=== PATIENT | female | born 1940 | race Caucasian/White ===

== ENCOUNTER 2024-03-13 22:37 | Inpatient (IN) | payer OTHER, MEDICARE, SELFPAY ==
[2024-03-13 22:47] VITALS: PULSE 92; RESP 20; O2SAT 96; BMI 18.1
[2024-03-13 22:49] VITALS: BP 189/83; PULSE 99; RESP 18; TEMP 36.7; O2SAT 100
[2024-03-13 23:19] VITALS: BP 200/109; PULSE 104; RESP 16; O2SAT 96
[2024-03-13 23:30] VITALS: BP 195/112; PULSE 98; RESP 28; O2SAT 99
--- NOTE | 2024-03-13 23:48 | XR_ITS ---
Examination: AP chest single view Technique: AP portable upright chest single view Exam date and time: March 13, 2024 11:55 PM Indications: Onset shortness of breath today. Findings: Extensive bilateral lung opacity consistent with pneumonia Mild enlargement cardiac contour Prominent vascular congestion Moderate osteopenia Impression: Extensive bilateral pneumonia Suspicious for mild associated heart failure
[2024-03-14] VITALS (34 sets, daily range): BP systolic 159–197; BP diastolic 78–139; PULSE 75–101; RESP 18–38; TEMP 36.4–36.9; O2SAT 92–100; BMI 18.1
[2024-03-14 00:53] LABS: Basophils # (Auto) 0.1 Thou/mm3 (0.0-0.2); Basophils % (Auto) 1 % (0-2.5); Eosinophils # (Auto) 0.2 Thou/mm3 (0.0-0.5); Eosinophils % (Auto) 3 % (0-10); Hematocrit 29.9 % (36.0-46.0); Hemoglobin 9.5 g/dL (12.0-16.0); Immature Granulocytes % (Auto) 1 % (0-0); Immature Granulocytes Auto 0.06 Thou/mm3 (0.00-0.00); Lymphocytes # (Auto) 0.9 Thou/mm3 (1.0-4.8); Lymphocytes % (Auto) 11 % (10-50); Mean Corpuscular HGB Conc 31.8 g/dl (31.0-37.0); Mean Corpuscular Hemoglobin 23.6 pg (25.0-35.0); Mean Corpuscular Volume 74 fL (80-100); Monocytes # (Auto) 0.7 Thou/mm3 (0.0-0.8); Monocytes % (Auto) 8 % (0-12); Neutrophils # (Auto) 6.3 Thou/mm3 (1.8-7.7); Neutrophils % (Auto) 77 % (37-80); Nucleated Red Blood Cell % 0 /100 WBC (0); Platelet Count 422 Thou/mm3 (140-440); RDW Standard Deviation 44.6 fL (36.4-46.3); Red Blood Count 4.02 Miln/mm3 (4.00-5.20); White Blood Count 8.2 Thou/mm3 (3.6-11.0)
[2024-03-14 01:31] LABS: Albumin/Globulin Ratio 1.8 (1.2-2.2); Alkaline Phosphatase 81 U/L (46-116); Anion Gap 9 (7-16); Aspartate Amino Transferase 22 U/L (0-34); BUN/Creatinine Ratio 25 Ratio (12-20); Bilirubin,Total 0.4 mg/dL (0.3-1.2); Blood Urea Nitrogen 27 mg/dL (9-23); Carbon Dioxide 22.5 mMol/L (20.0-31.0); Chloride 106 mMol/L (98-107); Creatinine (Component) 1.1 mg/dL (0.6-1.3); Estimated Creatinine Clearance 26.6 mL/min (>60); Globulin 2.2 gm/dL (2.3-3.5); Glucose 134 mg/dL (74-106); Osmolality,Calculated 280 (275-295); Potassium 3.9 mMol/L (3.4-5.1); Sodium 137 mMol/L (136-145); Total Protein 6.2 gm/dL (5.7-8.2); eGFR 50 See Note
[2024-03-14 01:35] LABS: Alanine Aminotransferase 10 U/L (10-49)
--- NOTE | 2024-03-14 02:08 | EDNOTE_ITS ---
ED SOB =RME/HPI General Chief Complaint: Shortness of Breath/Dyspnea Stated Complaint: SOB Time Seen by Provider: 03/14/24 02:08 Arrival date/time: 03/13/24 22:37 RME / HPI RME / HPI Narrative: Dr. Ray's Main ED Evaluation: 83yo female with pmhx HTN BIBA from home presents to the ED for a chief complaint of shortness of breath x 1 day. Patient states she was trying to go to sleep tonight when she felt her shortness of b reath worsen and was concerned, so she called 911 to come in for evaluation. She reports an associated mild cough. She denies any chest pain, hemoptysis, sweating, fever, chills, abdominal pain, UTI symptoms, headache, dizziness or any other associated symptoms. Denies any tobacco or alcohol use. Patient states she is allergic to her 7 cats. Patient is not normally on oxygen at home. PCP: Dr. Francoise Campos Related Data Home Medications ?Medication ?Instructions ?Recorded ?Confirmed labetalol 200 mg tablet 200 mg PO BID 09/28/22 09/28/22 loratadine 10 mg tablet 10 mg PO DAILY 09/28/22 09/28/22 montelukast 10 mg tablet 10 mg PO DAILY 09/28/22 09/28/22 sertraline 100 mg tablet 100 mg PO DAILY 09/28/22 09/28/22 Allergies Allergy/AdvReac Type Severity Reaction Status Date / Time ciprofloxacin Allergy Severe NAUSEA/VOMI Verified 09/28/22 12:24 TING Sulfa (Sulfonamide Allergy Severe Rash Verified 09/28/22 12:24 Antibiotics) Review of Systems Review of Systems Systems Reviewed: All systems reviewed, normal except as documented Narrative Review of Systems: Gen: No fever, no chills, no weight loss EYES: No discharge, no visual changes, no pain HEENT: No ear pain, no congestion, no sore throat PULM: + shortness of breath, + cough, no congestion CV: No chest pain, no dyspnea on exertion, no palpitations GI: No nausea, no vomiting, no diarrhea, no pain, no constipation : No frequency, no urgency, no dysuria Musc/skel: No joint pain, no back pain Skin: No rash. Warm and dry. Psyc: No hallucinations, no depression Heme/Lymph: No easy bleeding or bruising tendencies Neuro: No weakness, no headache Past Medical History Past Medical History NEUROLOGIC: Positive Neurological Disorders; Negative Seizures CARDIAC: Positive Cardiac Disorders, Hypercholesterolemia and Hypertension; Negative Congestive Heart Failure RESPIRATORY: Negative Chronic Obstructive Pulmonary Disease (COPD) GASTROINTESTINAL: Positive Gastroesophageal Reflux Disease; Negative Gastrointestinal Disorders GENITOURINARY: Positive Genitourinary Disorders; Negative Renal Disease REPRODUCTIVE: Positive Previous Pregnancies MUSCULOSKELETAL: Positive Musculoskeletal Disorders and Rheumatoid Arthritis ENT: Positive Cataracts ENDOCRINE: Positive Endocrine Disorders and Hyperthyroidism; Negative Diabetes Mellitus Type 1 or Diabetes Mellitus Type 2 HEMATOLOGIC: Negative Blood Disorders PSYCHO/SOCIAL: Positive Psychiatric Problems, Depression and Anxiety OTHER HISTORY: Positive Chicken Pox; Negative Blood Transfusions, Anesthesia Reactions, Organ Transplant, MRSA, VRSA, Vancomycin-Resistant Enterococci or Cancer Family History FAMILY HISTORY: Negative Family Cardiac Disorders Surgical History SURGICAL: Positive Ear Surgery, Nose Surgery, Abdominal Surgery, Hysterectomy and Section; Negative Cardiac Surgery, Endocrine Surgery, Nephrectomy, Joint Replacement, Neurologic Surgery or Organ Transplant Social History SMOKING STATUS: Never smoker SECOND HAND EXPOSURE: No SUBSTANCE USE: does not use ED Exam Narrative Physical exam: GEN. APPEARANCE: Patient is alert awake oriented x3 under no distress, laying down comfortably at 30-45?; does not look ill/ toxic. Patient has good eye contact. Patient is cooperative. VITALS: All vitals were reviewed and the pulse ox is 97% on 2L, which is normal according to my interpretation. HEENT: Normocephalic, atraumatic and nontender. Pupils are equal and reactive to light and accommodation. Oral mucosa are moist. NECK: Supple, nontender, no meningismus, no JVD. CHEST: Nontender on palpation, no deformity and no crepitus. CARDIOVASCULAR: Heart regular rhythm no murmur or gallop rub or extra beats; tachycardic. LUNGS: There's significant crackles bilaterally, L>R. There's some laboring, but no tachypnea or wheezing. No intercostal subcostal retraction. ABDOMEN: Soft, flat, nontender at all, no guarding or rebound tenderness. There are no abnormal masses palpated. No pulsatile masses or bruits. Active and normal bowel sounds. GENITALIA: Not examined. RECTAL EXAM: Not done. EXTREMITIES: Nontender. No edema. No cyanosis. Patient has a significant deformity of her left hand due to RA. Patient is able to move all 4 extremities well. SKIN: Warm and dry, no rashes noted. MUSCULOSKELETAL: No lumbar or midline bony tenderness. There is no CVA tenderness. No paraspinal muscle spasm or tenderness. NEURO: Cranial nerves II through XII grossly intact. There is no focalization. GCS is 15. PSYCHIATRIC: Patient is in normal mood and affect, cooperative. LYMPHATICS: No major lymphadenopathy noted. Course Course Course Narrative: CXR is ordered for determining the etiology of shortness of breath. 0210: Sepsis alert initiated. Orders made at this time are congruent with ED Adult Sepsis Order List. Re-evaluation is to be completed. NS IVF ordered. Quality Measures Possible source: pulmonary Blood cultures ordered: completed in ED Antibiotic ordered: Yes Pertinent labs: 03/14/24 02:40 Lactic Acid 1.2 mMol/L (0.4-2.0) Procalcitonin 0.14 ng/ml (0.0-0.49) sepsis Orders Category Date Time Status Bedside COVID-19 Antigen Test NOW Care 03/14/24 00:08 Active Bedside Influenza A&B Antigen Test NOW Care 03/14/24 00:09 Completed COVID-19 Screening Questionnaire NOW Care 03/14/24 02:40 Active Decision to Admit X1 Care 03/14/24 02:40 Completed EKG (ED ONLY) *Do not use* NOW Care 03/14/24 00:09 Completed EKG (ED Only) Stat Exams 03/14/24 00:09 Ordered XR chest 1V portable Stat Exams 03/13/24 23:48 Completed BNP [B-Type Natriuretic Peptide] Stat Lab 03/14/24 02:40 Completed Basic Metabolic Panel Stat Lab 03/14/24 02:40 Completed Blood Culture (Lab) Stat Lab 03/14/24 02:40 Received CBC Stat Lab 03/14/24 00:37 Completed Comprehensive Metabolic Panel Stat Lab 03/14/24 00:37 Completed Lactate (Lactic Acid) Stat Lab 03/14/24 02:40 Completed Lipid Panel Stat Lab 03/14/24 02:40 Completed Magnesium Stat Lab 03/14/24 02:40 Completed Phosphorous Stat Lab 03/14/24 02:40 Completed Procalcitonin Stat Lab 03/14/24 02:40 Completed Troponin I Stat Lab 03/14/24 02:40 Completed UA, C/S IF [Urinalysis, C/S if Indicated] Stat Lab 03/14/24 06:33 Completed Urine Culture Stat Lab 03/14/24 06:33 Received Azithromycin Inj [Zithromax Inj] 500 mg Med 03/14/24 02:13 Discontinued Sodium Chloride 0.9% 250 ml [Ns] 250 ml IV X1 Sodium Chloride 0.9% 1000 ml [Ns] 1,000 ml Med 03/14/24 02:13 Discontinued IV 999 mls/hr cefTRIAXone/D5w 1gm IV premix [Rocephin/D5w 1gm IV Med 03/14/24 02:15 Discontinued premix] 50 ml IV X1 Vital Signs Vital signs: Vital Signs Temperature 98.0 F 03/13/24 22:49 Pulse Rate 99 03/13/24 22:49 Respiratory Rate 18 03/13/24 22:49 Blood Pressure 189/83 H 03/13/24 22:49 Pulse Oximetry (%) 100 03/13/24 22:49 Oxygen Delivery Method Nasal Cannula 03/13/24 22:49 Oxygen Flow Rate 6 03/13/24 22:49 Procedures -ED EKG Interpretation #1: Date of EK03/14/24 Rate: 95 Interpretation: Interpreted by me EKG Impression: Normal sinus rhythm, [place] deviation, PACs, No acute ST-T changes and No ischemic changes Additional EKG comment: LVH with strain. Borderline left axis deviation. Poor R wave progression in anterior leads with possible old anterior wall [place]. Shortness of Breath / Dyspnea MDM Narrative MDM Narrative:: Scribe Attestation: 03/14/24 - Linda Swain am scribing for and in the presence of Dr. Ray. Patient was brought in by ambulance from home due to shortness of breath and they found that her pulse ox was 80% on room air at the scene. Patient states that she lives alone with 7 cats and she has been short of breath for about 24 to 36 hours. She denies any chest pain. She does not have dry cough but no hemoptysis. She denies any sweating or fever or chills. She denies any abdominal pain or UTI symptoms. She denies any headache or dizziness or any fall or injuries or loss of consciousness. She has significant rheumatoid arthritis and also history of hypertension but no diabetes and she never had shortness of breath like this in the past. She denies any leg swelling or PND orthopnea. Looking at her old records, patient was here on 11/10/2023 but she was discharged home. Today, she has significant crackles in both bases especially on the left side with mild laboring but no tachypnea on oxygen nasal cannula. I added some lab work on her and gave her a liter of fluid which will be more than 20 cc/kg because she weighs only 43 and half kilograms. I ordered Rocephin and Zithromax both IV and we will give her a breathing treatment as well. Patient needs to be admitted to the hospital due to the intensity of her pneumonia and a chest x-ray as well as hypoxemia. I discussed this case with Dr. Lucero, PGY2, who will admit her to the hospital. Provider Notation: Although this document has been carefully reviewed, there may still be some phonetic and other typographical errors. These errors are purely grammatical due to imperfections in the software program and should not be construed in any way to compromise the substance of the patient's medical care during this visit. Patient data External records reviewed:: [facility] previous records (Per chart review, patient was seen here on 04/21/22 for anxiety.) Clinical information provided by:: patient Social determinants that could affect healthcare access:: none Patient has the following chronic illnesses:: HTN, HLD, GERD, hyperthyroidism How is presenting disease/condition affected by chronic disease/condition?: uneffected by Evaluation data The following diagnostics were reviewed and interpreted by me:: lab results, radiology exam(s) and EKG tracing(s) Lab and/or radiology exams considered but not ordered:: none Interpretation Summary: See above under MDM narrative. ---- [place] [facility] Report Signed Patient: MAJOR HART [facility] Record#: [id number] Birthdate: 1940 Age/Sex: 83 / F Location: [facility] Attending Dr: Ordering Physician: Mu Ray MD Date of Service: 03/13/24 Procedure(s): XR chest 1V portable Accession Number(s): [id number] cc: Mu Ray MD; Carlos Leung MD~ Examination: AP chest single view Technique: AP portable upright chest single view Exam date and time: March 13, 2024 11:55 PM Indications: Onset shortness of breath today. Findings: Extensive bilateral lung opacity consistent with pneumonia Mild enlargement cardiac contour Prominent vascular congestion Moderate osteopenia Impression: Extensive bilateral pneumonia Suspicious for mild associated heart failure Dictated By: Carlos Leung MD Signed By: <Electronically signed by Carlos Leung MD in OV> 03/14/24 0001 Medications / Prescriptions Medications or Prescriptions considered but not ordered:: none Medication administrations:: Medication Administration History Acetaminophen (Acetaminophen 325 Mg Tablet) 650 mg PO Q6H PRN PRN Reason: PAIN OR FEVER > 101 Stop: 04/13/24 02:59 Albuterol/Ipratropium (Albuterol/Ipratropium (Duoneb) Rt Rissa 3 Ml Nebu) 3 ml INH Q6HRRT EMPERATRIZ Stop: 04/13/24 18:14 Azithromycin (Azithromycin 250 Mg Tablet) 500 mg PO HS EMPERATRIZ Stop: 03/21/24 20:59 Furosemide (Furosemide Inj 10 Mg/Ml 4ml Vial) 40 mg IVP QDAY EMPERATRIZ Stop: 04/14/24 08:59 Heparin Sodium (Porcine) (Heparin Sod Inj 5000 Unit/Ml Vial) 5,000 unit SC Q12HR EMPERATRIZ Stop: 03/28/24 08:59 Last Admin: 03/14/24 08:32 Dose: 5,000 unit Documented By: SP Co-signed By: Hydralazine HCl (Hydralazine Inj 20 Mg/Ml Vial) 10 mg IV Q6HR PRN PRN Reason: SBP > 160 Stop: 04/13/24 11:28 Last Admin: 03/14/24 14:36 Dose: 10 mg Documented By: SELVIN Ceftriaxone Sodium/Dextrose (Rocephin/D5w 1gm Iv Premix) 50 mls @ 100 mls/hr IV HS EMPERATRIZ Stop: 03/21/24 20:59 Labetalol HCl (Labetalol 100 Mg Tablet) 100 mg PO BID EMPERATRIZ Stop: 04/13/24 04:39 Last Admin: 03/14/24 04:45 Dose: 100 mg Documented By: DIANNA Lisinopril (Lisinopril 2.5 Mg Tablet) 10 mg PO QDAY EMPERATRIZ Stop: 04/13/24 18:14 Ondansetron HCl (Ondansetron Inj 2 Mg/Ml Inj 2 Ml) 4 mg IV Q6H PRN; Protocol PRN Reason: NAUSEA OR VOMITING Stop: 04/13/24 02:59 Pantoprazole Sodium (Pantoprazole 40 Mg Tablet) 40 mg PO QDAY EMPERATRIZ Stop: 04/13/24 08:59 Last Admin: 03/14/24 08:32 Dose: 40 mg Documented By: SELVIN Sertraline HCl (Sertraline Hcl 25 Mg Tablet) 100 mg PO HS EMPERATRIZ Stop: 04/13/24 20:59 Discontinued Medications Albuterol/Ipratropium (Albuterol/Ipratropium (Duoneb) Rt Rissa 3 Ml Nebu) 3 ml INH Q6HRRT EMPERATRIZ Stop: 04/13/24 12:59 Albuterol/Ipratropium (Albuterol/Ipratropium (Duoneb) Rt Rissa 3 Ml Nebu) 3 ml INH Q6HRRT PRN PRN Reason: sob or wheeze Stop: 04/13/24 12:59 Last Admin: 03/14/24 09:41 Dose: 3 ml Documented By: MONI Azithromycin (Azithromycin 250 Mg Tablet) 250 mg PO HS EMPERATRIZ Stop: 03/21/24 20:59 Furosemide (Furosemide Inj 10 Mg/Ml 4ml Vial) 40 mg IVP X1 ONE Stop: 03/14/24 05:48 Last Admin: 03/14/24 06:14 Dose: 40 mg Documented By: DIANNA Sodium Chloride (Ns) 1,000 mls @ 999 mls/hr IV .Q1H1M ONE Stop: 03/14/24 03:13 Last Infusion: 03/14/24 04:28 Dose: Infused Documented By: Admin: 03/14/24 03:21 Dose: 999 mls/hr Documented By: DIANNA Ceftriaxone Sodium/Dextrose (Rocephin/D5w 1gm Iv Premix) 50 mls @ 100 mls/hr IV X1 ONE Stop: 03/14/24 02:44 Last Infusion: 03/14/24 04:07 Dose: Infused Documented By: Admin: 03/14/24 03:00 Dose: 100 mls/hr Documented By: DIANNA Azithromycin 500 mg/ Sodium (Chloride) 250 mls @ 250 mls/hr IV X1 ONE Stop: 03/14/24 03:12 Last Infusion: 03/14/24 04:27 Dose: Infused Documented By: Admin: 03/14/24 03:22 Dose: 250 mls/hr Documented By: DIANNA Lorazepam (Lorazepam 0.5 Mg Tablet) 1 mg PO X1 ONE Stop: 03/14/24 04:28 Last Admin: 03/14/24 04:30 Dose: 1 mg Documented By: DIANNA Sodium Chloride (Sodium Chloride Rt 10% 15 Ml Nebu) 5 ml INH X1 ONE Stop: 03/14/24 03:01 Last Admin: 03/14/24 04:10 Dose: 5 ml Documented By: FYS see above, if any Consultations Consultation(s) initiated? (list below): Yes Diagnosis Shortness of Breath Differential Diagnosis: congestive heart failure, community acquired pneumonia, pulmonary embolism and other (CAD, pneumothorax) Most likely diagnosis given after review of the tests above:: see below Admission Indicated Admission indicated?: indicated Admission Request Was there a request for admission?: Yes Admission Attestation Admission request attestation: Discussed case with [] from Hospitalist service regarding admission. Discussed patients ED course, exam findings, labs, and radiology results. The Hospitalist [agrees,declines] to accept the patient for admission. Disposition Plan Disposition Plan: Admit Discharge Plan Plan Patient Disposition: Admit Acute Care w/in Hospital Problem List Clinical Impression: Shortness of breath, Hypoxemia, Bilateral pneumonia
[2024-03-14 02:57] LABS: Lactate (Lactic Acid) 1.2 mMol/L (0.4-2.0)
[2024-03-14] MEDS: cefTRIAXone/D5w 1gm IV premix 50 ML IV ×2 (03:00→22:55)
--- NOTE | 2024-03-14 03:08 | ESHP_ITS ---
<Statement entered by Glen Torrez MD - 03/14/24 09:15> I was present for the essential components of the history, physical examination, diagnosis, and treatment plan with the resident. I have reviewed the documentation, discussed the case with the resident and agree with the patient's care as documented by the resident. High risk complex - 75 mins. Glen Torrez MD Documentation for date of: 03/14/24 HPI History of Present Illness History of present illness: Janae Garcia is an 83-year-old female with a past medical history of hypertension and depression who presents to the ED with shortness of breath. Patient states that she has had SOB for the last week but has gotten worse within the last few days. Denies fever, chills, sweats, N/V, or abdominal pain. She does endorse PND but no orthopnea or bilateral lower extremity edema. She follows keg raiser Dr. Hutchins in [place], but has not seen him in a while but does have an appointment sometime this month. To her knowledge, she has never been told that she has heart failure. Last echo was done in 2021 that showed EF 60% with mild LVH and moderate aortic regurgitation. ED course: BP 189/83 -> 159/104, RR 22, O2 98% on 3L NC COVID and flu negative, WBC wnl, procal wnl, lactate wnl, trop 0.1, BNP > 3,000 CXR showed extensive b/l opacities and significant vascular congestion In ED given ceftriaxone and azithromycin x1, 1 L NS bolus PMHx: hypertension, depression Medications: sertraline, alendronate, labetolol SHx: denies cigarette, alcohol, or illicit drug use Review of Systems Review of Systems Systems Reviewed: All systems reviewed, normal except as documented Exam Vital Signs Temp Pulse Resp BP Pulse Ox O2 Del Method O2 Flow Rate 98.0 F 101 H 30 H 176/78 H 97 Nasal Cannula 6 03/13/24 22:49 03/14/24 02:03 03/14/24 02:03 03/14/24 02:03 03/14/24 02:03 03/13/24 22:49 03/13/24 22:49 Narrative Exam General: AOx3, no acute distress, able to speak full sentences HEENT: NC/AT, mucous membranes moist, bilateral sclera anicteric Cardiovascular: regular rate and rhythm, S1/S2 present, no murmurs appreciated Pulmonary: crackles from mid to lower lung coffman bilaterally Abdominal: soft, non-tender, non-distended, no rebound/guarding, normal bowel sounds present Musculoskeletal: normal ROM, no peripheral edema Skin: warm and dry, intact, no rashes Neuro: CN II-XII intact, no focal deficits Results: Labs 03/14/24 02:40 03/14/24 02:40 Labs: Short CBC 03/14/24 Range/Units 00:37 WBC 8.2 (3.6-11.0) Thou/mm3 Hgb 9.5 L (12.0-16.0) g/dL Hct 29.9 L (36.0-46.0) % Plt Count 422 (140-440) Thou/mm3 BMP 03/14/24 00:37 Sodium 137 Potassium 3.9 Chloride 106 Carbon Dioxide 22.5 BUN 27 H Creatinine 1.1 Glucose 134 H Calcium 9.0 Liver Function 03/14/24 Range/Units 00:37 Total Bilirubin 0.4 (0.3-1.2) mg/dL AST 22 (0-34) U/L ALT 10 (10-49) U/L Alkaline Phosphatase 81 (46-116) U/L Albumin 4.0 (3.4-4.8) gm/dL Quality Measures Quality Measures sepsis Current suspected stage: sepsis Possible source: pulmonary Blood cultures ordered: yes Antibiotic ordered: Yes Advance care planning discussed with:: patient Medications Home Medications and Allergies Home Medications ?Medication ?Instructions ?Recorded ?Confirmed ?Type labetalol 200 mg tablet 200 mg PO BID 09/28/22 09/28/22 History loratadine 10 mg tablet 10 mg PO DAILY 09/28/22 09/28/22 History montelukast 10 mg tablet 10 mg PO DAILY 09/28/22 09/28/22 History sertraline 100 mg tablet 100 mg PO DAILY 09/28/22 09/28/22 History Allergies Allergy/AdvReac Type Severity Reaction Status Date / Time ciprofloxacin Allergy Severe NAUSEA/VOMI Verified 09/28/22 12:24 TING Sulfa (Sulfonamide Allergy Severe Rash Verified 09/28/22 12:24 Antibiotics) Visit Medications Acetaminophen (Acetaminophen 325 Mg Tablet) 650 mg PO Q6H PRN PRN Reason: PAIN OR FEVER > 101 Stop: 04/13/24 02:59 Heparin Sodium (Porcine) (Heparin Sod Inj 5000 Unit/Ml Vial) 5,000 unit SC Q12HR EMPERATRIZ Stop: 03/28/24 08:59 Sodium Chloride (Ns) 1,000 mls @ 999 mls/hr IV .Q1H1M ONE Stop: 03/14/24 03:13 Azithromycin 500 mg/ Sodium (Chloride) 250 mls @ 250 mls/hr IV X1 ONE Stop: 03/14/24 03:12 Ceftriaxone Sodium/Dextrose (Rocephin/D5w 1gm Iv Premix) 50 mls @ 100 mls/hr IV QDAY EMPERATRIZ Stop: 03/22/24 08:59 Azithromycin 250 mg/ Sodium (Chloride) 250 mls @ 250 mls/hr IV QDAY EMPERATRIZ Stop: 03/22/24 08:59 Ondansetron HCl (Ondansetron Inj 2 Mg/Ml Inj 2 Ml) 4 mg IV Q6H PRN; Protocol PRN Reason: NAUSEA OR VOMITING Stop: 04/13/24 02:59 Pantoprazole Sodium (Pantoprazole 40 Mg Tablet) 40 mg PO QDAY EMPERATRIZ Stop: 04/13/24 08:59 Discontinued Medications Ceftriaxone Sodium/Dextrose (Rocephin/D5w 1gm Iv Premix) 50 mls @ 100 mls/hr IV X1 ONE Stop: 03/14/24 02:44 Sodium Chloride (Sodium Chloride Rt 10% 15 Ml Nebu) 5 ml INH X1 ONE Stop: 03/14/24 03:01 Assessment & Plan Plan Janae Garcia is an 83-year-old female with a past medical history of hypertension and depression who presents to the ED with shortness of breath and admitted for AHRF secondary to new onset CHF vs PNA. #Acute hypoxic respiratory failure, secondary to # ? New onset CHF, versus #Sepsis, secondary to #Community acquired pneumonia #Elevated troponins #NSTEMI type II, demand ischemia Presents with shortness of breath for last few days. No fever, chills, sweats. Does report PND but no orthopnea or bilateral lower extremity swelling. SIRS 2/4: HR 99, RR 30. Source: PNA -> sepsis. No fever, leukocytosis, Pro-Seth WNL, lactate WNL. BMP 3280, troponin 0.1. CXR shows extensive bilateral lung opacities and prominent vascular congestion. Favor new onset CHF vs PNA vs concominant disease processes. ? Lasix 40 mg IV daily ? Follow-up echo ? Daily weights, strict I's and O's, fluid restriction (1.5 L/day) ? Ceftriaxone and azithromycin ? Follow-up blood culture and sputum culture #Hypertension ? Labetalol 100 mg p.o. twice daily Hospital management: Disposition: 2-3 hospital nights Fluids: deferred, possible CHF Diet: regular Lines: peripheral DVT prophylaxis: heparin SC BID GI prophylaxis: pantoprazole 40 mg PO BID CODE STATUS: full code ----- Plan discussed with attending physician Dr. Shan Longo MD PGY-1 Internal Medicine
[2024-03-14] MEDS: SODIUM CHLORIDE 0.9% 1000 ML 1,000 ML 999 ML IV (03:21)
[2024-03-14] MEDS: AZITHROMYCIN INJ 500 MG in SODIUM CHLORIDE 0.9% 250 ML 250 ML 250 MG IV (03:22)
[2024-03-14 03:26] LABS: B-Type Natriuretic Peptide > 3280 pg/mL (0-100)
[2024-03-14 03:32] LABS: Basophils % (Auto) 1 % (0-2.5); Eosinophils # (Auto) 0.2 Thou/mm3 (0.0-0.5); Eosinophils % (Auto) 2 % (0-10); Hematocrit 30.2 % (36.0-46.0); Hemoglobin 9.8 g/dL (12.0-16.0); Immature Granulocytes % (Auto) 1 % (0-0); Immature Granulocytes Auto 0.05 Thou/mm3 (0.00-0.00); Lymphocytes # (Auto) 1.2 Thou/mm3 (1.0-4.8); Lymphocytes % (Auto) 15 % (10-50); Mean Corpuscular HGB Conc 32.5 g/dl (31.0-37.0); Mean Corpuscular Hemoglobin 24.4 pg (25.0-35.0); Mean Corpuscular Volume 75 fL (80-100); Monocytes # (Auto) 0.6 Thou/mm3 (0.0-0.8); Monocytes % (Auto) 8 % (0-12); Neutrophils # (Auto) 5.9 Thou/mm3 (1.8-7.7); Neutrophils % (Auto) 74 % (37-80); Nucleated Red Blood Cell % 0 /100 WBC (0); Platelet Count 327 Thou/mm3 (140-440); RDW Standard Deviation 44.4 fL (36.4-46.3); Red Blood Count 4.02 Miln/mm3 (4.00-5.20)
[2024-03-14 04:00] LABS: Anion Gap 9 (7-16); BUN/Creatinine Ratio 24 Ratio (12-20); Blood Urea Nitrogen 26 mg/dL (9-23); Carbon Dioxide 22.2 mMol/L (20.0-31.0); Cardiac Risk Estimate 3.2 RATIO (3.7-5.6); Chloride 106 mMol/L (98-107); Cholesterol 136 mg/dL (132-200); Creatinine (Component) 1.1 mg/dL (0.6-1.3); Estimated Creatinine Clearance 26.6 mL/min (>60); Glucose 131 mg/dL (74-106); HDL Cholesterol 42 mg/dL (40-60); LDL Cholesterol,Calculated 69 mg/dL (0-130); Magnesium 1.8 mg/dL (1.6-2.6); Osmolality,Calculated 280 (275-295); Phosphorous 2.7 mg/dL (2.4-5.1); Potassium 3.9 mMol/L (3.4-5.1); Procalcitonin 0.14 ng/ml (0.0-0.49); Sodium 137 mMol/L (136-145); Triglycerides 127 mg/dL (30-150); eGFR 50 See Note
[2024-03-14] MEDS: SODIUM CHLORIDE RT 10% 15 ML NEBU 5 ML INH (04:10)
[2024-03-14] MEDS: LORazepam 0.5 MG TABLET 1 MG PO (04:30)
[2024-03-14] MEDS: LABETALOL 100 MG TABLET PO ×2 (04:45→22:30)
--- NOTE | 2024-03-14 05:33 | ECHO_ITS ---
Transthoracic Echo Report Ht (in): 61 Wt (lb): 96 Exam Location: [facility] Status: Inpatient Tanning Consultant: Tere Zaidi Indications: Procedure Performed: BP: 168 / 83 HR: 95 Rhythm: Tachycardia Technical Quality: Fair MEASUREMENTS (Male / Female) Normal Values 2D ECHO LV Diastolic Diameter PLAX 4.5 cm 4.2 - 5.9 / 3.9 - 5.3 cm LV Systolic Diameter PLAX 3.6 cm IVS Diastolic Thickness 1.0 cm 0.6 - 1.0 / 0.6 - 0.9 cm LVPW Diastolic Thickness 1.0 cm 0.6 - 1.0 / 0.6 - 0.9 cm LV Relative Wall Thickness 0.5 LVOT Diameter 1.9 cm LA Volume Index 46.7 cm?/m? 16 - 28 cm?/m? Ascending Aorta Diameter 2.8 cm M-MODE Aortic Root Diameter MM 2.3 cm LA Systolic Diameter MM 4.2 cm LA Ao Ratio MM 1.8 AV Cusp Separation MM 1.7 cm DOPPLER AV Peak Velocity 173.5 cm/s AV Peak Gradient 12.0 mmHg AV Mean Gradient 5.0 mmHg AV Velocity Time Integral 28.9 cm AI Peak Velocity 425.0 cm/s AI Peak Gradient 72.3 mmHg AI Pressure Half Time 354.0 ms LVOT Peak Velocity 99.8 cm/s LVOT Peak Gradient 4.0 mmHg LVOT Velocity Time Integral 16.0 cm LVOT Cardiac Index 3161.3 cm?/min?m? AV Area Cont Eq vti 1.6 cm? AV Area Cont Eq pk 1.6 cm? MV Peak Velocity 135.0 cm/s MV Peak Gradient 7.3 mmHg MV Mean Velocity 74.9 cm/s MV Mean Gradient 3.0 mmHg MV Area PHT 4.3 cm? MR Peak Velocity 449.5 cm/s MR Peak Gradient 80.8 mmHg Mitral E Point Velocity 121.0 cm/s Mitral A Point Velocity 105.0 cm/s Mitral E to A Ratio 1.2 LV E' Lateral Velocity 8.7 cm/s Mitral E to LV E' Lateral Ratio 13.9 LV E' Septal Velocity 5.2 cm/s Mitral E to LV E' Septal Ratio 23.2 TR Peak Velocity 324.3 cm/s TR Peak Gradient 42.1 mmHg FINDINGS Left Ventricle Normal left ventricular size. Mild LVH. Mild systolic dysfunction. Mild hypokinesis septal wall. The ejection fraction is visually estimated at 40-45 %. Right Ventricle The right ventricle is normal in size and systolic function. The estimated right ventricular systoli c pressure, 68mmHg. RAP 10. Left Atrium The left atrium is mildly dilated. Right Atrium The right atrium is severely dilated. Atrial Septum The interatrial septum appears normal with no evidence of a shunt. Aorta The aorta is normal by two-dimensional, color flow and Doppler interrogation. Mitral Valve The mitral valve is normal by two-dimensional, color flow and Doppler interrogation. There is modera te mitral valve regurgitation. Aortic Valve The aortic valve is trileaflet and normal by two-dimensional, color flow and Doppler interrogation. There is moderate aortic valve regurgitation. Tricuspid Valve The tricuspid valve is normal by two-dimensional, color flow and Doppler interrogation. There is mil d tricuspid valve regurgitation. Pulmonic Valve There is trace pulmonic valve regurgitation. Vessels The pulmonary artery appears normal. The inferior vena cava pulmonary and hepatic veins appear david l. Pericardium The pericardium is normal by two-dimensional imaging. There is no significant pericardial effusion. CONCLUSIONS Indication: CHF and Severe SOB Normal LV size. Mild systolic dysfunction. Mild hypokinesis basal to mid Anterior and anteroseptal w alls. Mild LVH. Grade I diastolic dysfunction. Estimated EF 40-45% Normal RV size. Normal RV function. Estimated RVSP 68mmHg. Moderate to severe PAH. RAP 10. Mild LA dilation. Severe RA dilation Moderate MR, AI. Mild TR. Trace PI. IVC dilated. Mian Best (Electronically Signed) Final Date: 15 March 2024 18:45
[2024-03-14] MEDS: FUROSEMIDE INJ 10 MG/ML 4ML VIAL 40 MG IVP ×2 (06:14→22:39)
--- NOTE | 2024-03-14 06:23 | PC.RT ---
pt is not able to cough up sputum even with induction. she stated she had none
[2024-03-14 06:43] LABS: Collection Type, Urine Clean Catch
[2024-03-14 07:01] LABS: Amorphous Crystals,Urine Present (Absent); Bacteria,Urine Rare; Bilirubin,Urine Negative (Negative); Blood,Urine Negative (Negative); Clarity,Urine Clear (Clear/Hazy); Color,Urine Lt-Yellow (Lt Yel-Yel); Glucose, Urine Negative (Negative); Hyaline Casts,Urine < 1 /hpf (0-1); Ketones,Urine Negative (Negative); Leukocyte Esterase,Urine Positive (Negative); Nitrite,Urine Negative (Negative); Protein,Urine Trace (Neg - Trace); RBC,Urine 24 /hpf (0-3); Specific Gravity,Urine 1.018 (1.001-1.035); Squamous Epithelial Cell,Urine < 1 /hpf (0-5); Urobilinogen,Urine Negative mg/dL (0.0-1.0); WBC,Urine 11 /hpf (0-5)
[2024-03-14 07:04] LABS: Culture Indicated,Urine Yes
[2024-03-14] MEDS: HEPARIN SOD INJ 5000 UNIT/ML VIAL SC ×2 (08:32→22:44)
[2024-03-14] MEDS: PANTOPRAZOLE 40 MG TABLET PO (08:32)
--- NOTE | 2024-03-14 08:51 | PC.NURSE ---
RESP 32-36/MIN PATIENT ENCOURAGED TO SLOW DOWN BREATHING. O2 AT 3L VIA NC SAT 96%. DR LUNDBERG CALLED AND INFORMED. OF RESP RATE. NO RESP TX ORDERED. STATED WOULD PUT IN AN ORDER.
[2024-03-14] MEDS: ALBUTEROL/IPRATROPIUM (Duoneb) RT SOL 3 ML NEBU INH ×2 (09:41→19:59)
--- NOTE | 2024-03-14 10:25 | PC.NURSE ---
1015 DR LUNDBERG CALLED. INFORMED PATIENT REMAINS TACHYPNEIC AND SOB. PATIENT IS GETTING VERY TIRED AND WEAK FORM GETTING UP TO COMMODE FREQUENTLY. REQUESTING BLANCHARD CATH FOR ENERGY PRESERVATION AND PATIENT SAFETY.
--- NOTE | 2024-03-14 13:00 | PC.NURSE ---
PATIENT HAS BEEN FOUND SEVERAL TIMES AT FOOT OF BED TRYING TO GET UP TO THE COMMODE. SHE IS EXHAUSTD DO TO GETTING UP MULTIPLE TIMES AND ALSO BECAUSE SHE IS TACHYNEIC. SHE GETS ENTANGLED IN MONITORING CORDS. SHE HAS BEEN TOLD SEVERAL TIMES TO STAY IN BED FOR HER OWN SAFETY. SHE IS NOT BEING COMPLIANT. MAY BE DUE TO POOR MEMORY ALTHOUGH SHE HAS EXPRESSED THAT SHE IS VERY INDEPENDENT. SHE HAS AGREED TO STAY IN BED PUT THEN IS FOUND AT THE FOOT OF THE BED TRYING TO GET UP. CHARGE NURSE NOTIFIED OF SAFETY ISSUE AND AVASURE REQUESTED.
[2024-03-14] MEDS: hydrALAZINE INJ 20 MG/ML VIAL 10 MG IV (14:36)
--- NOTE | 2024-03-14 14:50 | ESPR_ITS ---
<Statement entered by Uriel Ortiz MD - 03/15/24 16:25> Senior Resident Attestation: I supervised/discussed management plan with resident physician Dr. Marks, and was involved in the care of this patient. I personally saw and examined the patient and discussed the assessment and plan with the entire medicine team, including my attending. I agree with the assessment and plan as documented. Patient's care was discussed with attending physician, Dr. Balwinder Ortiz MD PGY-3 Documentation for date of: 03/14/24 Subjective Subjective Interval history: Patient seen at bedside. She is an 83-year-old female with a past medical history of hypertension and depression who presented to the ED on 03/14/2024 with shortness of breath and PND gotten worse within the last few days. The patient reports that she has a new appointment to follow-up with a bar gauger and lubricator tender in [place] but is unable to explain or divulge the reason why she is in the bar gauger and lubricator tender. To her knowledge, she has never had any heart diseases or heart failure. In the ED, the patient was noted to be hypotensive and hypoxic, saturating 98% on 3 L via nasal cannula. COVID and flu serologies were negative and CBC was otherwise unremarkable, Trope was seen to be elevated at 0.1 and BNP greater than 3000. Chest x-ray showed extensive bilateral opacities and significant vascular congestion and the patient was admitted for management of acute hypoxic respiratory failure secondary to ?New onset CHF and sepsis secondary to community-acquired pneumonia Exam Vital Signs Temp Pulse Resp BP Pulse Ox O2 Del Method O2 Flow Rate 98.3 F 90 29 H 179/106 H 97 Nasal Cannula 3 03/14/24 14:23 03/14/24 14:36 03/14/24 14:23 03/14/24 14:36 03/14/24 14:23 03/14/24 14:23 03/14/24 14:23 Narrative Exam GENERAL: AAOX3 NEURO: SEALER OPERATOR grossly intact, moves extremities x4 HEENT: Dry mucosa. Eyes open, symmetrical, & clear, nasal cannula in-situ CARDIO: No chest pain on palpation. Heart RRR, no obvious murmurs PULM: No noted coughing, tachypneic. Mild crackles bilaterally, saturating 96% on 3L GI: Abdomen soft, nondistended, no pain on palpation. BSx4 URO/CORDWOOD CUTTER:: No further abnormalities noted. SKIN/MSK/EXT: No wounds/rashes/edema/amputations, no pain on palpation. Pedal pulses present B/L Objective Labs 03/14/24 02:40 03/14/24 02:40 Labs: Laboratory Results - last 24 hr 03/14/24 03/14/24 03/14/24 00:37 02:40 06:33 WBC 8.2 8.0 RBC 4.02 4.02 Hgb 9.5 L 9.8 L Hct 29.9 L 30.2 L MCV 74 L 75 L MCH 23.6 L 24.4 L MCHC 31.8 32.5 RDW Std Deviation 44.6 44.4 Plt Count 422 327 D Neut % (Auto) 77 74 Lymph % (Auto) 11 15 Reynolds % (Auto) 8 8 Eos % (Auto) 3 2 Baso % (Auto) 1 1 Neut # (Auto) 6.3 5.9 Lymph # (Auto) 0.9 L 1.2 Reynolds # (Auto) 0.7 0.6 Eos # (Auto) 0.2 0.2 Baso # (Auto) 0.1 0.0 Immature Gran # (Auto) 0.06 H 0.05 H Absolute Nucleated RBC 0.00 0.00 Immature Gran % 1 H 1 H Nucleated RBC % 0 0 Sodium 137 137 Potassium 3.9 3.9 Chloride 106 106 Carbon Dioxide 22.5 22.2 Anion Gap 9 9 BUN 27 H 26 H Creatinine 1.1 1.1 Estim Creat Clear Calc 26.6 L 26.6 L eGFR 50 L 50 L BUN/Creatinine Ratio 25 H 24 H Glucose 134 H 131 H Calculated Osmolality 280 280 Lactic Acid 1.2 Calcium 9.0 9.0 Corrected Calcium 9.0 Phosphorus 2.7 Magnesium 1.8 Total Bilirubin 0.4 AST 22 ALT 10 Alkaline Phosphatase 81 Troponin I 0.100 H* B-Natriuretic Peptide > 3280 H* Total Protein 6.2 Albumin 4.0 Globulin 2.2 L Albumin/Globulin Ratio 1.8 Triglycerides 127 Cholesterol 136 LDL Cholesterol, Calc 69 HDL Cholesterol 42 Cholesterol/HDL Ratio 3.2 L Procalcitonin 0.14 Ur Collection Type Clean Catch Urine Color Lt-Yellow Urine Clarity Clear Urine pH 6.0 Ur Specific [place] 1.018 Urine Protein Trace Urine Glucose (UA) Negative Urine Ketones Negative Urine Blood Negative Urine Nitrite Negative Urine Bilirubin Negative Urine Urobilinogen (Auto) Negative Ur Leukocyte Esterase Positive Urine RBC 24 H Urine WBC 11 H Ur Squamous Epith Cells < 1 Amorphous Crystals Present A Urine Bacteria Rare Hyaline Casts < 1 Ur Culture Indicated? Yes 03/14/24 12:19 WBC RBC Hgb Hct MCV MCH MCHC RDW Std Deviation Plt Count Neut % (Auto) Lymph % (Auto) Reynolds % (Auto) Eos % (Auto) Baso % (Auto) Neut # (Auto) Lymph # (Auto) Reynolds # (Auto) Eos # (Auto) Baso # (Auto) Immature Gran # (Auto) Absolute Nucleated RBC Immature Gran % Nucleated RBC % Sodium Potassium Chloride Carbon Dioxide Anion Gap BUN Creatinine Estim Creat Clear Calc eGFR BUN/Creatinine Ratio Glucose Calculated Osmolality Lactic Acid Calcium Corrected Calcium Phosphorus Magnesium Total Bilirubin AST ALT Alkaline Phosphatase Troponin I 0.120 H* B-Natriuretic Peptide Total Protein Albumin Globulin Albumin/Globulin Ratio Triglycerides Cholesterol LDL Cholesterol, Calc HDL Cholesterol Cholesterol/HDL Ratio Procalcitonin Ur Collection Type Urine Color Urine Clarity Urine pH Ur Specific [place] Urine Protein Urine Glucose (UA) Urine Ketones Urine Blood Urine Nitrite Urine Bilirubin Urine Urobilinogen (Auto) Ur Leukocyte Esterase Urine RBC Urine WBC Ur Squamous Epith Cells Amorphous Crystals Urine Bacteria Hyaline Casts Ur Culture Indicated? Quality Measures Quality Measures sepsis Current suspected stage: sepsis Possible source: pulmonary Blood cultures ordered: yes Antibiotic ordered: Yes Advance care planning discussed with:: patient Assessment & Plan Assessment Current Active Medications: Generic Name Dose Route Start Last Admin Trade Name Freq PRN Reason Stop Dose Admin Acetaminophen 650 mg 03/14/24 03:00 Acetaminophen 325 Mg Tablet PO 04/13/24 02:59 Q6H PRN PAIN OR FEVER > 101 Albuterol/Ipratropium 3 ml 03/14/24 09:35 03/14/24 09:41 Albuterol/Ipratropium (Duoneb) Rt Rissa 3 Ml Nebu INH 04/13/24 12:59 3 ml Q6HRRT PRN Administration sob or wheeze Azithromycin 500 mg 03/14/24 21:00 Azithromycin 250 Mg Tablet PO 03/21/24 20:59 HS EMPERATRIZ Furosemide 40 mg 03/15/24 09:00 Furosemide Inj 10 Mg/Ml 4ml Vial IVP 04/14/24 08:59 QDAY EMPERATRIZ Heparin Sodium (Porcine) 5,000 unit 03/14/24 09:00 03/14/24 08:32 Heparin Sod Inj 5000 Unit/Ml Vial SC 03/28/24 08:59 5,000 unit Q12HR EMPERATRIZ Administration Hydralazine HCl 10 mg 03/14/24 11:29 03/14/24 14:36 Hydralazine Inj 20 Mg/Ml Vial IV 04/13/24 11:28 10 mg Q6HR PRN Administration SBP > 160 Ceftriaxone Sodium/Dextrose 50 mls @ 100 mls/hr 03/14/24 21:00 Rocephin/D5w 1gm Iv Premix IV 03/21/24 20:59 HS EMPERATRIZ Labetalol HCl 100 mg 03/14/24 04:40 03/14/24 04:45 Labetalol 100 Mg Tablet PO 04/13/24 04:39 100 mg BID EMPERATRIZ Administration Ondansetron HCl 4 mg 03/14/24 03:00 Ondansetron Inj 2 Mg/Ml Inj 2 Ml IV 04/13/24 02:59 Q6H PRN NAUSEA OR VOMITING Protocol Pantoprazole Sodium 40 mg 03/14/24 09:00 03/14/24 08:32 Pantoprazole 40 Mg Tablet PO 04/13/24 08:59 40 mg QDAY EMPERATRIZ Administration Plan Summary: She is an 83-year-old female with a past medical history of hypertension and depression who presented to the ED on 03/14/2024 with shortness of breath and PND gotten worse within the last few days. The patient was admitted for management of acute hypoxic respiratory failure secondary to ?New onset CHF and sepsis secondary to community-acquired pneumonia #Acute hypoxic respiratory failure #?New onset CHF #Sepsis secondary community-acquired pneumonia She is an 83-year-old female with a past medical history of hypertension and depression who presented to the ED on 03/14/2024 with shortness of breath and PND gotten worse within the last few days. The patient reports that she has a new appointment to follow-up with a bar gauger and lubricator tender in [place] but is unable to explain or divulge the reason why she is in the bar gauger and lubricator tender. To her knowledge, she has never had any heart diseases or heart failure. In the ED, the patient was noted to be hypotensive and hypoxic, saturating 98% on 3 L via nasal cannula. COVID and flu serologies were negative and CBC was otherwise unremarkable, Trope was seen to be elevated at 0.1 and BNP greater than 3000. Chest x-ray showed extensive bilateral opacities and significant vascular congestion and the patient was admitted for management of acute hypoxic respiratory failure secondary to ?New onset CHF and sepsis secondary to community-acquired pneumonia. Plan: -Continue IV ceftriaxone and azithromycin -Continue IV Lasix 40 mg daily -Strict I&O's -Pending blood and sputum cultures -Pending echo -Cardiology consulted, appreciate recommendations #History of hypertension The patient at home is on labetalol 100 mg twice daily -Will restart home meds #History of depression The patient is on sertraline 100 mg daily -Restart home meds Health maintenance: Dispo: MedTele Diet: Cardiac GI: Pantoprazole DVT: SC Heparin Martinez: None Lines: Peripheral Med Rec: Pending, f/u PT: Code:Full Case was discussed with senior resident Dr Ortiz PGY-3 and attending physician, Dr Mik Marks MD PGY-1 Attending Provider Attestation/Addendum I reviewed labs, imaging, EKG, home medications and prior available records. Face to face evaluation was performed by me. I have personally examined the patient and discussed assessment and plan with the IM team. I reviewed the resident note and agree with the plan with exceptions as below. Acute hypoxic respiratory failure: In the setting of pneumonia versus new onset CHF. She is on 2 L nasal cannula. Management of the underlying conditions as below. Possible new onset CHF: Started IV diuresis. Ordered echocardiogram. Consulted cardiology. Bilateral pneumonia: Started the patient on ceftriaxone/azithromycin. Continue oxygen and wean off as tolerated. Elevated troponin: Likely demand ischemia in the setting of CHF versus pneumonia versus hypoxia. Continue to trend troponin. Continue telemetry.
--- NOTE | 2024-03-14 16:46 | PC.NURSE ---
pt arrived to or floor
--- NOTE | 2024-03-14 17:18 | PD.RESCONSUL ---
HPI Data of Consult Patient: new to practice Consult date: 03/14/24 Requesting Physician: Glen Torrez MD Admitting Provider: Glen Torrez MD Attending Provider: Glen Torrez MD Primary Care Provider: Jabier Campos MD Consult Narrative Reason for consult: SOB, Elevated Troponin and BNP History of present illness: HISTORY OF PRESENT ILLNESS : Patient is an 83-year-old female with a past medical history significant for essential hypertension, hyperlipidemia, TIA [2021], depression and GERD s/p Benjamin fundoplication with hiatal hernia repair [2017]. Follows up with PCP Dr Campos. Patient presented to the ED with a chief complaint of shortness of breath. Patient states that the shortness of breath started a couple nights ago and she had difficulty laying down to sleep but it acutely worsened last night. Endorses 1 pillow orthopnea but denies PND and lower extremity edema. She also experiences palpitations intermittently which can occur either at rest or on activity and spontaneously resolve on its own. Currently patient is not severe SOB on supplemental O2 and cannot complete sentences. Patient denies any chest pain/pressure. Also denies any presyncope/syncope and leg cramps. Patient also denies any cough, fever, chills, sick contacts and recent travel. Of note patient endorses close to 30 pounds weight loss over the last 2 years. Patient does not usually follow-up with her control chemist Last echocardiogram completed in [address] Brock Strickland findings include: Normal left ventricular size with mild LVH. LVEF 60%. normal cardiac chamber size mitral valve thickening with trace regurgitation moderate aortic valve regurgitation ED course: BP 189/83 -> 159/104, RR 22, O2 98% on 3L NC COVID and flu negative, WBC wnl, procal wnl, lactate wnl, trop 0.1, BNP > 3,000 CXR showed increased vascular markings bilaterally with flash pulmonary edema. EKG showed sinus rhythm, rate 95, LVH. In ED given ceftriaxone and azithromycin x1, 1 L NS bolus Patient was admitted for acute respiratory failure with hypoxia and cardiology was consulted to assess for possible new onset CHF. Medication list: ? Sertraline 100 Mg p.o. daily ? Cyclobenzaprine 5 Mg p.o. daily ? Alendronate 70 Mg p.o. weekly ? Montelukast 10 Mg p.o. daily ? Labetalol 100 mg p.o. twice daily cc:: cc: Glen Torrez MD Review of Systems Review of Systems Narrative Review of Systems: GENERAL: Denies fever/chills or diaphoresis. HEENT: Denies headaches or visual changes. Denies discharge. Neuro: Denies unusual weakness or difficulty speaking. CARDIO: as above PULM: as above GI: Denies abdominal pain, N/V/C/D. Reports having BMs. URO: Denies buring/itching/pain/urinary changes. MSK/EXT/SKIN: Denies joint/skeletal/muschle pain, issues/changes in upper or lower extremities, itchiness, or superficial pain. PSYCH: Cooperative The rest of the review of systems is otherwise negative. Past Medical History Past Medical History Comments [facility] COMMENT: Past medical history: ? Essential hypertension ? Hyperlipidemia ? TIA [2021] ? Depression ? GERD Past surgical history: ? 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 Previously ambulated independently and carried out all ADLs. She usually exercises on her treadmill at home a couple times a week Family History: ? Mother from an [place] at age 68 ? Brother at age 57 from an [place] Exam Vital Signs Temp Pulse Resp BP Pulse Ox O2 Del Method O2 Flow Rate 98.3 F 86 29 H 176/87 H 97 Nasal Cannula 3 03/14/24 16:00 03/14/24 16:00 03/14/24 16:00 03/14/24 16:00 03/14/24 16:00 03/14/24 16:00 03/14/24 16:00 Narrative Exam Constitutional Alert, oriented x 3 and in moderate distress. Elderly Female on O2 via NC, cannot complete sentences HEENT Vision grossly intact. Patent nares. Trachea midline Respiratory Wasted on inspection poor inspiratory effort, decreased AE in all lung coffman with scattered crackles in lower zones Cardiovascular S1 and S2 audible, RRR. 3/6 diastolic murmur at left lower sternal border Abdominal Soft and non tender to palpation in all quadrants. BS + Genitourinary No bladder tenderness, no flank pain. Normal to palpation Musculoskeletal Extremities tone within normal limits. No LE edema. Neurological CN II - XII grossly intact. Extremity motor and sensation grossly intact. Skin Warm, dry and intact. No apparent lesions. Psychiatric Cooperative Results Labs 03/14/24 02:40 03/14/24 02:40 Labs: Short CBC 03/14/24 03/14/24 Range/Units 00:37 02:40 WBC 8.2 8.0 (3.6-11.0) Thou/mm3 Hgb 9.5 L 9.8 L (12.0-16.0) g/dL Hct 29.9 L 30.2 L (36.0-46.0) % Plt Count 422 327 D (140-440) Thou/mm3 BMP 03/14/24 03/14/24 00:37 02:40 Sodium 137 137 Potassium 3.9 3.9 Chloride 106 106 Carbon Dioxide 22.5 22.2 BUN 27 H 26 H Creatinine 1.1 1.1 Glucose 134 H 131 H Calcium 9.0 9.0 Cardiac Enzymes 03/14/24 03/14/24 Range/Units 02:40 12:19 Troponin I 0.100 H* 0.120 H* (0.0-0.045) ng/mL Liver Function 03/14/24 Range/Units 00:37 Total Bilirubin 0.4 (0.3-1.2) mg/dL AST 22 (0-34) U/L ALT 10 (10-49) U/L Alkaline Phosphatase 81 (46-116) U/L Albumin 4.0 (3.4-4.8) gm/dL Urine 03/14/24 Range/Units 06:33 Urine Color Lt-Yellow (Lt Yel-Yel) Urine Clarity Clear (Clear/Hazy) Urine pH 6.0 (5.0-7.0) Ur Specific [place] 1.018 (1.001-1.035) Urine Protein Trace (Neg - Trace) Urine Glucose (UA) Negative (Negative) Quality Measures Quality Measures sepsis Current suspected stage: ruled out Possible source: pulmonary Blood cultures ordered: yes Antibiotic ordered: Yes Advance care planning discussed with:: patient Medications Home Medications and Allergies Home Medications ?Medication ?Instructions ?Recorded ?Confirmed ?Type labetalol 200 mg tablet 200 mg PO BID 09/28/22 09/28/22 History loratadine 10 mg tablet 10 mg PO DAILY 09/28/22 09/28/22 History montelukast 10 mg tablet 10 mg PO DAILY 09/28/22 09/28/22 History sertraline 100 mg tablet 100 mg PO DAILY 09/28/22 09/28/22 History Allergies Allergy/AdvReac Type Severity Reaction Status Date / Time ciprofloxacin Allergy Severe NAUSEA/VOMI Verified 09/28/22 12:24 TING Sulfa (Sulfonamide Allergy Severe Rash Verified 09/28/22 12:24 Antibiotics) Visit Medications Acetaminophen (Acetaminophen 325 Mg Tablet) 650 mg PO Q6H PRN PRN Reason: PAIN OR FEVER > 101 Stop: 04/13/24 02:59 Albuterol/Ipratropium (Albuterol/Ipratropium (Duoneb) Rt Rissa 3 Ml Nebu) 3 ml INH Q6HRRT PRN PRN Reason: sob or wheeze Stop: 04/13/24 12:59 Last Admin: 03/14/24 09:41 Dose: 3 ml Azithromycin (Azithromycin 250 Mg Tablet) 500 mg PO HS EMPERATRIZ Stop: 03/21/24 20:59 Furosemide (Furosemide Inj 10 Mg/Ml 4ml Vial) 40 mg IVP QDAY EMPERATRIZ Stop: 04/14/24 08:59 Heparin Sodium (Porcine) (Heparin Sod Inj 5000 Unit/Ml Vial) 5,000 unit SC Q12HR EMPERATRIZ Stop: 03/28/24 08:59 Last Admin: 03/14/24 08:32 Dose: 5,000 unit Hydralazine HCl (Hydralazine Inj 20 Mg/Ml Vial) 10 mg IV Q6HR PRN PRN Reason: SBP > 160 Stop: 04/13/24 11:28 Last Admin: 03/14/24 14:36 Dose: 10 mg Ceftriaxone Sodium/Dextrose (Rocephin/D5w 1gm Iv Premix) 50 mls @ 100 mls/hr IV HS EMPERATRIZ Stop: 03/21/24 20:59 Labetalol HCl (Labetalol 100 Mg Tablet) 100 mg PO BID EMPERATRIZ Stop: 04/13/24 04:39 Last Admin: 03/14/24 04:45 Dose: 100 mg Ondansetron HCl (Ondansetron Inj 2 Mg/Ml Inj 2 Ml) 4 mg IV Q6H PRN; Protocol PRN Reason: NAUSEA OR VOMITING Stop: 04/13/24 02:59 Pantoprazole Sodium (Pantoprazole 40 Mg Tablet) 40 mg PO QDAY EMPERATRIZ Stop: 04/13/24 08:59 Last Admin: 03/14/24 08:32 Dose: 40 mg Sertraline HCl (Sertraline Hcl 25 Mg Tablet) 100 mg PO HS EMPERATRIZ Stop: 04/13/24 20:59 Discontinued Medications Albuterol/Ipratropium (Albuterol/Ipratropium (Duoneb) Rt Rissa 3 Ml Nebu) 3 ml INH Q6HRRT EMPERATRIZ Stop: 04/13/24 12:59 Azithromycin (Azithromycin 250 Mg Tablet) 250 mg PO HS EMPERATRIZ Stop: 03/21/24 20:59 Furosemide (Furosemide Inj 10 Mg/Ml 4ml Vial) 40 mg IVP X1 ONE Stop: 03/14/24 05:48 Last Admin: 03/14/24 06:14 Dose: 40 mg Sodium Chloride (Ns) 1,000 mls @ 999 mls/hr IV .Q1H1M ONE Stop: 03/14/24 03:13 Last Infusion: 03/14/24 04:28 Dose: Infused Ceftriaxone Sodium/Dextrose (Rocephin/D5w 1gm Iv Premix) 50 mls @ 100 mls/hr IV X1 ONE Stop: 03/14/24 02:44 Last Infusion: 03/14/24 04:07 Dose: Infused Azithromycin 500 mg/ Sodium (Chloride) 250 mls @ 250 mls/hr IV X1 ONE Stop: 03/14/24 03:12 Last Infusion: 03/14/24 04:27 Dose: Infused Lorazepam (Lorazepam 0.5 Mg Tablet) 1 mg PO X1 ONE Stop: 03/14/24 04:28 Last Admin: 03/14/24 04:30 Dose: 1 mg Sodium Chloride (Sodium Chloride Rt 10% 15 Ml Nebu) 5 ml INH X1 ONE Stop: 03/14/24 03:01 Last Admin: 03/14/24 04:10 Dose: 5 ml Assessment & Plan Plan Patient is an 83-year-old female with a past medical history significant for essential hypertension, hyperlipidemia, TIA [2021], depression and GERD s/p Benjamin fundoplication with hiatal hernia repair [2017]. Follows up with PCP Dr Campos. Patient presented to the ED with a chief complaint of shortness of breath. Patient was admitted for acute respiratory failure with hypoxia and cardiology was consulted to assess for possible new onset CHF. 1. Acute respiratory failure with hypoxia 2. Acute decompensated heart failure exacerbation?new onset 3 Rule out ACS 4. NSTEMI type I versus type II On presentation patient was severely SOB unable to complete sentences and lying at a 45 degree angle. On exam she had no lower extremity edema but poor inspiratory effort, decreased air entry and scattered crackles at the bases and a 3/6 diastolic murmur heard at left lower sternal border. She was not on any home diuretic and not known to have heart failure in the past, however clinically she appears to be in acute decompensated heart failure exacerbation. BNP on admission 3280 and troponin elevated at 0.1 up trended to 0.12 likely in the setting of CHF exacerbation EKG on admission showed sinus rhythm, rate 95, LVH. Chest x-ray was significant for increased vascular markings bilaterally flash pulmonary edema. Last echocardiogram completed in [address] Brock Strickland findings include: Normal left ventricular size with mild LVH. LVEF 60%. normal cardiac chamber size mitral valve thickening with trace regurgitation moderate aortic valve regurgitation Plan: ? Strict input output charting ? 2 g sodium restricted diet ? Daily weights ? Recommend diuresis with furosemide 40 Mg IV BID ? Aspirin 81 mg p.o. daily ? Patient repleted with magnesium sulfate 4 g IV x 1 ? Repeat transthoracic echocardiogram ordered ? Trend troponin ? Patient should be started on GDMT for heart failure. Recommend Entresto and can start spironolactone as well at later time. 5. Essential hypertension Home medication labetalol 200 mg p.o. twice daily On admission BP 189/83 currently BP 176/87 Plan: ? Beta-blockers contraindicated in severe CHF exacerbations, can decrease dose - Hydralazine 10mg IV as needed for SBP >170 6. Hyperlipidemia Patient was not on any statins at home but has a history of hyperlipidemia. On this admission triglycerides 127, cholesterol 136, LDL 69. Recommend to start patient on moderate intensity statin 7. History of depression Patient's home medication sertraline 100 mg p.o. daily Recommend to continue to avoid any withdrawals 8. History of GERD 9. History of TIA [2021] 10. History of Benjamin fundoplication with hiatal hernia repair [2017] Patient does not appear to be on any PPIs at home and currently denies any GERD symptoms. Patient also did not appear to be on any aspirin at home although she had a history of TIA. Plan: ?Recommend to start aspirin 81 Mg p.o. daily 11. Microcytic anemia On admission patient's Hb 9.5. Baseline from chart review appears to be about 11?12. DDx: Iron deficiency anemia, poor nutrition, anemia of chronic disease, thalassemia. Patient also endorses approximately 30lb weight loss over the past 2 years Recommend iron panel to further investigate, reticulocyte count, blood smear, LDH 12. CKD stage III A On admission patient's CR 1.1 which appears to be at her baseline Continue management as per primary team Continue rest of management as per primary team. We are grateful to be able to participate in Mrs. Garcia's care. Thank you for the consult Plan of care discussed with attending Healthcare Receptionist, Dr Nasir Mckeon MD PGY 1 Attending Provider Attestation/Addendum I have personally seen and examined the patient separately on the above date of service and discussed the plan of care with the resident. I reviewed the resident Dr. Mckeon consultation progress note and agree with the resident findings and plan in the note above and have also edited the documentation to reflect my findings and plan. A 83-year-old female with a past medical history of hypertension, TIA, hyperlipidemia, depression, GERD status post Benjamin fundoplication, hiatal hernia repair presented to the emergency department for shortness of breath. As per the patient shortness of breath has been insidious onset over the past few days and is worsened to the level where she could not lay flat abdomen had trouble breathing and came to the emergency department. Patient also complained of some upper respiratory tract symptoms and her sinuses and nose appear stuffed. Denied any fever or chills. Denied any kind of chest pain or chest pressure PND or syncope or fall or dizziness cough or fever or chills or sputum production. Patient also appears to be short of breath during my examination and is short of breath even while speaking. In the emergency department patient was found to have hypertensive urgency with a blood pressure of 189/83 mmHg and respiratory rate of 25 and 30/min saturations of 90% on 3 L Cannula. COVID and flu test were negative. CBC appeared normal lactate was normal troponin was 0.1 but BNP was greater than 3280. BUN was 26 and creatinine was 1.1. LFTs were completely normal no INR and PTT which was sent chest x-ray showed vascular congestion with possible pulmonary edema. EKG showed normal sinus rhythm with LVH with no acute ST-T changes. Initial troponin was 0.102 and slowly increase to 0.138. Cardiology is consulted for further evaluation of possible acute CHF exacerbation. Last echocardiogram in Dr. Estrada in 2021 showed normal LV function RV function with an EF of 55 to 60% as per the chart review. Patient appears to have orthopnea and is significantly shortness of breath. There does not appear to be a clear-cut pneumonia but patient is still short of breath with pulmonary edema and vascular congestion. Recommend IV Lasix 40 mg IV twice daily. Patient also has systolic and diastolic murmur on examination and will need an echocardiogram for further evaluation of any valvular heart disease and to evaluate injury function and RV function as well as diastolic function. Repeat electrolytes and keep potassium greater than 4 and magnesium greater than 2.0 at all times. Recommend no further troponins and troponin elevation is mostly secondary to NSTEMI type II in the setting of heart failure with supply/demand mismatch. No need of any heparin drip and okay for aspirin and statin for now. Patient blood pressure is uncontrolled and presented with hypertensive urgency Patient started on labetalol 100 mg twice daily per the primary team which is her home medication. Blood pressure continues to be still high recommend to give hydralazine 10 mg IV every 6 hours as needed patient will need to be started on losartan or Entresto if she has systolic congestive heart failure. Otherwise patient should be on spironolactone for HFpEF. Patient is very much tired and did not want to give any further history. Does not know her medications well and lives by herself will continue to uptitrate blood pressure medications based on the requirements. Patient also has slow worsening anemia with worsening MCV 1 the chart review and hemoglobin is at 9.8. Patient needs complete workup for anemia and recommend primary team to continue with the same Management of rest of the medical conditions as per primary team and other consultants. Thank you for the consult and allowing me to participate in the care of the patient. Cardiology will continue to follow. Mian Best M.D. Interventional Cardiology.
[2024-03-14] MEDS: Lisinopril 2.5 MG TABLET 10 MG PO (18:18)
--- NOTE | 2024-03-14 18:31 | PC.CC ---
Pt Janae Garcia is an 83 yr old female admitted to hospitalist services for AHRF and PNA. CNC MANAGER CC met with pt at bedside to complete initial assessment. CNC MANAGER CC introduced self and role in pt care. Pt is noted to be alert and oriented to person, place and situation. Pt also noted to be hard of hearing. Pt is able to respond appropriately to assessment questions. Pt expressed understanding admission orders. Pt able to confirm demographic information. Pt is from home [address] [facility]. Pt reports living home alone, but states she has a house keeper. Pt identifies her son Lizy Conrad [phone] as surrogate DM. At baseline pt reports being independent with ambulation and ADLs. Pt states she does not require supplemental O2 at home. In the ED pt is on 3L NC. Pt states she is not diabetic and is not on dialysis. Pt is followed by Dr. Campos for primary care. At time of D/c pt states she will return home. Pt reports her family will transport her home. Advance Directive not discussed at this time.
[2024-03-14 19:23] LABS: Troponin I 0.126 ng/mL (0.0-0.045)
[2024-03-14] MEDS: SERTRALINE HCL 25 MG TABLET 100 MG PO (22:26)
[2024-03-14] MEDS: AZITHROMYCIN 250 MG TABLET 500 MG PO (22:27)
[2024-03-14] MEDS: Magnesium Sulfate 4 GM Ivpb 4 GM/50 ML BAG IV (23:30)
[2024-03-15] VITALS (17 sets, daily range): BP systolic 143–168; BP diastolic 69–98; PULSE 82–121; RESP 16–38; TEMP 36.2–36.8; O2SAT 89–102
[2024-03-15] MEDS: ALBUTEROL/IPRATROPIUM (Duoneb) RT SOL 3 ML NEBU INH ×6 (00:31→22:49)
[2024-03-15 01:23] LABS: Troponin I 0.138 ng/mL (0.0-0.045)
--- NOTE | 2024-03-15 01:28 | PC.NURSE ---
Dr Wes Longo notified about critical lab troponin level 0.138 no new orders.
[2024-03-15 05:31] LABS: Basophils % (Auto) 0 % (0-2.5); Eosinophils % (Auto) 0 % (0-10); Hematocrit 30.3 % (36.0-46.0); Hemoglobin 9.9 g/dL (12.0-16.0); Immature Granulocytes % (Auto) 1 % (0-0); Immature Granulocytes Auto 0.11 Thou/mm3 (0.00-0.00); Lymphocytes # (Auto) 0.6 Thou/mm3 (1.0-4.8); Lymphocytes % (Auto) 6 % (10-50); Mean Corpuscular HGB Conc 32.7 g/dl (31.0-37.0); Mean Corpuscular Hemoglobin 24.1 pg (25.0-35.0); Mean Corpuscular Volume 74 fL (80-100); Monocytes # (Auto) 0.8 Thou/mm3 (0.0-0.8); Monocytes % (Auto) 7 % (0-12); Neutrophils # (Auto) 9.4 Thou/mm3 (1.8-7.7); Neutrophils % (Auto) 86 % (37-80); Nucleated Red Blood Cell % 0 /100 WBC (0); Platelet Count 303 Thou/mm3 (140-440); RDW Standard Deviation 44.6 fL (36.4-46.3); White Blood Count 10.9 Thou/mm3 (3.6-11.0)
[2024-03-15] MEDS: FUROSEMIDE INJ 10 MG/ML 4ML VIAL 40 MG IVP ×2 (05:59→18:35)
[2024-03-15 06:41] LABS: Anion Gap 11 (7-16); BUN/Creatinine Ratio 18 Ratio (12-20); Blood Urea Nitrogen 20 mg/dL (9-23); Calcium 8.8 mg/dL (8.3-10.6); Carbon Dioxide 24.1 mMol/L (20.0-31.0); Cardiac Risk Estimate 2.5 RATIO (3.7-5.6); Chloride 100 mMol/L (98-107); Cholesterol 123 mg/dL (132-200); Creatinine (Component) 1.1 mg/dL (0.6-1.3); Estimated Creatinine Clearance 26.6 mL/min (>60); Glucose 125 mg/dL (74-106); HDL Cholesterol 50 mg/dL (40-60); LDL Cholesterol,Calculated 53 mg/dL (0-130); Magnesium 2.4 mg/dL (1.6-2.6); Osmolality,Calculated 273 (275-295); Phosphorous 3.1 mg/dL (2.4-5.1); Potassium 2.9 mMol/L (3.4-5.1); Sodium 135 mMol/L (136-145); Triglycerides 98 mg/dL (30-150); eGFR 50 See Note
[2024-03-15 06:46] LABS: Troponin I 0.124 ng/mL (0.0-0.045)
[2024-03-15] MEDS: PANTOPRAZOLE 40 MG TABLET PO (08:36)
[2024-03-15] MEDS: SERTRALINE HCL 25 MG TABLET 100 MG PO ×2 (08:36→22:30)
[2024-03-15] MEDS: Lisinopril 2.5 MG TABLET 10 MG PO (08:37)
[2024-03-15] MEDS: LABETALOL 100 MG TABLET PO ×2 (08:38→22:30)
[2024-03-15] MEDS: POTASSIUM CHLORIDE 20 mEq TABCR 40 MEQ PO (08:38)
[2024-03-15] MEDS: POTASSIUM CHL 10 mEq IVPB 10 MEQ/100 ML BAG 100 MEQ IV ×4 (08:39→13:59)
[2024-03-15] MEDS: HEPARIN SOD INJ 5000 UNIT/ML VIAL SC ×2 (09:03→22:29)
[2024-03-15 09:05] LABS: INR 1.1 (0.9-1.3); Partial Thromboplastin Time 33.9 Seconds (22.0-36.0); Prothrombin Time 12.3 Seconds (9.0-12.2)
[2024-03-15 10:15] LABS: Alanine Aminotransferase 30 U/L (10-49); Aspartate Amino Transferase 48 U/L (0-34); Bilirubin,Total 0.7 mg/dL (0.3-1.2)
--- NOTE | 2024-03-15 10:35 | PD.RESPRO ---
Documentation for date of: 03/15/24 Subjective Subjective Interval history: Patient was seen and examined at bedside this AM. No acute exents overnight. Patient tolerating diet, adequate urine output and mentation is at baseline. Patient still complains of SOB at rest and unable to complete full sentences, however improved from last night. Patient is on IV diuresis with furosemide 40 Mg IV twice daily. Continue IV diuresis at same dose. Patient had a fluid balance of -560 cc in the past 24 hours Will give an additional lasix dose today and monitor Patient continues to be hypertensive with BP this morning 167/90 and similar trend overnight. From telemetry review HR 90s?100s overnight with sinus arrhythmia, PACs and PVCs. This a.m. K of 2.9 and Mg 2.4. Patient repleted with KCl 40 mEq IV and KCl 60 mEq p.o. Maintain potassium greater than 4 and magnesium greater than 2 at all times to prevent any arrhythmias. Pending echo reading, if systolic heart failure to start patient on losartan or Entresto and beta-adilene, if diastolic heart failure to start patient on spironolactone. Exam Vital Signs Temp Pulse Resp BP Pulse Ox O2 Del Method O2 Flow Rate 98.3 F 94 20 167/90 H 90 L Room Air 4 03/15/24 08:00 03/15/24 08:38 03/15/24 08:00 03/15/24 08:38 03/15/24 08:00 03/15/24 08:00 03/15/24 07:08 Narrative Exam Constitutional Alert, oriented x 3 and in mild distress. Cachectic, Temporal wasting, Elderly Female on O2 via NC, cannot complete sentences, improving HEENT Vision grossly intact. Patent nares. Trachea midline Respiratory Wasted on inspection poor inspiratory effort, decreased AE in all lung coffman with scattered crackles in lower zones Cardiovascular S1 and S2 audible, RRR. 3/6 diastolic murmur at left lower sternal border Abdominal Soft and non tender to palpation in all quadrants. BS + Genitourinary No bladder tenderness, no flank pain. Normal to palpation Musculoskeletal Extremities tone within normal limits. No LE edema. Neurological CN II - XII grossly intact. Extremity motor and sensation grossly intact. Skin Warm, dry and intact. No apparent lesions. Psychiatric Cooperative Objective Labs 03/15/24 04:49 03/15/24 14:04 Labs: Laboratory Results - last 24 hr 03/14/24 03/14/24 03/15/24 12:19 18:20 00:19 WBC RBC Hgb Hct MCV MCH MCHC RDW Std Deviation Plt Count Neut % (Auto) Lymph % (Auto) [place] % (Auto) Eos % (Auto) Baso % (Auto) Neut # (Auto) Lymph # (Auto) [place] # (Auto) Eos # (Auto) Baso # (Auto) Immature Gran # (Auto) Absolute Nucleated RBC Immature Gran % Nucleated RBC % PT INR APTT Sodium Potassium Chloride Carbon Dioxide Anion Gap BUN Creatinine Estim Creat Clear Calc eGFR BUN/Creatinine Ratio Glucose Calculated Osmolality Calcium Phosphorus Magnesium Total Bilirubin AST ALT Troponin I 0.120 H* 0.126 H* 0.138 H* Triglycerides Cholesterol LDL Cholesterol, Calc HDL Cholesterol Cholesterol/HDL Ratio 03/15/24 04:49 WBC 10.9 RBC 4.10 Hgb 9.9 L Hct 30.3 L MCV 74 L MCH 24.1 L MCHC 32.7 RDW Std Deviation 44.6 Plt Count 303 Neut % (Auto) 86 H Lymph % (Auto) 6 L [place] % (Auto) 7 Eos % (Auto) 0 Baso % (Auto) 0 Neut # (Auto) 9.4 H Lymph # (Auto) 0.6 L [place] # (Auto) 0.8 Eos # (Auto) 0.0 Baso # (Auto) 0.0 Immature Gran # (Auto) 0.11 H Absolute Nucleated RBC 0.00 Immature Gran % 1 H Nucleated RBC % 0 PT 12.3 H INR 1.1 APTT 33.9 Sodium 135 L Potassium 2.9 L D Chloride 100 Carbon Dioxide 24.1 Anion Gap 11 BUN 20 Creatinine 1.1 Estim Creat Clear Calc 26.6 L eGFR 50 L BUN/Creatinine Ratio 18 Glucose 125 H Calculated Osmolality 273 L Calcium 8.8 Phosphorus 3.1 Magnesium 2.4 Total Bilirubin 0.7 AST 48 H ALT 30 Troponin I 0.124 H* Triglycerides 98 Cholesterol 123 L LDL Cholesterol, Calc 53 HDL Cholesterol 50 Cholesterol/HDL Ratio 2.5 L Quality Measures Quality Measures sepsis Current suspected stage: ruled out Possible source: pulmonary Blood cultures ordered: completed in ED Antibiotic ordered: Yes Advance care planning discussed with:: patient Assessment & Plan Assessment Current Active Medications: Generic Name Dose Route Start Last Admin Trade Name Freq PRN Reason Stop Dose Admin Acetaminophen 650 mg 03/14/24 03:00 Acetaminophen 325 Mg Tablet PO 04/13/24 02:59 Q6H PRN PAIN OR FEVER > 101 Albuterol/Ipratropium 3 ml 03/14/24 18:15 03/15/24 07:07 Albuterol/Ipratropium (Duoneb) Rt Rissa 3 Ml Nebu INH 04/13/24 18:14 3 ml Q6HRRT EMPERATRIZ Administration Azithromycin 500 mg 03/14/24 21:00 03/14/24 22:27 Azithromycin 250 Mg Tablet PO 03/21/24 20:59 500 mg HS EMPERATRIZ Administration Furosemide 40 mg 03/14/24 21:00 03/15/24 05:59 Furosemide Inj 10 Mg/Ml 4ml Vial IVP 04/13/24 20:59 40 mg BIDD EMPERATRIZ Administration Heparin Sodium (Porcine) 5,000 unit 03/14/24 09:00 03/15/24 09:03 Heparin Sod Inj 5000 Unit/Ml Vial SC 03/28/24 08:59 5,000 unit Q12HR EMPERATRIZ Administration Hydralazine HCl 10 mg 03/14/24 20:02 Hydralazine Inj 20 Mg/Ml Vial IV 04/13/24 11:28 Q6HR PRN SBP > 170 Ceftriaxone Sodium/Dextrose 50 mls @ 100 mls/hr 03/14/24 21:00 03/14/24 22:55 Rocephin/D5w 1gm Iv Premix IV 03/21/24 20:59 100 mls/hr HS EMPERATRIZ Administration Potassium Chloride 10 meq in 100 mls @ 100 mls/hr 03/15/24 08:04 03/15/24 08:39 Kcl Ivpb IV 03/15/24 12:03 100 mls/hr Q1H EMPERATRIZ Administration Labetalol HCl 100 mg 03/14/24 04:40 03/15/24 08:38 Labetalol 100 Mg Tablet PO 04/13/24 04:39 100 mg BID EMPERATRIZ Administration Lisinopril 10 mg 03/14/24 18:15 03/15/24 08:37 Lisinopril 2.5 Mg Tablet PO 04/13/24 18:14 10 mg QDAY EMPERATRIZ Administration Ondansetron HCl 4 mg 03/14/24 03:00 Ondansetron Inj 2 Mg/Ml Inj 2 Ml IV 04/13/24 02:59 Q6H PRN NAUSEA OR VOMITING Protocol Pantoprazole Sodium 40 mg 03/14/24 09:00 03/15/24 08:36 Pantoprazole 40 Mg Tablet PO 04/13/24 08:59 40 mg QDAY EMPERATRIZ Administration Sertraline HCl 100 mg 03/14/24 21:00 03/15/24 08:36 Sertraline Hcl 25 Mg Tablet PO 04/13/24 20:59 100 mg BID EMPERATRIZ Administration Plan Patient is an 83-year-old female with a past medical history significant for essential hypertension, hyperlipidemia, TIA [2021], depression and GERD s/p Benjamin fundoplication with hiatal hernia repair [2017]. Follows up with PCP Dr Campos. Patient presented to the ED with a chief complaint of shortness of breath. Patient was admitted for acute respiratory failure with hypoxia and cardiology was consulted to assess for possible new onset CHF. 1. Acute respiratory failure with hypoxia 2. Acute decompensated heart failure exacerbation?new onset 3 Rule out ACS 4. NSTEMI type I versus type II On presentation patient was severely SOB unable to complete sentences and lying at a 45 degree angle. On exam she had no lower extremity edema but poor inspiratory effort, decreased air entry and scattered crackles at the bases and a 3/6 diastolic murmur heard at left lower sternal border. She was not on any home diuretic and not known to have heart failure in the past, however clinically she appears to be in acute decompensated heart failure exacerbation. BNP on admission 3280 and troponin elevated at 0.1 up trended to 0.124 and downtrending to 0.121 likely in the setting of CHF exacerbation EKG on admission showed sinus rhythm, rate 95, LVH. Chest x-ray was significant for increased vascular markings bilaterally flash pulmonary edema. Last echocardiogram completed in [address] Brock Strickland findings include: Normal left ventricular size with mild LVH. LVEF 60%. normal cardiac chamber size mitral valve thickening with trace regurgitation moderate aortic valve regurgitation Patient still complains of SOB at rest and unable to complete full sentences, however improved from last night. Patient is on IV diuresis with furosemide 40 Mg IV twice daily. Continue IV diuresis at same dose. Patient had a fluid balance of -560 cc in the past 24 hours This a.m. K of 2.9 and Mg 2.4. Patient repleted with KCl 40 mEq IV and KCl 60 mEq p.o. Maintain potassium greater than 4 and magnesium greater than 2 at all times to prevent any arrhythmias. Plan: ? Strict input output charting ? 2 g sodium restricted diet ? Daily weights - 1500cc fluid restriction ? Continue diuresis with furosemide 40 Mg IV BID ? Aspirin 81 mg p.o. daily ? Patient repleted with KCL 40 meq IV and KCL 60 meq po ? Repeat transthoracic echocardiogram taken, pending read ? No need to further trend troponin ? Pending echo reading, if systolic heart failure to start patient on losartan or Entresto and beta-adilene, if diastolic heart failure to start patient on spironolactone as part of GDMT - Will give an additional lasix dose today and monitor 5. Essential hypertension Home medication labetalol 200 mg p.o. twice daily On admission BP 189/83 Patient continues to be hypertensive with BP this morning 167/90 and similar trend overnight. From telemetry review HR 90s?100s overnight with sinus arrhythmia, PACs and PVCs. Plan: ? Can continue home medication Labetolol for now - Can uptitrate antihypertensives as necessary - Hydralazine 10mg IV as needed for SBP >170 6. Hyperlipidemia Patient was not on any statins at home but has a history of hyperlipidemia. On this admission triglycerides 127, cholesterol 136, LDL 69. Recommend to start patient on moderate intensity statin 7. History of depression Patient's home medication sertraline 100 mg p.o. daily Recommend to continue to avoid any withdrawals 8. History of GERD 9. History of TIA [2021] 10. History of Benjamin fundoplication with hiatal hernia repair [2017] Patient does not appear to be on any PPIs at home and currently denies any GERD symptoms. Patient also did not appear to be on any aspirin at home although she had a history of TIA. Plan: ?Recommend to start aspirin 81 Mg p.o. daily 11. Microcytic anemia On admission patient's Hb 9.5. Baseline from chart review appears to be about 11?12. DDx: Iron deficiency anemia, poor nutrition, anemia of chronic disease, thalassemia, malignancy Patient also endorses approximately 30lb weight loss over the past 2 years Recommend iron panel to further investigate, reticulocyte count, blood smear, LDH 12. CKD stage III A On admission patient's CR 1.1 which appears to be at her baseline Continue management as per primary team Continue rest of management as per primary team. We are grateful to be able to participate in Mrs. Garcia's care. Thank you for the consult Plan of care discussed with attending Greens Picker, Dr Nasir Mckeon MD PGY 1 Attending Provider Attestation/Addendum I have personally seen and examined the patient separately on the above date of service and discussed the plan of care with the resident. I reviewed the resident Dr. Mckeon consultation progress note and agree with the resident findings and plan in the note above and have also edited the documentation to reflect my findings and plan. Mian Best M.D. Interventional Cardiology
[2024-03-15 12:59] LABS: Troponin I 0.121 ng/mL (0.0-0.045)
[2024-03-15 13:00] LABS: Vitamin B12 438 pg/mL (211-911)
[2024-03-15 13:18] LABS: Total Iron Binding Capacity 233 mcg/dL (250-425)
[2024-03-15 13:24] LABS: Cocci Serology, IgM Negative (Negative)
[2024-03-15 13:27] LABS: Iron 12 mcg/dL (50-170); Percent Iron Saturation 5 % (20-55); Unsaturated Iron Binding 221 (225-295)
[2024-03-15 13:38] LABS: Potassium 3.7 mMol/L (3.4-5.1)
--- NOTE | 2024-03-15 14:32 | PC.SS ---
Rounding note: Receiving IV antibiotics.
[2024-03-15 14:41] LABS: Potassium 4.4 mMol/L (3.4-5.1)
--- NOTE | 2024-03-15 15:49 | ESPR_ITS ---
<Statement entered by Uriel Ortiz MD - 03/15/24 16:31> Senior Resident Attestation: I supervised/discussed management plan with resident physician Dr. Marks, and was involved in the care of this patient. I personally saw and examined the patient and discussed the assessment and plan with the entire medicine team, including my attending. I agree with plan as documented below. Patient's care was discussed with attending physician, Dr. Balwinder Ortiz MD PGY-3 Documentation for date of: 03/15/24 Subjective Subjective Interval history: Patient seen at bedside. No acute overnight events. Patient still complains of shortness of breath, no cough, still has orthopnea. I&O: 440/1000 (-560). Patient was evaluated by cardiology and Lasix was increased to 40 mg twice daily. Pending echocardiogram Still on ceftriaxone and azithromycin for community-acquired pneumonia. Labs today, hypokalemia-repleted electrolytes Exam Vital Signs Temp Pulse Resp BP Pulse Ox O2 Del Method O2 Flow Rate 97.1 F 82 18 143/69 H 98 Nasal Cannula 4 03/15/24 12:00 03/15/24 12:06 03/15/24 12:06 03/15/24 12:00 03/15/24 12:06 03/15/24 12:00 03/15/24 12:06 Narrative Exam GENERAL: AAOX3 NEURO: CAMERA MAKER grossly intact, moves extremities x4 HEENT: Dry mucosa. Eyes open, symmetrical, & clear, nasal cannula in-situ CARDIO: No chest pain on palpation. Heart RRR, no obvious murmurs PULM: No noted coughing, not dyspneic. Mild crackles bilaterally, saturating 98% on 5L GI: Abdomen soft, nondistended, no pain on palpation. BSx4 URO/BINDER ROLLER:: No further abnormalities noted. SKIN/MSK/EXT: No wounds/rashes/edema/amputations, no pain on palpation. Pedal pulses present B/L Objective Labs 03/16/24 04:47 03/16/24 04:47 Labs: Laboratory Results - last 24 hr 03/14/24 03/15/24 03/15/24 18:20 00:19 04:49 WBC 10.9 RBC 4.10 Hgb 9.9 L Hct 30.3 L MCV 74 L MCH 24.1 L MCHC 32.7 RDW Std Deviation 44.6 Plt Count 303 Neut % (Auto) 86 H Lymph % (Auto) 6 L [place] % (Auto) 7 Eos % (Auto) 0 Baso % (Auto) 0 Neut # (Auto) 9.4 H Lymph # (Auto) 0.6 L [place] # (Auto) 0.8 Eos # (Auto) 0.0 Baso # (Auto) 0.0 Immature Gran # (Auto) 0.11 H Absolute Nucleated RBC 0.00 Immature Gran % 1 H Nucleated RBC % 0 PT 12.3 H INR 1.1 APTT 33.9 Sodium 135 L Potassium 2.9 L D Chloride 100 Carbon Dioxide 24.1 Anion Gap 11 BUN 20 Creatinine 1.1 Estim Creat Clear Calc 26.6 L eGFR 50 L BUN/Creatinine Ratio 18 Glucose 125 H Calculated Osmolality 273 L Calcium 8.8 Phosphorus 3.1 Magnesium 2.4 Iron TIBC Iron Saturation Unsat Iron Binding Total Bilirubin 0.7 AST 48 H ALT 30 Troponin I 0.126 H* 0.138 H* 0.124 H* Triglycerides 98 Cholesterol 123 L LDL Cholesterol, Calc 53 HDL Cholesterol 50 Cholesterol/HDL Ratio 2.5 L Vitamin B12 Coccidioides IgM Ab Negative 03/15/24 03/15/24 11:59 14:04 WBC RBC Hgb Hct MCV MCH MCHC RDW Std Deviation Plt Count Neut % (Auto) Lymph % (Auto) [place] % (Auto) Eos % (Auto) Baso % (Auto) Neut # (Auto) Lymph # (Auto) [place] # (Auto) Eos # (Auto) Baso # (Auto) Immature Gran # (Auto) Absolute Nucleated RBC Immature Gran % Nucleated RBC % PT INR APTT Sodium Potassium 3.7 D 4.4 D Chloride Carbon Dioxide Anion Gap BUN Creatinine Estim Creat Clear Calc eGFR BUN/Creatinine Ratio Glucose Calculated Osmolality Calcium Phosphorus Magnesium Iron 12 L TIBC 233 L Iron Saturation 5 L Unsat Iron Binding 221 L Total Bilirubin AST ALT Troponin I 0.121 H* Triglycerides Cholesterol LDL Cholesterol, Calc HDL Cholesterol Cholesterol/HDL Ratio Vitamin B12 438 Coccidioides IgM Ab Quality Measures Quality Measures sepsis Current suspected stage: sepsis Possible source: pulmonary Blood cultures ordered: completed in ED Antibiotic ordered: Yes Advance care planning discussed with:: patient and other Assessment & Plan Assessment Current Active Medications: Generic Name Dose Route Start Last Admin Trade Name Freq PRN Reason Stop Dose Admin Acetaminophen 650 mg 03/14/24 03:00 Acetaminophen 325 Mg Tablet PO 04/13/24 02:59 Q6H PRN PAIN OR FEVER > 101 Albuterol/Ipratropium 3 ml 03/14/24 18:15 03/15/24 12:05 Albuterol/Ipratropium (Duoneb) Rt Rissa 3 Ml Nebu INH 04/13/24 18:14 3 ml Q6HRRT EMPERATRIZ Administration Azithromycin 500 mg 03/14/24 21:00 03/14/24 22:27 Azithromycin 250 Mg Tablet PO 03/21/24 20:59 500 mg HS EMPERATRIZ Administration Furosemide 40 mg 03/14/24 21:00 03/15/24 05:59 Furosemide Inj 10 Mg/Ml 4ml Vial IVP 04/13/24 20:59 40 mg BIDD EMPERATRIZ Administration Heparin Sodium (Porcine) 5,000 unit 03/14/24 09:00 03/15/24 09:03 Heparin Sod Inj 5000 Unit/Ml Vial SC 03/28/24 08:59 5,000 unit Q12HR EMPERATRIZ Administration Hydralazine HCl 10 mg 03/14/24 20:02 Hydralazine Inj 20 Mg/Ml Vial IV 04/13/24 11:28 Q6HR PRN SBP > 170 Ceftriaxone Sodium/Dextrose 50 mls @ 100 mls/hr 03/14/24 21:00 03/14/24 22:55 Rocephin/D5w 1gm Iv Premix IV 03/21/24 20:59 100 mls/hr HS EMPERATRIZ Administration Labetalol HCl 100 mg 03/14/24 04:40 03/15/24 08:38 Labetalol 100 Mg Tablet PO 04/13/24 04:39 100 mg BID EMPERATRIZ Administration Lisinopril 10 mg 03/14/24 18:15 03/15/24 08:37 Lisinopril 2.5 Mg Tablet PO 04/13/24 18:14 10 mg QDAY EMPERATRIZ Administration Ondansetron HCl 4 mg 03/14/24 03:00 Ondansetron Inj 2 Mg/Ml Inj 2 Ml IV 04/13/24 02:59 Q6H PRN NAUSEA OR VOMITING Protocol Pantoprazole Sodium 40 mg 03/14/24 09:00 03/15/24 08:36 Pantoprazole 40 Mg Tablet PO 04/13/24 08:59 40 mg QDAY EMPERATRIZ Administration Sertraline HCl 100 mg 03/14/24 21:00 03/15/24 08:36 Sertraline Hcl 25 Mg Tablet PO 04/13/24 20:59 100 mg BID EMPERATRIZ Administration Plan Summary: She is an 83-year-old female with a past medical history of hypertension and depression who presented to the ED on 03/14/2024 with shortness of breath and PND gotten worse within the last few days. The patient was admitted for management of acute hypoxic respiratory failure secondary to ?New onset CHF and sepsis secondary to community-acquired pneumonia #Acute hypoxic respiratory failure #?New onset CHF #Sepsis secondary community-acquired pneumonia She is an 83-year-old female with a past medical history of hypertension and depression who presented to the ED on 03/14/2024 with shortness of breath and PND gotten worse within the last few days. The patient reports that she has a new appointment to follow-up with a mail list processor in [place] but is unable to explain or divulge the reason why she is in the mail list processor. To her knowledge, she has never had any heart diseases or heart failure. In the ED, the patient was noted to be hypotensive and hypoxic, saturating 98% on 3 L via nasal cannula. COVID and flu serologies were negative and CBC was otherwise unremarkable, Trope was seen to be elevated at 0.1 and BNP greater than 3000. Chest x-ray showed extensive bilateral opacities and significant vascular congestion and the patient was admitted for management of acute hypoxic respiratory failure secondary to ?New onset CHF and sepsis secondary to community-acquired pneumonia. 03/15/2024- Patient still complains of shortness of breath, no cough, still has orthopnea. I&O: 440/1000 (-560). Patient was evaluated by cardiology and Lasix was increased to 40 mg twice daily. Pending echocardiogram Still on ceftriaxone and azithromycin for community-acquired pneumonia. Plan: -Continue IV ceftriaxone and azithromycin -Continue IV Lasix 40 mg BID -Strict I&O's -Pending blood and sputum cultures -Pending echo -Cardiology consulted, appreciate recommendations #History of hypertension The patient at home is on labetalol 100 mg twice daily -Restarted labetalol and lisinopril 10mg daily #History of depression The patient is on sertraline 100 mg daily -Restart home meds Health maintenance: Dispo: [employer] Diet: Cardiac GI: Pantoprazole DVT: SC Heparin Martinez: None Lines: Peripheral Med Rec: Pending, f/u PT: Ordered Code:Full Case was discussed with senior resident Dr Ortiz PGY-3 and attending physician, Dr Balwinder Marks MD PGY-1 Attending Provider Attestation/Addendum I, Kelsey Britt DO, attest that I was physically present for the vyas portions of the service and evaluated the patient with the resident and I reviewed and discussed the case with the resident and agree with the resident's findings and plans of care as documented above Patient seen and evaluated this AM. Daughter in law at bedside. Patient states that she is very tired and remains short of breath. She is currently on 4L/NC. She states she does not feel improved. Echo done this AM, will f/u with report and start pt on GDMT if systolic dysfunction is found. Continue with abx and IV diuretics. Patient denies any cough, productive sputum, sick contacts, fevers or chills.
--- NOTE | 2024-03-15 16:18 | PC.NURSE ---
Notified Dr Marks patient is requesting a breathing treatment. Pt states she feels SOB. Next breathing treatment is not due until 1900. Current O2 stat is 89-92% at 6L NC. Dr ames put new orders in. Patient is sitting in high fowlers position.
[2024-03-15 17:02] LABS: Respiratory Syncytial Virus Ag Negative (Negative)
--- NOTE | 2024-03-15 20:20 | XR_ITS ---
Examination: AP chest single view Technique one AP portable semiupright chest single view Exam date and time: March 15, 2024 8:36 PM Comparison March 13, 2024 INDICATIONS: SOB today. FINDINGS: Worsening severe bilateral lung opacity Mild to moderate enlargement left ventricle Prominent osteopenia IMPRESSION: Worsening severe bilateral pneumonia
[2024-03-15 20:44] LABS: Allen Test Performed/OK; Base Excess 0 (-3-3); HCO3 24 mEq/L (20-26); Inspired Oxygen, FIO2 90 %; O2 Saturation 99 % (91-98); PCO2 34 mmHg (32.0-48.0); PO2 100 mmHg (83-108); Puncture Site Right Radial; pH, Arterial 7.45 (7.35-7.45)
[2024-03-15] MEDS: AZITHROMYCIN 250 MG TABLET 500 MG PO (22:30)
[2024-03-15] MEDS: cefTRIAXone/D5w 1gm IV premix 50 ML IV (22:30)
[2024-03-16] VITALS (20 sets, daily range): BP systolic 126–158; BP diastolic 54–95; PULSE 78–112; RESP 16–48; TEMP 36–36.7; O2SAT 92–99; BMI 18.1
--- NOTE | 2024-03-16 00:45 | PC.NURSE ---
1949 dr dorantes notified of pt having increased work of breathing requiring increasing levels of O2 and shortness of breath. RT in room to do breathing treatment. Pt continued to desat to high 80's so RT placed pt on high flow 20L 90%O2. O2 sat improved to 97%. Pt states she feels better and is having less shortness of breath. Respiratory rate improved.
[2024-03-16] MEDS: ALBUTEROL/IPRATROPIUM (Duoneb) RT SOL 3 ML NEBU INH ×6 (02:40→22:56)
[2024-03-16] MEDS: FUROSEMIDE INJ 10 MG/ML 4ML VIAL 40 MG IVP ×3 (05:44→21:21)
[2024-03-16 06:02] LABS: Basophils % (Auto) 0 % (0-2.5); Eosinophils % (Auto) 0 % (0-10); Hematocrit 28.4 % (36.0-46.0); Hemoglobin 9.3 g/dL (12.0-16.0); Immature Granulocytes % (Auto) 1 % (0-0); Immature Granulocytes Auto 0.07 Thou/mm3 (0.00-0.00); Lymphocytes # (Auto) 0.4 Thou/mm3 (1.0-4.8); Lymphocytes % (Auto) 4 % (10-50); Mean Corpuscular HGB Conc 32.7 g/dl (31.0-37.0); Mean Corpuscular Hemoglobin 23.8 pg (25.0-35.0); Mean Corpuscular Volume 73 fL (80-100); Monocytes # (Auto) 0.7 Thou/mm3 (0.0-0.8); Monocytes % (Auto) 6 % (0-12); Neutrophils # (Auto) 10.3 Thou/mm3 (1.8-7.7); Neutrophils % (Auto) 89 % (37-80); Nucleated Red Blood Cell % 0 /100 WBC (0); Platelet Count 339 Thou/mm3 (140-440); RDW Standard Deviation 44.1 fL (36.4-46.3); Red Blood Count 3.91 Miln/mm3 (4.00-5.20); White Blood Count 11.6 Thou/mm3 (3.6-11.0)
[2024-03-16 06:44] LABS: Anion Gap 10 (7-16); BUN/Creatinine Ratio 26 Ratio (12-20); Blood Urea Nitrogen 31 mg/dL (9-23); Calcium 8.9 mg/dL (8.3-10.6); Carbon Dioxide 23.9 mMol/L (20.0-31.0); Chloride 97 mMol/L (98-107); Creatinine (Component) 1.2 mg/dL (0.6-1.3); Estimated Creatinine Clearance 24.4 mL/min (>60); Glucose 115 mg/dL (74-106); Magnesium 2.1 mg/dL (1.6-2.6); Osmolality,Calculated 270 (275-295); Phosphorous 3.3 mg/dL (2.4-5.1); Potassium 3.5 mMol/L (3.4-5.1); Sodium 131 mMol/L (136-145); eGFR 45 See Note
[2024-03-16 07:27] LABS: Ferritin 482 ng/mL (7.3-270.7); Iron 11 mcg/dL (50-170); Percent Iron Saturation 5 % (20-55); Total Iron Binding Capacity 214 mcg/dL (250-425); Unsaturated Iron Binding 203 (225-295)
[2024-03-16] MEDS: PANTOPRAZOLE 40 MG TABLET PO (08:13)
[2024-03-16] MEDS: Lisinopril 2.5 MG TABLET 10 MG PO (08:14)
[2024-03-16] MEDS: LABETALOL 100 MG TABLET PO ×2 (08:14→20:14)
[2024-03-16] MEDS: SERTRALINE HCL 25 MG TABLET 100 MG PO ×2 (08:15→20:14)
[2024-03-16] MEDS: HEPARIN SOD INJ 5000 UNIT/ML VIAL SC ×2 (08:15→22:03)
--- NOTE | 2024-03-16 08:21 | ESPR_ITS ---
Documentation for date of: 03/16/24 Subjective Subjective Interval history: Patient was seen and examined at bedside this AM. No acute exents overnight. Patient tolerating diet, adequate urine output and mentation is at baseline. Patient still complains of SOB at rest and unable to complete full sentences, worse than yesterday Patient is on IV diuresis with furosemide 40 Mg IV twice daily. Increase IV diuresis to Furosemide 40 mg IV q8 hourly Patient had a fluid balance of -70 cc in the past 24 hours Patient continues to be hypertensive with BP this morning 157/72 and similar trend overnight. From telemetry review HR 90s?100s overnight with sinus arrhythmia, PACs and PVCs. This a.m. K of 3.5 and Mg 2.1. Patient repleted with KCl 40 mEq IV Maintain potassium greater than 4 and magnesium greater than 2 at all times to prevent any arrhythmias. Transthoracic echocardiogram completed on 03/14 findings include: Normal LV size. Mild systolic dysfunction. Mild hypokinesis basal to mid Anterior and anteroseptal gale. Mild LVH. Grade I diastolic dysfunction. Estimated EF 40-45% Normal RV size. Normal RV function. Estimated RVSP 68mmHg. Moderate to severe PAH. RAP 10. Mild LA dilation. Severe RA dilation Moderate MR, AI. Mild TR. Trace PI. IVC dilated. Last night patient experienced worsening SOB and was switched from nasal cannula to high flow nasal cannula currently on 25L/min Chest CTA completed today showed severe bilateral pneumonia ARDS pattern, bilateral bronchiectasis, fibrosis and significant consolidation, negative for pulmonary artery emboli. Abdomen CT was significant for Large Simple Cyst Recommend a pulmonology and straddle bug driver consultation Of note patient also admitted to having rheumatoid arthritis. Both patient and [id number], Binta seen at bedside both extensively counseled about echocardiogram findings as well as chest CTA findings. Explained the need for advanced directive planning and CODE STATUS in the event of deterioration. Patient is currently high risk of decompensation possibly needing intubation with possible at any time. Both patient and her daughter understands, will further discuss with primary team. They understand. Exam Vital Signs Temp Pulse Resp BP Pulse Ox O2 Del Method O2 Flow Rate 96.8 F 90 19 149/74 H 93 L High Flow Nasal Cannula 20 03/16/24 07:58 03/16/24 08:14 03/16/24 07:58 03/16/24 08:14 03/16/24 07:58 03/16/24 07:58 03/16/24 06:21 FiO2 80 03/16/24 06:21 Narrative Exam Constitutional Alert, oriented x 3 and in mild distress. Cachectic, Temporal wasting, Elderly Female on O2 via HFNC, cannot complete sentences, worsening HEENT Vision grossly intact. Patent nares. Trachea midline Respiratory Wasted on inspection poor inspiratory effort, decreased AE in all lung coffman , ronchi, wheeze heard b/l Cardiovascular S1 and S2 audible, RRR. 3/6 diastolic murmur at left lower sternal border Abdominal Soft and non tender to palpation in all quadrants. BS + Genitourinary No bladder tenderness, no flank pain. Normal to palpation Musculoskeletal Extremities tone within normal limits. No LE edema. Neurological CN II - XII grossly intact. Extremity motor and sensation grossly intact. Skin Warm, dry and intact. No apparent lesions. Psychiatric Cooperative Objective Labs 03/16/24 04:47 03/16/24 04:47 Labs: Laboratory Results - last 24 hr 03/15/24 03/15/24 03/15/24 04:49 11:59 14:04 WBC RBC Hgb Hct MCV MCH MCHC RDW Std Deviation Plt Count Neut % (Auto) Lymph % (Auto) [place] % (Auto) Eos % (Auto) Baso % (Auto) Neut # (Auto) Lymph # (Auto) [place] # (Auto) Eos # (Auto) Baso # (Auto) Immature Gran # (Auto) Absolute Nucleated RBC Immature Gran % Nucleated RBC % PT 12.3 H INR 1.1 APTT 33.9 Puncture Site ABG pH ABG pCO2 ABG pO2 ABG HCO3 ABG O2 Saturation ABG Base Excess FiO2 Sodium Potassium 3.7 D 4.4 D Chloride Carbon Dioxide Anion Gap BUN Creatinine Estim Creat Clear Calc eGFR BUN/Creatinine Ratio Glucose Calculated Osmolality Calcium Phosphorus Magnesium Iron 12 L TIBC 233 L Iron Saturation 5 L Unsat Iron Binding 221 L Ferritin Total Bilirubin 0.7 AST 48 H ALT 30 Troponin I 0.121 H* Vitamin B12 438 Coccidioides IgM Ab Negative RSV Rapid 03/15/24 03/15/24 03/15/24 16:25 19:28 20:34 WBC RBC Hgb Hct MCV MCH MCHC RDW Std Deviation Plt Count Neut % (Auto) Lymph % (Auto) [place] % (Auto) Eos % (Auto) Baso % (Auto) Neut # (Auto) Lymph # (Auto) [place] # (Auto) Eos # (Auto) Baso # (Auto) Immature Gran # (Auto) Absolute Nucleated RBC Immature Gran % Nucleated RBC % PT INR APTT Puncture Site Right Radial ABG pH 7.45 ABG pCO2 34 ABG pO2 100 ABG HCO3 24 ABG O2 Saturation 99 H ABG Base Excess 0 FiO2 90 Sodium Potassium 4.0 Chloride Carbon Dioxide Anion Gap BUN Creatinine Estim Creat Clear Calc eGFR BUN/Creatinine Ratio Glucose Calculated Osmolality Calcium Phosphorus Magnesium Iron TIBC Iron Saturation Unsat Iron Binding Ferritin Total Bilirubin AST ALT Troponin I Vitamin B12 Coccidioides IgM Ab RSV Rapid Negative 03/16/24 04:47 WBC 11.6 H RBC 3.91 L Hgb 9.3 L Hct 28.4 L MCV 73 L MCH 23.8 L MCHC 32.7 RDW Std Deviation 44.1 Plt Count 339 D Neut % (Auto) 89 H Lymph % (Auto) 4 L [place] % (Auto) 6 Eos % (Auto) 0 Baso % (Auto) 0 Neut # (Auto) 10.3 H Lymph # (Auto) 0.4 L [place] # (Auto) 0.7 Eos # (Auto) 0.0 Baso # (Auto) 0.0 Immature Gran # (Auto) 0.07 H Absolute Nucleated RBC 0.00 Immature Gran % 1 H Nucleated RBC % 0 PT INR APTT Puncture Site ABG pH ABG pCO2 ABG pO2 ABG HCO3 ABG O2 Saturation ABG Base Excess FiO2 Sodium 131 L Potassium 3.5 D Chloride 97 L Carbon Dioxide 23.9 Anion Gap 10 BUN 31 H Creatinine 1.2 Estim Creat Clear Calc 24.4 L eGFR 45 L BUN/Creatinine Ratio 26 H Glucose 115 H Calculated Osmolality 270 L Calcium 8.9 Phosphorus 3.3 Magnesium 2.1 Iron 11 L TIBC 214 L Iron Saturation 5 L Unsat Iron Binding 203 L Ferritin 482 H Total Bilirubin AST ALT Troponin I Vitamin B12 Coccidioides IgM Ab RSV Rapid ABG Interpretation ABG results: 03/15/24 20:34 ABG pH 7.45 ABG pCO2 34 ABG pO2 100 ABG HCO3 24 ABG O2 Saturation 99 H ABG Base Excess 0 Quality Measures Quality Measures sepsis Current suspected stage: sepsis Possible source: pulmonary Blood cultures ordered: completed in ED Antibiotic ordered: Yes Advance care planning discussed with:: patient Assessment & Plan Assessment Current Active Medications: Generic Name Dose Route Start Last Admin Trade Name Steveq PRN Reason Stop Dose Admin Acetaminophen 650 mg 03/14/24 03:00 Acetaminophen 325 Mg Tablet PO 04/13/24 02:59 Q6H PRN PAIN OR FEVER > 101 Albuterol/Ipratropium 3 ml 03/15/24 16:30 03/16/24 06:20 Albuterol/Ipratropium (Duoneb) Rt Rissa 3 Ml Nebu INH 04/14/24 16:29 3 ml Q4HRRT EMPERATRIZ Administration Albuterol/Ipratropium 3 ml 03/15/24 16:21 Albuterol/Ipratropium (Duoneb) Rt Rissa 3 Ml Nebu INH 04/14/24 16:20 Q2HR PRN SHORTNESS OF BREATH OR WHEEZE Azithromycin 500 mg 03/14/24 21:00 03/15/24 22:30 Azithromycin 250 Mg Tablet PO 03/21/24 20:59 500 mg HS EMPERATRIZ Administration Furosemide 40 mg 03/14/24 21:00 03/16/24 05:44 Furosemide Inj 10 Mg/Ml 4ml Vial IVP 04/13/24 20:59 40 mg BIDD EMPERATRIZ Administration Heparin Sodium (Porcine) 5,000 unit 03/14/24 09:00 03/16/24 08:15 Heparin Sod Inj 5000 Unit/Ml Vial SC 03/28/24 08:59 5,000 unit Q12HR EMPERATRIZ Administration Hydralazine HCl 10 mg 03/14/24 20:02 Hydralazine Inj 20 Mg/Ml Vial IV 04/13/24 11:28 Q6HR PRN SBP > 170 Ceftriaxone Sodium/Dextrose 50 mls @ 100 mls/hr 03/14/24 21:00 03/15/24 22:30 Rocephin/D5w 1gm Iv Premix IV 03/21/24 20:59 100 mls/hr HS EMPERATRIZ Administration Labetalol HCl 100 mg 03/14/24 04:40 03/16/24 08:14 Labetalol 100 Mg Tablet PO 04/13/24 04:39 100 mg BID EMPERATRIZ Administration Lisinopril 10 mg 03/14/24 18:15 03/16/24 08:14 Lisinopril 2.5 Mg Tablet PO 04/13/24 18:14 10 mg QDAY EMPERATRIZ Administration Ondansetron HCl 4 mg 03/14/24 03:00 Ondansetron Inj 2 Mg/Ml Inj 2 Ml IV 04/13/24 02:59 Q6H PRN NAUSEA OR VOMITING Protocol Pantoprazole Sodium 40 mg 03/14/24 09:00 03/16/24 08:13 Pantoprazole 40 Mg Tablet PO 04/13/24 08:59 40 mg QDAY EMPERATRIZ Administration Sertraline HCl 100 mg 03/14/24 21:00 03/16/24 08:15 Sertraline Hcl 25 Mg Tablet PO 04/13/24 20:59 100 mg BID EMPERATRIZ Administration Plan Patient is an 83-year-old female with a past medical history significant for essential hypertension, hyperlipidemia, TIA [2021], depression and GERD s/p Benjamin fundoplication with hiatal hernia repair [2017]. Follows up with PCP Dr Campos. Patient presented to the ED with a chief complaint of shortness of breath. Patient was admitted for acute respiratory failure with hypoxia and cardiology was consulted to assess for possible new onset CHF. 1. Acute respiratory failure with hypoxia 2. Acute decompensated diastolic heart failure exacerbation?new onset 3 ACS ruled out 4. NSTEMI type II On presentation patient was severely SOB unable to complete sentences and lying at a 45 degree angle. On exam she had no lower extremity edema but poor inspiratory effort, decreased air entry and scattered crackles at the bases and a 3/6 diastolic murmur heard at left lower sternal border. She was not on any home diuretic and not known to have heart failure in the past, however clinically she appears to be in acute decompensated heart failure exacerbation. BNP on admission 3280 and troponin elevated at 0.1 up trended to 0.124 and downtrending to 0.121 likely in the setting of CHF exacerbation EKG on admission showed sinus rhythm, rate 95, LVH. Chest x-ray was significant for increased vascular markings bilaterally flash pulmonary edema. Last echocardiogram completed in [address] Brock Strickland findings include: Normal left ventricular size with mild LVH. LVEF 60%. normal cardiac chamber size mitral valve thickening with trace regurgitation moderate aortic valve regurgitation Transthoracic echocardiogram completed on 03/14 findings include: Normal LV size. Mild systolic dysfunction. Mild hypokinesis basal to mid Anterior and anteroseptal gale. Mild LVH. Grade I diastolic dysfunction. Estimated EF 40-45% Normal RV size. Normal RV function. Estimated RVSP 68mmHg. Moderate to severe PAH. RAP 10. Mild LA dilation. Severe RA dilation Moderate MR, AI. Mild TR. Trace PI. IVC dilated. Patient still complains of SOB at rest and unable to complete full sentences, worse than yesterday Patient is on IV diuresis with furosemide 40 Mg IV twice daily. Increase IV diuresis to Furosemide 40 mg IV q8 hourly Patient had a fluid balance of -70 cc in the past 24 hours Patient continues to be hypertensive with BP this morning 157/72 and similar trend overnight. From telemetry review HR 90s?100s overnight with sinus arrhythmia, PACs and PVCs. This a.m. K of 3.5 and Mg 2.1. Patient repleted with KCl 40 mEq IV Maintain potassium greater than 4 and magnesium greater than 2 at all times to prevent any arrhythmias. Last night patient experienced worsening SOB and was switched from nasal cannula to high flow nasal cannula currently on 25L/min Chest CTA completed today showed severe bilateral pneumonia ARDS pattern, bilateral bronchiectasis, fibrosis and significant consolidation, negative for pulmonary artery emboli. Abdomen CT was significant for Large Simple Cyst Recommend a pulmonology and straddle bug driver consultation Of note patient also admitted to having rheumatoid arthritis. Plan: ? Strict input output charting ? 2 g sodium restricted diet ? Daily weights - 1500cc fluid restriction ? Recommend to increase Lasix 40mg IV q8hrly ? Aspirin 81 mg p.o. daily ? Patient repleted with KCL 40 meq IV ? No need to further trend troponin ? Recommend patient to start on spironolactone as part of GDMT for diastolic heart failure - Recommend Pulmonology and Gear Machinist consult 5. Essential hypertension Home medication labetalol 200 mg p.o. twice daily On admission BP 189/83 Patient continues to be hypertensive with BP this morning 167/90 and similar trend overnight. From telemetry review HR 90s?100s overnight with sinus arrhythmia, PACs and PVCs. Plan: ? Can continue home medication Labetolol for now - Can uptitrate antihypertensives as necessary - Hydralazine 10mg IV as needed for SBP >170 6. Hyperlipidemia Patient was not on any statins at home but has a history of hyperlipidemia. On this admission triglycerides 127, cholesterol 136, LDL 69. Recommend to start patient on moderate intensity statin 7. History of depression Patient's home medication sertraline 100 mg p.o. daily Recommend to continue to avoid any withdrawals 8. History of GERD 9. History of TIA [2021] 10. History of Benjamin fundoplication with hiatal hernia repair [2017] Patient does not appear to be on any PPIs at home and currently denies any GERD symptoms. Patient also did not appear to be on any aspirin at home although she had a history of TIA. Plan: ?Recommend to start aspirin 81 Mg p.o. daily 11. Microcytic anemia On admission patient's Hb 9.5. Baseline from chart review appears to be about 11?12. DDx: Iron deficiency anemia, poor nutrition, anemia of chronic disease, thalassemia, malignancy Patient also endorses approximately 30lb weight loss over the past 2 years Recommend iron panel to further investigate, reticulocyte count, blood smear, LDH 12. CKD stage III A On admission patient's CR 1.1 which appears to be at her baseline Continue management as per primary team 13. Rheumatoid arthritis Patient not on methotrexate or any biologic agents at home but admits to history of rheumatoid arthritis for many years. 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 Continue management as per primary team Continue rest of management as per primary team. We are grateful to be able to participate in Mrs. Garcia's care. Thank you for the consult Plan of care discussed with attending Equine Manager, Dr Nasir Mckeon MD PGY 1 Attending Provider Attestation/Addendum I have personally seen and examined the patient separately on the above date of service and discussed the plan of care with the resident. I reviewed the resident Dr. Mckeon consultation progress note and agree with the resident findings and plan in the note above and have also edited the documentation to reflect my findings and plan. Patient seen and examined at bedside. Patient especially if this appears to be worsened and she is now on high flow oxygen this morning. Patient was started on IV diuresis yesterday with Lasix 40 mg IV twice daily but she was only negative fluid balance of 70 cc in the last 24 hours. Blood pressure is still slightly elevated at 157/72 mmHg. Heart rate still 180-100 mmHg no arrhythmias noted. Echo completed yesterday showed normal LV size with mild LV dysfunction EF 40 to 45% with mild hypokinesis of the basal to mid anterior and anteroseptal gale along with mild LVH. Normal RV size normal RV function but severely elevated RVSP around 70 mmHg, severe LA dilatation, moderate MR, mild to moderate TR and mild LA dilatation trace PI and dilated IVC. Chest x-ray reviewed from today and showed worsening bilateral infiltrates versus consolidation recommended a stat CT chest to rule out interstitial lung disease as a possible cause of pulmonary hypertension for the patient given the overall picture of increased RVSP at 70 mmHg, dilated RA and IVC dilated. Patient also has a history of rheumatoid arthritis. CTA chest showed significant patchy groundglass opacities in multiple lobes mainly the upper lobes along with some bronchiectasis and some fibrosis indicating possible interstitial fibrosis. Etiology unclear for now. Patient respiratory status appears to be tenuous and patient is tachypneic at 25 and 40 times per minute and hence pulmonary renal care consulted for further evaluation for the patient and also discussed the CODE STATUS with the patient regarding DNR and DNI and family to discuss with the primary later today. For now patient is full code. Patient will need further workup for her primary pulmonary hypertension and Dr. Kali Singh has been consulted for the same. Patients with ILD can also have elevated BNP 3280 and patient overall does not appear to be significantly fluid overloaded will continue IV Lasix for 1 more day to evaluate further response and monitor for any negative balance. Reevaluate the diuretics use again tomorrow morning. Blood pressure slightly elevated and we will continue to adjust her antihypertensives. Primary team to continue the workup for the anemia. Management of rest of the medical conditions as per primary team and other consultants. Thank you for the consult and allowing me to participate in the care of the patient. Cardiology will continue to follow. Mian Best M.D. Interventional Cardiology
--- NOTE | 2024-03-16 10:50 | PC.PT ---
Pt eval received yesterday. This PT checked today and patient has a changed of condition. She was on 4L yesterday and no she is in high flow. Will hold PT eval today. Dr. Marks the ordering MD made aware.
--- NOTE | 2024-03-16 10:52 | XR_ITS ---
Examination: CTA chest with intravenous contrast 2-D reconstructions 3-D reconstructions, vascular Date and time of exam: March 16, 2024 1330 hours INDICATIONS: Worsening hypoxia SOB today CTDI: vol (mGy) 7.40 DLP: (mGycm) 268 Technique: Multiple axial sections of the thorax have been obtained. 3 mm slice thickness, from below the hemidiaphragms to above the apices of the lungs. Mediastinal and lung density settings have been obtained. 2-D sagittal and coronal reconstructions. 3-D angiographic renderings, 3-D volume renderings, 3D post processing, vascular maximum intensity projections obtained. Contrast administered is 100 cc [id number] 2-D sagittal coronal reconstructions 3-D reconstructions Low dose protocols, automated exposure control just been MA KV according to patient size FINDINGS: There is no thoracic aortic aneurysm dilatation No pulmonary artery emboli Severe bilateral lung opacity No pleural disease No paratracheal tracheobronchial or bronchopulmonary adenopathy 12 mm right lobe liver cyst Gallstones No splenic or pancreatic lesion Kidneys partially visualized no hydronephrosis. Impression: Severe bilateral pneumonia ARDS pattern Negative for pulmonary artery emboli Cholelithiasis
--- NOTE | 2024-03-16 10:53 | XR_ITS ---
Examination: CT abdomen with intravenous contrast. Coronal 2-D reconstructions. Sagittal 2-D reconstructions. Date and time of exam:March 16, 2024 1330 hours INDICATIONS: 24 pound weight loss in the last 1.5 years CTDI: vol (mGy): 6.17 DLP: (mGycm): 204 Technique: Axial images of the abdomen have been obtained, 3 mm slice thickness, 100 cc Isovue-370 2-D sagittal coronal reconstructions Low dose protocols were performed. One or more of the following dose reduction techniques were used; automated exposure control, adjustment of the mA and/or KV according to patient size, use of iterative reconstruction technique. Findings: Severe bilateral lung opacity Benign right lobe liver cysts, fatty infiltration throughout the liver No splenic lesion No pancreatic mass Normal adrenal glands 25 mm posterior right renal cyst Heavy abdominal aortic calcification no aneurysmal dilatation No bowel obstruction signed prominent osteopenia Severe chronic osteoporotic compression T12 moderate compression T11 IMPRESSION: Severe bilateral lung opacity Benign liver cysts 25 mm posterior right renal cyst No bowel obstruction or abdominal mass Cholelithiasis, gallbladder wall appears thickened
--- NOTE | 2024-03-16 11:31 | PCS.ST ---
Swallow Evaluation completed. See report for details. Pt needs O2 conservation techniques with PO activity. ST will follow
[2024-03-16 11:40] LABS: Albumin, Serum 3.7 gm/dL (3.4-4.8)
--- NOTE | 2024-03-16 13:21 | PC.NURSE ---
Patient to CT via gurney with HiFlow.
--- NOTE | 2024-03-16 13:43 | PC.NURSE ---
Patient returned from CT via [facility]. Patient was transferred from [facility] to bed with assistance. RT set up HiFlow at beside. Patient made comfortable in bed, call light and personal belongings placed within reach. Daughter in law at bedside.
[2024-03-16 13:51] LABS: Cocci Serology, IgG Negative (Negative)
[2024-03-16 13:58] LABS: Strep A Rapid Negative (Negative)
--- NOTE | 2024-03-16 15:02 | PC.SS ---
Rounding note: Pending further workup. IV diereses.
--- NOTE | 2024-03-16 16:46 | ESCONSULT_ITS ---
<Statement entered by Yris Yao MD - 03/19/24 06:59> Patient was seen and examined by me personally. I have directly supervised and reviewed the above documentation by the team resident and agree with its findings with any exceptions or additional findings as below. Plan of care was discussed with the attending, Dr. Singh. Yris Yao, PGY-2 HPI Data of Consult Requesting Physician: Kelsey Britt DO Admitting Provider: Glen Torrez MD Attending Provider: Kelsey Britt DO Primary Care Provider: Jabier Campos MD Consult Narrative Reason for consult: acute hypoxic respiratory failure History of present illness: Patient was seen with her daughter in law on the bedside. Patient does not want to give history as she was tired from shortness of breath. So most of the history is taken from [id number] and chart review. A 82-year-old female with past medical history of hypertension, GERD s/p fundoplication with hiatal hernia repair, hyperlipidemia, TIA [202], depression was brought to the hospital with chief complaints of shortness of breath. Reported that patient lives alone by herself and does her routine daily activities. Per [id number], patient is having shortness of breath for the past 6 months which was worsened recently a week before the day of admission. On the day of admission patient was having severe shortness of breath and called her son who called the EMS and brought her to the hospital. Patient denies fever, cough, nausea, weight loss, loss of appetite, pedal edema, chest pain, diarrhea. Patient was supposedly happy to see the solar panel installer in [place] as referred by her primary, but unsure of the reason. Hospital course: At the time of admission in the ED, patient was found to be hypoxic and was started on oxygen through nasal cannula. COVID and flu serologies done at that time was negative. BNP was >3000. Chest x-ray showed bilateral infiltrates with vascular congestion for which cardiology was consulted. Echocardiogram was done on the patient which showed severe pulmonary hypertension. Patient was started on diuretics. Later chest CT angiogram performed showed extensive bilateral infiltrates. Patient was started on high flow oxygen, As her oxygen saturations are not maintaining well. Past medical history: Hypertension, GERD s/p fundoplication, hyperlipidemia, depression Past surgical history: Breast reconstruction surgery, facelift, GERD s/p fundoplication Allergies: Sulfa drugs cc:: cc: Kelsey Britt DO Review of Systems Review of Systems ROS Unobtainable: unobtainable due to medical condition Past Medical History Past Medical History Comments PMH COMMENT: Past medical history: ? Essential hypertension ? Hyperlipidemia ? TIA [2021] ? Depression ? GERD Past surgical history: ? Benjamin fundoplication with hiatal hernia repair [2017] Social history: Occupational History: Retired. previously worked in a [employer] for the past 20 years Marital Status: Tobacco use: Denies ETHO use: Denies Illicit drug use: Denies Social History Note: lives alone with 7 cats. Previously ambulated independently and carried out all ADLs. She usually exercises on her treadmill at home a couple times a week Family History: ? Mother from an [place] at age 68 ? Brother at age 57 from an [place] Exam Vital Signs Temp Pulse Resp BP Pulse Ox O2 Del Method O2 Flow Rate 97.0 F 90 36 H 136/92 H 94 L High Flow Nasal Cannula 25 03/16/24 12:00 03/16/24 14:36 03/16/24 14:19 03/16/24 14:36 03/16/24 14:19 03/16/24 12:00 03/16/24 14:19 FiO2 70 03/16/24 14:19 Narrative Exam General: Awake and in moderate to severe distress. HEENT: Normocephalic, atraumatic, mucous membranes moist. Heart: Regular rate and rhythm, no murmurs. Lungs: Bilateral crackles wheezing are appreciated. Fine crackles noted on the right side of the lung. Abdomen: Soft, nondistended, nontender, positive bowel sounds. ?No guarding or rebound tenderness. Neurologic: Alert and oriented x3, no gross neurological deficit, and patient able to move all 4 extremities. Extremities: No edema. Bilateral deformities of hand noted- ?rheumatoid arthritis Skin: No rash or ecchymoses. Results Labs 03/25/24 05:40 03/25/24 06:24 Labs: Short CBC 03/16/24 Range/Units 04:47 WBC 11.6 H (3.6-11.0) Thou/mm3 Hgb 9.3 L (12.0-16.0) g/dL Hct 28.4 L (36.0-46.0) % Plt Count 339 D (140-440) Thou/mm3 BMP 03/15/24 03/16/24 19:28 04:47 Sodium 131 L Potassium 4.0 3.5 D Chloride 97 L Carbon Dioxide 23.9 BUN 31 H Creatinine 1.2 Glucose 115 H Calcium 8.9 Liver Function 03/16/24 Range/Units 04:47 Albumin 3.7 (3.4-4.8) gm/dL ABG Interpretation ABG results: 03/15/24 20:34 ABG pH 7.45 ABG pCO2 34 ABG pO2 100 ABG HCO3 24 ABG O2 Saturation 99 H ABG Base Excess 0 Quality Measures Quality Measures sepsis Current suspected stage: ruled out Possible source: pulmonary Blood cultures ordered: completed in ED Antibiotic ordered: Yes Advance care planning discussed with:: patient and significant other Medications Home Medications and Allergies Home Medications ?Medication ?Instructions ?Recorded ?Confirmed ?Type loratadine 10 mg tablet 10 mg PO QAM 09/28/22 03/15/24 History montelukast 10 mg tablet 10 mg PO QPM 09/28/22 03/15/24 History sertraline 100 mg tablet 200 mg PO DAILY 09/28/22 03/15/24 History acetaminophen 500 mg tablet 500 mg PO Q6HR PRN Pain 03/15/24 03/15/24 History alendronate 70 mg tablet 70 mg PO QWEEK 03/15/24 03/15/24 History amlodipine 5 mg tablet 5 mg PO QPM 03/15/24 03/15/24 History calcium 600 mg (as 1 tab PO BID 03/15/24 03/15/24 History carbonate)-vitamin D3 10 mcg (400 unit) tablet celecoxib 100 mg capsule 100 mg PO BID 03/15/24 03/15/24 History cyclobenzaprine 5 mg tablet 5 mg PO 2XD 03/15/24 03/15/24 History fluticasone propionate 50 1 spray intranasal BID 03/15/24 03/15/24 History mcg/actuation nasal spray,suspension labetalol 100 mg tablet 100 mg PO 2XD 03/15/24 03/15/24 History lidocaine 5 % topical patch 1 patch topical QDAY 03/15/24 03/15/24 History mirtazapine 30 mg tablet 30 mg PO QPM 03/15/24 03/15/24 History Allergies Allergy/AdvReac Type Severity Reaction Status Date / Time ciprofloxacin Allergy Severe NAUSEA/VOMI Verified 09/28/22 12:24 TING Sulfa (Sulfonamide Allergy Severe Rash Verified 09/28/22 12:24 Antibiotics) Visit Medications Acetaminophen (Acetaminophen 325 Mg Tablet) 650 mg PO Q6H PRN PRN Reason: PAIN OR FEVER > 101 Stop: 04/13/24 02:59 Albuterol/Ipratropium (Albuterol/Ipratropium (Duoneb) Rt Rissa 3 Ml Nebu) 3 ml INH Q4HRRT EMPERATRIZ Stop: 04/14/24 16:29 Last Admin: 03/16/24 14:04 Dose: 3 ml Albuterol/Ipratropium (Albuterol/Ipratropium (Duoneb) Rt Rissa 3 Ml Nebu) 3 ml INH Q2HR PRN PRN Reason: SHORTNESS OF BREATH OR WHEEZE Stop: 04/14/24 16:20 Azithromycin (Azithromycin 250 Mg Tablet) 500 mg PO HS EMPERATRIZ Stop: 03/21/24 20:59 Last Admin: 03/15/24 22:30 Dose: 500 mg Furosemide (Furosemide Inj 10 Mg/Ml 4ml Vial) 40 mg IVP Q8HR EMPERATRIZ Stop: 04/15/24 13:59 Last Admin: 03/16/24 14:36 Dose: 40 mg Heparin Sodium (Porcine) (Heparin Sod Inj 5000 Unit/Ml Vial) 5,000 unit SC Q12HR EMPERATRIZ Stop: 03/28/24 08:59 Last Admin: 03/16/24 08:15 Dose: 5,000 unit Hydralazine HCl (Hydralazine Inj 20 Mg/Ml Vial) 10 mg IV Q6HR PRN PRN Reason: SBP > 170 Stop: 04/13/24 11:28 Ceftriaxone Sodium/Dextrose (Rocephin/D5w 1gm Iv Premix) 50 mls @ 100 mls/hr IV HS EMPERATRIZ Stop: 03/21/24 20:59 Last Admin: 03/15/24 22:30 Dose: 100 mls/hr Labetalol HCl (Labetalol 100 Mg Tablet) 100 mg PO BID EMPERATRIZ Stop: 04/13/24 04:39 Last Admin: 03/16/24 08:14 Dose: 100 mg Lisinopril (Lisinopril 2.5 Mg Tablet) 10 mg PO QDAY EMPERATRIZ Stop: 04/13/24 18:14 Last Admin: 03/16/24 08:14 Dose: 10 mg Mirtazapine (Mirtazapine 15 Mg Tablet) 7.5 mg PO HS EMPERATRIZ Stop: 04/15/24 20:59 Ondansetron HCl (Ondansetron Inj 2 Mg/Ml Inj 2 Ml) 4 mg IV Q6H PRN; Protocol PRN Reason: NAUSEA OR VOMITING Stop: 04/13/24 02:59 Pantoprazole Sodium (Pantoprazole 40 Mg Tablet) 40 mg PO QDAY EMPERATRIZ Stop: 04/13/24 08:59 Last Admin: 03/16/24 08:13 Dose: 40 mg Sertraline HCl (Sertraline Hcl 25 Mg Tablet) 100 mg PO BID EMPERATRIZ Stop: 04/13/24 20:59 Last Admin: 03/16/24 08:15 Dose: 100 mg Discontinued Medications Albuterol/Ipratropium (Albuterol/Ipratropium (Duoneb) Rt Rissa 3 Ml Nebu) 3 ml INH Q6HRRT EMPERATRIZ Stop: 04/13/24 12:59 Albuterol/Ipratropium (Albuterol/Ipratropium (Duoneb) Rt Rissa 3 Ml Nebu) 3 ml INH Q6HRRT PRN PRN Reason: sob or wheeze Stop: 04/13/24 12:59 Last Admin: 03/14/24 09:41 Dose: 3 ml Albuterol/Ipratropium (Albuterol/Ipratropium (Duoneb) Rt Rissa 3 Ml Nebu) 3 ml INH Q6HRRT EMPERATRIZ Stop: 04/13/24 18:14 Last Admin: 03/15/24 12:05 Dose: 3 ml Azithromycin (Azithromycin 250 Mg Tablet) 250 mg PO HS EMPERATRIZ Stop: 03/21/24 20:59 Furosemide (Furosemide Inj 10 Mg/Ml 4ml Vial) 40 mg IVP X1 ONE Stop: 03/14/24 05:48 Last Admin: 03/14/24 06:14 Dose: 40 mg Furosemide (Furosemide Inj 10 Mg/Ml 4ml Vial) 40 mg IVP QDAY EMPERATRIZ Stop: 04/14/24 08:59 Furosemide (Furosemide Inj 10 Mg/Ml 4ml Vial) 40 mg IVP BIDD EMPERATRIZ Stop: 04/13/24 20:59 Last Admin: 03/16/24 05:44 Dose: 40 mg Hydralazine HCl (Hydralazine Inj 20 Mg/Ml Vial) 10 mg IV Q6HR PRN PRN Reason: SBP > 160 Stop: 04/13/24 11:28 Last Admin: 03/14/24 14:36 Dose: 10 mg Sodium Chloride (Ns) 1,000 mls @ 999 mls/hr IV .Q1H1M ONE Stop: 03/14/24 03:13 Last Infusion: 03/14/24 04:28 Dose: Infused Ceftriaxone Sodium/Dextrose (Rocephin/D5w 1gm Iv Premix) 50 mls @ 100 mls/hr IV X1 ONE Stop: 03/14/24 02:44 Last Infusion: 03/14/24 04:07 Dose: Infused Azithromycin 500 mg/ Sodium (Chloride) 250 mls @ 250 mls/hr IV X1 ONE Stop: 03/14/24 03:12 Last Infusion: 03/14/24 04:27 Dose: Infused Magnesium Sulfate (Magnesium Sulfate Ivpb) 4 gm in 50 mls @ 12.5 mls/hr IV X1 ONE Stop: 03/15/24 00:01 Last Admin: 03/14/24 23:30 Dose: 12.5 mls/hr Potassium Chloride (Kcl Ivpb) 10 meq in 100 mls @ 100 mls/hr IV Q1H EMPERATRIZ Stop: 03/15/24 12:03 Last Admin: 03/15/24 13:59 Dose: 100 mls/hr Lorazepam (Lorazepam 0.5 Mg Tablet) 1 mg PO X1 ONE Stop: 03/14/24 04:28 Last Admin: 03/14/24 04:30 Dose: 1 mg Potassium Chloride (Potassium Chloride 20 Meq Tabcr) 40 meq PO X1 ONE Stop: 03/15/24 08:05 Last Admin: 03/15/24 08:38 Dose: 40 meq Potassium Chloride (Potassium Chloride 20 Meq Tabcr) 20 meq PO X1 ONE Stop: 03/15/24 15:53 Last Admin: 03/15/24 16:05 Dose: Not Given Sodium Chloride (Sodium Chloride Rt 10% 15 Ml Nebu) 5 ml INH X1 ONE Stop: 03/14/24 03:01 Last Admin: 03/14/24 04:10 Dose: 5 ml Assessment & Plan Plan A 82-year-old female with past medical history of hypertension, GERD s/p fundoplication with hiatal hernia repair, hyperlipidemia, TIA [2021], depression was brought to the hospital with chief complaints of shortness of breath and admitted to hospital with acute hypoxic respiratory failure. # Acute hypoxic respiratory failure # ARDS # Bilateral pulmonary infiltrates with severe hypertension #? 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 -BNP is >3000 for which cardiology was consulted. -Echo done showed severe pulmonary hypertension -CT showed bilateral infiltrates with ARDS pattern. -Patient was noted to have bilateral hand deformities and when asked about the history, patient's [id number] stated that she was diagnosed to have rheumatoid arthritis but did not get any treatment for that. Plan -RA factor, anti-CCP, LISBET was ordered. -Creatinine kinase, aldolase was ordered. -Continue antibiotics. Streptococcus and Legionella antigen are ordered. -Recommended to continue the diuresis and repeat CT chest. -Continue to monitor the patient on high flow oxygen and recommended to upgrade the patient to ICU the patient is having respiratory fatigue or not able to maintain saturations on high flow. Patient plan of care was discussed with the attending physician, Dr. Singh and senior resident Dr. Maximilian Garcia, PGY1 Attending Provider Attestation/Addendum Patient seen and examined with above resident, John Garcia MD. I agree with the findings, assessment, and plan of care as documented except for any differences below. Patient referred by cardiology secondary to pulm hypertension and acute hypoxic respiratory failure. CT imaging done negative for pulm embolism strongly suggestive of inflammatory ILD. Will send off serologies to exclude autoimmune disease that she does have deformities of the left hand but this seems to be more trigger finger that he does ulnar deviation that is typically seen with rheumatoid arthritis. She does not have any cold exposure risk from occupational standpoint or for chronic hypersensitivity pneumonitis. However, imaging does suggest this is related to chronic hypersensitivity pneumonitis given mosaicism and inflammatory component of vocal peribronchovascular distribution. Component of pulm hypertension also playing a role and we will optimize her fluid status. She is on empiric antibiotic therapy which we will continue. Will exclude presence of fungal or bacterial infection prior to initiation of potential steroid burst therapy to suppress ongoing parenchymal process in order to help recovery. Patient and her [id number] have been updated on pulmonary diagnosis and workup is ongoing with close monitoring in the ICU. Fortunately blood pressure remains stable along with renal function with adequate urine output. She looks euvolemic but she is severely cachectic likely secondary to longstanding lung disease though on remote imaging does not confirm presence of evolving ILD but this is more than a couple years ago. This is most suggestive of ongoing active exposure now potentially with multiple pets at home and presence of mold is likely etiology, she does live in an older home by herself since her has . Total critical care time: I personally spent 45 minutes for review of physiologic parameters, directed plan of care throughout the day, coordination of care with other subspecialists, and counseling patient and family at bedside. This is exclusive of time spent teaching housestaff or performing any separate billable procedures. Patient continues to require critical care services for pulmonary vascular disease and acute hypoxic respiratory failure secondary to interstitial lung disease of unknown etiology. Patient continues to be at risk for further morbidity and mortality.
--- NOTE | 2024-03-16 16:46 | ESPR_ITS ---
<Statement entered by Annetta Angel DO - 03/16/24 19:33> Senior attestation: Patient was examined and case was reviewed with team including attending physician. Note reviewed, I agree with most of its contents and agree with the patient's care. Overnight patient was transitioned to HFNC due to hypoxia, today found to be short of breath with tachypnea however no accessory muscle use noted, oxygen saturations 95%+ on 20L HFNC. Cardiology team following, increased lasix diuresis to 40mg [id number], echo revealed EF 40-45%. Chest CTA was completed, revealing severe bilateral PNA with ARDS pattern, will consult ICU and pulmonology team, we appreciate recommendations. Speech therapy referral due to concern for difficulty eating, will add ensure and mirtazapine to increase appetite. Annetta Angel DO PGY-3 Documentation for date of: 03/16/24 Subjective Subjective Interval history: Patient seen at bedside. Overnight, patient was noted to be significantly hypoxic requiring oxygen mask and transition to high flow nasal cannula. At bedside today, patient reports worsening breathing function and is unable to speak long sentences without getting winded. She is saturating 93% on 20 L, 80% via HFNC. I&O overnight: 1000/1070 (-70). Echocardiogram returned with an ejection fraction of 40 to 45%, with increased pressures, PAH. Per cardiology, patient is on Lasix 40 mg twice daily which will be increased to Q8 for diuresis. Due to patient's increasing oxygen requirements and failure of improvement, chest CTA was ordered which showed worsening severe bilateral pneumonia and ARDS pattern. Pulmonology was consulted. Due to patient's history of rheumatoid arthritis, suspect interstitial lung disease. Labs reviewed, patient has anemia, followed up with iron panel-anemia of chronic disease. Slight elevation in BUN to 31, creatinine is 1.2. Per patient's family at bedside, patient is also not eating and swallowing complaints of difficulty swallowing. Will have speech therapy to evaluate patient's, add Ensure for adequate nutrition and mirtazapine as patient does have depression and this will help with appetite as well. Will continue blood pressure medications and continue to monitor respiratory function. Exam Vital Signs Temp Pulse Resp BP Pulse Ox O2 Del Method O2 Flow Rate 97.0 F 90 36 H 136/92 H 94 L High Flow Nasal Cannula 25 03/16/24 12:00 03/16/24 14:36 03/16/24 14:19 03/16/24 14:36 03/16/24 14:19 03/16/24 12:00 03/16/24 14:19 FiO2 70 03/16/24 14:19 Narrative Exam GENERAL: AAOX3 NEURO: CARD HANGER grossly intact, moves extremities x4 HEENT: Dry mucosa. Eyes open, symmetrical, & clear,on HFNC CARDIO: No chest pain on palpation. Heart RRR, no obvious murmurs PULM: No noted coughing, tachypneic, increased work of breathing. Mild crackles bilaterally, saturating 93% on HFNC (20L, 80%) GI: Abdomen soft, nondistended, no pain on palpation. 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 SKIN/MSK/EXT: No wounds/rashes/edema/amputations, no pain on palpation. Pedal pulses present B/L Objective Labs 03/17/24 05:35 03/17/24 05:35 Labs: Laboratory Results - last 24 hr 03/15/24 03/15/24 03/15/24 04:49 16:25 19:28 WBC RBC Hgb Hct MCV MCH MCHC RDW Std Deviation Plt Count Neut % (Auto) Lymph % (Auto) Sunflower % (Auto) Eos % (Auto) Baso % (Auto) Neut # (Auto) Lymph # (Auto) Sunflower # (Auto) Eos # (Auto) Baso # (Auto) Immature Gran # (Auto) Absolute Nucleated RBC Immature Gran % Nucleated RBC % Puncture Site ABG pH ABG pCO2 ABG pO2 ABG HCO3 ABG O2 Saturation ABG Base Excess FiO2 Sodium Potassium 4.0 Chloride Carbon Dioxide Anion Gap BUN Creatinine Estim Creat Clear Calc eGFR BUN/Creatinine Ratio Glucose Calculated Osmolality Calcium Phosphorus Magnesium Iron TIBC Iron Saturation Unsat Iron Binding Ferritin Albumin Coccidioides IgG Ab Negative RSV Rapid Negative Group A Strep Rapid 03/15/24 03/16/24 03/16/24 20:34 04:47 10:38 WBC 11.6 H RBC 3.91 L Hgb 9.3 L Hct 28.4 L MCV 73 L MCH 23.8 L MCHC 32.7 RDW Std Deviation 44.1 Plt Count 339 D Neut % (Auto) 89 H Lymph % (Auto) 4 L Sunflower % (Auto) 6 Eos % (Auto) 0 Baso % (Auto) 0 Neut # (Auto) 10.3 H Lymph # (Auto) 0.4 L Sunflower # (Auto) 0.7 Eos # (Auto) 0.0 Baso # (Auto) 0.0 Immature Gran # (Auto) 0.07 H Absolute Nucleated RBC 0.00 Immature Gran % 1 H Nucleated RBC % 0 Puncture Site Right Radial ABG pH 7.45 ABG pCO2 34 ABG pO2 100 ABG HCO3 24 ABG O2 Saturation 99 H ABG Base Excess 0 FiO2 90 Sodium 131 L Potassium 3.5 D Chloride 97 L Carbon Dioxide 23.9 Anion Gap 10 BUN 31 H Creatinine 1.2 Estim Creat Clear Calc 24.4 L eGFR 45 L BUN/Creatinine Ratio 26 H Glucose 115 H Calculated Osmolality 270 L Calcium 8.9 Phosphorus 3.3 Magnesium 2.1 Iron 11 L TIBC 214 L Iron Saturation 5 L Unsat Iron Binding 203 L Ferritin 482 H Albumin 3.7 Coccidioides IgG Ab RSV Rapid Group A Strep Rapid Negative ABG Interpretation ABG results: 03/15/24 20:34 ABG pH 7.45 ABG pCO2 34 ABG pO2 100 ABG HCO3 24 ABG O2 Saturation 99 H ABG Base Excess 0 Quality Measures Quality Measures sepsis Current suspected stage: sepsis Possible source: pulmonary Blood cultures ordered: completed in ED Antibiotic ordered: Yes Advance care planning discussed with:: patient and other Assessment & Plan Assessment Current Active Medications: Generic Name Dose Route Start Last Admin Trade Name Freq PRN Reason Stop Dose Admin Acetaminophen 650 mg 03/14/24 03:00 Acetaminophen 325 Mg Tablet PO 04/13/24 02:59 Q6H PRN PAIN OR FEVER > 101 Albuterol/Ipratropium 3 ml 03/15/24 16:30 03/16/24 14:04 Albuterol/Ipratropium (Duoneb) Rt Rissa 3 Ml Nebu INH 04/14/24 16:29 3 ml Q4HRRT EMPERATRIZ Administration Albuterol/Ipratropium 3 ml 03/15/24 16:21 Albuterol/Ipratropium (Duoneb) Rt Rissa 3 Ml Nebu INH 04/14/24 16:20 Q2HR PRN SHORTNESS OF BREATH OR WHEEZE Azithromycin 500 mg 03/14/24 21:00 03/15/24 22:30 Azithromycin 250 Mg Tablet PO 03/21/24 20:59 500 mg HS EMPERATRIZ Administration Furosemide 40 mg 03/16/24 14:00 03/16/24 14:36 Furosemide Inj 10 Mg/Ml 4ml Vial IVP 04/15/24 13:59 40 mg Q8HR EMPERATRIZ Administration Heparin Sodium (Porcine) 5,000 unit 03/14/24 09:00 03/16/24 08:15 Heparin Sod Inj 5000 Unit/Ml Vial SC 03/28/24 08:59 5,000 unit Q12HR EMPERATRIZ Administration Hydralazine HCl 10 mg 03/14/24 20:02 Hydralazine Inj 20 Mg/Ml Vial IV 04/13/24 11:28 Q6HR PRN SBP > 170 Ceftriaxone Sodium/Dextrose 50 mls @ 100 mls/hr 03/14/24 21:00 03/15/24 22:30 Rocephin/D5w 1gm Iv Premix IV 03/21/24 20:59 100 mls/hr HS EMPERATRIZ Administration Labetalol HCl 100 mg 03/14/24 04:40 03/16/24 08:14 Labetalol 100 Mg Tablet PO 04/13/24 04:39 100 mg BID EMPERATRIZ Administration Lisinopril 10 mg 03/14/24 18:15 03/16/24 08:14 Lisinopril 2.5 Mg Tablet PO 04/13/24 18:14 10 mg QDAY EMPERATRIZ Administration Mirtazapine 7.5 mg 03/16/24 21:00 Mirtazapine 15 Mg Tablet PO 04/15/24 20:59 HS EMPERATRIZ Ondansetron HCl 4 mg 03/14/24 03:00 Ondansetron Inj 2 Mg/Ml Inj 2 Ml IV 04/13/24 02:59 Q6H PRN NAUSEA OR VOMITING Protocol Pantoprazole Sodium 40 mg 03/14/24 09:00 03/16/24 08:13 Pantoprazole 40 Mg Tablet PO 04/13/24 08:59 40 mg QDAY EMPERATRIZ Administration Sertraline HCl 100 mg 03/14/24 21:00 03/16/24 08:15 Sertraline Hcl 25 Mg Tablet PO 04/13/24 20:59 100 mg BID EMPERATRIZ Administration Plan Summary: She is an 83-year-old female with a past medical history of hypertension and depression who presented to the ED on 03/14/2024 with shortness of breath and PND gotten worse within the last few days. 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 To her knowledge, she has never had any heart diseases or heart failure. In the ED, the patient was noted to be hypotensive and hypoxic, saturating 98% on 3 L via nasal cannula. COVID and flu serologies were negative and CBC was otherwise unremarkable, Trope was seen to be elevated at 0.1 and BNP greater than 3000. Chest x-ray showed extensive bilateral opacities and significant vascular congestion and the patient was admitted for management of acute hypoxic respiratory failure secondary to ?New onset CHF and sepsis secondary to community-acquired pneumonia. 03/16/2024- Patient still complains of shortness of breath, no cough, still has orthopnea. Due to patient's increasing oxygen requirements and failure of improvement, chest CTA was ordered which showed worsening severe bilateral pneumonia and ARDS pattern. Pulmonology was consulted. Due to patient's history of rheumatoid arthritis, suspect interstitial lung disease. Plan: -Continue IV ceftriaxone and azithromycin -Continue IV Lasix 40 mg Q8hr -Consulted pulmonology, appreciate recommendations -Strict I&O's -Pending blood and sputum cultures -Pending echo -Cardiology consulted, appreciate recommendations #History of hypertension The patient at home is on labetalol 100 mg twice daily -Restarted labetalol and lisinopril 10mg daily #History of depression The patient is on sertraline 100 mg daily Added Mirtazapine 7.5mg Health maintenance: Dispo: [facility] Diet: Cardiac GI: Pantoprazole DVT: SC Heparin Martinez: None Lines: Peripheral Med Rec: Pending, f/u PT: Ordered Code:Full Case was discussed with senior resident Dr Angel and attending physician, Dr Cheri Marks MD PGY-1 Attending Provider Attestation/Addendum I have discussed and was present for the essential components of the history, physical examination, diagnosis, and treatment plan with the resident. I agree with the patient's care as documented by the resident and amended herein by me. Gamaliel Alonzo DO. Although this document has been carefully reviewed, there may still be some phonetic and other typographical errors. These errors are purely grammatical due to imperfections in the software program and should not be construed in any way to compromise the substance of the patient's medical care during this visit.
[2024-03-16 17:26] LABS: Influenza A Ag Negative; Influenza B Ag Negative
[2024-03-16] MEDS: AZITHROMYCIN 250 MG TABLET 500 MG PO (20:13)
[2024-03-16] MEDS: MIRTAZAPINE 15 MG TABLET 7.5 MG PO (20:14)
[2024-03-16] MEDS: cefTRIAXone/D5w 1gm IV premix 50 ML IV (20:16)
[2024-03-16] MEDS: POTASSIUM CHL 10 mEq IVPB 10 MEQ/100 ML BAG 100 MEQ IV ×3 (20:17→22:56)
--- NOTE | 2024-03-16 20:28 | EVENTNT_ITS ---
Documentation for date of: 03/16/24 Event Note Event Note: Rapid response called at 8:30 PM for increased work of breathing and respiratory rate of 42. BP 135/85, HR 95, O2 94% on HFNC (25 L, 80% FiO2). ABG, CXR ordered and patient to be transferred to telemetry. ABG showed mildly alkalotic pH 7.47, consistent with patient's RR, and hypoxemia with pO2 of 79. CXR at bedside appeared to be similar from prior, possible improvement on right side. Environmental Quality Analyst/door frame builder, Dr. Singh, consulted and did not recommend initiation of BiPAP as patient will likely not tolerate and will remain on HFNC. He will evaluate patient tomorrow.
--- NOTE | 2024-03-16 20:31 | XR_ITS ---
Examination: AP chest single view Technique one AP portable semiupright chest single view Exam date and time: March 16, [id number] hrs. Comparison February 13, 2024 Indications: Shortness of breath hypoxia today. Findings: Severe bilateral lung opacity Mild prominence left ventricle Ectatic thoracic aorta The osseous structures are intact Impression: Severe bilateral pneumonia, ARDS
[2024-03-16 20:38] LABS: Base Excess 4 (-3-3); HCO3 27 mEq/L (20-26); Inspired Oxygen, FIO2 80 %; O2 Saturation 97 % (91-98); PCO2 38 mmHg (32.0-48.0); PO2 79 mmHg (83-108); pH, Arterial 7.47 (7.35-7.45)
[2024-03-16 20:39] LABS: Allen Test Performed/OK; Puncture Site Right Radial
--- NOTE | 2024-03-16 21:22 | PC.NURSE ---
Rapid response called at 2030 d/t increase of breathing pt upgraded to tele. Melissa SAAB received report.
[2024-03-16 21:54] LABS: Lactate (Lactic Acid) 1.3 mMol/L (0.4-2.0)
[2024-03-17] VITALS (40 sets, daily range): BP systolic 134–187; BP diastolic 61–110; PULSE 68–98; RESP 23–40; TEMP 36.2–37.1; O2SAT 92–99; BMI 17.4
[2024-03-17] MEDS: POTASSIUM CHL 10 mEq IVPB 10 MEQ/100 ML BAG 100 MEQ IV (00:02)
--- NOTE | 2024-03-17 02:36 | PD.RESEVENT ---
Documentation for date of: 03/17/24 Event Note Event Note: At 0249 telenurse approached me regarding patient's mentation. Patient while in her sleep removed her high flow nasal cannula and desatted to diffuse 50s very rapidly. At bedside the patient seemed very confused and her mouth was cyanotic. Patient was placed again on the high flow nasal cannula 100% FiO2. Patient remained lethargic and confused at that time. Due to that I decided to place the patient in the ICU for closer monitoring and possible intubation if needed. ABG done at that time showed a pH of 7.4/41/94/25. - Patient's care was discussed with my attending physician, Dr. Mik Toscano MD Internal Medicine PGY-3
[2024-03-17 02:44] LABS: Base Excess 0 (-3-3); HCO3 25 mEq/L (20-26); Inspired Oxygen, FIO2 21 %; Lactate (Lactic Acid) 1.5 mMol/L (0.4-2.0); O2 Saturation 98 % (91-98); PCO2 41 mmHg (32.0-48.0); PO2 94 mmHg (83-108)
[2024-03-17 02:47] LABS: Allen Test Performed/OK; Puncture Site Right Radial
--- NOTE | 2024-03-17 03:03 | PC.NURSE ---
patient was becoming more confused and trying to get out of bed, i had jDr. Toscano come assess patient and he felt she needed to be monitored in icu. Family at bedside and updated on plan of care, report given to irina.
[2024-03-17] MEDS: FUROSEMIDE INJ 10 MG/ML 4ML VIAL 40 MG IVP (05:32)
[2024-03-17 06:12] LABS: Basophils % (Auto) 0 % (0-2.5); Eosinophils # (Auto) 0.1 Thou/mm3 (0.0-0.5); Eosinophils % (Auto) 1 % (0-10); Hematocrit 28.1 % (36.0-46.0); Hemoglobin 9.2 g/dL (12.0-16.0); Immature Granulocytes % (Auto) 1 % (0-0); Lymphocytes # (Auto) 0.5 Thou/mm3 (1.0-4.8); Lymphocytes % (Auto) 5 % (10-50); Mean Corpuscular HGB Conc 32.7 g/dl (31.0-37.0); Mean Corpuscular Volume 73 fL (80-100); Monocytes # (Auto) 0.7 Thou/mm3 (0.0-0.8); Monocytes % (Auto) 6 % (0-12); Neutrophils # (Auto) 9.7 Thou/mm3 (1.8-7.7); Neutrophils % (Auto) 87 % (37-80); Nucleated Red Blood Cell % 0 /100 WBC (0); Platelet Count 315 Thou/mm3 (140-440); RDW Standard Deviation 43.6 fL (36.4-46.3); Red Blood Count 3.84 Miln/mm3 (4.00-5.20); White Blood Count 11.1 Thou/mm3 (3.6-11.0)
[2024-03-17] MEDS: ALBUTEROL/IPRATROPIUM (Duoneb) RT SOL 3 ML NEBU INH ×5 (06:39→22:21)
[2024-03-17 08:06] LABS: Alanine Aminotransferase 16 U/L (10-49); Albumin, Serum 3.5 gm/dL (3.4-4.8); Albumin/Globulin Ratio 1.5 (1.2-2.2); Alkaline Phosphatase 107 U/L (46-116); Anion Gap 10 (7-16); Aspartate Amino Transferase 24 U/L (0-34); BUN/Creatinine Ratio 27 Ratio (12-20); Blood Urea Nitrogen 41 mg/dL (9-23); Calcium 9.2 mg/dL (8.3-10.6); Calcium (Corrected) 9.6 mg/dL (8.5-10.1); Carbon Dioxide 21.9 mMol/L (20.0-31.0); Chloride 99 mMol/L (98-107); Creatine Kinase 26 U/L (34-171); Creatinine (Component) 1.5 mg/dL (0.6-1.3); Estimated Creatinine Clearance 18.8 mL/min (>60); Globulin 2.4 gm/dL (2.3-3.5); Glucose 111 mg/dL (74-106); Magnesium 2.2 mg/dL (1.6-2.6); Osmolality,Calculated 273 (275-295); Phosphorous 4.5 mg/dL (2.4-5.1); Potassium 3.9 mMol/L (3.4-5.1); Sodium 131 mMol/L (136-145); Total Protein 5.9 gm/dL (5.7-8.2); eGFR 34 See Note
--- NOTE | 2024-03-17 08:13 | ESPR_ITS ---
Documentation for date of: 03/17/24 Subjective Subjective Interval history: Patient was seen and examined at bedside this AM. No acute exents overnight. Patient tolerating diet, adequate urine output and mentation is at baseline. Patient still complains of SOB at rest and unable to complete full sentences,same as yesterday. On HFNC @ 25L/min Patient is on IV diuresis with furosemide 40 Mg IV Q8hrly Can stop Lasix and give gentle IV fluids BUN increased to 41 from 31 and Cr increased to 1.5 from 1.2 Patient had a fluid balance of -413 cc in the past 24 hours Patient continues to be hypertensive with BP this morning 151/65 and similar trend overnight. From telemetry review HR 90s?100s overnight with sinus arrhythmia, PACs and PVCs. This a.m. K of 3.9 and Mg 2.2. Maintain potassium greater than 4 and magnesium greater than 2 at all times to prevent any arrhythmias. Patient scheduled for repeat chest CT this am. Overnight patient's became confused and was attempting to remove high flow nasal cannula and subsequently desaturated to the 50s. At the bedside patient appeared to be confused and her mouth was cyanotic. Patient was again placed on high flow nasal cannula and upgraded to the ICU for closer monitoring and possible intubation if necessary. Pulmonology and title assistant on board Of note patient also admitted to having rheumatoid arthritis. Both patient and [id number], Binta seen at bedside both extensively counseled about echocardiogram findings as well as chest CTA findings. Explained the need for advanced directive planning and CODE STATUS in the event of deterioration. Patient is currently high risk of decompensation possibly needing intubation at any time. Both patient and her daughter understands, will further discuss with primary team. They understand. Exam Vital Signs Temp Pulse Resp BP Pulse Ox O2 Del Method O2 Flow Rate 98.3 F 87 31 H 151/65 H 97 High Flow Nasal Cannula 30 03/17/24 08:00 03/17/24 08:00 03/17/24 08:00 03/17/24 08:00 03/17/24 08:00 03/17/24 08:00 03/17/24 08:00 FiO2 90 03/17/24 08:00 Narrative Exam Constitutional Alert, oriented x 3 and in mild distress. Cachectic, Temporal wasting, Elderly Female on O2 via HFNC, cannot complete sentences, worsening. Dry MM and decreased skin turgor HEENT Vision grossly intact. Patent nares. Trachea midline Respiratory Wasted on inspection poor inspiratory effort, decreased AE in all lung coffman , ronchi, wheeze heard b/l Cardiovascular S1 and S2 audible, RRR. 3/6 diastolic murmur at left lower sternal border Abdominal Soft and non tender to palpation in all quadrants. BS + Genitourinary No bladder tenderness, no flank pain. Normal to palpation Musculoskeletal Extremities tone within normal limits. No LE edema. Neurological CN II - XII grossly intact. Extremity motor and sensation grossly intact. Skin Warm, dry and intact. No apparent lesions. Psychiatric Cooperative Objective Labs 03/17/24 05:35 03/17/24 05:35 Labs: Laboratory Results - last 24 hr 03/15/24 03/16/24 03/16/24 04:49 04:47 10:38 WBC RBC Hgb Hct MCV MCH MCHC RDW Std Deviation Plt Count Neut % (Auto) Lymph % (Auto) [place] % (Auto) Eos % (Auto) Baso % (Auto) Neut # (Auto) Lymph # (Auto) [place] # (Auto) Eos # (Auto) Baso # (Auto) Immature Gran # (Auto) Absolute Nucleated RBC Immature Gran % Nucleated RBC % Puncture Site ABG pH ABG pCO2 ABG pO2 ABG HCO3 ABG O2 Saturation ABG Base Excess FiO2 Sodium Potassium Chloride Carbon Dioxide Anion Gap BUN Creatinine Estim Creat Clear Calc eGFR BUN/Creatinine Ratio Glucose Calculated Osmolality Lactic Acid Calcium Corrected Calcium Phosphorus Magnesium AST ALT Alkaline Phosphatase Total Creatine Kinase Total Protein Albumin 3.7 Globulin Albumin/Globulin Ratio Coccidioides IgG Ab Negative Influenza A (Rapid) Influenza B (Rapid) Group A Strep Rapid Negative 03/16/24 03/16/24 03/16/24 16:20 20:31 21:44 WBC RBC Hgb Hct MCV MCH MCHC RDW Std Deviation Plt Count Neut % (Auto) Lymph % (Auto) [place] % (Auto) Eos % (Auto) Baso % (Auto) Neut # (Auto) Lymph # (Auto) [place] # (Auto) Eos # (Auto) Baso # (Auto) Immature Gran # (Auto) Absolute Nucleated RBC Immature Gran % Nucleated RBC % Puncture Site Right Radial ABG pH 7.47 H ABG pCO2 38 ABG pO2 79 L D ABG HCO3 27 H ABG O2 Saturation 97 ABG Base Excess 4 H FiO2 80 Sodium Potassium Chloride Carbon Dioxide Anion Gap BUN Creatinine Estim Creat Clear Calc eGFR BUN/Creatinine Ratio Glucose Calculated Osmolality Lactic Acid 1.3 Calcium Corrected Calcium Phosphorus Magnesium AST ALT Alkaline Phosphatase Total Creatine Kinase Total Protein Albumin Globulin Albumin/Globulin Ratio Coccidioides IgG Ab Influenza A (Rapid) Negative Influenza B (Rapid) Negative Group A Strep Rapid 03/17/24 03/17/24 02:35 05:35 WBC 11.1 H RBC 3.84 L Hgb 9.2 L Hct 28.1 L MCV 73 L MCH 24.0 L MCHC 32.7 RDW Std Deviation 43.6 Plt Count 315 Neut % (Auto) 87 H Lymph % (Auto) 5 L [place] % (Auto) 6 Eos % (Auto) 1 Baso % (Auto) 0 Neut # (Auto) 9.7 H Lymph # (Auto) 0.5 L [place] # (Auto) 0.7 Eos # (Auto) 0.1 Baso # (Auto) 0.0 Immature Gran # (Auto) 0.10 H Absolute Nucleated RBC 0.00 Immature Gran % 1 H Nucleated RBC % 0 Puncture Site Right Radial ABG pH 7.40 ABG pCO2 41 ABG pO2 94 ABG HCO3 25 ABG O2 Saturation 98 ABG Base Excess 0 FiO2 21 Sodium 131 L Potassium 3.9 Chloride 99 Carbon Dioxide 21.9 Anion Gap 10 BUN 41 H Creatinine 1.5 H Estim Creat Clear Calc 18.8 L eGFR 34 L BUN/Creatinine Ratio 27 H Glucose 111 H Calculated Osmolality 273 L Lactic Acid 1.5 Calcium 9.2 Corrected Calcium 9.6 Phosphorus 4.5 Magnesium 2.2 AST 24 ALT 16 Alkaline Phosphatase 107 Total Creatine Kinase 26 L Total Protein 5.9 Albumin 3.5 Globulin 2.4 Albumin/Globulin Ratio 1.5 Coccidioides IgG Ab Influenza A (Rapid) Influenza B (Rapid) Group A Strep Rapid ABG Interpretation ABG results: 03/15/24 03/16/24 03/17/24 20:34 20:31 02:35 ABG pH 7.45 7.47 H 7.40 ABG pCO2 34 38 41 ABG pO2 100 79 L D 94 ABG HCO3 24 27 H 25 ABG O2 Saturation 99 H 97 98 ABG Base Excess 0 4 H 0 Quality Measures Quality Measures sepsis Current suspected stage: sepsis Possible source: pulmonary Blood cultures ordered: completed in ED Antibiotic ordered: Yes Advance care planning discussed with:: patient Assessment & Plan Assessment Current Active Medications: Generic Name Dose Route Start Last Admin Trade Name Freq PRN Reason Stop Dose Admin Acetaminophen 650 mg 03/14/24 03:00 Acetaminophen 325 Mg Tablet PO 04/13/24 02:59 Q6H PRN PAIN OR FEVER > 101 Albuterol/Ipratropium 3 ml 03/15/24 16:30 03/17/24 06:39 Albuterol/Ipratropium (Duoneb) Rt Rissa 3 Ml Nebu INH 04/14/24 16:29 3 ml Q4HRRT EMPERATRIZ Administration Albuterol/Ipratropium 3 ml 03/15/24 16:21 Albuterol/Ipratropium (Duoneb) Rt Rissa 3 Ml Nebu INH 04/14/24 16:20 Q2HR PRN SHORTNESS OF BREATH OR WHEEZE Azithromycin 500 mg 03/14/24 21:00 03/16/24 20:13 Azithromycin 250 Mg Tablet PO 03/21/24 20:59 500 mg HS EMPERATRIZ Administration Furosemide 40 mg 03/16/24 14:00 03/17/24 05:32 Furosemide Inj 10 Mg/Ml 4ml Vial IVP 04/15/24 13:59 40 mg Q8HR EMPERATRIZ Administration Heparin Sodium (Porcine) 5,000 unit 03/14/24 09:00 03/16/24 22:03 Heparin Sod Inj 5000 Unit/Ml Vial SC 03/28/24 08:59 5,000 unit Q12HR EMPERATRIZ Administration Hydralazine HCl 10 mg 03/14/24 20:02 Hydralazine Inj 20 Mg/Ml Vial IV 04/13/24 11:28 Q6HR PRN SBP > 170 Ceftriaxone Sodium/Dextrose 50 mls @ 100 mls/hr 03/14/24 21:00 03/16/24 22:24 Rocephin/D5w 1gm Iv Premix IV 03/21/24 20:59 Infused HS EMPERATRIZ Infusion Labetalol HCl 100 mg 03/14/24 04:40 03/16/24 20:14 Labetalol 100 Mg Tablet PO 04/13/24 04:39 100 mg BID EMPERATRIZ Administration Lisinopril 10 mg 03/14/24 18:15 03/16/24 08:14 Lisinopril 2.5 Mg Tablet PO 04/13/24 18:14 10 mg QDAY EMPERATRIZ Administration Mirtazapine 7.5 mg 03/16/24 21:00 03/16/24 20:14 Mirtazapine 15 Mg Tablet PO 04/15/24 20:59 7.5 mg HS EMPERATRIZ Administration Ondansetron HCl 4 mg 03/14/24 03:00 Ondansetron Inj 2 Mg/Ml Inj 2 Ml IV 04/13/24 02:59 Q6H PRN NAUSEA OR VOMITING Protocol Pantoprazole Sodium 40 mg 03/14/24 09:00 03/16/24 08:13 Pantoprazole 40 Mg Tablet PO 04/13/24 08:59 40 mg QDAY EMPERATRIZ Administration Sertraline HCl 100 mg 03/14/24 21:00 03/16/24 20:14 Sertraline Hcl 25 Mg Tablet PO 04/13/24 20:59 100 mg BID EMPERATRIZ Administration Plan Patient is an 83-year-old female with a past medical history significant for essential hypertension, hyperlipidemia, TIA [2021], depression and GERD s/p Benjamin fundoplication with hiatal hernia repair [2017]. Follows up with PCP Dr Campos. Patient presented to the ED with a chief complaint of shortness of breath. Patient was admitted for acute respiratory failure with hypoxia and cardiology was consulted to assess for possible new onset CHF. 1. Acute respiratory failure with hypoxia - worsening 2. Acute decompensated diastolic heart failure exacerbation?new onset 3. Pulmonary Hypertension - etiology yet to established 4. ACS ruled out 5. NSTEMI type II On presentation patient was severely SOB unable to complete sentences and lying at a 45 degree angle. On exam she had no lower extremity edema but poor inspiratory effort, decreased air entry and scattered crackles at the bases and a 3/6 diastolic murmur heard at left lower sternal border. She was not on any home diuretic and not known to have heart failure in the past, however clinically she appears to be in acute decompensated heart failure exacerbation. BNP on admission 3280 and troponin elevated at 0.1 up trended to 0.124 and downtrending to 0.121 likely in the setting of CHF exacerbation EKG on admission showed sinus rhythm, rate 95, LVH. Chest x-ray was significant for increased vascular markings bilaterally flash pulmonary edema. DDx : ILD, RA flare, Allergic interstital pneumonitis, Primary pulmonary hypertension, ARDS BNP can also be elevated in ILD Last echocardiogram completed [place] [address] Brock Strickland findings include: Normal left ventricular size with mild LVH. LVEF 60%. normal cardiac chamber size mitral valve thickening with trace regurgitation moderate aortic valve regurgitation Transthoracic echocardiogram completed on 03/14 findings include: Normal LV size. Mild systolic dysfunction. Mild hypokinesis basal to mid Anterior and anteroseptal gale. Mild LVH. Grade I diastolic dysfunction. Estimated EF 40-45% Normal RV size. Normal RV function. Estimated RVSP 68mmHg. Moderate to severe PAH. RAP 10. Mild LA dilation. Severe RA dilation Moderate MR, AI. Mild TR. Trace PI. IVC dilated. Chest CTA completed 03/16 showed severe bilateral pneumonia ARDS pattern with ground glass opacities, bilateral bronchiectasis, fibrosis and significant consolidation, negative for pulmonary artery emboli. Abdomen CT was significant for Large Liver Simple Cyst Of note patient also admitted to having rheumatoid arthritis. Overnight patient's became confused and was attempting to remove high flow nasal cannula and subsequently desaturated to the 50s. At the bedside patient appeared to be confused and her mouth was cyanotic. Patient was again placed on high flow nasal cannula and upgraded to the ICU for closer monitoring and possible intubation if necessary. Pulmonology and title assistant on board Of note patient also admitted to having rheumatoid arthritis. Patient still complains of SOB at rest and unable to complete full sentences,same as yesterday. On HFNC @ 25L/min Patient is on IV diuresis with furosemide 40 Mg IV Q8hrly Can decrease frequency of Lasix BUN increased to 41 from 31 and Cr increased to 1.5 from 1.2 Patient had a fluid balance of -413 cc in the past 24 hours Patient continues to be hypertensive with BP this morning 151/65 and similar trend overnight. From telemetry review HR 90s?100s overnight with sinus arrhythmia, PACs and PVCs. This a.m. K of 3.9 and Mg 2.2. Maintain potassium greater than 4 and magnesium greater than 2 at all times to prevent any arrhythmias. Patient scheduled for repeat chest CT this am. Plan: ? Strict input output charting ? 2 g sodium restricted diet ? Daily weights - 1500cc fluid restriction ? Aspirin 81 mg p.o. daily - Can discontinue Lasix in light of ROBEL, minimal negative fluid balance and patient appears dehydrated on exam - Recommend gentle IV fluids ? No need to further trend troponin - [employer] screen was ordered including Anit- CCP , RF and LISBET - Rest of care as per Pulmonology and Certified Rehabilitation Counselor 5. Essential hypertension Home medication labetalol 200 mg p.o. twice daily On admission BP 189/83 Patient continues to be hypertensive with BP this morning 167/90 and similar trend overnight. From telemetry review HR 90s?100s overnight with sinus arrhythmia, PACs and PVCs. Plan: ? Can continue home medication Labetolol for now - Can uptitrate antihypertensives as necessary - Hydralazine 10mg IV as needed for SBP >170 6. Hyperlipidemia Patient was not on any statins at home but has a history of hyperlipidemia. On this admission triglycerides 127, cholesterol 136, LDL 69. Recommend to start patient on moderate intensity statin 7. History of depression Patient's home medication sertraline 100 mg p.o. daily Recommend to continue to avoid any withdrawals 8. History of GERD 9. History of TIA [2021] 10. History of Benjamin fundoplication with hiatal hernia repair [2017] Patient does not appear to be on any PPIs at home and currently denies any GERD symptoms. Patient also did not appear to be on any aspirin at home although she had a history of TIA. Plan: ?Recommend to start aspirin 81 Mg p.o. daily 11. Microcytic anemia On admission patient's Hb 9.5. Baseline from chart review appears to be about 11?12. DDx: Iron deficiency anemia, poor nutrition, anemia of chronic disease, thalassemia, malignancy Patient also endorses approximately 30lb weight loss over the past 2 years Recommend iron panel to further investigate, reticulocyte count, blood smear, LDH 12. CKD stage III A On admission patient's CR 1.1 which appears to be at her baseline Continue management as per primary team 13. Rheumatoid arthritis Patient not on methotrexate or any biologic agents at home but admits to history of rheumatoid arthritis for many years. 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 Continue management as per primary team Continue rest of management as per primary team. We are grateful to be able to participate in Mrs. Garcia's care. Thank you for the consult Plan of care discussed with attending Ski Binding Fitter And Repairer, Dr Nasir Mckeon MD PGY 1 Attending Provider Attestation/Addendum I reviewed the resident Dr. Mckeon consultation progress note and agree with the resident findings and plan in the note above and have also edited the documentation to reflect my findings and plan. Mian Best M.D. Interventional Cardiology
[2024-03-17] MEDS: PANTOPRAZOLE 40 MG TABLET PO (08:23)
[2024-03-17] MEDS: Lisinopril 2.5 MG TABLET 10 MG PO (08:23)
[2024-03-17] MEDS: SERTRALINE HCL 25 MG TABLET 100 MG PO (08:24)
[2024-03-17] MEDS: LABETALOL 100 MG TABLET PO ×2 (08:24→19:20)
[2024-03-17] MEDS: HEPARIN SOD INJ 5000 UNIT/ML VIAL SC ×2 (08:24→21:59)
--- NOTE | 2024-03-17 08:36 | PC.PT ---
Will cancel PT evaluation. Patient is transferred to ICU.
--- NOTE | 2024-03-17 09:17 | PC.NURSE ---
Pt resting in bed with family member at bedside. Pt is still wanting to rest and is tired. Family wanting to speak to primary nurse advised will notify RN to speak with her.
[2024-03-17 09:59] LABS: RA Screen Negative (Negative)
[2024-03-17] MEDS: SODIUM CHLORIDE 0.9% 500 ML 500 ML 50 ML IV (10:45)
[2024-03-17] MEDS: predniSONE 20 MG TABLET PO (10:48)
--- NOTE | 2024-03-17 11:01 | ESPR_ITS ---
Documentation for date of: 03/17/24 Subjective Subjective Interval history: A 82-year-old female with past medical history of hypertension, GERD s/p fundoplication with hiatal hernia repair, hyperlipidemia, TIA [2021], depression was brought to the hospital with chief complaints of shortness of breath. Reported that patient lives alone by herself and does her routine daily activities. Per [id number]-[id number], patient is having shortness of breath for the past 6 months which was worsened recently a week before the day of admission. On the day of admission patient was having severe shortness of breath and called her son who called the EMS and brought her to the hospital. Patient denies fever, cough, nausea, weight loss, loss of appetite, pedal edema, chest pain, diarrhea. Patient was supposedly happy to see the groundwater programs director in [employer] as referred by her primary, but unsure of the reason. Hospital course: At the time of admission in the ED, patient was found to be hypoxic and was started on oxygen through nasal cannula. COVID and flu serologies done at that time was negative. BNP was >3000. Chest x-ray showed bilateral infiltrates with vascular congestion for which cardiology was consulted. Echocardiogram was done on the patient which showed severe pulmonary hypertension. Patient was started on diuretics. Later chest CT angiogram performed showed extensive bilateral infiltrates. Patient was started on high flow oxygen, As her oxygen saturations are not maintaining well. 03/17/2024: Patient was seen and examined bedside in the ICU. Patient is not willing to communicate. Answered questions by nodding her head. Reported that her shortness of breath is improved. Patient is on high flow oxygen with 90% FiO2 and 30 L/min. Vitals are stable. Labs showed mild leukocytosis, anemia, sodium 131, BUN 41, creatinine 1.5. ABG is within normal limits. Diuresis was withheld in view of elevated BUN/creatinine. Steroids were started in view of suspected chronic hypersensitivity pneumonitis. Antibody panel is still pending. Exam Vital Signs Temp Pulse Resp BP Pulse Ox O2 Del Method O2 Flow Rate 98.3 F 97 31 H 145/77 H 97 High Flow Nasal Cannula 30 03/17/24 08:00 03/17/24 08:24 03/17/24 08:00 03/17/24 08:24 03/17/24 08:00 03/17/24 08:00 03/17/24 08:00 FiO2 90 03/17/24 08:00 Narrative Exam General: Awake and in moderate distress. HEENT: Normocephalic, atraumatic, mucous membranes moist. Heart: Regular rate and rhythm, no murmurs. Lungs: Bilateral bronchial breath sounds are appreciated. Fine crackles noted on the right side of the lung. Abdomen: Soft, nondistended, nontender, positive bowel sounds. ?No guarding or rebound tenderness. Neurologic: Alert and oriented x3, no gross neurological deficit, and patient able to move all 4 extremities. Extremities: No edema. Bilateral deformities of hand noted- ?rheumatoid arthritis Skin: No rash or ecchymoses. Objective Labs 03/25/24 05:40 03/25/24 06:24 Labs: Laboratory Results - last 24 hr 03/15/24 03/16/24 03/16/24 04:49 04:47 10:38 WBC RBC Hgb Hct MCV MCH MCHC RDW Std Deviation Plt Count Neut % (Auto) Lymph % (Auto) Jack % (Auto) Eos % (Auto) Baso % (Auto) Neut # (Auto) Lymph # (Auto) Jack # (Auto) Eos # (Auto) Baso # (Auto) Immature Gran # (Auto) Absolute Nucleated RBC Immature Gran % Nucleated RBC % Puncture Site ABG pH ABG pCO2 ABG pO2 ABG HCO3 ABG O2 Saturation ABG Base Excess FiO2 Sodium Potassium Chloride Carbon Dioxide Anion Gap BUN Creatinine Estim Creat Clear Calc eGFR BUN/Creatinine Ratio Glucose Calculated Osmolality Lactic Acid Calcium Corrected Calcium Phosphorus Magnesium AST ALT Alkaline Phosphatase Total Creatine Kinase Total Protein Albumin 3.7 Globulin Albumin/Globulin Ratio Rheumatoid Factor Coccidioides IgG Ab Negative Influenza A (Rapid) Influenza B (Rapid) Group A Strep Rapid Negative 03/16/24 03/16/24 03/16/24 16:20 20:31 21:44 WBC RBC Hgb Hct MCV MCH MCHC RDW Std Deviation Plt Count Neut % (Auto) Lymph % (Auto) Jack % (Auto) Eos % (Auto) Baso % (Auto) Neut # (Auto) Lymph # (Auto) Jack # (Auto) Eos # (Auto) Baso # (Auto) Immature Gran # (Auto) Absolute Nucleated RBC Immature Gran % Nucleated RBC % Puncture Site Right Radial ABG pH 7.47 H ABG pCO2 38 ABG pO2 79 L D ABG HCO3 27 H ABG O2 Saturation 97 ABG Base Excess 4 H FiO2 80 Sodium Potassium Chloride Carbon Dioxide Anion Gap BUN Creatinine Estim Creat Clear Calc eGFR BUN/Creatinine Ratio Glucose Calculated Osmolality Lactic Acid 1.3 Calcium Corrected Calcium Phosphorus Magnesium AST ALT Alkaline Phosphatase Total Creatine Kinase Total Protein Albumin Globulin Albumin/Globulin Ratio Rheumatoid Factor Coccidioides IgG Ab Influenza A (Rapid) Negative Influenza B (Rapid) Negative Group A Strep Rapid 03/17/24 03/17/24 02:35 05:35 WBC 11.1 H RBC 3.84 L Hgb 9.2 L Hct 28.1 L MCV 73 L MCH 24.0 L MCHC 32.7 RDW Std Deviation 43.6 Plt Count 315 Neut % (Auto) 87 H Lymph % (Auto) 5 L Jack % (Auto) 6 Eos % (Auto) 1 Baso % (Auto) 0 Neut # (Auto) 9.7 H Lymph # (Auto) 0.5 L Jack # (Auto) 0.7 Eos # (Auto) 0.1 Baso # (Auto) 0.0 Immature Gran # (Auto) 0.10 H Absolute Nucleated RBC 0.00 Immature Gran % 1 H Nucleated RBC % 0 Puncture Site Right Radial ABG pH 7.40 ABG pCO2 41 ABG pO2 94 ABG HCO3 25 ABG O2 Saturation 98 ABG Base Excess 0 FiO2 21 Sodium 131 L Potassium 3.9 Chloride 99 Carbon Dioxide 21.9 Anion Gap 10 BUN 41 H Creatinine 1.5 H Estim Creat Clear Calc 18.8 L eGFR 34 L BUN/Creatinine Ratio 27 H Glucose 111 H Calculated Osmolality 273 L Lactic Acid 1.5 Calcium 9.2 Corrected Calcium 9.6 Phosphorus 4.5 Magnesium 2.2 AST 24 ALT 16 Alkaline Phosphatase 107 Total Creatine Kinase 26 L Total Protein 5.9 Albumin 3.5 Globulin 2.4 Albumin/Globulin Ratio 1.5 Rheumatoid Factor Negative Coccidioides IgG Ab Influenza A (Rapid) Influenza B (Rapid) Group A Strep Rapid ABG Interpretation ABG results: 03/15/24 03/16/24 03/17/24 20:34 20:31 02:35 ABG pH 7.45 7.47 H 7.40 ABG pCO2 34 38 41 ABG pO2 100 79 L D 94 ABG HCO3 24 27 H 25 ABG O2 Saturation 99 H 97 98 ABG Base Excess 0 4 H 0 Quality Measures Quality Measures sepsis Current suspected stage: ruled out Possible source: pulmonary Blood cultures ordered: completed in ED Antibiotic ordered: Yes Advance care planning discussed with:: patient Assessment & Plan Assessment Current Active Medications: Generic Name Dose Route Start Last Admin Trade Name Freq PRN Reason Stop Dose Admin Acetaminophen 650 mg 03/14/24 03:00 Acetaminophen 325 Mg Tablet PO 04/13/24 02:59 Q6H PRN PAIN OR FEVER > 101 Albuterol/Ipratropium 3 ml 03/15/24 16:30 03/17/24 10:58 Albuterol/Ipratropium (Duoneb) Rt Rissa 3 Ml Nebu INH 04/14/24 16:29 3 ml Q4HRRT EMPERATRIZ Administration Albuterol/Ipratropium 3 ml 03/15/24 16:21 Albuterol/Ipratropium (Duoneb) Rt Rissa 3 Ml Nebu INH 04/14/24 16:20 Q2HR PRN SHORTNESS OF BREATH OR WHEEZE Azithromycin 500 mg 03/14/24 21:00 03/16/24 20:13 Azithromycin 250 Mg Tablet PO 03/21/24 20:59 500 mg HS EMPERATRIZ Administration Furosemide 40 mg 03/16/24 14:00 03/17/24 05:32 Furosemide Inj 10 Mg/Ml 4ml Vial IVP 04/15/24 13:59 40 mg Q8HR EMPERATRIZ Administration Heparin Sodium (Porcine) 5,000 unit 03/14/24 09:00 03/17/24 08:24 Heparin Sod Inj 5000 Unit/Ml Vial SC 03/28/24 08:59 5,000 unit Q12HR EMPERATRIZ Administration Hydralazine HCl 10 mg 03/14/24 20:02 Hydralazine Inj 20 Mg/Ml Vial IV 04/13/24 11:28 Q6HR PRN SBP > 170 Ceftriaxone Sodium/Dextrose 50 mls @ 100 mls/hr 03/14/24 21:00 03/16/24 22:24 Rocephin/D5w 1gm Iv Premix IV 03/21/24 20:59 Infused HS EMPERATRIZ Infusion Sodium Chloride 500 mls @ 50 mls/hr 03/17/24 10:02 03/17/24 10:46 Ns IV 03/17/24 20:01 Not Given .Q10H ONE Sodium Chloride 500 mls @ 50 mls/hr 03/17/24 10:12 03/17/24 10:45 Ns IV 03/17/24 20:11 50 mls/hr .Q10H ONE Administration Labetalol HCl 100 mg 03/14/24 04:40 03/17/24 08:24 Labetalol 100 Mg Tablet PO 04/13/24 04:39 100 mg BID EMPERATRIZ Administration Lisinopril 10 mg 03/14/24 18:15 03/17/24 08:23 Lisinopril 2.5 Mg Tablet PO 04/13/24 18:14 10 mg QDAY EMPERATRIZ Administration Mirtazapine 7.5 mg 03/16/24 21:00 03/16/24 20:14 Mirtazapine 15 Mg Tablet PO 04/15/24 20:59 7.5 mg HS EMPERATRIZ Administration Ondansetron HCl 4 mg 03/14/24 03:00 Ondansetron Inj 2 Mg/Ml Inj 2 Ml IV 04/13/24 02:59 Q6H PRN NAUSEA OR VOMITING Protocol Pantoprazole Sodium 40 mg 03/14/24 09:00 03/17/24 08:23 Pantoprazole 40 Mg Tablet PO 04/13/24 08:59 40 mg QDAY EMPERATRIZ Administration Prednisone 20 mg 03/17/24 10:45 03/17/24 10:48 Prednisone 20 Mg Tablet PO 04/16/24 10:44 20 mg QDAY EMPERATRIZ Administration Sertraline HCl 100 mg 03/14/24 21:00 03/17/24 08:24 Sertraline Hcl 25 Mg Tablet PO 04/13/24 20:59 100 mg BID EMPERATRIZ Administration Plan A 82-year-old female with past medical history of hypertension, GERD s/p fundoplication with hiatal hernia repair, hyperlipidemia, TIA [2021], depression was brought to the hospital with chief complaints of shortness of breath and admitted to hospital with acute hypoxic respiratory failure. NEURO Patient is awake, alert, and oriented x3, following commands, conversational. 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 -BNP is elevated at the time of admission for which cardiology was consulted -Echo done during this admission showed EF of 40 to 45% with moderate to severe pulmonary hypertension. -Patient was started on furosemide 40 Mg 3 times daily. Plan -Diuresis was withheld in view of uptrending BUN and creatinine. -Dr. Best was following the patient and recommended left and right heart catheterization on Wednesday PULM # Acute hypoxic respiratory failure # ARDS # Bilateral pulmonary infiltrates with severe hypertension #? Hypersensitivity pneumonitis versus interstitial lung disease in the setting of rheumatoid arthritis -Admitted with difficulty in breathing -Denies fever, cough, nausea, abdominal pain, weight loss, appetite loss. -BNP is >3000 for which cardiology was consulted. -Echo done showed severe pulmonary hypertension -CT showed bilateral infiltrates with ARDS pattern. -Patient was noted to have bilateral hand deformities and when asked about the history, patient's [id number] stated that she was diagnosed to have rheumatoid arthritis but did not get any treatment for that. -RA factor, anti-CCP, LISBET was ordered. -Creatinine kinase - normal limits, aldolase was ordered. -Patient was upgraded to ICU on 03/16/2024 in view of low saturations despite being on high flow oxygen for observation and further care. - group A antigen was negative streptococcus and Legionella antigen is still pending. Plan -will Continue antibiotics. -Continue to monitor the patient on high flow oxygen and recommended to upgrade the patient to ICU the patient is having respiratory fatigue or not able to maintain saturations on high flow. GI #No active problems NEPHRO # ROBEL, prerenal Likely in the setting of diuresis. -BUN and creatinine is within normal limits till 03/16/2024 -Patient is on furosemide 40 Mg IV 3 times daily. -On 03/17/2024, BUN is 41 and creatinine is 1.5 - Urine output is well-maintained. Plan -Diuretics were withheld. -Will continue to monitor renal functions and avoid nephrotoxic medications -Renally dose medications. URO #No active problems HEME # Leukocytosis, reactive -In the setting of ongoing chronic lung disease. # Microcytic hypochromic anemia -Hemoglobin is 9.5 at the time of admission -Iron panel showed iron deficiency. Plan -Iron infusion was withheld in the view of ongoing active lung disease -Will continue to monitor CBC. ENDO #No active problems ID #No active problems MSK # Bilateral hand deformities Likely due to rheumatoid arthritis. RA factor and anti-CCP antibodies were sent. SKIN #No active problems DVT prophylaxis: Heparin Protonix GI prophylaxis: Protonix Diet: Regular Martinez: Present Lines: peripheral Antibiotics: Ceftriaxone and azithromycin CODE STATUS: FULL Reason for ICU care: Acute hypoxic respiratory failure Patient plan of care was discussed with the attending hydrometer finisher, Dr. Francisco Garcia, PGY1 Patient plan of care was discussed with the attending physician, Dr. Singh and senior resident Dr. Maximilian Garcia, PGY1 Attending Provider Attestation/Addendum Patient seen and examined with above resident, John Garcia MD. I agree with the findings, assessment, and plan of care as documented except for any differences below. Patient transferred to ICU yesterday with worsening acute hypoxic respiratory failure. Patient with significant pulmonary cachexia and CT imaging suggesting interstitial lung disease, suspect this is most likely chronic hypersensitivity pneumonitis from environmental exposure at her home. She does not have any walter exposure but has multiple pets and has a cold at home which may have mold as a precipitant. However, patient will need immunosuppression after exclusion of active infection. She has been on empiric antibiotics at this point for community-acquired pneumonia which will complete course for. We have sent additional testing to exclude alternate etiologies of autoimmune related interstitial lung disease. CT imaging is not consistent with IPF at this point. And patient did not have any pre-existing imaging to suggest a longstanding ILD that has progressed to this point. Patient's family reports that she has been having shortness of breath for weeks. But has been losing weight for multiple months. Shortness of breath but the patient has only been present for a few weeks. Patient has been rather active her whole life and has no family history of lung disease as multiple family members have at a much younger age with lifestyle related disease including coronary artery disease. Patient and her [id number] at bedside were updated on ongoing workup as well as involvement plan of care and appreciative. Patient also has component of vascular disease that I suspect based on RV dilation on echo. Cardiology is involved and will reassess the patient next week for potential right heart cath to help determine role for therapy of pulm hypertension as well. She remains hypertensive suggesting adequate cardiac output despite the RV dilation and poor function. This is reassuring that this is may be purely group 3 pulm hypertension less autoimmune etiology proves positive. Total critical care time: I personally spent 35 minutes for review of physiologic parameters, directing plan of care throughout the day, coordination of care with other specialties, counseling patient and family at bedside. This is exclusive of time spent teaching of staff or performing any separate billable procedures.
[2024-03-17] MEDS: MethylPREDNISolone SOD SUCC 62.5 MG/ML 2ML VIAL 125 MG IVP (13:50)
--- NOTE | 2024-03-17 14:15 | PC.NURSE ---
SBAR given to nurse. Pt is in bed low locked bedrails X4 call light within reach on bed side table. Pt has visitor at bedside. Pt seems to do well compared to morning more alert AAOX3 to person place and time this AM 0800 AAOX1 just to self. Pt is communicating more at this time.
[2024-03-17 14:51] LABS: Bilirubin,Total 0.5 mg/dL (0.3-1.2)
--- NOTE | 2024-03-17 15:29 | PC.SS ---
Update: Patient on high flow nasal cannula. No skin issues. Vitals are stable. Martinez catheter in place. Dtr in law Binta designated point of contact.
--- NOTE | 2024-03-17 18:31 | PC.NURSE ---
at 1630 patient started breathing treatment had heart rate of 140s back down to 90s within 10 seconds, Dr. Sarmiento made aware, strip placed in chart
[2024-03-17] MEDS: cefTRIAXone/D5w 1gm IV premix 50 ML IV (21:59)
[2024-03-17] MEDS: AZITHROMYCIN 250 MG TABLET 500 MG PO (21:59)
[2024-03-17] MEDS: MIRTAZAPINE 15 MG TABLET 7.5 MG PO (21:59)
[2024-03-18] VITALS (43 sets, daily range): BP systolic 125–197; BP diastolic 43–91; PULSE 69–104; RESP 21–41; TEMP 36.2–36.3; O2SAT 89–99; BMI 18.3
[2024-03-18] MEDS: ALBUTEROL/IPRATROPIUM (Duoneb) RT SOL 3 ML NEBU INH ×5 (02:18→23:11)
--- NOTE | 2024-03-18 02:33 | XR_ITS ---
Examination: AP chest single view Technique one AP portable semiupright chest single view Exam date and time: March 18, 2024 at 0242 hrs. Comparison March 16, 2024 Indications: Onset SOB today. Findings: Severe bilateral lung opacity again noted Mild enlargement left ventricle No pneumothorax Significant osteopenia Impression: No significant change in severe bilateral pneumonia/ARDS
[2024-03-18 02:45] LABS: Allen Test Performed/OK; Base Excess 0 (-3-3); HCO3 25 mEq/L (20-26); Inspired Oxygen, FIO2 80 %; O2 Saturation 98 % (91-98); PCO2 41 mmHg (32.0-48.0); PO2 95 mmHg (83-108); Puncture Site Right Radial
--- NOTE | 2024-03-18 02:54 | PC.RT ---
pt rate increased to the 30s labored spo2 96% settings 40L 80%, DR. May assessed pt at bedside no changes at this time. aware of abg results.
[2024-03-18] MEDS: hydrALAZINE INJ 20 MG/ML VIAL 10 MG IV (03:16)
[2024-03-18] MEDS: KETOROLAC INJ 30 MG/ML VIAL 15 MG IVP (05:23)
[2024-03-18 05:54] LABS: Basophils % (Auto) 0 % (0-2.5); Eosinophils % (Auto) 0 % (0-10); Hematocrit 31.6 % (36.0-46.0); Hemoglobin 10.2 g/dL (12.0-16.0); Immature Granulocytes % (Auto) 1 % (0-0); Immature Granulocytes Auto 0.04 Thou/mm3 (0.00-0.00); Lymphocytes # (Auto) 0.3 Thou/mm3 (1.0-4.8); Lymphocytes % (Auto) 4 % (10-50); Mean Corpuscular HGB Conc 32.3 g/dl (31.0-37.0); Mean Corpuscular Hemoglobin 23.4 pg (25.0-35.0); Mean Corpuscular Volume 73 fL (80-100); Monocytes # (Auto) 0.2 Thou/mm3 (0.0-0.8); Monocytes % (Auto) 2 % (0-12); Neutrophils # (Auto) 6.7 Thou/mm3 (1.8-7.7); Neutrophils % (Auto) 93 % (37-80); Nucleated Red Blood Cell % 0 /100 WBC (0); Platelet Count 381 Thou/mm3 (140-440); RDW Standard Deviation 43.5 fL (36.4-46.3); Red Blood Count 4.35 Miln/mm3 (4.00-5.20); White Blood Count 7.3 Thou/mm3 (3.6-11.0)
[2024-03-18 07:03] LABS: Alanine Aminotransferase 18 U/L (10-49); Albumin, Serum 3.9 gm/dL (3.4-4.8); Albumin/Globulin Ratio 1.5 (1.2-2.2); Alkaline Phosphatase 129 U/L (46-116); Anion Gap 12 (7-16); Aspartate Amino Transferase 28 U/L (0-34); BUN/Creatinine Ratio 34 Ratio (12-20); Blood Urea Nitrogen 62 mg/dL (9-23); Calcium 9.7 mg/dL (8.3-10.6); Calcium (Corrected) 9.8 mg/dL (8.5-10.1); Chloride 100 mMol/L (98-107); Creatinine (Component) 1.8 mg/dL (0.6-1.3); Estimated Creatinine Clearance 16.4 mL/min (>60); Globulin 2.6 gm/dL (2.3-3.5); Glucose 162 mg/dL (74-106); Magnesium 2.6 mg/dL (1.6-2.6); Osmolality,Calculated 293 (275-295); Phosphorous 5.6 mg/dL (2.4-5.1); Potassium 3.5 mMol/L (3.4-5.1); Sodium 136 mMol/L (136-145); Total Protein 6.5 gm/dL (5.7-8.2); eGFR 28 See Note
[2024-03-18] MEDS: PANTOPRAZOLE 40 MG TABLET PO (10:19)
[2024-03-18] MEDS: SERTRALINE HCL 25 MG TABLET 100 MG PO ×2 (10:19→20:28)
[2024-03-18] MEDS: LABETALOL 100 MG TABLET PO ×2 (10:19→20:27)
[2024-03-18] MEDS: HEPARIN SOD INJ 5000 UNIT/ML VIAL SC ×2 (10:20→20:27)
[2024-03-18] MEDS: niCARdipine 20 MG CAPSULE PO ×3 (10:20→21:04)
--- NOTE | 2024-03-18 11:20 | PD.RESPRO ---
Documentation for date of: 03/18/24 Subjective Subjective Interval history: A 82-year-old female with past medical history of hypertension, GERD s/p fundoplication with hiatal hernia repair, hyperlipidemia, TIA [2021], depression was brought to the hospital with chief complaints of shortness of breath. Reported that patient lives alone by herself and does her routine daily activities. Per [id number], patient is having shortness of breath for the past 6 months which was worsened recently a week before the day of admission. On the day of admission patient was having severe shortness of breath and called her son who called the EMS and brought her to the hospital. Patient denies fever, cough, nausea, weight loss, loss of appetite, pedal edema, chest pain, diarrhea. Patient was supposedly happy to see the load out person in [place] as referred by her primary, but unsure of the reason. Hospital course: At the time of admission in the ED, patient was found to be hypoxic and was started on oxygen through nasal cannula. COVID and flu serologies done at that time was negative. BNP was >3000. Chest x-ray showed bilateral infiltrates with vascular congestion for which cardiology was consulted. Echocardiogram was done on the patient which showed severe pulmonary hypertension. Patient was started on diuretics. Later chest CT angiogram performed showed extensive bilateral infiltrates. Patient was started on high flow oxygen, As her oxygen saturations are not maintaining well. 03/17/2024: Patient was seen and examined bedside in the ICU. Patient is not willing to communicate. Answered questions by nodding her head. Reported that her shortness of breath is improved. Patient is on high flow oxygen with 90% FiO2 and 30 L/min. Vitals are stable. Labs showed mild leukocytosis, anemia, sodium 131, BUN 41, creatinine 1.5. ABG is within normal limits. Diuresis was withheld in view of elevated BUN/creatinine. Steroids were started in view of suspected chronic hypersensitivity pneumonitis. Antibody panel is still pending. 03/18/2024: Patient was seen and examined bedside in the ICU. Still having Tachypnea and using accessory muscles of respiration. Reported that she is still having shortness of breath without much improvement. Patient is still on high flow but FiO2 is decreased from 90-80 this morning. Blood pressures are mildly elevated probably due to steroids. Labs showed anemia, BUN 62 and creatinine 1.8. Urine output is well-maintained despite elevated BUN and creatinine, so will continue to monitor renal functions and urine output. Will continue high-dose steroids for 3 days and will gradually taper the steroids. RA factor came back negative. LISBET and anti-CCP antibodies are still pending. Exam Vital Signs Temp Pulse Resp BP Pulse Ox O2 Del Method O2 Flow Rate 97.7 F 73 22 H 134/62 H 98 High Flow Nasal Cannula 40 03/17/24 20:00 03/18/24 11:00 03/18/24 11:00 03/18/24 11:00 03/18/24 11:00 03/18/24 11:00 03/18/24 11:00 FiO2 70 03/18/24 11:00 Narrative Exam General: Awake and in moderate distress. HEENT: Normocephalic, atraumatic, mucous membranes moist. Heart: Regular rate and rhythm, no murmurs. Lungs: Bilateral bronchial breath sounds are appreciated. Fine crackles noted on the right side of the lung. Abdomen: Soft, nondistended, nontender, positive bowel sounds. ?No guarding or rebound tenderness. Neurologic: Alert and oriented x3, no gross neurological deficit, and patient able to move all 4 extremities. Extremities: No edema. Bilateral deformities of hand noted- ?rheumatoid arthritis Skin: No rash or ecchymoses. Objective Labs 03/25/24 05:40 03/25/24 06:24 Labs: Laboratory Results - last 24 hr 03/17/24 03/18/24 03/18/24 05:35 02:37 05:18 WBC 7.3 RBC 4.35 Hgb 10.2 L Hct 31.6 L MCV 73 L MCH 23.4 L MCHC 32.3 RDW Std Deviation 43.5 Plt Count 381 D Neut % (Auto) 93 H Lymph % (Auto) 4 L [place] % (Auto) 2 Eos % (Auto) 0 Baso % (Auto) 0 Neut # (Auto) 6.7 Lymph # (Auto) 0.3 L [place] # (Auto) 0.2 Eos # (Auto) 0.0 Baso # (Auto) 0.0 Immature Gran # (Auto) 0.04 H Absolute Nucleated RBC 0.00 Immature Gran % 1 H Nucleated RBC % 0 Puncture Site Right Radial ABG pH 7.40 ABG pCO2 41 ABG pO2 95 ABG HCO3 25 ABG O2 Saturation 98 ABG Base Excess 0 FiO2 80 Sodium 136 Potassium 3.5 Chloride 100 Carbon Dioxide 24.0 Anion Gap 12 BUN 62 H Creatinine 1.8 H Estim Creat Clear Calc 16.4 L eGFR 28 L BUN/Creatinine Ratio 34 H Glucose 162 H D Calculated Osmolality 293 Calcium 9.7 Corrected Calcium 9.8 Phosphorus 5.6 H Magnesium 2.6 Total Bilirubin 0.5 AST 28 ALT 18 Alkaline Phosphatase 129 H D Total Protein 6.5 Albumin 3.9 Globulin 2.6 Albumin/Globulin Ratio 1.5 ABG Interpretation ABG results: 03/15/24 03/16/24 03/17/24 20:34 20:31 02:35 ABG pH 7.45 7.47 H 7.40 ABG pCO2 34 38 41 ABG pO2 100 79 L D 94 ABG HCO3 24 27 H 25 ABG O2 Saturation 99 H 97 98 ABG Base Excess 0 4 H 0 03/18/24 02:37 ABG pH 7.40 ABG pCO2 41 ABG pO2 95 ABG HCO3 25 ABG O2 Saturation 98 ABG Base Excess 0 Quality Measures Quality Measures sepsis Current suspected stage: ruled out Possible source: pulmonary Blood cultures ordered: completed in ED Antibiotic ordered: Yes Advance care planning discussed with:: patient and significant other Assessment & Plan Assessment Current Active Medications: Generic Name Dose Route Start Last Admin Trade Name Freq PRN Reason Stop Dose Admin Acetaminophen 650 mg 03/14/24 03:00 Acetaminophen 325 Mg Tablet PO 04/13/24 02:59 Q6H PRN PAIN OR FEVER > 101 Albuterol/Ipratropium 3 ml 03/15/24 16:30 03/18/24 10:09 Albuterol/Ipratropium (Duoneb) Rt Rissa 3 Ml Nebu INH 04/14/24 16:29 3 ml Q4HRRT EMPERATRIZ Administration Albuterol/Ipratropium 3 ml 03/15/24 16:21 Albuterol/Ipratropium (Duoneb) Rt Rissa 3 Ml Nebu INH 04/14/24 16:20 Q2HR PRN SHORTNESS OF BREATH OR WHEEZE Azithromycin 500 mg 03/14/24 21:00 03/17/24 21:59 Azithromycin 250 Mg Tablet PO 03/21/24 20:59 500 mg HS EMPERATRIZ Administration Furosemide 40 mg 03/16/24 14:00 03/17/24 05:32 Furosemide Inj 10 Mg/Ml 4ml Vial IVP 04/15/24 13:59 40 mg Q8HR EMPERATRIZ Administration Heparin Sodium (Porcine) 5,000 unit 03/14/24 09:00 03/18/24 10:20 Heparin Sod Inj 5000 Unit/Ml Vial SC 03/28/24 08:59 5,000 unit Q12HR EMPERATRIZ Administration Hydralazine HCl 10 mg 03/14/24 20:02 03/18/24 03:16 Hydralazine Inj 20 Mg/Ml Vial IV 04/13/24 11:28 10 mg Q6HR PRN Administration SBP > 170 Ceftriaxone Sodium/Dextrose 50 mls @ 100 mls/hr 03/14/24 21:00 03/17/24 23:00 Rocephin/D5w 1gm Iv Premix IV 03/21/24 20:59 Infused HS EMPERATRIZ Infusion Labetalol HCl 100 mg 03/14/24 04:40 03/18/24 10:19 Labetalol 100 Mg Tablet PO 04/13/24 04:39 100 mg BID EMPERATRIZ Administration Lisinopril 10 mg 03/14/24 18:15 03/17/24 08:23 Lisinopril 2.5 Mg Tablet PO 04/13/24 18:14 10 mg QDAY EMPERATRIZ Administration Methylprednisolone Sodium Succinate 125 mg 03/18/24 14:00 Methylprednisolone Sod Succ 62.5 Mg/Ml 2ml Vial IVP 03/24/24 13:59 Q8HR EMPERATRIZ Mirtazapine 7.5 mg 03/16/24 21:00 03/17/24 21:59 Mirtazapine 15 Mg Tablet PO 04/15/24 20:59 7.5 mg HS EMPERATRIZ Administration Nicardipine HCl 20 mg 03/18/24 08:30 03/18/24 10:20 Nicardipine 20 Mg Capsule PO 04/17/24 08:29 20 mg TID EMPERATRIZ Administration Ondansetron HCl 4 mg 03/14/24 03:00 Ondansetron Inj 2 Mg/Ml Inj 2 Ml IV 04/13/24 02:59 Q6H PRN NAUSEA OR VOMITING Protocol Pantoprazole Sodium 40 mg 03/14/24 09:00 03/18/24 10:19 Pantoprazole 40 Mg Tablet PO 04/13/24 08:59 40 mg QDAY EMPERATRIZ Administration Sertraline HCl 100 mg 03/14/24 21:00 03/18/24 10:19 Sertraline Hcl 25 Mg Tablet PO 04/13/24 20:59 100 mg BID EMPERATRIZ Administration Plan A 82-year-old female with past medical history of hypertension, GERD s/p fundoplication with hiatal hernia repair, hyperlipidemia, TIA [2021], depression was brought to the hospital with chief complaints of shortness of breath and admitted to hospital with acute hypoxic respiratory failure. NEURO Patient is awake, alert, and oriented x3, following commands, conversational. 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 -BNP is elevated at the time of admission for which cardiology was consulted -Echo done during this admission showed EF of 40 to 45% with moderate to severe pulmonary hypertension. -Patient was started on furosemide 40 Mg 3 times daily. Plan -Diuresis was withheld in view of uptrending BUN and creatinine. -Dr. Best was following the patient and recommended left and right heart catheterization on Wednesday PULM # Acute hypoxic respiratory failure # ARDS # Bilateral pulmonary infiltrates with severe hypertension #? Hypersensitivity pneumonitis -Admitted with difficulty in breathing -Denies fever, cough, nausea, abdominal pain, weight loss, appetite loss. -BNP is >3000 for which cardiology was consulted. -Echo done showed severe pulmonary hypertension -CT showed bilateral infiltrates with ARDS pattern. -Patient was noted to have bilateral hand deformities and when asked about the history, patient's [id number] stated that she was diagnosed to have rheumatoid arthritis but did not get any treatment for that. -RA factor, anti-CCP, LISBET was ordered. -Creatinine kinase - normal limits, aldolase was ordered. -Patient was upgraded to ICU on 03/16/2024 in view of low saturations despite being on high flow oxygen for observation and further care. - group A antigen was negative streptococcus and Legionella antigen is still pending. Plan -will Continue ceftriaxone and azithromycin -Continue to monitor the patient on high flow oxygen. -Started on methylprednisolone 125 Mg 3 times daily. GI #No active problems NEPHRO # ROBEL, prerenal Likely in the setting of diuresis. -BUN and creatinine is within normal limits till 03/16/2024 -Patient is on furosemide 40 Mg IV 3 times daily. -On 03/17/2024, BUN is 41 and creatinine is 1.5 >(03/18) BUN is 62, creatinine 1.8. - Urine output is well-maintained. Plan -Diuretics were withheld. -Will continue to monitor renal functions and avoid nephrotoxic medications -Renally dose medications. URO #No active problems HEME # Leukocytosis, resolved -In the setting of ongoing chronic lung disease. # Microcytic hypochromic anemia -Hemoglobin is 9.5 at the time of admission -Iron panel showed iron deficiency. Plan -Iron infusion was withheld in the view of ongoing active lung disease -Will continue to monitor CBC. ENDO #No active problems ID #No active problems MSK # Bilateral hand deformities Likely due to rheumatoid arthritis. RA factor and anti-CCP antibodies were sent. RA factor came out negative. SKIN #No active problems DVT prophylaxis: Heparin Protonix GI prophylaxis: Protonix Diet: Regular Martinez: Present Lines: peripheral Antibiotics: Ceftriaxone and azithromycin CODE STATUS: FULL Reason for ICU care: Acute hypoxic respiratory failure Patient plan of care was discussed with the attending partnership development manager, Dr. Francisco Garcia, PGY1 Attending Provider Attestation/Addendum Patient seen and examined with above resident, John Garcia MD. I agree with the assessment, plan of care as documented separately differences below. Patient continued on steroid taper as planned. Etiology for underlying interstitial disease most likely is chronic hypersensitivity pneumonitis. Antigen as likely been ruled now that she is outside of her normal environment. Patient with significant ataxia with promotion of ongoing nutrition by bedside staff as well as myself and family. Patient continues to be on high humidity/high flow nasal cannula. Suspect component of pulmonary vascular disease based on dilated RV on echocardiography, will await ability to get right heart cath later on this week. Patient also with significant rising BUN, adequate urine output and normal electrolytes otherwise suggest that this may be related to high do will await initiation for appropriate prophylaxis as she gets steroid regimen further along based on her response to her current steroid regimen. Patient and family updated on plan of care at bedside and remain hopeful. Total critical care time: I personally spent 40 minutes for review of physiologic parameters, directing plan of care throughout the day, coordination of care with other specialties, and counseling patient/family at bedside. This is exclusive of time spent teaching housestaff or performing separate billable procedures. Patient continues to require critical care services for acute hypoxic respiratory failure in setting of chronic hypersensitivity pneumonitis/ILD exacerbation and pulmonary vascular disease. She remains at high risk for further morbidity and mortality without appropriate, prompt intervention.
[2024-03-18 11:27] LABS: Bilirubin,Total 0.5 mg/dL (0.3-1.2)
[2024-03-18] MEDS: MethylPREDNISolone SOD SUCC 62.5 MG/ML 2ML VIAL 125 MG IVP ×2 (15:56→21:04)
--- NOTE | 2024-03-18 19:29 | ESPR_ITS ---
RE: MAJOR HART : 1940 DATE OF SERVICE: 03/18/2024 SUBJECTIVE: Covering for Dr. Best and for cardiology. The patient is an 83-year-old female with past medical history of hypertension, presented to the hospital with hypoxic respiratory failure and bilateral possible pneumonia, but workup shows that the patient has interstitial pneumonia, interstitial fibrosis and possible hypersensitivity pneumonitis. Continues high-flow oxygen, but improving. The patient is still tachypneic and using accessory muscles of respirations. Still having shortness of breath. Still on high flow oxygen, saturating well. PHYSICAL EXAMINATION: General: Showed acutely ill, chronically ill, thin built, frail, elderly female, who is alert, awake, short of breath even on talking. Vital Signs: Stable. Blood pressure 134/62, pulse rate is 73, temperature normal, respirations 22, and pulse oximetry 98% on high flow oxygen, 40% FiO2. HEENT: Head is atraumatic. Neck: Supple. Accessory muscles of breathing still using. Chest: Symmetrical. Lungs: Mostly clear. Few crackles at the bases. Heart: S1 and S2, regular. Abdomen: Thin and soft. Extremities: No significant edema. LABORATORY DATA: CBC, hemoglobin 10.2, stable. Renal panel, creatinine is 1.8 and BUN is 52, prerenal azotemia. Blood glucose 162. Chest x-ray showed extensive bilateral infiltrates, interstitial fibrosis, cardiac silhouette is not seen well. ASSESSMENT: 1. Hypoxic respiratory failure secondary to interstitial fibrosis and interstitial lung disease. 2. Hypertension. 3. Frailty. 4. Prerenal azotemia. RECOMMENDATION: Continue oxygen supplement. The patient is still receiving steroid therapy. Discussed with marketing pr intern, , who felt that this is hypersensitivity pneumonitis and history of chronic fibrosis as well. She definitely improved from admission, but still requiring high-flow oxygen requiring intensive care unit management. DT: 17:16:11 TT: 18:32:00 Ref: [id number] - TID: [id number]
[2024-03-18] MEDS: MIRTAZAPINE 15 MG TABLET 7.5 MG PO (20:27)
[2024-03-18] MEDS: AZITHROMYCIN 250 MG TABLET 500 MG PO (20:27)
[2024-03-18] MEDS: cefTRIAXone/D5w 1gm IV premix 50 ML IV (20:27)
[2024-03-19] VITALS (38 sets, daily range): BP systolic 121–190; BP diastolic 53–87; PULSE 67–98; RESP 21–43; TEMP 36.1–36.6; O2SAT 89–97; BMI 18.1
[2024-03-19] MEDS: ALBUTEROL/IPRATROPIUM (Duoneb) RT SOL 3 ML NEBU INH ×6 (02:25→22:14)
[2024-03-19] MEDS: niCARdipine 20 MG CAPSULE PO ×3 (05:24→22:09)
[2024-03-19] MEDS: MethylPREDNISolone SOD SUCC 62.5 MG/ML 2ML VIAL 125 MG IVP ×3 (05:25→22:10)
[2024-03-19 06:04] LABS: Basophils % (Auto) 0 % (0-2.5); Eosinophils % (Auto) 0 % (0-10); Hematocrit 28.8 % (36.0-46.0); Hemoglobin 9.4 g/dL (12.0-16.0); Immature Granulocytes % (Auto) 1 % (0-0); Immature Granulocytes Auto 0.05 Thou/mm3 (0.00-0.00); Lymphocytes # (Auto) 0.2 Thou/mm3 (1.0-4.8); Lymphocytes % (Auto) 3 % (10-50); Mean Corpuscular HGB Conc 32.6 g/dl (31.0-37.0); Mean Corpuscular Hemoglobin 23.9 pg (25.0-35.0); Mean Corpuscular Volume 73 fL (80-100); Monocytes # (Auto) 0.4 Thou/mm3 (0.0-0.8); Monocytes % (Auto) 5 % (0-12); Neutrophils # (Auto) 7.9 Thou/mm3 (1.8-7.7); Neutrophils % (Auto) 92 % (37-80); Nucleated Red Blood Cell % 0 /100 WBC (0); Platelet Count 329 Thou/mm3 (140-440); RDW Standard Deviation 43.4 fL (36.4-46.3); Red Blood Count 3.94 Miln/mm3 (4.00-5.20); White Blood Count 8.5 Thou/mm3 (3.6-11.0)
[2024-03-19 06:23] LABS: Alanine Aminotransferase 33 U/L (10-49); Albumin, Serum 3.5 gm/dL (3.4-4.8); Albumin/Globulin Ratio 1.5 (1.2-2.2); Alkaline Phosphatase 111 U/L (46-116); Anion Gap 12 (7-16); Aspartate Amino Transferase 51 U/L (0-34); BUN/Creatinine Ratio 43 Ratio (12-20); Bilirubin,Total 0.3 mg/dL (0.3-1.2); Blood Urea Nitrogen 81 mg/dL (9-23); Calcium 9.5 mg/dL (8.3-10.6); Calcium (Corrected) 9.9 mg/dL (8.5-10.1); Carbon Dioxide 26.2 mMol/L (20.0-31.0); Chloride 100 mMol/L (98-107); Creatinine (Component) 1.9 mg/dL (0.6-1.3); Estimated Creatinine Clearance 15.4 mL/min (>60); Globulin 2.3 gm/dL (2.3-3.5); Glucose 180 mg/dL (74-106); Osmolality,Calculated 305 (275-295); Potassium 3.4 mMol/L (3.4-5.1); Sodium 138 mMol/L (136-145); Total Protein 5.8 gm/dL (5.7-8.2); eGFR 26 See Note
[2024-03-19] MEDS: LABETALOL 100 MG TABLET PO ×2 (09:37→20:07)
[2024-03-19] MEDS: PANTOPRAZOLE 40 MG TABLET PO (09:38)
[2024-03-19] MEDS: SERTRALINE HCL 25 MG TABLET 100 MG PO ×2 (09:38→20:22)
[2024-03-19] MEDS: HEPARIN SOD INJ 5000 UNIT/ML VIAL SC ×2 (09:38→20:09)
--- NOTE | 2024-03-19 14:24 | ESPR_ITS ---
RE: MAJOR HART : 1940 DATE OF SERVICE: 03/19/2024 S: The patient is an 83-year-old lady who presented to the hospital with history of severe hypoxic respiratory failure, history of hypertension, and chronic kidney disease, continues to be about the same. She still requires high flow oxygen though she is down to 60% FiO2, maintaining saturation of 94%. Still very short of breath at rest. Cannot even speak. VITAL SIGNS: Clinically, her blood pressure is 154/59, pulse rate is 82, respirations 32. NECK: Supple. Accessory muscles are used fo breathig_. CHEST: Symmetrical. LUNGS: _ few basal rales. No wheezes. CARDIOVASCULAR: S1, S2, regular. ABDOMEN: Thin, frail and soft. EXTREMITIES: No edema. LABORATORY DATA: CBC: Hemoglobin 9.4, white count 8.5. Chemistry panel showed creatinine 1.9. She has CKD with creatinine clearance of 26, potassium is normal. A: 1. Hypoxic respiratory failure secondary to interstitial pneumonia, lung disease and possible hypersensitivity pneumonia according to appeals rn. 2. Interstitial lung disease, chronic with acute exacerbation. 3. Hypertension. P: Continue medical management with high flow oxygen for now. Cardiac marcano, she is stable. Blood pressure is slightly high and we will continue the labetalol for hypertension, lisinopril also being continued. Some of the hypertension possibly could be due to steroid therapy. DT: 13:16:15 TT: 14:09:00 Ref: [id number] - TID: [id number] MTDD
--- NOTE | 2024-03-19 16:05 | ESPR_ITS ---
Documentation for date of: 03/19/24 Subjective Subjective Interval history: A 82-year-old female with past medical history of hypertension, GERD s/p fundoplication with hiatal hernia repair, hyperlipidemia, TIA [2021], depression was brought to the hospital with chief complaints of shortness of breath. Reported that patient lives alone by herself and does her routine daily activities. Per [id number], patient is having shortness of breath for the past 6 months which was worsened recently a week before the day of admission. On the day of admission patient was having severe shortness of breath and called her son who called the EMS and brought her to the hospital. Patient denies fever, cough, nausea, weight loss, loss of appetite, pedal edema, chest pain, diarrhea. Patient was supposedly happy to see the assistant attorney general in [place] as referred by her primary, but unsure of the reason. Hospital course: At the time of admission in the ED, patient was found to be hypoxic and was started on oxygen through nasal cannula. COVID and flu serologies done at that time was negative. BNP was >3000. Chest x-ray showed bilateral infiltrates with vascular congestion for which cardiology was consulted. Echocardiogram was done on the patient which showed severe pulmonary hypertension. Patient was started on diuretics. Later chest CT angiogram performed showed extensive bilateral infiltrates. Patient was started on high flow oxygen, As her oxygen saturations are not maintaining well. 03/17/2024: Patient was seen and examined bedside in the ICU. Patient is not willing to communicate. Answered questions by nodding her head. Reported that her shortness of breath is improved. Patient is on high flow oxygen with 90% FiO2 and 30 L/min. Vitals are stable. Labs showed mild leukocytosis, anemia, sodium 131, BUN 41, creatinine 1.5. ABG is within normal limits. Diuresis was withheld in view of elevated BUN/creatinine. Steroids were started in view of suspected chronic hypersensitivity pneumonitis. Antibody panel is still pending. 03/18/2024: Patient was seen and examined bedside in the ICU. Still having Tachypnea and using accessory muscles of respiration. Reported that she is still having shortness of breath without much improvement. Patient is still on high flow but FiO2 is decreased from 90-80 this morning. Blood pressures are mildly elevated probably due to steroids. Labs showed anemia, BUN 62 and creatinine 1.8. Urine output is well-maintained despite elevated BUN and creatinine, so will continue to monitor renal functions and urine output. Will continue high-dose steroids for 3 days and will gradually taper the steroids. RA factor came back negative. LISBET and anti-CCP antibodies are still pending. 03/19/2024: Patient was saturating in the mid-90s on 30L 50% FiO2 of Hi-Flow this AM. Later that morning patient was noted to be desaturating to mid-80s so was repositioned in bed and Hi-Flow settings were adjusted to 35L and 60% FiO2. Patient remained stable throughout the day. Will titrate Solu-Medrol from TID to BID starting tomorrow. Continue to hold Lasix. Creatinine still worsening at 1.9. Continue to monitor overnight as patient still has high work of breathing and unable to vocalize complete sentences while on Hi-Flow. Will have patient work with PT and RT to educate on incentive spirometry. Exam Vital Signs Temp Pulse Resp BP Pulse Ox O2 Del Method O2 Flow Rate 96.9 F 90 39 H 180/70 H 89 L High Flow Nasal Cannula 35 03/19/24 12:00 03/19/24 15:37 03/19/24 15:00 03/19/24 15:37 03/19/24 15:00 03/19/24 04:00 03/19/24 14:51 FiO2 60 03/19/24 14:51 Narrative Exam General: Awake and exerting effort to complete full sentences. HEENT: Normocephalic, atraumatic, mucous membranes moist. Heart: Regular rate and rhythm, no murmurs. Lungs: Bilateral bronchial breath sounds are appreciated. Fine crackles noted on the right side of the lung. Abdomen: Soft, nondistended, nontender, positive bowel sounds. ?No guarding or rebound tenderness. Neurologic: Alert and oriented x3, no gross neurological deficit, and patient able to move all 4 extremities. Extremities: No edema. Bilateral deformities of hand noted- ?rheumatoid arthritis Skin: No rash or ecchymoses. Objective Labs 03/25/24 05:40 03/25/24 05:40 Labs: Laboratory Results - last 24 hr 03/19/24 04:45 WBC 8.5 RBC 3.94 L Hgb 9.4 L Hct 28.8 L MCV 73 L MCH 23.9 L MCHC 32.6 RDW Std Deviation 43.4 Plt Count 329 D Neut % (Auto) 92 H Lymph % (Auto) 3 L [place] % (Auto) 5 Eos % (Auto) 0 Baso % (Auto) 0 Neut # (Auto) 7.9 H Lymph # (Auto) 0.2 L [place] # (Auto) 0.4 Eos # (Auto) 0.0 Baso # (Auto) 0.0 Immature Gran # (Auto) 0.05 H Absolute Nucleated RBC 0.00 Immature Gran % 1 H Nucleated RBC % 0 Sodium 138 Potassium 3.4 Chloride 100 Carbon Dioxide 26.2 Anion Gap 12 BUN 81 H Creatinine 1.9 H Estim Creat Clear Calc 15.4 L eGFR 26 L BUN/Creatinine Ratio 43 H Glucose 180 H Calculated Osmolality 305 H Calcium 9.5 Corrected Calcium 9.9 Total Bilirubin 0.3 AST 51 H ALT 33 Alkaline Phosphatase 111 Total Protein 5.8 Albumin 3.5 Globulin 2.3 Albumin/Globulin Ratio 1.5 ABG Interpretation ABG results: 03/15/24 03/16/24 03/17/24 20:34 20:31 02:35 ABG pH 7.45 7.47 H 7.40 ABG pCO2 34 38 41 ABG pO2 100 79 L D 94 ABG HCO3 24 27 H 25 ABG O2 Saturation 99 H 97 98 ABG Base Excess 0 4 H 0 03/18/24 02:37 ABG pH 7.40 ABG pCO2 41 ABG pO2 95 ABG HCO3 25 ABG O2 Saturation 98 ABG Base Excess 0 Quality Measures Quality Measures sepsis Current suspected stage: ruled out Possible source: pulmonary Blood cultures ordered: completed in ED Antibiotic ordered: Yes Advance care planning discussed with:: patient Assessment & Plan Assessment Current Active Medications: Generic Name Dose Route Start Last Admin Trade Name Freq PRN Reason Stop Dose Admin Acetaminophen 650 mg 03/14/24 03:00 Acetaminophen 325 Mg Tablet PO 04/13/24 02:59 Q6H PRN PAIN OR FEVER > 101 Albuterol/Ipratropium 3 ml 03/15/24 16:30 03/19/24 14:50 Albuterol/Ipratropium (Duoneb) Rt Rissa 3 Ml Nebu INH 04/14/24 16:29 3 ml Q4HRRT EMPERATRIZ Administration Albuterol/Ipratropium 3 ml 03/15/24 16:21 Albuterol/Ipratropium (Duoneb) Rt Rissa 3 Ml Nebu INH 04/14/24 16:20 Q2HR PRN SHORTNESS OF BREATH OR WHEEZE Azithromycin 500 mg 03/14/24 21:00 03/18/24 20:27 Azithromycin 250 Mg Tablet PO 03/21/24 20:59 500 mg HS EMPERATRIZ Administration Furosemide 40 mg 03/16/24 14:00 03/17/24 05:32 Furosemide Inj 10 Mg/Ml 4ml Vial IVP 04/15/24 13:59 40 mg Q8HR EMPERATRIZ Administration Heparin Sodium (Porcine) 5,000 unit 03/14/24 09:00 03/19/24 09:38 Heparin Sod Inj 5000 Unit/Ml Vial SC 03/28/24 08:59 5,000 unit Q12HR EMPERATRIZ Administration Hydralazine HCl 10 mg 03/14/24 20:02 03/18/24 03:16 Hydralazine Inj 20 Mg/Ml Vial IV 04/13/24 11:28 10 mg Q6HR PRN Administration SBP > 170 Ceftriaxone Sodium/Dextrose 50 mls @ 100 mls/hr 03/14/24 21:00 03/18/24 21:15 Rocephin/D5w 1gm Iv Premix IV 03/21/24 20:59 Infused HS EMPERATRIZ Infusion Labetalol HCl 100 mg 03/14/24 04:40 03/19/24 09:37 Labetalol 100 Mg Tablet PO 04/13/24 04:39 100 mg BID EMPERATRIZ Administration Lisinopril 10 mg 03/14/24 18:15 03/17/24 08:23 Lisinopril 2.5 Mg Tablet PO 04/13/24 18:14 10 mg QDAY EMPERATRIZ Administration Methylprednisolone Sodium Succinate 125 mg 03/18/24 14:00 03/19/24 15:37 Methylprednisolone Sod Succ 62.5 Mg/Ml 2ml Vial IVP 03/24/24 13:59 125 mg Q8HR EMPERATRIZ Administration Mirtazapine 7.5 mg 03/16/24 21:00 03/18/24 20:27 Mirtazapine 15 Mg Tablet PO 04/15/24 20:59 7.5 mg HS EMPERATRIZ Administration Nicardipine HCl 20 mg 03/18/24 08:30 03/19/24 15:37 Nicardipine 20 Mg Capsule PO 04/17/24 08:29 20 mg TID EMPERATRIZ Administration Ondansetron HCl 4 mg 03/14/24 03:00 Ondansetron Inj 2 Mg/Ml Inj 2 Ml IV 04/13/24 02:59 Q6H PRN NAUSEA OR VOMITING Protocol Pantoprazole Sodium 40 mg 03/14/24 09:00 03/19/24 09:38 Pantoprazole 40 Mg Tablet PO 04/13/24 08:59 40 mg QDAY EMPERATRIZ Administration Sertraline HCl 100 mg 03/14/24 21:00 03/19/24 09:38 Sertraline Hcl 25 Mg Tablet PO 04/13/24 20:59 100 mg BID EMPERATRIZ Administration Plan A 82-year-old female with past medical history of hypertension, GERD s/p fundoplication with hiatal hernia repair, hyperlipidemia, TIA [2021], depression was brought to the hospital with chief complaints of shortness of breath and admitted to hospital with acute hypoxic respiratory failure. NEURO Patient is awake, alert, and oriented x3, following commands, conversational. 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 -BNP is elevated at the time of admission for which cardiology was consulted -Echo done during this admission showed EF of 40 to 45% with moderate to severe pulmonary hypertension. -Patient was started on furosemide 40 Mg 3 times daily. Plan -Diuresis was withheld in view of uptrending BUN and creatinine. -Dr. Best was following the patient and recommended left and right heart catheterization on Wednesday # History of hypertension -Continue nicardipine 20 mg TID PULM # Acute hypoxic respiratory failure # ARDS # Bilateral pulmonary infiltrates with severe hypertension #? Hypersensitivity pneumonitis -Admitted with difficulty in breathing -Denies fever, cough, nausea, abdominal pain, weight loss, appetite loss. -BNP is >3000 for which cardiology was consulted. -Echo done showed severe pulmonary hypertension -CT showed bilateral infiltrates with ARDS pattern. -Patient was noted to have bilateral hand deformities and when asked about the history, patient's [id number] stated that she was diagnosed to have rheumatoid arthritis but did not get any treatment for that. -RA factor, anti-CCP, LISBET was ordered. -Creatinine kinase - normal limits, aldolase was ordered. -Patient was upgraded to ICU on 03/16/2024 in view of low saturations despite being on high flow oxygen for observation and further care. -Group A antigen was negative streptococcus and Legionella antigen is still pending. Plan -Continue ceftriaxone and azithromycin -Continue to monitor the patient on high flow oxygen, wean as tolerated -Continue methylprednisolone 125 Mg 3 times daily, titrate to BID starting tomorrow -Start incentive spirometer - GI #No active problems NEPHRO # ROBEL, prerenal Likely in the setting of diuresis. -BUN and creatinine is within normal limits till 03/16/2024 -Patient is on furosemide 40 Mg IV 3 times daily. -On 03/17/2024, BUN is 41 and creatinine is 1.5 >(03/18) BUN is 62, creatinine 1.8. -Urine output is well-maintained. Plan -Diuretics were withheld. -Will continue to monitor renal functions and avoid nephrotoxic medications -Renally dose medications. URO #No active problems HEME # Leukocytosis, resolved -In the setting of ongoing chronic lung disease. # Microcytic hypochromic anemia -Hemoglobin is 9.5 at the time of admission -Iron panel showed iron deficiency. Plan -Iron infusion was withheld in the view of ongoing active lung disease -Will continue to monitor CBC. ENDO #No active problems ID #No active problems MSK # Bilateral hand deformities Likely due to rheumatoid arthritis. RA factor and anti-CCP antibodies were sent. RA factor came out negative. SKIN #No active problems DVT prophylaxis: Heparin Protonix GI prophylaxis: Protonix Diet: Regular Martinez: Present Lines: peripheral Antibiotics: Ceftriaxone and azithromycin CODE STATUS: FULL Reason for ICU care: Acute hypoxic respiratory failure Patient plan of care was discussed with the attending physician, Dr. Singh. Yris Yao, PGY-2 Attending Provider Attestation/Addendum Patient seen and examined with above resident, Yris Yao MD. I agree with the findings, assessment, and plan of care as documented except for any differences below. Continue on current steroid regimen as the patient is having significant improvement in gas exchange. Patient also with superimposed pulmonary vascular disease which will need further delineation in the coming days. Coordination with cardiology for right heart catheterization when they are available this coming week. Patient remains on high humidity/high flow nasal cannula. Patient continues to be tachypneic in the setting of underlying extensive lung disease with superimposed acute exacerbation likely. She is empirically on antibiotics. We did send additional testing for alternate etiologies for underlying ILD though I suspect chronic hypersensitivity pneumonitis based on the pattern on CT imaging. She not a candidate for biopsy to make a definitive diagnosis given however she is now and is unlikely to international exchange coordinator as this is likely a steroid responsive disease given her continued improvement over the last few days. Patient and family were updated on plan of care at bedside continue to be appreciative of ongoing efforts to delineate diagnosis and treatment. Total critical care time: I personally spent 40 minutes for review of physiologic parameters, directing plan of care throughout the day, coordination of care with other specialties, and counseling patient/family at bedside. This is exclusive of time spent teaching housestaff or performing any separate billable procedures.
--- NOTE | 2024-03-19 18:40 | PC.RT ---
educated pt on IS. Pt is unable to use tool at this time, pt is very sob. is aware
[2024-03-19] MEDS: AZITHROMYCIN 250 MG TABLET 500 MG PO (20:08)
[2024-03-19] MEDS: MIRTAZAPINE 15 MG TABLET 7.5 MG PO (20:08)
[2024-03-19] MEDS: cefTRIAXone/D5w 1gm IV premix 50 ML IV (20:08)
[2024-03-20] VITALS (47 sets, daily range): BP systolic 122–232; BP diastolic 53–127; PULSE 67–108; RESP 20–41; TEMP 36.1–36.6; O2SAT 86–97; BMI 18.0
[2024-03-20] MEDS: hydrALAZINE INJ 20 MG/ML VIAL 10 MG IV (02:09)
[2024-03-20] MEDS: ALBUTEROL/IPRATROPIUM (Duoneb) RT SOL 3 ML NEBU INH ×7 (02:46→22:46)
[2024-03-20] MEDS: niCARdipine 20 MG CAPSULE PO (05:42)
[2024-03-20 06:08] LABS: Basophils % (Auto) 0 % (0-2.5); Eosinophils % (Auto) 0 % (0-10); Hematocrit 30.8 % (36.0-46.0); Hemoglobin 10.1 g/dL (12.0-16.0); Immature Granulocytes % (Auto) 0 % (0-0); Immature Granulocytes Auto 0.04 Thou/mm3 (0.00-0.00); Lymphocytes # (Auto) 0.3 Thou/mm3 (1.0-4.8); Lymphocytes % (Auto) 4 % (10-50); Mean Corpuscular HGB Conc 32.8 g/dl (31.0-37.0); Mean Corpuscular Hemoglobin 23.8 pg (25.0-35.0); Mean Corpuscular Volume 73 fL (80-100); Monocytes # (Auto) 0.4 Thou/mm3 (0.0-0.8); Monocytes % (Auto) 5 % (0-12); Neutrophils # (Auto) 8.8 Thou/mm3 (1.8-7.7); Neutrophils % (Auto) 91 % (37-80); Nucleated Red Blood Cell % 0 /100 WBC (0); Platelet Count 378 Thou/mm3 (140-440); RDW Standard Deviation 43.6 fL (36.4-46.3); Red Blood Count 4.24 Miln/mm3 (4.00-5.20); White Blood Count 9.6 Thou/mm3 (3.6-11.0)
[2024-03-20 06:41] LABS: Alanine Aminotransferase 39 U/L (10-49); Albumin, Serum 3.8 gm/dL (3.4-4.8); Albumin/Globulin Ratio 1.7 (1.2-2.2); Alkaline Phosphatase 126 U/L (46-116); Anion Gap 10 (7-16); Aspartate Amino Transferase 39 U/L (0-34); BUN/Creatinine Ratio 53 Ratio (12-20); Bilirubin,Total 0.3 mg/dL (0.3-1.2); Blood Urea Nitrogen 84 mg/dL (9-23); Calcium 9.6 mg/dL (8.3-10.6); Calcium (Corrected) 9.8 mg/dL (8.5-10.1); Chloride 103 mMol/L (98-107); Creatinine (Component) 1.6 mg/dL (0.6-1.3); Estimated Creatinine Clearance 18.2 mL/min (>60); Globulin 2.3 gm/dL (2.3-3.5); Glucose 185 mg/dL (74-106); Osmolality,Calculated 311 (275-295); Potassium 3.7 mMol/L (3.4-5.1); Sodium 141 mMol/L (136-145); Total Protein 6.1 gm/dL (5.7-8.2); eGFR 32 See Note
--- NOTE | 2024-03-20 09:20 | PD.RESPRO ---
Documentation for date of: 03/20/24 Subjective Subjective Interval history: Patient was seen and examined at bedside this AM. No acute exents overnight. Patient tolerating diet, adequate urine output and mentation is at baseline. Patient still complains of SOB at rest and unable to complete full sentences,same as yesterday. On HFNC @ 35L/min, FiO2 60% BUN increased to 84 from 81 and Cr decreased to 1.6 from 1.8 Patient continues to be hypertensive with BP this morning 161/62 and similar trend overnight. From telemetry review HR 70s?90s overnight with sinus arrhythmia, PACs and PVCs. This a.m. K of 3.7 and Mg pending. Maintain potassium greater than 4 and magnesium greater than 2 at all times to prevent any arrhythmias. Patient is on Methyprednisolone 125mg IV BID RF was negative and rest of autoimmune screen Including anti-CCP, LISBET, aldolase pending Strep A, influenza A & B, RSV, cocci and COVID-19 were all negative on this admission Plan to keep NPO tomorrow morning for possible right heart catheterization to determine the etiology of the PAH. Discussed with the [address] Jack who will speak to the family and patient is still full code and want to continue further workup for the pulmonary artery hypertension. Exam Vital Signs Temp Pulse Resp BP Pulse Ox O2 Del Method O2 Flow Rate 97.4 F 85 26 H 161/62 H 93 L High Flow Nasal Cannula 35 03/20/24 08:00 03/20/24 08:00 03/20/24 08:00 03/20/24 08:00 03/20/24 08:00 03/20/24 00:00 03/20/24 06:24 FiO2 60 03/20/24 06:24 Narrative Exam Constitutional Alert, oriented x 3 and in mild distress. Cachectic, Temporal wasting, Elderly Female on O2 via HFNC, cannot complete sentences. HEENT Vision grossly intact. Patent nares. Trachea midline Respiratory Wasted on inspection poor inspiratory effort, decreased AE in all lung coffman , scattered fine crackles heard throughout b/l lung coffman Cardiovascular S1 and S2 audible, RRR. Abdominal Soft and non tender to palpation in all quadrants. BS + Genitourinary No bladder tenderness, no flank pain. Normal to palpation Musculoskeletal Extremities tone within normal limits. No LE edema. Neurological CN II - XII grossly intact. Extremity motor and sensation grossly intact. Skin Warm, dry and intact. No apparent lesions. Psychiatric Cooperative Objective Labs 03/20/24 05:28 03/20/24 05:28 Labs: Laboratory Results - last 24 hr 03/20/24 05:28 WBC 9.6 RBC 4.24 Hgb 10.1 L Hct 30.8 L MCV 73 L MCH 23.8 L MCHC 32.8 RDW Std Deviation 43.6 Plt Count 378 D Neut % (Auto) 91 H Lymph % (Auto) 4 L [place] % (Auto) 5 Eos % (Auto) 0 Baso % (Auto) 0 Neut # (Auto) 8.8 H Lymph # (Auto) 0.3 L [place] # (Auto) 0.4 Eos # (Auto) 0.0 Baso # (Auto) 0.0 Immature Gran # (Auto) 0.04 H Absolute Nucleated RBC 0.00 Immature Gran % 0 Nucleated RBC % 0 Sodium 141 Potassium 3.7 Chloride 103 Carbon Dioxide 28.0 Anion Gap 10 BUN 84 H Creatinine 1.6 H Estim Creat Clear Calc 18.2 L eGFR 32 L BUN/Creatinine Ratio 53 H Glucose 185 H Calculated Osmolality 311 H Calcium 9.6 Corrected Calcium 9.8 Total Bilirubin 0.3 AST 39 H ALT 39 Alkaline Phosphatase 126 H Total Protein 6.1 Albumin 3.8 Globulin 2.3 Albumin/Globulin Ratio 1.7 ABG Interpretation ABG results: 03/15/24 03/16/24 03/17/24 20:34 20:31 02:35 ABG pH 7.45 7.47 H 7.40 ABG pCO2 34 38 41 ABG pO2 100 79 L D 94 ABG HCO3 24 27 H 25 ABG O2 Saturation 99 H 97 98 ABG Base Excess 0 4 H 0 03/18/24 02:37 ABG pH 7.40 ABG pCO2 41 ABG pO2 95 ABG HCO3 25 ABG O2 Saturation 98 ABG Base Excess 0 Quality Measures Quality Measures sepsis Current suspected stage: ruled out Possible source: pulmonary Blood cultures ordered: completed in ED Antibiotic ordered: Yes Advance care planning discussed with:: patient Assessment & Plan Assessment Current Active Medications: Generic Name Dose Route Start Last Admin Trade Name Freq PRN Reason Stop Dose Admin Acetaminophen 650 mg 03/14/24 03:00 Acetaminophen 325 Mg Tablet PO 04/13/24 02:59 Q6H PRN PAIN OR FEVER > 101 Albuterol/Ipratropium 3 ml 03/15/24 16:30 03/20/24 06:24 Albuterol/Ipratropium (Duoneb) Rt Rissa 3 Ml Nebu INH 04/14/24 16:29 3 ml Q4HRRT EMPERATRIZ Administration Albuterol/Ipratropium 3 ml 03/15/24 16:21 Albuterol/Ipratropium (Duoneb) Rt Rissa 3 Ml Nebu INH 04/14/24 16:20 Q2HR PRN SHORTNESS OF BREATH OR WHEEZE Azithromycin 500 mg 03/14/24 21:00 03/19/24 20:08 Azithromycin 250 Mg Tablet PO 03/21/24 20:59 500 mg HS EMPERATRIZ Administration Furosemide 40 mg 03/16/24 14:00 03/17/24 05:32 Furosemide Inj 10 Mg/Ml 4ml Vial IVP 04/15/24 13:59 40 mg Q8HR EMPERATRIZ Administration Heparin Sodium (Porcine) 5,000 unit 03/14/24 09:00 03/19/24 20:09 Heparin Sod Inj 5000 Unit/Ml Vial SC 03/28/24 08:59 5,000 unit Q12HR EMPERATRIZ Administration Hydralazine HCl 10 mg 03/14/24 20:02 03/20/24 02:09 Hydralazine Inj 20 Mg/Ml Vial IV 04/13/24 11:28 10 mg Q6HR PRN Administration SBP > 170 Ceftriaxone Sodium/Dextrose 50 mls @ 100 mls/hr 03/14/24 21:00 03/19/24 20:08 Rocephin/D5w 1gm Iv Premix IV 03/21/24 20:59 100 mls/hr HS EMPERATRIZ Administration Labetalol HCl 100 mg 03/14/24 04:40 03/19/24 20:07 Labetalol 100 Mg Tablet PO 04/13/24 04:39 100 mg BID EMPERATRIZ Administration Lisinopril 10 mg 03/14/24 18:15 03/17/24 08:23 Lisinopril 2.5 Mg Tablet PO 04/13/24 18:14 10 mg QDAY EMPERATRIZ Administration Methylprednisolone Sodium Succinate 125 mg 03/20/24 00:01 03/20/24 01:14 Methylprednisolone Sod Succ 62.5 Mg/Ml 2ml Vial IVP 03/22/24 00:00 Not Given Q12HR EMPERATRIZ Mirtazapine 7.5 mg 03/16/24 21:00 03/19/24 20:08 Mirtazapine 15 Mg Tablet PO 04/15/24 20:59 7.5 mg HS EMPERATRIZ Administration Nicardipine HCl 30 mg 03/20/24 14:00 Nicardipine 30 Mg Capsule (Non-Form) PO 04/19/24 13:59 TID EMPERATRIZ Ondansetron HCl 4 mg 03/14/24 03:00 Ondansetron Inj 2 Mg/Ml Inj 2 Ml IV 04/13/24 02:59 Q6H PRN NAUSEA OR VOMITING Protocol Pantoprazole Sodium 40 mg 03/14/24 09:00 03/19/24 09:38 Pantoprazole 40 Mg Tablet PO 04/13/24 08:59 40 mg QDAY EMPERATRIZ Administration Sertraline HCl 100 mg 03/14/24 21:00 03/19/24 20:22 Sertraline Hcl 25 Mg Tablet PO 04/13/24 20:59 100 mg BID EMPERATRIZ Administration Plan Patient is an 83-year-old female with a past medical history significant for essential hypertension, hyperlipidemia, TIA [2021], depression and GERD s/p Benjamin fundoplication with hiatal hernia repair [2017]. Follows up with PCP Dr Campos. Patient presented to the ED with a chief complaint of shortness of breath. Patient was admitted for acute respiratory failure with hypoxia and cardiology was consulted to assess for possible new onset CHF. 1. Acute respiratory failure with hypoxia - worsening 2. Acute decompensated diastolic heart failure exacerbation?new onset 3. Pulmonary Hypertension - etiology yet to established 4. ACS ruled out 5. NSTEMI type II On presentation patient was severely SOB unable to complete sentences and lying at a 45 degree angle. On exam she had no lower extremity edema but poor inspiratory effort, decreased air entry and scattered crackles at the bases and a 3/6 diastolic murmur heard at left lower sternal border. She was not on any home diuretic and not known to have heart failure in the past, however clinically she appears to be in acute decompensated heart failure exacerbation. BNP on admission 3280 and troponin elevated at 0.1 up trended to 0.124 and downtrending to 0.121 likely in the setting of CHF exacerbation EKG on admission showed sinus rhythm, rate 95, LVH. Chest x-ray was significant for increased vascular markings bilaterally flash pulmonary edema. DDx : ILD, RA flare, Allergic interstital pneumonitis, Primary pulmonary hypertension, ARDS BNP can also be elevated in ILD Last echocardiogram completed [place] [address] Brock Strickland findings include: Normal left ventricular size with mild LVH. LVEF 60%. normal cardiac chamber size mitral valve thickening with trace regurgitation moderate aortic valve regurgitation Transthoracic echocardiogram completed on 03/14 findings include: Normal LV size. Mild systolic dysfunction. Mild hypokinesis basal to mid Anterior and anteroseptal gale. Mild LVH. Grade I diastolic dysfunction. Estimated EF 40-45% Normal RV size. Normal RV function. Estimated RVSP 68mmHg. Moderate to severe PAH. RAP 10. Mild LA dilation. Severe RA dilation Moderate MR, AI. Mild TR. Trace PI. IVC dilated. Chest CTA completed 03/16 showed severe bilateral pneumonia ARDS pattern with ground glass opacities, bilateral bronchiectasis, fibrosis and significant consolidation, negative for pulmonary artery emboli. Abdomen CT was significant for Large Liver Simple Cyst Of note patient also admitted to having rheumatoid arthritis. Overnight 03/17 patient's became confused and was attempting to remove high flow nasal cannula and subsequently desaturated to the 50s. At the bedside patient appeared to be confused and her mouth was cyanotic. Patient was again placed on high flow nasal cannula and upgraded to the ICU for closer monitoring and possible intubation if necessary. Pulmonology and spot welder line on board Of note patient also admitted to having rheumatoid arthritis. Patient still complains of SOB at rest and unable to complete full sentences,same as yesterday. On HFNC @ 35L/min, FiO2 60% BUN increased to 84 from 81 and Cr decreased to 1.6 from 1.8 Patient continues to be hypertensive with BP this morning 161/62 and similar trend overnight. From telemetry review HR 70s?90s overnight with sinus arrhythmia, PACs and PVCs. This a.m. K of 3.7 and Mg pending. Maintain potassium greater than 4 and magnesium greater than 2 at all times to prevent any arrhythmias. Patient is on Methyprednisolone 125mg IV BID RF was negative and rest of autoimmune screen Including anti-CCP, LISBET, aldolase pending Strep A, influenza A & B, RSV, cocci and COVID-19 were all negative on this admission Plan: ? Strict input output charting ? 2 g sodium restricted diet ? Daily weights - 1500cc fluid restriction ? Aspirin 81 mg p.o. daily - Plan to keep NPO tomorrow morning for possible right heart catheterization to determine the etiology of the PAH. Discussed with the [address] Jack who will speak to the family and patient is still full code and want to continue further workup for the pulmonary artery hypertension. ? No need to further trend troponin - Pending [employer] screen including Anit- CCP , LISBET, aldolase - Rest of care as per Pulmonology and Marketing And Outreach Coordinator 5. Essential hypertension Home medication labetalol 200 mg p.o. twice daily On admission BP 189/83 Patient continues to be hypertensive with BP this morning 161/62 and similar trend overnight. From telemetry review HR 70s?90s overnight with sinus arrhythmia, PACs and PVCs. Plan: ? Can continue home medication Labetolol for now - Continue Nicardipine 20 mg po TID - Continue Lisinopril 10 mg po daily - Can uptitrate antihypertensives as necessary - Hydralazine 10mg IV as needed for SBP >170 6. Hyperlipidemia Patient was not on any statins at home but has a history of hyperlipidemia. On this admission triglycerides 127, cholesterol 136, LDL 69. Recommend to start patient on moderate intensity statin 7. History of depression Patient's home medication sertraline 100 mg p.o. daily Recommend to continue to avoid any withdrawals Recommend to Continue Mirtazapine 7.5mg po HS to help stimulate appetite 8. History of GERD 9. History of TIA [2021] 10. History of Benjamin fundoplication with hiatal hernia repair [2017] Patient does not appear to be on any PPIs at home and currently denies any GERD symptoms. Patient also did not appear to be on any aspirin at home although she had a history of TIA. Plan: ?Recommend to start aspirin 81 Mg p.o. daily 11. Microcytic anemia On admission patient's Hb 9.5. Baseline from chart review appears to be about 11?12. DDx: Iron deficiency anemia, poor nutrition, anemia of chronic disease, thalassemia, malignancy Patient also endorses approximately 30lb weight loss over the past 2 years Recommend, reticulocyte count, blood smear, LDH Iron 11, TIBC 214, ferritin 482. 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 IV iron held for now in light of inflammatory lung pathology 12. ROBEL on CKD stage III A On admission patient's CR 1.1 which appears to be at her baseline Currently Cr downtrended to 1.6 from 1.8 Continue management as per primary team 13. Rheumatoid arthritis Patient not on methotrexate or any biologic agents at home but admits to history of rheumatoid arthritis for many years. 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 Continue management as per primary team Continue rest of management as per primary team. We are grateful to be able to participate in Mrs. Garcia's care. Thank you for the consult Plan of care discussed with attending Professor Of Pathology, Dr Nasir Mckeon MD PGY 1 Attending Provider Attestation/Addendum I have personally seen and examined the patient separately on the above date of service and discussed the plan of care with the resident. I reviewed the resident Dr. Mckeon consultation progress note and agree with the resident findings and plan in the note above and have also edited the documentation to reflect my findings and plan. Mian Best M.D. Interventional Cardiology
[2024-03-20] MEDS: MethylPREDNISolone SOD SUCC 62.5 MG/ML 2ML VIAL 125 MG IVP ×2 (09:28→20:02)
[2024-03-20] MEDS: SERTRALINE HCL 25 MG TABLET 100 MG PO ×2 (09:28→20:01)
[2024-03-20] MEDS: PANTOPRAZOLE 40 MG TABLET PO (09:29)
[2024-03-20] MEDS: HEPARIN SOD INJ 5000 UNIT/ML VIAL SC ×2 (09:29→20:16)
[2024-03-20] MEDS: LABETALOL 100 MG TABLET PO ×2 (09:29→20:00)
--- NOTE | 2024-03-20 10:08 | ESPR_ITS ---
<Statement entered by Yris Yao MD - 03/21/24 06:52> Patient was seen and examined by me personally. I have directly supervised and reviewed the above documentation by the team resident and agree with its findings with any exceptions or additional findings as below. Plan of care was discussed with the attending, Dr. Singh. Yris Yao, PGY-2 Documentation for date of: 03/20/24 Subjective Subjective Interval history: A 82-year-old female with past medical history of hypertension, GERD s/p fundoplication with hiatal hernia repair, hyperlipidemia, TIA [2021], depression was brought to the hospital with chief complaints of shortness of breath. Reported that patient lives alone by herself and does her routine daily activities. Per [id number], patient is having shortness of breath for the past 6 months which was worsened recently a week before the day of admission. On the day of admission patient was having severe shortness of breath and called her son who called the EMS and brought her to the hospital. Patient denies fever, cough, nausea, weight loss, loss of appetite, pedal edema, chest pain, diarrhea. Patient was supposedly happy to see the executive officer special warfare team in [place] as referred by her primary, but unsure of the reason. Hospital course: At the time of admission in the ED, patient was found to be hypoxic and was started on oxygen through nasal cannula. COVID and flu serologies done at that time was negative. BNP was >3000. Chest x-ray showed bilateral infiltrates with vascular congestion for which cardiology was consulted. Echocardiogram was done on the patient which showed severe pulmonary hypertension. Patient was started on diuretics. Later chest CT angiogram performed showed extensive bilateral infiltrates. Patient was started on high flow oxygen, As her oxygen saturations are not maintaining well. 03/17/2024: Patient was seen and examined bedside in the ICU. Patient is not willing to communicate. Answered questions by nodding her head. Reported that her shortness of breath is improved. Patient is on high flow oxygen with 90% FiO2 and 30 L/min. Vitals are stable. Labs showed mild leukocytosis, anemia, sodium 131, BUN 41, creatinine 1.5. ABG is within normal limits. Diuresis was withheld in view of elevated BUN/creatinine. Steroids were started in view of suspected chronic hypersensitivity pneumonitis. Antibody panel is still pending. 03/18/2024: Patient was seen and examined bedside in the ICU. Still having Tachypnea and using accessory muscles of respiration. Reported that she is still having shortness of breath without much improvement. Patient is still on high flow but FiO2 is decreased from 90-80 this morning. Blood pressures are mildly elevated probably due to steroids. Labs showed anemia, BUN 62 and creatinine 1.8. Urine output is well-maintained despite elevated BUN and creatinine, so will continue to monitor renal functions and urine output. Will continue high-dose steroids for 3 days and will gradually taper the steroids. RA factor came back negative. LISBET and anti-CCP antibodies are still pending. 03/19/2024: Patient was saturating in the mid-90s on 30L 50% FiO2 of Hi-Flow this AM. Later that morning patient was noted to be desaturating to mid-80s so was repositioned in bed and Hi-Flow settings were adjusted to 35L and 60% FiO2. Patient remained stable throughout the day. Will titrate Solu-Medrol from TID to BID starting tomorrow. Continue to hold Lasix. Creatinine still worsening at 1.9. Continue to monitor overnight as patient still has high work of breathing and unable to vocalize complete sentences while on Hi-Flow. Will have patient work with PT and RT to educate on incentive spirometry. 03/20/2024: Patient was seen and examined bedside in the ICU. Stated that her shortness of breath improved a bit. Still on high flow oxygen with FiO2 60% and 35 L/min oxygen saturating around 88 to 92%. Vitals are stable except for mildly elevated blood pressures. On auscultation, bronchial breath sounds are heard on right upper lobe and decreased breath sounds are noted in rest of the areas. Labs showed BUN 84, creatinine 1.6 which are downtrending and the urine output is maintaining well. Continued physiotherapy and respiratory therapy. Methylprednisolone dose is decreased from 125 Mg 3 times daily to twice daily. Exam Vital Signs Temp Pulse Resp BP Pulse Ox O2 Del Method O2 Flow Rate 97.4 F 90 34 H 173/71 H 90 L High Flow Nasal Cannula 35 03/20/24 08:00 03/20/24 10:06 03/20/24 10:06 03/20/24 09:29 03/20/24 10:06 03/20/24 00:00 03/20/24 10:06 FiO2 60 11/25/24 10:06 Narrative Exam General: Awake and in moderate distress. Tachypneic and using muscles of respiration HEENT: Normocephalic, atraumatic, mucous membranes moist. Heart: Regular rate and rhythm, no murmurs. Lungs: Right Bronchial breath sounds are appreciated. Fine crackles noted on the right side of the lung. overall decreased breath sounds are noted bilaterally. Abdomen: Soft, nondistended, nontender, positive bowel sounds. ?No guarding or rebound tenderness. Neurologic: Alert and oriented x3, no gross neurological deficit, and patient able to move all 4 extremities. Extremities: No edema. Bilateral deformities of hand noted- ?rheumatoid arthritis Skin: No rash or ecchymoses. Objective Labs 03/24/24 04:29 03/25/24 02:28 Labs: Laboratory Results - last 24 hr 03/20/24 05:28 WBC 9.6 RBC 4.24 Hgb 10.1 L Hct 30.8 L MCV 73 L MCH 23.8 L MCHC 32.8 RDW Std Deviation 43.6 Plt Count 378 D Neut % (Auto) 91 H Lymph % (Auto) 4 L [place] % (Auto) 5 Eos % (Auto) 0 Baso % (Auto) 0 Neut # (Auto) 8.8 H Lymph # (Auto) 0.3 L [place] # (Auto) 0.4 Eos # (Auto) 0.0 Baso # (Auto) 0.0 Immature Gran # (Auto) 0.04 H Absolute Nucleated RBC 0.00 Immature Gran % 0 Nucleated RBC % 0 Sodium 141 Potassium 3.7 Chloride 103 Carbon Dioxide 28.0 Anion Gap 10 BUN 84 H Creatinine 1.6 H Estim Creat Clear Calc 18.2 L eGFR 32 L BUN/Creatinine Ratio 53 H Glucose 185 H Calculated Osmolality 311 H Calcium 9.6 Corrected Calcium 9.8 Total Bilirubin 0.3 AST 39 H ALT 39 Alkaline Phosphatase 126 H Total Protein 6.1 Albumin 3.8 Globulin 2.3 Albumin/Globulin Ratio 1.7 ABG Interpretation ABG results: 03/15/24 03/16/24 03/17/24 20:34 20:31 02:35 ABG pH 7.45 7.47 H 7.40 ABG pCO2 34 38 41 ABG pO2 100 79 L D 94 ABG HCO3 24 27 H 25 ABG O2 Saturation 99 H 97 98 ABG Base Excess 0 4 H 0 03/18/24 02:37 ABG pH 7.40 ABG pCO2 41 ABG pO2 95 ABG HCO3 25 ABG O2 Saturation 98 ABG Base Excess 0 Quality Measures Quality Measures sepsis Current suspected stage: ruled out Possible source: pulmonary Blood cultures ordered: completed in ED Antibiotic ordered: Yes Advance care planning discussed with:: patient Assessment & Plan Assessment Current Active Medications: Generic Name Dose Route Start Last Admin Trade Name Freq PRN Reason Stop Dose Admin Acetaminophen 650 mg 03/14/24 03:00 Acetaminophen 325 Mg Tablet PO 04/13/24 02:59 Q6H PRN PAIN OR FEVER > 101 Albuterol/Ipratropium 3 ml 03/15/24 16:30 03/20/24 06:24 Albuterol/Ipratropium (Duoneb) Rt Rissa 3 Ml Nebu INH 04/14/24 16:29 3 ml Q4HRRT EMPERATRIZ Administration Albuterol/Ipratropium 3 ml 03/15/24 16:21 Albuterol/Ipratropium (Duoneb) Rt Rissa 3 Ml Nebu INH 04/14/24 16:20 Q2HR PRN SHORTNESS OF BREATH OR WHEEZE Azithromycin 500 mg 03/14/24 21:00 03/19/24 20:08 Azithromycin 250 Mg Tablet PO 03/21/24 20:59 500 mg HS EMPERATRIZ Administration Furosemide 40 mg 03/16/24 14:00 03/17/24 05:32 Furosemide Inj 10 Mg/Ml 4ml Vial IVP 04/15/24 13:59 40 mg Q8HR EMPERATRIZ Administration Heparin Sodium (Porcine) 5,000 unit 03/14/24 09:00 03/20/24 09:29 Heparin Sod Inj 5000 Unit/Ml Vial SC 03/28/24 08:59 5,000 unit Q12HR EMPERATRIZ Administration Hydralazine HCl 10 mg 03/14/24 20:02 03/20/24 02:09 Hydralazine Inj 20 Mg/Ml Vial IV 04/13/24 11:28 10 mg Q6HR PRN Administration SBP > 170 Ceftriaxone Sodium/Dextrose 50 mls @ 100 mls/hr 03/14/24 21:00 03/19/24 20:08 Rocephin/D5w 1gm Iv Premix IV 03/21/24 20:59 100 mls/hr HS EMPERATRIZ Administration Labetalol HCl 100 mg 03/14/24 04:40 03/20/24 09:29 Labetalol 100 Mg Tablet PO 04/13/24 04:39 100 mg BID EMPERATRIZ Administration Lisinopril 10 mg 03/14/24 18:15 03/17/24 08:23 Lisinopril 2.5 Mg Tablet PO 04/13/24 18:14 10 mg QDAY EMPERATRIZ Administration Methylprednisolone Sodium Succinate 125 mg 03/20/24 00:01 03/20/24 09:28 Methylprednisolone Sod Succ 62.5 Mg/Ml 2ml Vial IVP 03/22/24 00:00 125 mg Q12HR EMPERATRIZ Administration Mirtazapine 7.5 mg 03/16/24 21:00 03/19/24 20:08 Mirtazapine 15 Mg Tablet PO 04/15/24 20:59 7.5 mg HS EMPERATRIZ Administration Nicardipine HCl 30 mg 03/20/24 14:00 Nicardipine 30 Mg Capsule (Non-Form) PO 04/19/24 13:59 TID EMPERATRIZ Ondansetron HCl 4 mg 03/14/24 03:00 Ondansetron Inj 2 Mg/Ml Inj 2 Ml IV 04/13/24 02:59 Q6H PRN NAUSEA OR VOMITING Protocol Pantoprazole Sodium 40 mg 03/14/24 09:00 03/20/24 09:29 Pantoprazole 40 Mg Tablet PO 04/13/24 08:59 40 mg QDAY EMPERATRIZ Administration Sertraline HCl 100 mg 03/14/24 21:00 03/20/24 09:28 Sertraline Hcl 25 Mg Tablet PO 04/13/24 20:59 100 mg BID EMPERATRIZ Administration Plan A 82-year-old female with past medical history of hypertension, GERD s/p fundoplication with hiatal hernia repair, hyperlipidemia, TIA [2021], depression was brought to the hospital with chief complaints of shortness of breath and admitted to hospital with acute hypoxic respiratory failure. NEURO Patient is awake, alert, and oriented x3, following commands, conversational. 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 -BNP is elevated at the time of admission for which cardiology was consulted -Echo done during this admission showed EF of 40 to 45% with moderate to severe pulmonary hypertension. -Patient was started on furosemide 40 Mg 3 times daily. Plan -Diuresis was withheld in view of uptrending BUN and creatinine. -Dr. Best was following the patient and appreciate his recommendations. # History of hypertension -Continue nicardipine 30 mg TID --increase to 30 Mg 4 times daily. -Will continue labetalol 100 Mg p.o. twice daily -Will monitor blood pressures PULM # Acute hypoxic respiratory failure # ARDS # Bilateral pulmonary infiltrates with severe hypertension #? Hypersensitivity pneumonitis -Admitted with difficulty in breathing -Denies fever, cough, nausea, abdominal pain, weight loss, appetite loss. -BNP is >3000 for which cardiology was consulted. -Echo done showed severe pulmonary hypertension -CT showed bilateral infiltrates with ARDS pattern. -Patient was noted to have bilateral hand deformities and when asked about the history, patient's [id number] stated that she was diagnosed to have rheumatoid arthritis but did not get any treatment for that. -RA factor, anti-CCP, LISBET was ordered. -Creatinine kinase - normal limits, aldolase was ordered. -Patient was upgraded to ICU on 03/16/2024 in view of low saturations despite being on high flow oxygen for observation and further care. -Group A antigen was negative streptococcus and Legionella antigen is still pending. Plan -Continue ceftriaxone and azithromycin -Continue to monitor the patient on high flow oxygen, wean as tolerated -Down titrated methylprednisolone from 125 mg 3 times daily to methylprednisolone 125 Mg BID for 3 days. -Start incentive spirometer - GI #No active problems NEPHRO # ROBEL, prerenal -improving Likely in the setting of diuresis. -BUN and creatinine is within normal limits till 03/16/2024 -Patient is on furosemide 40 Mg IV 3 times daily. -On 03/17/2024, BUN is 41 and creatinine is 1.5 >(03/18) BUN is 62, creatinine 1.8. -Urine output is well-maintained. Plan -Diuretics were withheld. -Will continue to monitor renal functions and avoid nephrotoxic medications -Renally dose medications. URO #No active problems HEME # Leukocytosis, resolved -In the setting of ongoing chronic lung disease. # Microcytic hypochromic anemia -Hemoglobin is 9.5 at the time of admission -Iron panel showed iron deficiency. Plan -Iron infusion was withheld in the view of ongoing active lung disease -Will continue to monitor CBC. ENDO #No active problems ID #No active problems MSK # Bilateral hand deformities Likely due to rheumatoid arthritis. RA factor and anti-CCP antibodies were sent. RA factor came out negative. SKIN #No active problems DVT prophylaxis: Heparin Protonix GI prophylaxis: Protonix Diet: Regular Martinez: Present Lines: peripheral Antibiotics: Ceftriaxone and azithromycin CODE STATUS: FULL Reason for ICU care: Acute hypoxic respiratory failure Patient plan of care was discussed with the attending physician, Dr. Singh and senior resident Dr.Tiffani Yao, PGY-2 John Garcia, PGY1 Attending Provider Attestation/Addendum Patient seen and examined with above resident, John Garcia MD. I agree with the findings, assessment, and plan of care as documented except for any differences below. Patient continues to be on high-dose steroid taper with plan to transition to twice daily dosing of her Solu-Medrol now. Will not add on second agent at this point. Though her gas exchange continues to show improvement. She continues to have significant dyspnea. Suspected component of pulm hypertension also contributing at this point. Will plan for right heart catheterization when appropriate for assessment of fluid status which I think is likely optimal at this point as well as to exclude any other etiologies. Patient if she does show only group 3 pulm hypertension will likely qualify for inhaled therapy with treprostinil. Not sure this will adequately help further as parenchymal process likely is the driving factor in the etiology of her acute hypoxic respiratory failure. Patient with significant pulmonary cachexia and we are promoting p.o. intake along with her family breaking her any food that she may enjoy to increase caloric input. Patient and family updated on plan of care at bedside. Patient will continue humidity/high flow nasal cannula with close monitoring in the ICU at this point. Total critical care time: Personally spent 40 minutes for review of physiologic parameters, directing plan of care throughout the day, coordination of care with other specialties, and counseling patient/family at bedside. This is exclusive of time spent teaching housestaff or performing any separate billable procedures. Patient continues to require critical care services for acute hypoxic respiratory failure secondary to interstitial lung disease and pulmonary arterial hypertension. Patient continues to have high risk for further morbidity and mortality.
[2024-03-20 10:45] LABS: Magnesium 2.8 mg/dL (1.6-2.6)
[2024-03-20] MEDS: [UNRECOGNIZED DRUG - REMARK] PO ×2 (13:54→20:00)
--- NOTE | 2024-03-20 17:36 | PC.PT ---
Patient is currently on high flow. PT eval witheld today.
[2024-03-20] MEDS: hydrOXYzine HCL 25 MG TABLET PO (18:18)
[2024-03-20] MEDS: BusPIRone HCL 5 MG TABLET PO (19:28)
[2024-03-20] MEDS: AZITHROMYCIN 250 MG TABLET 500 MG PO (20:01)
[2024-03-20] MEDS: MIRTAZAPINE 15 MG TABLET 7.5 MG PO (20:01)
[2024-03-20] MEDS: cefTRIAXone/D5w 1gm IV premix 50 ML IV (20:08)
[2024-03-21] VITALS (53 sets, daily range): BP systolic 115–205; BP diastolic 49–124; PULSE 68–89; RESP 18–37; TEMP 36.1–36.9; O2SAT 90–99; BMI 18.1
[2024-03-21] MEDS: ALBUTEROL/IPRATROPIUM (Duoneb) RT SOL 3 ML NEBU INH ×4 (02:46→14:23)
[2024-03-21] MEDS: LABETALOL INJ 5 MG/ML VIAL 20 ML IVP (02:49)
[2024-03-21] MEDS: LABETALOL INJ 5 MG/ML VIAL 20 ML 10 MG IVP (04:26)
[2024-03-21] MEDS: [UNRECOGNIZED DRUG - REMARK] PO ×4 (05:16→20:22)
[2024-03-21 05:39] LABS: Base Excess, Venous 7 (-3-3); O2 Saturation, Venous 94 % (96-97); PCO2, Venous 37 mmHg (36-56); PO2, Venous 64 mmHg (15-58); pH, Venous 7.52 (7.33-7.66)
[2024-03-21 05:42] LABS: Basophils % (Auto) 0 % (0-2.5); Eosinophils % (Auto) 0 % (0-10); Hematocrit 31.7 % (36.0-46.0); Hemoglobin 9.9 g/dL (12.0-16.0); Immature Granulocytes % (Auto) 1 % (0-0); Immature Granulocytes Auto 0.07 Thou/mm3 (0.00-0.00); Lymphocytes # (Auto) 0.2 Thou/mm3 (1.0-4.8); Lymphocytes % (Auto) 2 % (10-50); Mean Corpuscular HGB Conc 31.2 g/dl (31.0-37.0); Mean Corpuscular Hemoglobin 23.3 pg (25.0-35.0); Mean Corpuscular Volume 75 fL (80-100); Monocytes # (Auto) 0.9 Thou/mm3 (0.0-0.8); Monocytes % (Auto) 9 % (0-12); Neutrophils # (Auto) 9.5 Thou/mm3 (1.8-7.7); Neutrophils % (Auto) 89 % (37-80); Nucleated Red Blood Cell % 0 /100 WBC (0); Platelet Count 320 Thou/mm3 (140-440); RDW Standard Deviation 45.3 fL (36.4-46.3); Red Blood Count 4.25 Miln/mm3 (4.00-5.20); White Blood Count 10.7 Thou/mm3 (3.6-11.0)
[2024-03-21 06:39] LABS: Alanine Aminotransferase 30 U/L (10-49); Albumin, Serum 3.7 gm/dL (3.4-4.8); Albumin/Globulin Ratio 1.7 (1.2-2.2); Alkaline Phosphatase 148 U/L (46-116); Anion Gap 11 (7-16); Aspartate Amino Transferase 24 U/L (0-34); BUN/Creatinine Ratio 59 Ratio (12-20); Bilirubin,Total 0.3 mg/dL (0.3-1.2); Blood Urea Nitrogen 82 mg/dL (9-23); Calcium 9.8 mg/dL (8.3-10.6); Carbon Dioxide 28.8 mMol/L (20.0-31.0); Chloride 104 mMol/L (98-107); Creatinine (Component) 1.4 mg/dL (0.6-1.3); Estimated Creatinine Clearance 20.9 mL/min (>60); Globulin 2.2 gm/dL (2.3-3.5); Glucose 189 mg/dL (74-106); Osmolality,Calculated 316 (275-295); Potassium 3.7 mMol/L (3.4-5.1); Sodium 144 mMol/L (136-145); Total Protein 5.9 gm/dL (5.7-8.2); eGFR 37 See Note
[2024-03-21] MEDS: LABETALOL 100 MG TABLET PO ×2 (08:16→20:20)
[2024-03-21] MEDS: SERTRALINE HCL 25 MG TABLET 100 MG PO ×2 (08:16→20:22)
[2024-03-21] MEDS: PANTOPRAZOLE 40 MG TABLET PO (08:17)
[2024-03-21] MEDS: MethylPREDNISolone SOD SUCC 62.5 MG/ML 2ML VIAL 125 MG IVP ×2 (08:17→20:19)
[2024-03-21] MEDS: BusPIRone HCL 5 MG TABLET PO ×2 (08:17→20:19)
[2024-03-21] MEDS: HEPARIN SOD INJ 5000 UNIT/ML VIAL SC ×2 (08:17→20:23)
[2024-03-21] MEDS: hydrALAZINE HCL 25 MG TABLET PO ×2 (09:23→13:16)
--- NOTE | 2024-03-21 10:27 | ESPR_ITS ---
Documentation for date of: 03/21/24 Subjective Subjective Interval history: Patient was seen and examined at bedside this AM. No acute exents overnight. Patient NPO , adequate urine output and mentation is at baseline. Patient still complains of SOB at rest and unable to complete full sentences,same as yesterday. On HFNC @ 40L/min, FiO2 80% BUN decreased to 82 from 84 and Cr decreased to 1.4 from 1.6 Patient continues to be hypertensive with BP this morning 184/75 and similar trend overnight. From telemetry review HR 70s?90s overnight with sinus arrhythmia, PACs and PVCs. This a.m. K of 3.7 and Mg pending. Maintain potassium greater than 4 and magnesium greater than 2 at all times to prevent any arrhythmias. Patient is on Methyprednisolone 125mg IV BID RF was negative and rest of autoimmune screen Including anti-CCP, LISBET, aldolase pending Strep A, influenza A & B, RSV, cocci and COVID-19 were all negative on this admission Patient NPO for right heart cath today to determine the etiology of the PAH. Exam Vital Signs Temp Pulse Resp BP Pulse Ox O2 Del Method O2 Flow Rate 97.5 F 76 33 H 184/75 H 98 High Flow Nasal Cannula 40 03/21/24 08:00 03/21/24 10:24 03/21/24 10:24 03/21/24 09:23 03/21/24 10:24 03/21/24 08:00 03/21/24 10:24 FiO2 85 03/21/24 10:24 Narrative Exam Constitutional Alert, oriented x 3 and in mild distress. Cachectic, Temporal wasting, Elderly Female on O2 via HFNC, cannot complete sentences. HEENT Vision grossly intact. Patent nares. Trachea midline Respiratory Wasted on inspection poor inspiratory effort, decreased AE in all lung coffman , scattered fine crackles heard throughout b/l lung coffman Cardiovascular S1 and S2 audible, RRR. Abdominal Soft and non tender to palpation in all quadrants. BS + Genitourinary No bladder tenderness, no flank pain. Normal to palpation Musculoskeletal Extremities tone within normal limits. No LE edema. Neurological CN II - XII grossly intact. Extremity motor and sensation grossly intact. Skin Warm, dry and intact. No apparent lesions. Psychiatric Cooperative Objective Labs 03/22/24 05:23 03/22/24 05:23 Labs: Laboratory Results - last 24 hr 03/20/24 03/21/24 05:28 05:08 WBC 10.7 RBC 4.25 Hgb 9.9 L Hct 31.7 L MCV 75 L MCH 23.3 L MCHC 31.2 RDW Std Deviation 45.3 Plt Count 320 D Neut % (Auto) 89 H Lymph % (Auto) 2 L [place] % (Auto) 9 Eos % (Auto) 0 Baso % (Auto) 0 Neut # (Auto) 9.5 H Lymph # (Auto) 0.2 L [place] # (Auto) 0.9 H Eos # (Auto) 0.0 Baso # (Auto) 0.0 Immature Gran # (Auto) 0.07 H Absolute Nucleated RBC 0.00 Immature Gran % 1 H Nucleated RBC % 0 VBG pH 7.52 VBG pCO2 37 VBG pO2 64 H VBG O2 Sat (Daiana) 94 L VBG Base Excess 7 H Sodium 144 Potassium 3.7 Chloride 104 Carbon Dioxide 28.8 Anion Gap 11 BUN 82 H Creatinine 1.4 H Estim Creat Clear Calc 20.9 L eGFR 37 L BUN/Creatinine Ratio 59 H Glucose 189 H Calculated Osmolality 316 H Calcium 9.8 Corrected Calcium 10.0 Magnesium 2.8 H Total Bilirubin 0.3 AST 24 ALT 30 Alkaline Phosphatase 148 H D Total Protein 5.9 Albumin 3.7 Globulin 2.2 L Albumin/Globulin Ratio 1.7 ABG Interpretation ABG results: 03/15/24 03/16/24 03/17/24 20:34 20:31 02:35 ABG pH 7.45 7.47 H 7.40 ABG pCO2 34 38 41 ABG pO2 100 79 L D 94 ABG HCO3 24 27 H 25 ABG O2 Saturation 99 H 97 98 ABG Base Excess 0 4 H 0 VBG pH VBG pCO2 VBG pO2 VBG Base Excess 03/18/24 03/21/24 02:37 05:08 ABG pH 7.40 ABG pCO2 41 ABG pO2 95 ABG HCO3 25 ABG O2 Saturation 98 ABG Base Excess 0 VBG pH 7.52 VBG pCO2 37 VBG pO2 64 H VBG Base Excess 7 H Quality Measures Quality Measures sepsis Current suspected stage: ruled out Possible source: pulmonary Blood cultures ordered: completed in ED Antibiotic ordered: Yes Advance care planning discussed with:: patient Assessment & Plan Assessment Current Active Medications: Generic Name Dose Route Start Last Admin Trade Name Freq PRN Reason Stop Dose Admin Acetaminophen 650 mg 03/14/24 03:00 Acetaminophen 325 Mg Tablet PO 04/13/24 02:59 Q6H PRN PAIN OR FEVER > 101 Albuterol/Ipratropium 3 ml 03/15/24 16:30 03/21/24 10:19 Albuterol/Ipratropium (Duoneb) Rt Rissa 3 Ml Nebu INH 04/14/24 16:29 3 ml Q4HRRT EMPERATRIZ Administration Albuterol/Ipratropium 3 ml 03/15/24 16:21 03/20/24 17:10 Albuterol/Ipratropium (Duoneb) Rt Rissa 3 Ml Nebu INH 04/14/24 16:20 3 ml Q2HR PRN Administration SHORTNESS OF BREATH OR WHEEZE Azithromycin 500 mg 03/14/24 21:00 03/20/24 20:01 Azithromycin 250 Mg Tablet PO 03/21/24 20:59 500 mg HS EMPERATRIZ Administration Buspirone HCl 5 mg 03/20/24 19:00 03/21/24 08:17 Buspirone Hcl 5 Mg Tablet PO 04/19/24 18:59 5 mg BID EMPERATRIZ Administration Furosemide 40 mg 03/16/24 14:00 03/17/24 05:32 Furosemide Inj 10 Mg/Ml 4ml Vial IVP 04/15/24 13:59 40 mg Q8HR EMPERATRIZ Administration Heparin Sodium (Porcine) 5,000 unit 03/14/24 09:00 03/21/24 08:17 Heparin Sod Inj 5000 Unit/Ml Vial SC 03/28/24 08:59 5,000 unit Q12HR EMPERATRIZ Administration Hydralazine HCl 25 mg 03/21/24 08:30 03/21/24 09:23 Hydralazine Hcl 25 Mg Tablet PO 04/20/24 08:29 25 mg TID EMPERATRIZ Administration Ceftriaxone Sodium/Dextrose 50 mls @ 100 mls/hr 03/14/24 21:00 03/20/24 20:08 Rocephin/D5w 1gm Iv Premix IV 03/21/24 20:59 100 mls/hr HS EMPERATRIZ Administration Labetalol HCl 100 mg 03/14/24 04:40 03/21/24 08:16 Labetalol 100 Mg Tablet PO 04/13/24 04:39 100 mg BID EMPERATRIZ Administration Lisinopril 10 mg 03/14/24 18:15 03/17/24 08:23 Lisinopril 2.5 Mg Tablet PO 04/13/24 18:14 10 mg QDAY EMPERATRIZ Administration Methylprednisolone Sodium Succinate 125 mg 03/20/24 00:01 03/21/24 08:17 Methylprednisolone Sod Succ 62.5 Mg/Ml 2ml Vial IVP 03/22/24 00:00 125 mg Q12HR EMPERATRIZ Administration Mirtazapine 7.5 mg 03/16/24 21:00 03/20/24 20:01 Mirtazapine 15 Mg Tablet PO 04/15/24 20:59 7.5 mg HS EMPERATRIZ Administration Nicardipine HCl 30 mg 03/20/24 21:00 03/21/24 05:16 Nicardipine 30 Mg Capsule (Non-Form) PO 04/19/24 20:59 30 mg QID EMPERATRIZ Administration Ondansetron HCl 4 mg 03/14/24 03:00 Ondansetron Inj 2 Mg/Ml Inj 2 Ml IV 04/13/24 02:59 Q6H PRN NAUSEA OR VOMITING Protocol Pantoprazole Sodium 40 mg 03/14/24 09:00 03/21/24 08:17 Pantoprazole 40 Mg Tablet PO 04/13/24 08:59 40 mg QDAY EMPERATRIZ Administration Sertraline HCl 100 mg 03/14/24 21:00 03/21/24 08:16 Sertraline Hcl 25 Mg Tablet PO 04/13/24 20:59 100 mg BID EMPERATRIZ Administration Plan Patient is an 83-year-old female with a past medical history significant for essential hypertension, hyperlipidemia, TIA [2021], depression and GERD s/p Benjamin fundoplication with hiatal hernia repair [2017]. Follows up with PCP Dr Campos. Patient presented to the ED with a chief complaint of shortness of breath. Patient was admitted for acute respiratory failure with hypoxia and cardiology was consulted to assess for possible new onset CHF. 1. Acute respiratory failure with hypoxia - worsening 2. Acute decompensated diastolic heart failure exacerbation?new onset 3. Pulmonary Hypertension - etiology yet to established 4. ACS ruled out 5. NSTEMI type II On presentation patient was severely SOB unable to complete sentences and lying at a 45 degree angle. On exam she had no lower extremity edema but poor inspiratory effort, decreased air entry and scattered crackles at the bases and a 3/6 diastolic murmur heard at left lower sternal border. She was not on any home diuretic and not known to have heart failure in the past, however clinically she appears to be in acute decompensated heart failure exacerbation. BNP on admission 3280 and troponin elevated at 0.1 up trended to 0.124 and downtrending to 0.121 likely in the setting of CHF exacerbation EKG on admission showed sinus rhythm, rate 95, LVH. Chest x-ray was significant for increased vascular markings bilaterally flash pulmonary edema. DDx : ILD, RA flare, Allergic interstital pneumonitis, Primary pulmonary hypertension, ARDS BNP can also be elevated in ILD Last echocardiogram completed [place] [address] Brock Strickland findings include: Normal left ventricular size with mild LVH. LVEF 60%. normal cardiac chamber size mitral valve thickening with trace regurgitation moderate aortic valve regurgitation Transthoracic echocardiogram completed on 03/14 findings include: Normal LV size. Mild systolic dysfunction. Mild hypokinesis basal to mid Anterior and anteroseptal gale. Mild LVH. Grade I diastolic dysfunction. Estimated EF 40-45% Normal RV size. Normal RV function. Estimated RVSP 68mmHg. Moderate to severe PAH. RAP 10. Mild LA dilation. Severe RA dilation Moderate MR, AI. Mild TR. Trace PI. IVC dilated. Chest CTA completed 03/16 showed severe bilateral pneumonia ARDS pattern with ground glass opacities, bilateral bronchiectasis, fibrosis and significant consolidation, negative for pulmonary artery emboli. Abdomen CT was significant for Large Liver Simple Cyst Of note patient also admitted to having rheumatoid arthritis. Overnight 03/17 patient's became confused and was attempting to remove high flow nasal cannula and subsequently desaturated to the 50s. At the bedside patient appeared to be confused and her mouth was cyanotic. Patient was again placed on high flow nasal cannula and upgraded to the ICU for closer monitoring and possible intubation if necessary. 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 Patient still complains of SOB at rest and unable to complete full sentences,same as yesterday. On HFNC @ 40L/min, FiO2 80% BUN decreased to 82 from 84 and Cr decreased to 1.4 from 1.6 Patient continues to be hypertensive with BP this morning 184/75 and similar trend overnight. From telemetry review HR 70s?90s overnight with sinus arrhythmia, PACs and PVCs. This a.m. K of 3.7 and Mg pending. Maintain potassium greater than 4 and magnesium greater than 2 at all times to prevent any arrhythmias. Patient is on Methyprednisolone 125mg IV BID RF was negative and rest of autoimmune screen Including anti-CCP, LISBET, aldolase pending Strep A, influenza A & B, RSV, cocci and COVID-19 were all negative on this admission Plan: ? Strict input output charting ? 2 g sodium restricted diet ? Daily weights - 1500cc fluid restriction ? Aspirin 81 mg p.o. daily - Patient NPO for right heart cath today to determine the etiology of the PAH. - Discussed with the ICU Staff Dr. Jack who will speak to the family and patient is still full code and want to continue further workup for the pulmonary artery hypertension. ? No need to further trend troponin - Pending [employer] screen including Anit- CCP , LISBET, aldolase - Rest of care as per Pulmonology and Litigation Partner 5. Essential hypertension Home medication labetalol 200 mg p.o. twice daily On admission BP 189/83 Patient continues to be hypertensive with BP this morning 161/62 and similar trend overnight. From telemetry review HR 70s?90s overnight with sinus arrhythmia, PACs and PVCs. Plan: ? Can continue home medication Labetolol for now - Continue Nicardipine 20 mg po TID - Continue Lisinopril 10 mg po daily - Can uptitrate antihypertensives as necessary - Hydralazine 10mg IV as needed for SBP >170 6. Hyperlipidemia Patient was not on any statins at home but has a history of hyperlipidemia. On this admission triglycerides 127, cholesterol 136, LDL 69. Recommend to start patient on moderate intensity statin 7. History of depression Patient's home medication sertraline 100 mg p.o. daily Recommend to continue to avoid any withdrawals Recommend to Continue Mirtazapine 7.5mg po HS to help stimulate appetite 8. History of GERD 9. History of TIA [2021] 10. History of Benjamin fundoplication with hiatal hernia repair [2017] Patient does not appear to be on any PPIs at home and currently denies any GERD symptoms. Patient also did not appear to be on any aspirin at home although she had a history of TIA. Plan: ?Recommend to start aspirin 81 Mg p.o. daily 11. Microcytic anemia On admission patient's Hb 9.5. Baseline from chart review appears to be about 11?12. DDx: Iron deficiency anemia, poor nutrition, anemia of chronic disease, thalassemia, malignancy Patient also endorses approximately 30lb weight loss over the past 2 years Recommend, reticulocyte count, blood smear, LDH Iron 11, TIBC 214, ferritin 482. 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 IV iron held for now in light of inflammatory lung pathology 12. ROBEL on CKD stage III A On admission patient's CR 1.1 which appears to be at her baseline Currently Cr downtrended to 1.6 from 1.8 Continue management as per primary team 13. Rheumatoid arthritis Patient not on methotrexate or any biologic agents at home but admits to history of rheumatoid arthritis for many years. 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 Continue management as per primary team Continue rest of management as per primary team. We are grateful to be able to participate in Mrs. Garcia's care. Thank you for the consult Plan of care discussed with attending Manager Contracting, Dr Nasir Mckeon MD PGY 1 I have personally seen and examined the patient separately on the above date of service and discussed the plan of care with the resident. I reviewed the resident Dr. Mckeon consultation progress note and agree with the resident findings and plan in the note above and have also edited the documentation to reflect my findings and plan. Mian Best M.D. Interventional Cardiology Attending Provider Attestation/Addendum I have personally seen and examined the patient separately on the above date of service and discussed the plan of care with the resident. I reviewed the resident Dr. Mckeon consultation progress note and agree with the resident findings and plan in the note above and have also edited the documentation to reflect my findings and plan. Mian Best M.D. Interventional Cardiology
[2024-03-21] MEDS: hydrALAZINE INJ 20 MG/ML VIAL 10 MG IV (12:56)
--- NOTE | 2024-03-21 13:23 | PC.SS ---
Update: Patient on high flow nasal cannula. No skin issues. Currently NPO. Blood pressure on higher end. Martinez catheter in place. On fluid restriction.
--- NOTE | 2024-03-21 14:13 | PC.PT ---
Patient currently on high flow and has dyspnea. Patient is not a candidate for PT at this time. Pls refer back to PT when patient can tolerate Physical Therapy.
--- NOTE | 2024-03-21 16:37 | XR_ITS ---
Examination: AP chest single view Technique one AP portable upright chest single view Exam date and time: March 21, 2024 1918 hrs. Comparison March 18, 2024 Indications: Status post insertion central line Findings: Severe bilateral lung opacity Mild prominence left ventricle Right internal jugular central line tip SVC satisfactory position No pneumothorax Significant osteopenia Impression: Interval insertion right internal jugular central line, tip in satisfactory position, no pneumothorax Severe bilateral pneumonia ARDS pattern again noted
--- NOTE | 2024-03-21 16:53 | ESPR_ITS ---
<Statement entered by Yris Yao MD - 03/25/24 01:14> Patient was seen and examined by me personally. I have directly supervised and reviewed the above documentation by the team resident and agree with its findings with any exceptions or additional findings as below. Plan of care was discussed with the attending, Dr. Singh. Yris Yao, PGY-2 Documentation for date of: 03/21/24 Subjective Subjective Interval history: 03/17/2024: Patient was seen and examined bedside in the ICU. Patient is not willing to communicate. Answered questions by nodding her head. Reported that her shortness of breath is improved. Patient is on high flow oxygen with 90% FiO2 and 30 L/min. Vitals are stable. Labs showed mild leukocytosis, anemia, sodium 131, BUN 41, creatinine 1.5. ABG is within normal limits. Diuresis was withheld in view of elevated BUN/creatinine. Steroids were started in view of suspected chronic hypersensitivity pneumonitis. Antibody panel is still pending. 03/18/2024: Patient was seen and examined bedside in the ICU. Still having Tachypnea and using accessory muscles of respiration. Reported that she is still having shortness of breath without much improvement. Patient is still on high flow but FiO2 is decreased from 90-80 this morning. Blood pressures are mildly elevated probably due to steroids. Labs showed anemia, BUN 62 and creatinine 1.8. Urine output is well-maintained despite elevated BUN and creatinine, so will continue to monitor renal functions and urine output. Will continue high-dose steroids for 3 days and will gradually taper the steroids. RA factor came back negative. LISBET and anti-CCP antibodies are still pending. 03/19/2024: Patient was saturating in the mid-90s on 30L 50% FiO2 of Hi-Flow this AM. Later that morning patient was noted to be desaturating to mid-80s so was repositioned in bed and Hi-Flow settings were adjusted to 35L and 60% FiO2. Patient remained stable throughout the day. Will titrate Solu-Medrol from TID to BID starting tomorrow. Continue to hold Lasix. Creatinine still worsening at 1.9. Continue to monitor overnight as patient still has high work of breathing and unable to vocalize complete sentences while on Hi-Flow. Will have patient work with PT and RT to educate on incentive spirometry. 03/20/2024: Patient was seen and examined bedside in the ICU. Stated that her shortness of breath improved a bit. Still on high flow oxygen with FiO2 60% and 35 L/min oxygen saturating around 88 to 92%. Vitals are stable except for mildly elevated blood pressures. On auscultation, bronchial breath sounds are heard on right upper lobe and decreased breath sounds are noted in rest of the areas. Labs showed BUN 84, creatinine 1.6 which are downtrending and the urine output is maintaining well. Continued physiotherapy and respiratory therapy. Methylprednisolone dose is decreased from 125 Mg 3 times daily to twice daily. 03/21/2024: Patient was seen and examined bedside in the ICU. Stated that her shortness of breath is improving but still on high flow with FiO2 80% and 40 L/min oxygen, saturating around 94 to 96%. Vitals are stable and elevated blood pressures are noted. Patient got IV hydralazine as needed overnight as patient's blood pressures are running high. Her renal functions continue to improve and urine output is adequate. Hydralazine 25 Mg 3 times daily is added in view of elevated blood pressures. Patient was kept on n.p.o. since this morning for right heart catheterization. Will continue methylprednisolone 125 Mg IV twice daily. And antibody panel is still pending. Exam Vital Signs Temp Pulse Resp BP Pulse Ox O2 Del Method O2 Flow Rate 97.0 F 78 24 H 178/78 H 97 High Flow Nasal Cannula 40 03/21/24 12:00 03/21/24 14:25 03/21/24 14:25 03/21/24 13:16 03/21/24 14:25 03/21/24 12:00 03/21/24 14:25 FiO2 85 03/21/24 14:25 Narrative Exam General: Awake and in moderate distress. Tachypneic and using muscles of respiration HEENT: Normocephalic, atraumatic, mucous membranes moist. Heart: Regular rate and rhythm, no murmurs. Lungs: Right Bronchial breath sounds are appreciated. Fine crackles noted on the right side of the lung. overall decreased breath sounds are noted bilaterally. Abdomen: Soft, nondistended, nontender, positive bowel sounds. ?No guarding or rebound tenderness. Neurologic: Alert and oriented x3, no gross neurological deficit, and patient able to move all 4 extremities. Extremities: No edema. Bilateral deformities of hand noted- ?rheumatoid arthritis Skin: No rash or ecchymoses. Objective Labs 03/24/24 04:29 03/25/24 02:28 Labs: Laboratory Results - last 24 hr 03/21/24 05:08 WBC 10.7 RBC 4.25 Hgb 9.9 L Hct 31.7 L MCV 75 L MCH 23.3 L MCHC 31.2 RDW Std Deviation 45.3 Plt Count 320 D Neut % (Auto) 89 H Lymph % (Auto) 2 L Childress % (Auto) 9 Eos % (Auto) 0 Baso % (Auto) 0 Neut # (Auto) 9.5 H Lymph # (Auto) 0.2 L Childress # (Auto) 0.9 H Eos # (Auto) 0.0 Baso # (Auto) 0.0 Immature Gran # (Auto) 0.07 H Absolute Nucleated RBC 0.00 Immature Gran % 1 H Nucleated RBC % 0 VBG pH 7.52 VBG pCO2 37 VBG pO2 64 H VBG O2 Sat (Daiana) 94 L VBG Base Excess 7 H Sodium 144 Potassium 3.7 Chloride 104 Carbon Dioxide 28.8 Anion Gap 11 BUN 82 H Creatinine 1.4 H Estim Creat Clear Calc 20.9 L eGFR 37 L BUN/Creatinine Ratio 59 H Glucose 189 H Calculated Osmolality 316 H Calcium 9.8 Corrected Calcium 10.0 Total Bilirubin 0.3 AST 24 ALT 30 Alkaline Phosphatase 148 H D Total Protein 5.9 Albumin 3.7 Globulin 2.2 L Albumin/Globulin Ratio 1.7 ABG Interpretation ABG results: 03/15/24 03/16/24 03/17/24 20:34 20:31 02:35 ABG pH 7.45 7.47 H 7.40 ABG pCO2 34 38 41 ABG pO2 100 79 L D 94 ABG HCO3 24 27 H 25 ABG O2 Saturation 99 H 97 98 ABG Base Excess 0 4 H 0 VBG pH VBG pCO2 VBG pO2 VBG Base Excess 03/18/24 03/21/24 02:37 05:08 ABG pH 7.40 ABG pCO2 41 ABG pO2 95 ABG HCO3 25 ABG O2 Saturation 98 ABG Base Excess 0 VBG pH 7.52 VBG pCO2 37 VBG pO2 64 H VBG Base Excess 7 H Quality Measures Quality Measures sepsis Current suspected stage: ruled out Possible source: pulmonary Blood cultures ordered: completed in ED Antibiotic ordered: Yes Advance care planning discussed with:: patient Assessment & Plan Assessment Current Active Medications: Generic Name Dose Route Start Last Admin Trade Name Freq PRN Reason Stop Dose Admin Acetaminophen 650 mg 03/14/24 03:00 Acetaminophen 325 Mg Tablet PO 04/13/24 02:59 Q6H PRN PAIN OR FEVER > 101 Albuterol/Ipratropium 3 ml 03/15/24 16:30 03/21/24 14:23 Albuterol/Ipratropium (Duoneb) Rt Rissa 3 Ml Nebu INH 04/14/24 16:29 3 ml Q4HRRT EMPERATRIZ Administration Albuterol/Ipratropium 3 ml 03/15/24 16:21 03/20/24 17:10 Albuterol/Ipratropium (Duoneb) Rt Rissa 3 Ml Nebu INH 04/14/24 16:20 3 ml Q2HR PRN Administration SHORTNESS OF BREATH OR WHEEZE Azithromycin 500 mg 03/14/24 21:00 03/20/24 20:01 Azithromycin 250 Mg Tablet PO 03/21/24 20:59 500 mg HS EMPERATRIZ Administration Buspirone HCl 5 mg 03/20/24 19:00 03/21/24 08:17 Buspirone Hcl 5 Mg Tablet PO 04/19/24 18:59 5 mg BID EMPERATRIZ Administration Furosemide 40 mg 03/16/24 14:00 03/17/24 05:32 Furosemide Inj 10 Mg/Ml 4ml Vial IVP 04/15/24 13:59 40 mg Q8HR EMPERATRIZ Administration Heparin Sodium (Porcine) 5,000 unit 03/14/24 09:00 03/21/24 08:17 Heparin Sod Inj 5000 Unit/Ml Vial SC 03/28/24 08:59 5,000 unit Q12HR EMPERATRIZ Administration Hydralazine HCl 25 mg 03/21/24 08:30 03/21/24 13:16 Hydralazine Hcl 25 Mg Tablet PO 04/20/24 08:29 25 mg TID EMPERATRIZ Administration Ceftriaxone Sodium/Dextrose 50 mls @ 100 mls/hr 03/14/24 21:00 03/20/24 20:08 Rocephin/D5w 1gm Iv Premix IV 03/21/24 20:59 100 mls/hr HS EMPERATRIZ Administration Labetalol HCl 100 mg 03/14/24 04:40 03/21/24 08:16 Labetalol 100 Mg Tablet PO 04/13/24 04:39 100 mg BID EMPERATRIZ Administration Lisinopril 10 mg 03/14/24 18:15 03/17/24 08:23 Lisinopril 2.5 Mg Tablet PO 04/13/24 18:14 10 mg QDAY EMPERATRIZ Administration Methylprednisolone Sodium Succinate 125 mg 03/20/24 00:01 03/21/24 08:17 Methylprednisolone Sod Succ 62.5 Mg/Ml 2ml Vial IVP 03/22/24 00:00 125 mg Q12HR EMPERATRIZ Administration Mirtazapine 7.5 mg 03/16/24 21:00 03/20/24 20:01 Mirtazapine 15 Mg Tablet PO 04/15/24 20:59 7.5 mg HS EMPERATRIZ Administration Nicardipine HCl 30 mg 03/20/24 21:00 03/21/24 12:43 Nicardipine 30 Mg Capsule (Non-Form) PO 04/19/24 20:59 30 mg QID EMPERTARIZ Administration Ondansetron HCl 4 mg 03/14/24 03:00 Ondansetron Inj 2 Mg/Ml Inj 2 Ml IV 04/13/24 02:59 Q6H PRN NAUSEA OR VOMITING Protocol Pantoprazole Sodium 40 mg 03/14/24 09:00 03/21/24 08:17 Pantoprazole 40 Mg Tablet PO 04/13/24 08:59 40 mg QDAY EMPERATRIZ Administration Sertraline HCl 100 mg 03/14/24 21:00 03/21/24 08:16 Sertraline Hcl 25 Mg Tablet PO 04/13/24 20:59 100 mg BID EMPERATRIZ Administration Plan A 82-year-old female with past medical history of hypertension, GERD s/p fundoplication with hiatal hernia repair, hyperlipidemia, TIA [2021], depression was brought to the hospital with chief complaints of shortness of breath and admitted to hospital with acute hypoxic respiratory failure. NEURO Patient is awake, alert, and oriented x3, following commands, conversational. 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 -BNP is elevated at the time of admission for which cardiology was consulted -Echo done during this admission showed EF of 40 to 45% with moderate to severe pulmonary hypertension. -Patient was started on furosemide 40 Mg 3 times daily. Plan -Diuresis was withheld in view of uptrending BUN and creatinine. -Dr. Best was following the patient and scheduled for right heart catheterization today. -LISBET screening is still pending. # History of hypertension -Continue nicardipine 30 mg TID --increase to 30 Mg 4 times daily. -Will continue labetalol 100 Mg p.o. twice daily and blood pressures are still high despite nicardipine and labetalol. -So added hydralazine 25 Mg p.o. 3 times daily -Will monitor blood pressures PULM # Acute hypoxic respiratory failure # ARDS # Bilateral pulmonary infiltrates with severe hypertension #? Hypersensitivity pneumonitis -Admitted with difficulty in breathing -Denies fever, cough, nausea, abdominal pain, weight loss, appetite loss. -BNP is >3000 for which cardiology was consulted. -Echo done showed severe pulmonary hypertension -CT showed bilateral infiltrates with ARDS pattern. -Patient was noted to have bilateral hand deformities and when asked about the history, patient's [id number] stated that she was diagnosed to have rheumatoid arthritis but did not get any treatment for that. -RA factor, anti-CCP, LISBET was ordered. -Creatinine kinase - normal limits, aldolase was ordered. -Patient was upgraded to ICU on 03/16/2024 in view of low saturations despite being on high flow oxygen for observation and further care. -Group A antigen was negative streptococcus and Legionella antigen is still pending. Plan -Continue ceftriaxone and azithromycin is stopped. -Continue to monitor the patient on high flow oxygen, wean as tolerated -Down titrated methylprednisolone from 125 mg 3 times daily to methylprednisolone 125 Mg BID for 3 days. -Continue incentive spirometer GI #No active problems NEPHRO # ROBEL, prerenal -improving Likely in the setting of diuresis. -BUN and creatinine is within normal limits till 03/16/2024 -Patient is on furosemide 40 Mg IV 3 times daily. -On 03/17/2024, BUN is 41 and creatinine is 1.5 >(03/18) BUN is 62, creatinine 1.8 >03/21, BUN 82, Cr 1.4 -Urine output is well-maintained. Plan -Diuretics were withheld. -Will continue to monitor renal functions and avoid nephrotoxic medications -Renally dose medications. URO #No active problems HEME # Leukocytosis, resolved -In the setting of ongoing chronic lung disease. # Microcytic hypochromic anemia -Hemoglobin is 9.5 at the time of admission -Iron panel showed iron deficiency. Plan -Iron infusion was withheld in the view of ongoing active lung disease -Will continue to monitor CBC. ENDO #No active problems ID #No active problems MSK # Bilateral hand deformities Likely due to rheumatoid arthritis. RA factor and anti-CCP antibodies were sent. RA factor came out negative. SKIN #No active problems DVT prophylaxis: Heparin Protonix GI prophylaxis: Protonix Diet: Regular Martinez: Present Lines: peripheral Antibiotics: Ceftriaxone and azithromycin CODE STATUS: FULL Reason for ICU care: Acute hypoxic respiratory failure Patient plan of care was discussed with the attending physician, Dr. Singh and senior resident Dr.Tiffani Yao, PGY-2 John Garcia, PGY1 Attending Provider Attestation/Addendum Patient seen and examined with above resident, John Garcia MD. I agree with the findings, assessment, plan of care as documented except for any differences below. Patient completing course of empiric antibiotics and remains on steroid taper as planned for acute exacerbation of her underlying chronic hypersensitivity pneumonitis. Evaluation otherwise negative for alternative etiologies for ILD thus far. Patient also with superimposed pulm hypertension, likely group 3. Will plan for right heart catheterization and a introducer was placed by our team in anticipation for cardiology to perform assessment. 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 Patient requires increased caloric intake given her pulmonary cachexia. She continues to require high humidity/high flow nasal cannula though we can aggressively wean this as tolerated she was able to tolerate lower FiO2 in the previous days. Patient's prognosis overall continues to be guarded given the advanced nature of her lung disease and limited ability to be able to use oxygen outside of the hospital with such high requirements. This has been explained to her and her son and they continue to want to pursue all means of aggressive care. Based on right heart catheterization will determine ability to obtain Tyvaso which is the only approved drug for group 3 pulm hypertension. This has been shown to increase functionality though her hypoxia may not improve and adversely may worsen due to VQ mismatch but this is difficult to predict without initiation of therapy. Total critical care time: Personally spent 45 minutes for review of physiologic parameters, coordination of care with other specialties, directing plan of care throughout the day, and counseling patient and her son at bedside. This is exclusive of time spent teaching housestaff or performing any separate billable procedures.
[2024-03-21] MEDS: LIDOCAINE HCL 1% 20 ML VIAL INFL (17:27)
--- NOTE | 2024-03-21 17:27 | PD.INTPROC ---
Procedures Procedure Date / Time 03/21/24 1727 Central Line Placement Right IJ: Indication(s): other (Access for right heart catheterization) Informed consent obtained: from patient Time out done, and the following verified: correct patient, side and site, procedure, patient position and implants and/or equipment Patient placed on monitor/pulse ox: Yes Hand Hygiene: scrub, soap & water and alcohol-based hand rub Max Sterile Barrier Techniques used: cap, mask, sterile gown, sterile gloves, sterile full body drape and other Central line prep: Chlorhexidine scrub Local anesthesia used: lidocaine 1% Amount of anesthesia used (mL): 15 Ultrasound used for placement: Yes Sterile Technique if Ultrasound used, including sterile gel: yes Central line lumen inserted: single (8.5F introducer sheath) Post procedure: sutured in place, good blood return, all ports aspirated, flushed, capped and sterile dressing applied Post procedure x-ray: other (Position confirmed on fluoroscopy by cardiology prior for initiation of right heart catheterization. No pneumothorax seen on fluoroscopy exam.) Patient tolerated procedure: well EBL(ml): 15 Complications: none
[2024-03-21 19:02] LABS: Base Excess 7 (-3-3); HCO3 31 mEq/L (20-26); Inspired Oxygen, FIO2 100 %; O2 Saturation 81 % (91-98); PCO2 44 mmHg (32.0-48.0); pH, Arterial 7.47 (7.35-7.45)
[2024-03-21 19:05] LABS: Allen Test Not Performed
[2024-03-21 19:06] LABS: Puncture Site Pulmonary Artery
[2024-03-21 19:07] LABS: PO2 44 mmHg (83-108)
--- NOTE | 2024-03-21 20:13 | ESOP_ITS ---
Cardiac Cath Procedure Procedure Name Date of procedure: 03/21/2024 ASBESTOS SIDING INSTALLER: Mian Best MD PROCEDURE PERFORMED: 1.? Right heart cardiac catheterization with measurements of right heart pressures and cardiac output by Maria E method as well as thermodilution method 2. Conscious sedation for 15 minutes. Procedure Narrative HISTORY AND INDICATIONS:? A 83-year-old female with a past medical history of hypertension, TIA, hyperlipidemia, depression, GERD status post Benjamin fundoplication, hiatal hernia repair presented to the emergency department for shortness of breath. As per the patient shortness of breath has been insidious onset over the past few days and is worsened to the level where she could not lay flat abdomen had trouble breathing and came to the emergency department. Echo showed moderate to severe PAH with an estimated RVSP of 68 mmHg. Also echo showed mild LV dysfunction with an EF of 40 to 45% with mild hypokinesis of basal to mid anterior anteroseptal gale. Severe RA dilatation along with mild LA dilatation moderate MR and TR and dilated IVC was seen. Chest CTA ordered to rule out interstitial lung disease as cause of pulmonary hypertension given the chest x-ray appearance and which showed significant patchy groundglass opacities in multiple lobes mainly the upper lobes along with some bronchiectasis and fibrosis indicating probable interstitial fibrosis. Hypersensitive pneumonitis was also considered and patient did receive IV steroids. Right heart cardiac catheterization was recommended by the pulmonary and critical care team for further evaluation of her pulmonary hypertension as per the WHO classification patient explained the risk benefits and alternatives of performing a rate of cardiac assessment including the risk of bleeding, arrhythmias, heart attack as well as in detail. Patient agreeable for procedure. Consent signed DESCRIPTION OF PROCEDURE:?The procedure was completed in the intensive care unit for the patient oxygen and nasal cannula. A 7 [place] Cordis sheath was placed in the right internal jugular vein by the critical care team which was used for the vascular access. All aseptic results were followed and the access site was again sterilized with ChloraPrep after a sterile field was created. Versed or fentanyl were used for sedation purposes. Transit was cleaned again and with ChloraPrep and a 7 [place]-Vic catheter was used to direct it into the right heart after inflation of the balloon. Serial measurements of right atrium, right ventricle, pulmonary artery and pulmonary capillary wedge were taken.We then obtained pulmonary arterial blood gas for mixed venous saturation and which was 71%, 81% as well as 83% with an average of 79%. Arterial saturation was taken is 99% on 100% FiO2 on 40 L high flow oxygen. Heart rate was between 70 to 80 bpm during the procedure and blood pressure was 130/80 mmHg. Maria E cardiac output calculated was 5.6 L/min and the cardiac index was 4.4 mL/m?. FINDINGS: Mean right atrial pressure was mmHg. Right atrial pressure was 55/3 mmHg. Pulmonary artery pressure was 55/16 mmHg with a mean of 32 mmHg. Mean pulmonary capillary wedge pressure was 9 mmHg. TPG was 23 mmHg Pulmonary artery PA saturation was 79%.? Arterial saturation was 19% and 40 L at 100% FiO2 Cardiac output was 5.6 L/min and cardiac index was 4.1 L/min/m?. Pulmonary vascular resistance was 4 Wood units and total pulm resistance was 6 Wood units Systemic vascular resistance is 1064 Dynes?sec?cm?? [normal 900-1200 or 11-15 Wood units] RAISA is 2 [normal is greater than 0.9] ASPHALT TAR AND GRAVEL ROOFER 2.26 Marley [normal greater than 0.6] ESTIMATED BLOOD LOSS: Minimal-less than 10 ml SPECIMENS: None removed COMPLICATIONS: None IMPRESSION / SUMMARY: Mild pulmonary hypertension with mean PAP greater than 25 mmHg, moderately elevated LVEDP at 27 mmHg, PVR is markedly elevated at 4 wood units and TPG is 23. Normal cardiac output and index Isolated precapillary pH indicating Group 3 PAH secondary to lung disease and possibe componenet odf vasoconstriction along with fibrosis RECOMMENDATIONS: 1.? No additional diuresis needed as patient is eulvolemic. Continue to slowly taper off the high flow oxygen as tolerated. 2. Will discuss with Pulmonary team and regarding the possibility of starting Tyvaso for the patient. Mian Best MD Interventional Cardiology.
[2024-03-21] MEDS: MIRTAZAPINE 15 MG TABLET 7.5 MG PO (20:19)
[2024-03-22] VITALS (36 sets, daily range): BP systolic 107–197; BP diastolic 59–98; PULSE 60–86; RESP 19–29; TEMP 36–37.1; O2SAT 87–98; BMI 17.9
[2024-03-22] MEDS: ALBUTEROL/IPRATROPIUM (Duoneb) RT SOL 3 ML NEBU INH ×2 (02:50→11:42)
[2024-03-22] MEDS: [UNRECOGNIZED DRUG - REMARK] PO ×4 (05:22→20:17)
[2024-03-22] MEDS: hydrALAZINE HCL 25 MG TABLET PO ×2 (05:22→16:25)
[2024-03-22 05:55] LABS: Basophils % (Auto) 0 % (0-2.5); Eosinophils % (Auto) 0 % (0-10); Hematocrit 31.1 % (36.0-46.0); Hemoglobin 9.7 g/dL (12.0-16.0); Immature Granulocytes % (Auto) 1 % (0-0); Immature Granulocytes Auto 0.07 Thou/mm3 (0.00-0.00); Lymphocytes # (Auto) 0.2 Thou/mm3 (1.0-4.8); Lymphocytes % (Auto) 2 % (10-50); Mean Corpuscular HGB Conc 31.2 g/dl (31.0-37.0); Mean Corpuscular Hemoglobin 23.4 pg (25.0-35.0); Mean Corpuscular Volume 75 fL (80-100); Monocytes # (Auto) 0.3 Thou/mm3 (0.0-0.8); Monocytes % (Auto) 4 % (0-12); Neutrophils # (Auto) 7.1 Thou/mm3 (1.8-7.7); Neutrophils % (Auto) 93 % (37-80); Nucleated Red Blood Cell % 0 /100 WBC (0); Platelet Count 307 Thou/mm3 (140-440); RDW Standard Deviation 46.6 fL (36.4-46.3); Red Blood Count 4.14 Miln/mm3 (4.00-5.20); White Blood Count 7.7 Thou/mm3 (3.6-11.0)
[2024-03-22 06:20] LABS: Alanine Aminotransferase 25 U/L (10-49); Albumin, Serum 3.8 gm/dL (3.4-4.8); Albumin/Globulin Ratio 1.7 (1.2-2.2); Alkaline Phosphatase 128 U/L (46-116); Anion Gap 8 (7-16); Aspartate Amino Transferase 23 U/L (0-34); BUN/Creatinine Ratio 59 Ratio (12-20); Bilirubin,Total 0.4 mg/dL (0.3-1.2); Blood Urea Nitrogen 83 mg/dL (9-23); Calcium 9.7 mg/dL (8.3-10.6); Calcium (Corrected) 9.9 mg/dL (8.5-10.1); Carbon Dioxide 31.8 mMol/L (20.0-31.0); Chloride 104 mMol/L (98-107); Creatinine (Component) 1.4 mg/dL (0.6-1.3); Estimated Creatinine Clearance 20.9 mL/min (>60); Globulin 2.2 gm/dL (2.3-3.5); Glucose 178 mg/dL (74-106); Magnesium 2.6 mg/dL (1.6-2.6); Osmolality,Calculated 315 (275-295); Potassium 4.2 mMol/L (3.4-5.1); Sodium 144 mMol/L (136-145); eGFR 37 See Note
[2024-03-22] MEDS: PANTOPRAZOLE 40 MG TABLET PO (08:05)
[2024-03-22] MEDS: LABETALOL 100 MG TABLET PO ×2 (08:05→20:18)
[2024-03-22] MEDS: BusPIRone HCL 5 MG TABLET PO ×2 (08:06→20:18)
[2024-03-22] MEDS: HEPARIN SOD INJ 5000 UNIT/ML VIAL SC ×2 (08:06→20:19)
[2024-03-22] MEDS: SERTRALINE HCL 25 MG TABLET 100 MG PO ×2 (08:06→20:18)
--- NOTE | 2024-03-22 10:37 | PD.RESPRO ---
Documentation for date of: 03/22/24 Subjective Subjective Interval history: Patient was seen and examined at bedside this AM. No acute exents overnight. Patient tolerating diet , adequate urine output and mentation is at baseline. Patient still complains of SOB at rest and unable to complete full sentences,same as yesterday. On HFNC @ 40L/min, FiO2 80% BUN increased to 83 from 84 and Cr unchanged at 1.4 Patient continues to be hypertensive with BP this morning 154/74 and similar trend overnight - much improved from before From telemetry review HR 70s?90s overnight with sinus arrhythmia, PACs and PVCs. This a.m. K of 4.2 and Mg 2.6. Maintain potassium greater than 4 and magnesium greater than 2 at all times to prevent any arrhythmias. Patient was on Methyprednisolone 125mg IV BID Currently on Mycophenolate and Septra RF was negative and rest of autoimmune screen Including anti-CCP, LISBET, aldolase pending Strep A, influenza A & B, RSV, cocci and COVID-19 were all negative on this admission Right heart cardiac catheterization with measurements of right heart pressures and cardiac output by Maria E method as well as thermodilution method completed on 03/21/2024 findings include: Mean right atrial pressure was 29mmHg. Right atrial pressure was 55/3 mmHg. Pulmonary artery pressure was 55/16 mmHg with a mean of 32 mmHg. Mean pulmonary capillary wedge pressure was 9 mmHg. TPG was 23 mmHg Pulmonary artery PA saturation was 79%. Arterial saturation was 91% and 40 L at 100% FiO2 Cardiac output was 5.6 L/min and cardiac index was 4.1 L/min/m?. Pulmonary vascular resistance was 4 Wood units and total pulm resistance was 6 Wood units Systemic vascular resistance is 1064 Dynes?sec?cm?? [normal 900-1200 or 11-15 Wood units] RAISA is 2 [normal is greater than 0.9] YARD CLEANER 2.26 Marley [normal greater than 0.6] Impression: Mild pulmonary hypertension with mean PAP greater than 25 mmHg, moderately elevated LVEDP at 27 mmHg, PVR is markedly elevated at 4 wood units and TPG is 23. 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 No additional diuresis needed as patient is eulvolemic. Continue to slowly taper off the high flow oxygen as tolerated. 2. Will discuss with Pulmonary team and regarding the possibility of starting Tyvaso for the patient. Exam Vital Signs Temp Pulse Resp BP Pulse Ox O2 Del Method O2 Flow Rate 97.1 F 74 26 H 154/74 H 96 High Flow Nasal Cannula 40 03/22/24 05:00 03/22/24 08:05 03/22/24 07:00 03/22/24 08:05 03/22/24 07:00 03/22/24 05:00 03/22/24 06:47 FiO2 80 03/22/24 06:47 Narrative Exam Constitutional Alert, oriented x 3 and in mild distress. Cachectic, Temporal wasting, Elderly Female on O2 via HFNC, cannot complete sentences. HEENT Vision grossly intact. Patent nares. Trachea midline Respiratory Wasted on inspection poor inspiratory effort, decreased AE in all lung coffman , scattered fine crackles heard throughout b/l lung coffman Cardiovascular S1 and S2 audible, RRR. Abdominal Soft and non tender to palpation in all quadrants. BS + Genitourinary No bladder tenderness, no flank pain. Normal to palpation Musculoskeletal Extremities tone within normal limits. No LE edema. Neurological CN II - XII grossly intact. Extremity motor and sensation grossly intact. Skin Warm, dry and intact. No apparent lesions. Psychiatric Cooperative Objective Labs 03/22/24 05:23 03/22/24 05:23 Labs: Laboratory Results - last 24 hr 03/21/24 03/21/24 03/21/24 18:27 18:49 18:56 WBC RBC Hgb Hct MCV MCH MCHC RDW Std Deviation Plt Count Neut % (Auto) Lymph % (Auto) Antelope % (Auto) Eos % (Auto) Baso % (Auto) Neut # (Auto) Lymph # (Auto) Antelope # (Auto) Eos # (Auto) Baso # (Auto) Immature Gran # (Auto) Absolute Nucleated RBC Immature Gran % Nucleated RBC % Puncture Site Cancelled Cancelled Pulmonary Artery ABG pH Cancelled Cancelled 7.47 H ABG pCO2 Cancelled Cancelled 44 ABG pO2 Cancelled Cancelled 44 L* ABG HCO3 Cancelled Cancelled 31 H ABG O2 Saturation Cancelled Cancelled 81 L ABG Base Excess Cancelled Cancelled 7 H Oxygen Liter Flow Cancelled Cancelled FiO2 Cancelled Cancelled 100 Sodium Potassium Chloride Carbon Dioxide Anion Gap BUN Creatinine Estim Creat Clear Calc eGFR BUN/Creatinine Ratio Glucose Calculated Osmolality Calcium Corrected Calcium Magnesium Total Bilirubin AST ALT Alkaline Phosphatase Total Protein Albumin Globulin Albumin/Globulin Ratio 03/22/24 05:23 WBC 7.7 RBC 4.14 Hgb 9.7 L Hct 31.1 L MCV 75 L MCH 23.4 L MCHC 31.2 RDW Std Deviation 46.6 H Plt Count 307 Neut % (Auto) 93 H Lymph % (Auto) 2 L Antelope % (Auto) 4 Eos % (Auto) 0 Baso % (Auto) 0 Neut # (Auto) 7.1 Lymph # (Auto) 0.2 L Antelope # (Auto) 0.3 Eos # (Auto) 0.0 Baso # (Auto) 0.0 Immature Gran # (Auto) 0.07 H Absolute Nucleated RBC 0.00 Immature Gran % 1 H Nucleated RBC % 0 Puncture Site ABG pH ABG pCO2 ABG pO2 ABG HCO3 ABG O2 Saturation ABG Base Excess Oxygen Liter Flow FiO2 Sodium 144 Potassium 4.2 D Chloride 104 Carbon Dioxide 31.8 H Anion Gap 8 BUN 83 H Creatinine 1.4 H Estim Creat Clear Calc 20.9 L eGFR 37 L BUN/Creatinine Ratio 59 H Glucose 178 H Calculated Osmolality 315 H Calcium 9.7 Corrected Calcium 9.9 Magnesium 2.6 Total Bilirubin 0.4 AST 23 ALT 25 Alkaline Phosphatase 128 H D Total Protein 6.0 Albumin 3.8 Globulin 2.2 L Albumin/Globulin Ratio 1.7 ABG Interpretation ABG results: 03/15/24 03/16/24 03/17/24 20:34 20:31 02:35 ABG pH 7.45 7.47 H 7.40 ABG pCO2 34 38 41 ABG pO2 100 79 L D 94 ABG HCO3 24 27 H 25 ABG O2 Saturation 99 H 97 98 ABG Base Excess 0 4 H 0 VBG pH VBG pCO2 VBG pO2 VBG Base Excess 03/18/24 03/21/24 03/21/24 02:37 05:08 18:27 ABG pH 7.40 Cancelled ABG pCO2 41 Cancelled ABG pO2 95 Cancelled ABG HCO3 25 Cancelled ABG O2 Saturation 98 Cancelled ABG Base Excess 0 Cancelled VBG pH 7.52 VBG pCO2 37 VBG pO2 64 H VBG Base Excess 7 H 03/21/24 03/21/24 18:49 18:56 ABG pH Cancelled 7.47 H ABG pCO2 Cancelled 44 ABG pO2 Cancelled 44 L* ABG HCO3 Cancelled 31 H ABG O2 Saturation Cancelled 81 L ABG Base Excess Cancelled 7 H VBG pH VBG pCO2 VBG pO2 VBG Base Excess Quality Measures Quality Measures sepsis Current suspected stage: ruled out Possible source: pulmonary Blood cultures ordered: completed in ED Antibiotic ordered: Yes Advance care planning discussed with:: patient Assessment & Plan Assessment Current Active Medications: Generic Name Dose Route Start Last Admin Trade Name Freq PRN Reason Stop Dose Admin Acetaminophen 650 mg 03/14/24 03:00 Acetaminophen 325 Mg Tablet PO 04/13/24 02:59 Q6H PRN PAIN OR FEVER > 101 Albuterol/Ipratropium 3 ml 03/15/24 16:21 03/22/24 02:50 Albuterol/Ipratropium (Duoneb) Rt Rissa 3 Ml Nebu INH 04/14/24 16:20 3 ml Q2HR PRN Administration SHORTNESS OF BREATH OR WHEEZE Buspirone HCl 5 mg 03/20/24 19:00 03/22/24 08:06 Buspirone Hcl 5 Mg Tablet PO 04/19/24 18:59 5 mg BID EMPERATRIZ Administration Furosemide 40 mg 03/16/24 14:00 03/17/24 05:32 Furosemide Inj 10 Mg/Ml 4ml Vial IVP 04/15/24 13:59 40 mg Q8HR EMPERATRIZ Administration Heparin Sodium (Porcine) 5,000 unit 03/14/24 09:00 03/22/24 08:06 Heparin Sod Inj 5000 Unit/Ml Vial SC 03/28/24 08:59 5,000 unit Q12HR EMPERATRIZ Administration Hydralazine HCl 25 mg 03/21/24 08:30 03/22/24 05:22 Hydralazine Hcl 25 Mg Tablet PO 04/20/24 08:29 25 mg TID EMPERATRIZ Administration Labetalol HCl 100 mg 03/14/24 04:40 03/22/24 08:05 Labetalol 100 Mg Tablet PO 04/13/24 04:39 100 mg BID EMPERATRIZ Administration Lisinopril 10 mg 03/14/24 18:15 03/17/24 08:23 Lisinopril 2.5 Mg Tablet PO 04/13/24 18:14 10 mg QDAY EMPERATRIZ Administration Mirtazapine 7.5 mg 03/16/24 21:00 03/21/24 20:19 Mirtazapine 15 Mg Tablet PO 04/15/24 20:59 7.5 mg HS EMPERATRIZ Administration Mycophenolate Mofetil 500 mg 03/22/24 10:00 Mycophenolate 250 Mg Capsule (Non-Formulary) PO 04/21/24 09:59 BID EMPERATRIZ Nicardipine HCl 30 mg 03/20/24 21:00 03/22/24 05:22 Nicardipine 30 Mg Capsule (Non-Form) PO 04/19/24 20:59 30 mg QID EMPERATRIZ Administration Ondansetron HCl 4 mg 03/14/24 03:00 Ondansetron Inj 2 Mg/Ml Inj 2 Ml IV 04/13/24 02:59 Q6H PRN NAUSEA OR VOMITING Protocol Pantoprazole Sodium 40 mg 03/14/24 09:00 03/22/24 08:05 Pantoprazole 40 Mg Tablet PO 04/13/24 08:59 40 mg QDAY EMPERATRIZ Administration Sertraline HCl 100 mg 03/14/24 21:00 03/22/24 08:06 Sertraline Hcl 25 Mg Tablet PO 04/13/24 20:59 100 mg BID EMPERATRIZ Administration Trimethoprim/Sulfamethoxazole 1 tab 03/22/24 10:00 Trimethoprim/Sulfa 160/800 Ds Tablet PO 03/29/24 09:59 QDAY EMPERATRIZ Plan Patient is an 83-year-old female with a past medical history significant for essential hypertension, hyperlipidemia, TIA [2021], depression and GERD s/p Benjamin fundoplication with hiatal hernia repair [2017]. Follows up with PCP Dr Campos. Patient presented to the ED with a chief complaint of shortness of breath. Patient was admitted for acute respiratory failure with hypoxia and cardiology was consulted to assess for possible new onset CHF. 1. Acute respiratory failure with hypoxia - worsening 2. Acute decompensated diastolic heart failure exacerbation?new onset 3. Pulmonary Hypertension - Group 3 4. ACS ruled out 5. NSTEMI type II On presentation patient was severely SOB unable to complete sentences and lying at a 45 degree angle. On exam she had no lower extremity edema but poor inspiratory effort, decreased air entry and scattered crackles at the bases and a 3/6 diastolic murmur heard at left lower sternal border. She was not on any home diuretic and not known to have heart failure in the past, however clinically she appears to be in acute decompensated heart failure exacerbation. BNP on admission 3280 and troponin elevated at 0.1 up trended to 0.124 and downtrending to 0.121 likely in the setting of CHF exacerbation EKG on admission showed sinus rhythm, rate 95, LVH. Chest x-ray was significant for increased vascular markings bilaterally flash pulmonary edema. DDx : ILD, RA flare, Allergic interstital pneumonitis, Primary pulmonary hypertension, ARDS BNP can also be elevated in ILD Last echocardiogram completed [place] [address] Brock Strickland findings include: Normal left ventricular size with mild LVH. LVEF 60%. normal cardiac chamber size mitral valve thickening with trace regurgitation moderate aortic valve regurgitation Transthoracic echocardiogram completed on 03/14 findings include: Normal LV size. Mild systolic dysfunction. Mild hypokinesis basal to mid Anterior and anteroseptal gale. Mild LVH. Grade I diastolic dysfunction. Estimated EF 40-45% Normal RV size. Normal RV function. Estimated RVSP 68mmHg. Moderate to severe PAH. RAP 10. Mild LA dilation. Severe RA dilation Moderate MR, AI. Mild TR. Trace PI. IVC dilated. Chest CTA completed 03/16 showed severe bilateral pneumonia ARDS pattern with ground glass opacities, bilateral bronchiectasis, fibrosis and significant consolidation, negative for pulmonary artery emboli. Abdomen CT was significant for Large Liver Simple Cyst Of note patient also admitted to having rheumatoid arthritis. Overnight 03/17 patient's became confused and was attempting to remove high flow nasal cannula and subsequently desaturated to the 50s. At the bedside patient appeared to be confused and her mouth was cyanotic. Patient was again placed on high flow nasal cannula and upgraded to the ICU for closer monitoring and possible intubation if necessary. Pulmonology and filer metal patterns on board Of note patient also admitted to having rheumatoid arthritis. Patient still complains of SOB at rest and unable to complete full sentences,same as yesterday. On HFNC @ 40L/min, FiO2 80% BUN increased to 83 from 84 and Cr unchanged at 1.4 Patient continues to be hypertensive with BP this morning 154/74 and similar trend overnight - much improved from before From telemetry review HR 70s?90s overnight with sinus arrhythmia, PACs and PVCs. This a.m. K of 4.2 and Mg 2.6. Maintain potassium greater than 4 and magnesium greater than 2 at all times to prevent any arrhythmias. Patient was on Methyprednisolone 125mg IV BID Currently on Mycophenolate and Septra RF was negative and rest of autoimmune screen Including anti-CCP, LISBET, aldolase pending Strep A, influenza A & B, RSV, cocci and COVID-19 were all negative on this admission Right heart cardiac catheterization with measurements of right heart pressures and cardiac output by Maria E method as well as thermodilution method completed on 03/21/2024 findings include: Mean right atrial pressure was 29mmHg. Right atrial pressure was 55/3 mmHg. Pulmonary artery pressure was 55/16 mmHg with a mean of 32 mmHg. Mean pulmonary capillary wedge pressure was 9 mmHg. TPG was 23 mmHg Pulmonary artery PA saturation was 79%. Arterial saturation was 91% and 40 L at 100% FiO2 Cardiac output was 5.6 L/min and cardiac index was 4.1 L/min/m?. Pulmonary vascular resistance was 4 Wood units and total pulm resistance was 6 Wood units Systemic vascular resistance is 1064 Dynes?sec?cm?? [normal 900-1200 or 11-15 Wood units] RAISA is 2 [normal is greater than 0.9] YARD CLEANER 2.26 Marley [normal greater than 0.6] Impression: Mild pulmonary hypertension with mean PAP greater than 25 mmHg, moderately elevated LVEDP at 27 mmHg, PVR is markedly elevated at 4 wood units and TPG is 23. 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 Strict input output charting ? 2 g sodium restricted diet ? Daily weights - 1500cc fluid restriction ? Aspirin 81 mg p.o. daily - No additional diuresis needed as patient is eulvolemic. Continue to slowly taper off the high flow oxygen as tolerated. - Will discuss with Pulmonary team and regarding the possibility of starting Tyvaso for the patient. ? No need to further trend troponin - Pending Autoimmune screen including Anit- CCP , LISBET, aldolase - Rest of care as per Pulmonology and Children'S Attendant 5. Essential hypertension Home medication labetalol 200 mg p.o. twice daily On admission BP 189/83 Patient continues to be hypertensive with BP this morning 154/74 and similar trend overnight - much improved from before From telemetry review HR 70s?90s overnight with sinus arrhythmia, PACs and PVCs. Plan: ? Can continue home medication Labetolol for now - Continue Nicardipine 20 mg po TID - Continue Lisinopril 10 mg po daily - Can uptitrate antihypertensives as necessary - Hydralazine 10mg IV as needed for SBP >170 6. Hyperlipidemia Patient was not on any statins at home but has a history of hyperlipidemia. On this admission triglycerides 127, cholesterol 136, LDL 69. Recommend to start patient on moderate intensity statin 7. History of depression Patient's home medication sertraline 100 mg p.o. daily Recommend to continue to avoid any withdrawals Recommend to Continue Mirtazapine 7.5mg po HS to help stimulate appetite 8. History of GERD 9. History of TIA [2021] 10. History of Benjamin fundoplication with hiatal hernia repair [2017] Patient does not appear to be on any PPIs at home and currently denies any GERD symptoms. Patient also did not appear to be on any aspirin at home although she had a history of TIA. Plan: ?Recommend to start aspirin 81 Mg p.o. daily 11. Microcytic anemia On admission patient's Hb 9.5. Baseline from chart review appears to be about 11?12. DDx: Iron deficiency anemia, poor nutrition, anemia of chronic disease, thalassemia, malignancy Patient also endorses approximately 30lb weight loss over the past 2 years Recommend, reticulocyte count, blood smear, LDH Iron 11, TIBC 214, ferritin 482. 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 IV iron held for now in light of inflammatory lung pathology 12. ROBEL on CKD stage III A On admission patient's CR 1.1 which appears to be at her baseline Currently Cr downtrended to 1.4 from 1.6 Continue management as per primary team 13. Rheumatoid arthritis Patient not on methotrexate or any biologic agents at home but admits to history of rheumatoid arthritis for many years. 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 Continue management as per primary team Continue rest of management as per primary team. We are grateful to be able to participate in Mrs. Garcia's care. Thank you for the consult Plan of care discussed with attending Aviation Project Engineer, Dr Nasir Mckeon MD PGY 1 Attending Provider Attestation/Addendum I have personally seen and examined the patient separately on the above date of service and discussed the plan of care with the resident. I reviewed the resident Dr. Mckeon consultation progress note and agree with the resident findings and plan in the note above and have also edited the documentation to reflect my findings and plan. Mian Best M.D. Interventional Cardiology
--- NOTE | 2024-03-22 12:52 | PC.SS ---
Update: Patient on high flow nasal cannula. P.O. feeding. Martinez catheter in place. Redness in bottom region of body. Following commands.
--- NOTE | 2024-03-22 13:52 | PD.RESPRO ---
Documentation for date of: 03/22/24 Subjective Subjective Interval history: 03/17/2024: Patient was seen and examined bedside in the ICU. Patient is not willing to communicate. Answered questions by nodding her head. Reported that her shortness of breath is improved. Patient is on high flow oxygen with 90% FiO2 and 30 L/min. Vitals are stable. Labs showed mild leukocytosis, anemia, sodium 131, BUN 41, creatinine 1.5. ABG is within normal limits. Diuresis was withheld in view of elevated BUN/creatinine. Steroids were started in view of suspected chronic hypersensitivity pneumonitis. Antibody panel is still pending. 03/18/2024: Patient was seen and examined bedside in the ICU. Still having Tachypnea and using accessory muscles of respiration. Reported that she is still having shortness of breath without much improvement. Patient is still on high flow but FiO2 is decreased from 90-80 this morning. Blood pressures are mildly elevated probably due to steroids. Labs showed anemia, BUN 62 and creatinine 1.8. Urine output is well-maintained despite elevated BUN and creatinine, so will continue to monitor renal functions and urine output. Will continue high-dose steroids for 3 days and will gradually taper the steroids. RA factor came back negative. LISBET and anti-CCP antibodies are still pending. 03/19/2024: Patient was saturating in the mid-90s on 30L 50% FiO2 of Hi-Flow this AM. Later that morning patient was noted to be desaturating to mid-80s so was repositioned in bed and Hi-Flow settings were adjusted to 35L and 60% FiO2. Patient remained stable throughout the day. Will titrate Solu-Medrol from TID to BID starting tomorrow. Continue to hold Lasix. Creatinine still worsening at 1.9. Continue to monitor overnight as patient still has high work of breathing and unable to vocalize complete sentences while on Hi-Flow. Will have patient work with PT and RT to educate on incentive spirometry. 03/20/2024: Patient was seen and examined bedside in the ICU. Stated that her shortness of breath improved a bit. Still on high flow oxygen with FiO2 60% and 35 L/min oxygen saturating around 88 to 92%. Vitals are stable except for mildly elevated blood pressures. On auscultation, bronchial breath sounds are heard on right upper lobe and decreased breath sounds are noted in rest of the areas. Labs showed BUN 84, creatinine 1.6 which are downtrending and the urine output is maintaining well. Continued physiotherapy and respiratory therapy. Methylprednisolone dose is decreased from 125 Mg 3 times daily to twice daily. 03/21/2024: Patient was seen and examined bedside in the ICU. Stated that her shortness of breath is improving but still on high flow with FiO2 80% and 40 L/min oxygen, saturating around 94 to 96%. Vitals are stable and elevated blood pressures are noted. Patient got IV hydralazine as needed overnight as patient's blood pressures are running high. Her renal functions continue to improve and urine output is adequate. Hydralazine 25 Mg 3 times daily is added in view of elevated blood pressures. Patient was kept on n.p.o. since this morning for right heart catheterization. Will continue methylprednisolone 125 Mg IV twice daily. And antibody panel is still pending. 03/22/2024: Patient was seen and examined. Patient underwent right heart catheterization by Dr. 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 Still complaining of shortness of breath and is on high flow oxygen with 65% FiO2 and 35 L/min. Labs remain almost unchanged. Her urine output is adequate. Dr. Curt Fonseca recommended treprostinil for her. Will continue to taper off steroid and added mycophenolate Mofetll for chronic hypersensitivity pneumonitis. Started on Bactrim to cover for PJP in the setting of immunosuppression. Patient will be downgraded to floors for further management. Exam Vital Signs Temp Pulse Resp BP Pulse Ox O2 Del Method O2 Flow Rate 97.1 F 71 28 H 154/74 H 94 L High Flow Nasal Cannula 35 03/22/24 05:00 03/22/24 11:43 03/22/24 11:43 03/22/24 08:05 03/22/24 11:43 03/22/24 05:00 03/22/24 11:43 FiO2 60 03/22/24 11:43 Narrative Exam General: Awake and in moderate distress. Tachypneic and using muscles of respiration HEENT: Normocephalic, atraumatic, mucous membranes moist. Heart: Regular rate and rhythm, no murmurs. Lungs: Right Bronchial breath sounds are appreciated. Fine crackles noted on the right side of the lung. overall decreased breath sounds are noted bilaterally. Abdomen: Soft, nondistended, nontender, positive bowel sounds. ?No guarding or rebound tenderness. Neurologic: Alert and oriented x3, no gross neurological deficit, and patient able to move all 4 extremities. Extremities: No edema. Bilateral deformities of hand noted- ?rheumatoid arthritis Skin: No rash or ecchymoses. Objective Labs 03/24/24 04:29 03/25/24 02:28 Labs: Laboratory Results - last 24 hr 03/21/24 03/21/24 03/21/24 18:27 18:49 18:56 WBC RBC Hgb Hct MCV MCH MCHC RDW Std Deviation Plt Count Neut % (Auto) Lymph % (Auto) [place] % (Auto) Eos % (Auto) Baso % (Auto) Neut # (Auto) Lymph # (Auto) [place] # (Auto) Eos # (Auto) Baso # (Auto) Immature Gran # (Auto) Absolute Nucleated RBC Immature Gran % Nucleated RBC % Puncture Site Cancelled Cancelled Pulmonary Artery ABG pH Cancelled Cancelled 7.47 H ABG pCO2 Cancelled Cancelled 44 ABG pO2 Cancelled Cancelled 44 L* ABG HCO3 Cancelled Cancelled 31 H ABG O2 Saturation Cancelled Cancelled 81 L ABG Base Excess Cancelled Cancelled 7 H Oxygen Liter Flow Cancelled Cancelled FiO2 Cancelled Cancelled 100 Sodium Potassium Chloride Carbon Dioxide Anion Gap BUN Creatinine Estim Creat Clear Calc eGFR BUN/Creatinine Ratio Glucose Calculated Osmolality Calcium Corrected Calcium Magnesium Total Bilirubin AST ALT Alkaline Phosphatase Total Protein Albumin Globulin Albumin/Globulin Ratio 03/22/24 05:23 WBC 7.7 RBC 4.14 Hgb 9.7 L Hct 31.1 L MCV 75 L MCH 23.4 L MCHC 31.2 RDW Std Deviation 46.6 H Plt Count 307 Neut % (Auto) 93 H Lymph % (Auto) 2 L [place] % (Auto) 4 Eos % (Auto) 0 Baso % (Auto) 0 Neut # (Auto) 7.1 Lymph # (Auto) 0.2 L [place] # (Auto) 0.3 Eos # (Auto) 0.0 Baso # (Auto) 0.0 Immature Gran # (Auto) 0.07 H Absolute Nucleated RBC 0.00 Immature Gran % 1 H Nucleated RBC % 0 Puncture Site ABG pH ABG pCO2 ABG pO2 ABG HCO3 ABG O2 Saturation ABG Base Excess Oxygen Liter Flow FiO2 Sodium 144 Potassium 4.2 D Chloride 104 Carbon Dioxide 31.8 H Anion Gap 8 BUN 83 H Creatinine 1.4 H Estim Creat Clear Calc 20.9 L eGFR 37 L BUN/Creatinine Ratio 59 H Glucose 178 H Calculated Osmolality 315 H Calcium 9.7 Corrected Calcium 9.9 Magnesium 2.6 Total Bilirubin 0.4 AST 23 ALT 25 Alkaline Phosphatase 128 H D Total Protein 6.0 Albumin 3.8 Globulin 2.2 L Albumin/Globulin Ratio 1.7 ABG Interpretation ABG results: 03/15/24 03/16/24 03/17/24 20:34 20:31 02:35 ABG pH 7.45 7.47 H 7.40 ABG pCO2 34 38 41 ABG pO2 100 79 L D 94 ABG HCO3 24 27 H 25 ABG O2 Saturation 99 H 97 98 ABG Base Excess 0 4 H 0 VBG pH VBG pCO2 VBG pO2 VBG Base Excess 03/18/24 03/21/24 03/21/24 02:37 05:08 18:27 ABG pH 7.40 Cancelled ABG pCO2 41 Cancelled ABG pO2 95 Cancelled ABG HCO3 25 Cancelled ABG O2 Saturation 98 Cancelled ABG Base Excess 0 Cancelled VBG pH 7.52 VBG pCO2 37 VBG pO2 64 H VBG Base Excess 7 H 03/21/24 03/21/24 18:49 18:56 ABG pH Cancelled 7.47 H ABG pCO2 Cancelled 44 ABG pO2 Cancelled 44 L* ABG HCO3 Cancelled 31 H ABG O2 Saturation Cancelled 81 L ABG Base Excess Cancelled 7 H VBG pH VBG pCO2 VBG pO2 VBG Base Excess Quality Measures Quality Measures sepsis Current suspected stage: ruled out Possible source: pulmonary Blood cultures ordered: completed in ED Antibiotic ordered: Yes Advance care planning discussed with:: patient Assessment & Plan Assessment Current Active Medications: Generic Name Dose Route Start Last Admin Trade Name Freq PRN Reason Stop Dose Admin Acetaminophen 650 mg 03/14/24 03:00 Acetaminophen 325 Mg Tablet PO 04/13/24 02:59 Q6H PRN PAIN OR FEVER > 101 Albuterol/Ipratropium 3 ml 03/15/24 16:21 03/22/24 11:42 Albuterol/Ipratropium (Duoneb) Rt Rissa 3 Ml Nebu INH 04/14/24 16:20 3 ml Q2HR PRN Administration SHORTNESS OF BREATH OR WHEEZE Buspirone HCl 5 mg 03/20/24 19:00 03/22/24 08:06 Buspirone Hcl 5 Mg Tablet PO 04/19/24 18:59 5 mg BID EMPERATRIZ Administration Furosemide 40 mg 03/16/24 14:00 03/17/24 05:32 Furosemide Inj 10 Mg/Ml 4ml Vial IVP 04/15/24 13:59 40 mg Q8HR EMPERATRIZ Administration Heparin Sodium (Porcine) 5,000 unit 03/14/24 09:00 03/22/24 08:06 Heparin Sod Inj 5000 Unit/Ml Vial SC 03/28/24 08:59 5,000 unit Q12HR EMPERATRIZ Administration Hydralazine HCl 25 mg 03/21/24 08:30 03/22/24 05:22 Hydralazine Hcl 25 Mg Tablet PO 04/20/24 08:29 25 mg TID EMPERATRIZ Administration Labetalol HCl 100 mg 03/14/24 04:40 03/22/24 08:05 Labetalol 100 Mg Tablet PO 04/13/24 04:39 100 mg BID EMPERATRIZ Administration Lisinopril 10 mg 03/14/24 18:15 03/17/24 08:23 Lisinopril 2.5 Mg Tablet PO 04/13/24 18:14 10 mg QDAY EMPERATRIZ Administration Mirtazapine 7.5 mg 03/16/24 21:00 03/21/24 20:19 Mirtazapine 15 Mg Tablet PO 04/15/24 20:59 7.5 mg HS EMPERATRIZ Administration Mycophenolate Mofetil 500 mg 03/22/24 10:00 Mycophenolate 250 Mg Capsule (Non-Formulary) PO 04/21/24 09:59 BID EMPERATRIZ Nicardipine HCl 30 mg 03/20/24 21:00 03/22/24 05:22 Nicardipine 30 Mg Capsule (Non-Form) PO 04/19/24 20:59 30 mg QID EMPERATRIZ Administration Ondansetron HCl 4 mg 03/14/24 03:00 Ondansetron Inj 2 Mg/Ml Inj 2 Ml IV 04/13/24 02:59 Q6H PRN NAUSEA OR VOMITING Protocol Pantoprazole Sodium 40 mg 03/14/24 09:00 03/22/24 08:05 Pantoprazole 40 Mg Tablet PO 04/13/24 08:59 40 mg QDAY EMPERATRIZ Administration Sertraline HCl 100 mg 03/14/24 21:00 03/22/24 08:06 Sertraline Hcl 25 Mg Tablet PO 04/13/24 20:59 100 mg BID EMPERATRIZ Administration Trimethoprim/Sulfamethoxazole 1 tab 03/22/24 10:00 Trimethoprim/Sulfa 160/800 Ds Tablet PO 03/29/24 09:59 QDAY EMPERATRIZ Plan A 82-year-old female with past medical history of hypertension, GERD s/p fundoplication with hiatal hernia repair, hyperlipidemia, TIA [2021], depression was brought to the hospital with chief complaints of shortness of breath and admitted to hospital with acute hypoxic respiratory failure. NEURO Patient is awake, alert, and oriented x3, following commands, conversational. #No active problems CARDIO # HFrEF # Moderate to severe pulmonary hypertension # group 3 PAH in the setting of ongoing lung disease -Patient denies pedal edema, shortness of breath, chest pain, angina. -BNP is elevated at the time of admission for which cardiology was consulted -Echo done during this admission showed EF of 40 to 45% with moderate to severe pulmonary hypertension. -Right heart cath performed on 03/21/2024 -Mild pulmonary hypertension with mean PAP greater than 25 mmHg, moderately elevated LVEDP at 27 mmHg, PVR is markedly elevated at 4 wood units and TPG is 23. Normal cardiac output and index. Isolated precapillary pH indicating Group 3 PAH secondary to lung disease and possibe componenet odf vasoconstriction along with fibrosis Plan -Diuresis was withheld in view of uptrending BUN and creatinine And as the patient is not fluid overloaded -Dr. Best was following the patient and recommended treprostinil -LISBET screening is still pending. -Started on mycophenolate Mofetil 500 Mg twice daily and will continue to taper off the steroid. # History of hypertension -Continue nicardipine 30 mg TID --increase to 30 Mg 4 times daily. -Will continue labetalol 100 Mg p.o. twice daily and blood pressures are still high despite nicardipine and labetalol. -So added hydralazine 25 Mg p.o. 3 times daily -Will monitor blood pressures PULM # Acute hypoxic respiratory failure # ARDS # Bilateral pulmonary infiltrates with severe hypertension #? Chronic hypersensitivity pneumonitis -Admitted with difficulty in breathing -Denies fever, cough, nausea, abdominal pain, weight loss, appetite loss. -BNP is >3000 for which cardiology was consulted. -Echo done showed severe pulmonary hypertension -CT showed bilateral infiltrates with ARDS pattern. -Patient was noted to have bilateral hand deformities and when asked about the history, patient's [id number] stated that she was diagnosed to have rheumatoid arthritis but did not get any treatment for that. -RA factor, anti-CCP, LISBET was ordered. -Creatinine kinase - normal limits, aldolase was ordered. -Patient was upgraded to ICU on 03/16/2024 in view of low saturations despite being on high flow oxygen for observation and further care. -Group A antigen was negative streptococcus and Legionella antigen is still pending. Plan -Continue ceftriaxone and azithromycin is stopped. -Continue to monitor the patient on high flow oxygen, wean as tolerated -03/22/2024 is day 3 of methylprednisolone 125 Mg twice daily and will change it to daily for 3 days and gradually taper off the medication. -Started on mycophenolate mofetil -Continue incentive spirometer GI #No active problems NEPHRO # ROBEL, prerenal -improving Likely in the setting of diuresis. -BUN and creatinine is within normal limits till 03/16/2024 -Patient is on furosemide 40 Mg IV 3 times daily. -On 03/17/2024, BUN is 41 and creatinine is 1.5 >(03/18) BUN is 62, creatinine 1.8 >03/21, BUN 82, Cr 1.4 -Urine output is well-maintained. Plan -Diuretics were withheld. -Will continue to monitor renal functions and avoid nephrotoxic medications -Renally dose medications. URO #No active problems HEME # Leukocytosis, resolved -In the setting of ongoing chronic lung disease. # Microcytic hypochromic anemia -Hemoglobin is 9.5 at the time of admission -Iron panel showed iron deficiency. Plan -Iron infusion was withheld in the view of ongoing active lung disease -Will continue to monitor CBC. ENDO #No active problems ID #No active problems MSK # Bilateral hand deformities Likely due to rheumatoid arthritis. RA factor and anti-CCP antibodies were sent. RA factor came out negative. SKIN #No active problems DVT prophylaxis: Heparin GI prophylaxis: Protonix Diet: Regular Martinez: Present Lines: peripheral Antibiotics: none CODE STATUS: FULL Reason for ICU care: Acute hypoxic respiratory failure Patient plan of care was discussed with the attending physician, Dr. Singh. John Garcia, PGY1 Attending Provider Attestation/Addendum Patient seen and examined with above resident, John Garcia MD. I agree with the findings, assessment, and plan of care as documented except for any differences below. Patient slowly responding to steroid therapy with improved gas exchange. She continues to be significantly tachypneic in the setting of both interstitial lung disease likely chronic hypersensitivity pneumonitis as well as pulm hypertension. Patient stable for transfer to telemetry for ongoing management. 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 Promote p.o. intake including supplements to try to gain some weight as this is also strongly related to her outcome. Patient's son remains hopeful at bedside and was updated on plan of care. I did also explain risk of worsening organ ability to discharge if she continues to require high oxygen despite therapy for her underlying pulmonary vascular disease and parenchymal process. Patient is euvolemic based on right heart catheter was completed. Tyvaso will be obtained by her home economics extension worker we will request specialty pharmacy through the weekend and can expect this to not arrive until early next week at her house and will need to be brought in by family as not on formulary at most hospitals. Remove accessory tubes such as central line and Martinez catheter to limit risk of infection given steroid taper ongoing, Bactrim prophylaxis has been initiated and plan for transition to CellCept which will take at least 1 to 2 months. Total critical care time: I personally spent 40 minutes for review of physiologic parameters, directing plan of care throughout the day, coordination of care with medicine and other subspecialties, and counseling patient and her family at bedside. This is exclusive of time spent teaching housestaff or performing any separate billable procedures. Patient continues to require critical care services for acute hypoxic respiratory failure secondary to progressive interstitial lung disease and pulmonary arterial hypertension/group 3 with high risk for increased morbidity and mortality.
--- NOTE | 2024-03-22 15:35 | EVENTNT_ITS ---
<Statement entered by Deny Patricia MD - 03/25/24 08:08> 83-year-old female with multiple comorbidities including hypertension, hyperlipidemia, GERD status post Niesen fundoplication, rheumatoid arthritis who initially presented to the ER on 03/14/2024 with shortness of breath found to have acute hypoxic respiratory failure. During course of hospitalization, patient underwent CTA with findings of severe bilateral pneumonia ARDS pattern with bilateral bronchiectasis however no PE. Furthermore, patient underwent right heart cath with findings of pulmonary arterial hypertension group 3 and found to have acute decompensated heart failure and suspected hypersensitivity pneumonitis. Pulmonary team was consulted and recommended IV Solu-Medrol, mycophenolate, Bactrim and diuretics. Furthermore, goals of care was discussed with family and initially wanted to be DNR/DNI however son who is decision-maker wanted to switch code wants to proceed with full code. Overall prognosis extremely guarded given extent of bilateral diffuse opacities and primary arterial hypertension group 3. Furthermore, patient placed on high flow nasal cannula however given increased work of breathing patient was upgraded to ICU however ICU team called us regarding downgrade. Will continue monitoring the patient and accepted patient for downgrade to be placed in telemetry. I reviewed above note and agree with findings and plans. I have also personally examined the patient with medicine team and went over assessment and plan with medical team including spring internship and resident physician. Documentation for date of: 03/22/24 Event Note Event Note: The patient is an 83-year-old female with a past medical history of hypertension, depression, rheumatoid arthritis who presented to the ED on 03/14/2024 with shortness of breath and PND that gotten worse over the few days prior to admission. Patient was admitted for management of acute hypoxic respiratory failure and possible new onset CHF with sepsis secondary to community-acquired pneumonia and started on IV Lasix, ceftriaxone and azithromycin. During the course in the floors, the patient continued to have increased work of breathing and on 03/16/2024 after rapid response was called for respiratory rate of 42, the patient was upgraded to the ICU. The ICU, the patient was continued on high flow nasal cannula, developed an ROBEL due to diuresis and had a right heart cath for evaluation of pulmonary hypertension which showed mild pulmonary hypertension. Cardiology is considering starting a medication Tyvaso. As patient is suspected to have hypersensitivity pneumonitis, she was started on IV Solu-Medrol and mycophenolate mofetil. Today, the patient is still on high flow nasal cannula, reduced to 65% since the upgrade to the ICU, continues to be on IV steroids that is being tapered now but ABGs have been unremarkable and the patient is deemed stable enough to be downgraded to the floors. Will resume care on 03/23/2024.
[2024-03-22] MEDS: MORPHINE SULF INJ 10 MG/ML VIAL 2 MG IVP (16:19)
[2024-03-22] MEDS: TRIMETHOPRIM/SULFA 160/800 DS TABLET 1 TAB PO (16:24)
[2024-03-22] MEDS: MYCOPHENOLATE 250 MG CAPSULE (NON-FORMULARY) 500 MG PO ×2 (16:24→20:18)
[2024-03-22] MEDS: MIRTAZAPINE 15 MG TABLET 7.5 MG PO (20:19)
[2024-03-23] VITALS (18 sets, daily range): BP systolic 111–160; BP diastolic 39–94; PULSE 50–102; RESP 16–27; TEMP 35.7–36.2; O2SAT 93–100; BMI 17.8
[2024-03-23] MEDS: ALBUTEROL/IPRATROPIUM (Duoneb) RT SOL 3 ML NEBU INH (01:34)
[2024-03-23] MEDS: hydrALAZINE HCL 25 MG TABLET PO ×2 (05:39→14:05)
[2024-03-23] MEDS: [UNRECOGNIZED DRUG - REMARK] PO ×2 (05:39→11:55)
[2024-03-23 07:56] LABS: Basophils % (Auto) 0 % (0-2.5); Eosinophils # (Auto) 0.1 Thou/mm3 (0.0-0.5); Eosinophils % (Auto) 0 % (0-10); Hematocrit 30.4 % (36.0-46.0); Hemoglobin 9.5 g/dL (12.0-16.0); Immature Granulocytes % (Auto) 1 % (0-0); Immature Granulocytes Auto 0.14 Thou/mm3 (0.00-0.00); Lymphocytes # (Auto) 0.4 Thou/mm3 (1.0-4.8); Lymphocytes % (Auto) 4 % (10-50); Mean Corpuscular HGB Conc 31.3 g/dl (31.0-37.0); Mean Corpuscular Hemoglobin 23.5 pg (25.0-35.0); Mean Corpuscular Volume 75 fL (80-100); Monocytes % (Auto) 9 % (0-12); Neutrophils # (Auto) 9.8 Thou/mm3 (1.8-7.7); Neutrophils % (Auto) 86 % (37-80); Nucleated Red Blood Cell % 0 /100 WBC (0); Platelet Count 321 Thou/mm3 (140-440); RDW Standard Deviation 46.4 fL (36.4-46.3); Red Blood Count 4.05 Miln/mm3 (4.00-5.20); White Blood Count 11.4 Thou/mm3 (3.6-11.0)
--- NOTE | 2024-03-23 08:19 | PD.RESPRO ---
Documentation for date of: 03/23/24 Subjective Subjective Interval history: Patient was seen and examined at bedside this AM. No acute exents overnight. Patient tolerating diet , adequate urine output and mentation is at baseline. Patient still complains of SOB at rest and unable to complete full sentences,same as yesterday. On HFNC @ 40L/min, FiO2 95% BUN increased to 86 from 83 and Cr unchanged at 1.4 Patient blood pressure this am 132/51 - much improved from before From telemetry review HR 60s?70s overnight with sinus arrhythmia, PACs and PVCs. This a.m. K of 4.3 and Mg 2.8. Maintain potassium greater than 4 and magnesium greater than 2 at all times to prevent any arrhythmias. Patient was on Methyprednisolone 125mg IV BID Currently on Mycophenolate and Septra and Methylprednisone 125mg IV Q day RF was negative and rest of autoimmune screen Including anti-CCP, LISBET, aldolase pending Strep A, influenza A & B, RSV, cocci and COVID-19 were all negative on this admission Patient has mild pulmonary hypertension with mean PAP greater than 25 mmHg as seen on right heart cath completed on 03/21/2024. Patient will need to start Tyvaso a prostaglandin analog for treatment. However this medication is not available at this hospital and an outpatient prescription will have to be written for the patient's family to collect the medication from a specialist pharmacy to bring to the hospital. Exam Vital Signs Temp Pulse Resp BP Pulse Ox O2 Del Method O2 Flow Rate 96.8 F 68 22 H 149/94 H 94 L High Flow Nasal Cannula 40 03/23/24 04:47 03/23/24 07:24 03/23/24 07:24 03/23/24 05:39 03/23/24 07:24 03/23/24 04:47 03/23/24 07:24 FiO2 85 03/23/24 07:24 Narrative Exam Constitutional Alert, oriented x 3 and in mild distress. Cachectic, Temporal wasting, Elderly Female on O2 via HFNC, cannot complete sentences. HEENT Vision grossly intact. Patent nares. Trachea midline Respiratory Wasted on inspection poor inspiratory effort, decreased AE in all lung coffman , scattered fine crackles heard throughout b/l lung coffman Cardiovascular S1 and S2 audible, RRR. Abdominal Soft and non tender to palpation in all quadrants. BS + Genitourinary No bladder tenderness, no flank pain. Normal to palpation Musculoskeletal Extremities tone within normal limits. No LE edema. Neurological CN II - XII grossly intact. Extremity motor and sensation grossly intact. Skin Warm, dry and intact. No apparent lesions. Psychiatric Cooperative Objective Labs 03/24/24 04:29 03/24/24 04:29 Labs: Laboratory Results - last 24 hr 03/23/24 07:10 WBC 11.4 H D RBC 4.05 Hgb 9.5 L Hct 30.4 L MCV 75 L MCH 23.5 L MCHC 31.3 RDW Std Deviation 46.4 H Plt Count 321 Neut % (Auto) 86 H Lymph % (Auto) 4 L Jessamine % (Auto) 9 Eos % (Auto) 0 Baso % (Auto) 0 Neut # (Auto) 9.8 H Lymph # (Auto) 0.4 L Jessamine # (Auto) 1.0 H Eos # (Auto) 0.1 Baso # (Auto) 0.0 Immature Gran # (Auto) 0.14 H Absolute Nucleated RBC 0.00 Immature Gran % 1 H Nucleated RBC % 0 ABG Interpretation ABG results: 03/15/24 03/16/24 03/17/24 20:34 20:31 02:35 ABG pH 7.45 7.47 H 7.40 ABG pCO2 34 38 41 ABG pO2 100 79 L D 94 ABG HCO3 24 27 H 25 ABG O2 Saturation 99 H 97 98 ABG Base Excess 0 4 H 0 VBG pH VBG pCO2 VBG pO2 VBG Base Excess 03/18/24 03/21/24 03/21/24 02:37 05:08 18:27 ABG pH 7.40 Cancelled ABG pCO2 41 Cancelled ABG pO2 95 Cancelled ABG HCO3 25 Cancelled ABG O2 Saturation 98 Cancelled ABG Base Excess 0 Cancelled VBG pH 7.52 VBG pCO2 37 VBG pO2 64 H VBG Base Excess 7 H 03/21/24 03/21/24 18:49 18:56 ABG pH Cancelled 7.47 H ABG pCO2 Cancelled 44 ABG pO2 Cancelled 44 L* ABG HCO3 Cancelled 31 H ABG O2 Saturation Cancelled 81 L ABG Base Excess Cancelled 7 H VBG pH VBG pCO2 VBG pO2 VBG Base Excess Quality Measures Quality Measures sepsis Current suspected stage: ruled out Possible source: pulmonary Blood cultures ordered: completed in ED Antibiotic ordered: Yes Advance care planning discussed with:: patient and other Assessment & Plan Assessment Current Active Medications: Generic Name Dose Route Start Last Admin Trade Name Freq PRN Reason Stop Dose Admin Acetaminophen 650 mg 03/14/24 03:00 Acetaminophen 325 Mg Tablet PO 04/13/24 02:59 Q6H PRN PAIN OR FEVER > 101 Albuterol/Ipratropium 3 ml 03/15/24 16:21 03/23/24 01:34 Albuterol/Ipratropium (Duoneb) Rt Rissa 3 Ml Nebu INH 04/14/24 16:20 3 ml Q2HR PRN Administration SHORTNESS OF BREATH OR WHEEZE Buspirone HCl 5 mg 03/20/24 19:00 03/22/24 20:18 Buspirone Hcl 5 Mg Tablet PO 04/19/24 18:59 5 mg BID EMPERATRIZ Administration Heparin Sodium (Porcine) 5,000 unit 03/14/24 09:00 03/22/24 20:19 Heparin Sod Inj 5000 Unit/Ml Vial SC 03/28/24 08:59 5,000 unit Q12HR EMPERATRIZ Administration Hydralazine HCl 25 mg 03/21/24 08:30 03/23/24 05:39 Hydralazine Hcl 25 Mg Tablet PO 04/20/24 08:29 25 mg TID EMPERATRIZ Administration Labetalol HCl 100 mg 03/14/24 04:40 03/22/24 20:18 Labetalol 100 Mg Tablet PO 04/13/24 04:39 100 mg BID EMPERATRIZ Administration Mirtazapine 15 mg 03/23/24 21:00 Mirtazapine 15 Mg Tablet PO 04/22/24 20:59 HS EMPERATRIZ Mycophenolate Mofetil 500 mg 03/22/24 10:00 03/22/24 20:18 Mycophenolate 250 Mg Capsule (Non-Formulary) PO 04/21/24 09:59 500 mg BID EMPERATRIZ Administration Nicardipine HCl 30 mg 03/20/24 21:00 03/23/24 05:39 Nicardipine 30 Mg Capsule (Non-Form) PO 04/19/24 20:59 30 mg QID EMPERATRIZ Administration Ondansetron HCl 4 mg 03/14/24 03:00 Ondansetron Inj 2 Mg/Ml Inj 2 Ml IV 04/13/24 02:59 Q6H PRN NAUSEA OR VOMITING Protocol Pantoprazole Sodium 40 mg 03/14/24 09:00 03/22/24 08:05 Pantoprazole 40 Mg Tablet PO 04/13/24 08:59 40 mg QDAY EMPERATRIZ Administration Trimethoprim/Sulfamethoxazole 1 tab 03/22/24 16:20 03/22/24 16:24 Trimethoprim/Sulfa 160/800 Ds Tablet PO 03/29/24 16:19 1 tab QDAY EMPERATRIZ Administration Plan Patient is an 83-year-old female with a past medical history significant for essential hypertension, hyperlipidemia, TIA [2021], depression and GERD s/p Benjamin fundoplication with hiatal hernia repair [2017]. Follows up with PCP Dr Campos. Patient presented to the ED with a chief complaint of shortness of breath. Patient was admitted for acute respiratory failure with hypoxia and cardiology was consulted to assess for possible new onset CHF. 1. Acute respiratory failure with hypoxia - worsening 2. Acute decompensated diastolic heart failure ?new onset [40-45%] 3. Pulmonary Hypertension - Group 3 4. ACS ruled out 5. NSTEMI type II On presentation patient was severely SOB unable to complete sentences and lying at a 45 degree angle. On exam she had no lower extremity edema but poor inspiratory effort, decreased air entry and scattered crackles at the bases and a 3/6 diastolic murmur heard at left lower sternal border. She was not on any home diuretic and not known to have heart failure in the past, however clinically she appears to be in acute decompensated heart failure exacerbation. BNP on admission 3280 and troponin elevated at 0.1 up trended to 0.124 and downtrending to 0.121 likely in the setting of CHF exacerbation EKG on admission showed sinus rhythm, rate 95, LVH. Chest x-ray was significant for increased vascular markings bilaterally flash pulmonary edema. DDx : ILD, RA flare, Allergic interstital pneumonitis, Primary pulmonary hypertension, ARDS BNP can also be elevated in ILD Last echocardiogram completed [place] [address] Brock Strickland findings include: Normal left ventricular size with mild LVH. LVEF 60%. normal cardiac chamber size mitral valve thickening with trace regurgitation moderate aortic valve regurgitation Transthoracic echocardiogram completed on 03/14 findings include: Normal LV size. Mild systolic dysfunction. Mild hypokinesis basal to mid Anterior and anteroseptal gale. Mild LVH. Grade I diastolic dysfunction. Estimated EF 40-45% Normal RV size. Normal RV function. Estimated RVSP 68mmHg. Moderate to severe PAH. RAP 10. Mild LA dilation. Severe RA dilation Moderate MR, AI. Mild TR. Trace PI. IVC dilated. Chest CTA completed 03/16 showed severe bilateral pneumonia ARDS pattern with ground glass opacities, bilateral bronchiectasis, fibrosis and significant consolidation, negative for pulmonary artery emboli. Abdomen CT was significant for Large Liver Simple Cyst Of note patient also admitted to having rheumatoid arthritis. Overnight 03/17 patient's became confused and was attempting to remove high flow nasal cannula and subsequently desaturated to the 50s. At the bedside patient appeared to be confused and her mouth was cyanotic. Patient was again placed on high flow nasal cannula and upgraded to the ICU for closer monitoring and possible intubation if necessary. Right heart cardiac catheterization with measurements of right heart pressures and cardiac output by Maria E method as well as thermodilution method completed on 03/21/2024 findings include: Mean right atrial pressure was 29mmHg. Right atrial pressure was 55/3 mmHg. Pulmonary artery pressure was 55/16 mmHg with a mean of 32 mmHg. Mean pulmonary capillary wedge pressure was 9 mmHg. TPG was 23 mmHg Pulmonary artery PA saturation was 79%. Arterial saturation was 91% and 40 L at 100% FiO2 Cardiac output was 5.6 L/min and cardiac index was 4.1 L/min/m?. Pulmonary vascular resistance was 4 Wood units and total pulm resistance was 6 Wood units Systemic vascular resistance is 1064 Dynes?sec?cm?? [normal 900-1200 or 11-15 Wood units] RAISA is 2 [normal is greater than 0.9] INSURANCE ADMINISTRATIVE ASSISTANT 2.26 Marley [normal greater than 0.6] Impression: Mild pulmonary hypertension with mean PAP greater than 25 mmHg, moderately elevated LVEDP at 27 mmHg, PVR is markedly elevated at 4 wood units and TPG is 23. 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 On HFNC @ 40L/min, FiO2 95% BUN increased to 86 from 83 and Cr unchanged at 1.4 Patient blood pressure this am 132/51 - much improved from before From telemetry review HR 60s?70s overnight with sinus arrhythmia, PACs and PVCs. This a.m. K of 4.3 and Mg 2.8. Maintain potassium greater than 4 and magnesium greater than 2 at all times to prevent any arrhythmias. Patient was on Methyprednisolone 125mg IV BID Currently on Mycophenolate and Septra and Methylprednisone 125mg IV Q day RF was negative and rest of autoimmune screen Including anti-CCP, LISBET, aldolase pending Strep A, influenza A & B, RSV, cocci and COVID-19 were all negative on this admission Patient will need to start Tyvaso a prostaglandin analog for treatment. However this medication is not available at this hospital and an outpatient prescription will have to be written for the patient's family to collect the medication from a specialist pharmacy to bring to the hospital. Plan: ? Strict input output charting ? 2 g sodium restricted diet ? Daily weights - 1500cc fluid restriction ? Aspirin 81 mg p.o. daily - No additional diuresis needed as patient is eulvolemic. Continue to slowly taper off the high flow oxygen as tolerated. ? No need to further trend troponin - Pending Autoimmune screen including Anit- CCP , LISBET, aldolase - Patient will need to start Tyvaso a prostaglandin analog for treatment. - However this medication is not available at this hospital and an outpatient prescription will have to be written for the patient's family to collect the medication from a specialist pharmacy to bring to the hospital. - Rest of care as per Pulmonology and Primary Team 6. Essential hypertension Home medication labetalol 200 mg p.o. twice daily On admission BP 189/83 Patient blood pressure this am 132/51 - much improved from before From telemetry review HR 60s?70s overnight with sinus arrhythmia, PACs and PVCs. Plan: ? Can continue home medication Labetolol for now - Continue Nicardipine 20 mg po TID - Continue Lisinopril 10 mg po daily - Can uptitrate antihypertensives as necessary - Hydralazine 10mg IV as needed for SBP >170 7. Hyperlipidemia Patient was not on any statins at home but has a history of hyperlipidemia. On this admission triglycerides 127, cholesterol 136, LDL 69. Recommend to start patient on moderate intensity statin 8. History of depression Patient's home medication sertraline 100 mg p.o. daily Recommend to continue to avoid any withdrawals Recommend to Continue Mirtazapine 7.5mg po HS to help stimulate appetite 9. History of GERD 10. History of TIA [2021] 11. History of Benjamin fundoplication with hiatal hernia repair [2017] Patient does not appear to be on any PPIs at home and currently denies any GERD symptoms. Patient also did not appear to be on any aspirin at home although she had a history of TIA. Plan: ?Recommend to start aspirin 81 Mg p.o. daily 12. Microcytic anemia On admission patient's Hb 9.5. Baseline from chart review appears to be about 11?12. DDx: Iron deficiency anemia, poor nutrition, anemia of chronic disease, thalassemia, malignancy Patient also endorses approximately 30lb weight loss over the past 2 years Recommend, reticulocyte count, blood smear, LDH Iron 11, TIBC 214, ferritin 482. 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 IV iron held for now in light of inflammatory lung pathology 13. ROBEL on CKD stage III A On admission patient's CR 1.1 which appears to be at her baseline Currently Cr stable at 1.4 Continue management as per primary team 14. Rheumatoid arthritis Patient not on methotrexate or any biologic agents at home but admits to history of rheumatoid arthritis for many years. 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 Continue management as per primary team Continue rest of management as per primary team. We are grateful to be able to participate in Mrs. Garcia's care. Thank you for the consult Plan of care discussed with attending Copper Plate Printer, Dr Nasir Mckeon MD PGY 1 Attending Provider Attestation/Addendum I reviewed the resident Dr. Mckeon consultation progress note and agree with the resident findings and plan in the note above and have also edited the documentation to reflect my findings and plan. Mian Best M.D. Interventional Cardiology
[2024-03-23 08:23] LABS: Alanine Aminotransferase 24 U/L (10-49); Albumin, Serum 3.7 gm/dL (3.4-4.8); Albumin/Globulin Ratio 1.8 (1.2-2.2); Alkaline Phosphatase 131 U/L (46-116); Anion Gap 8 (7-16); Aspartate Amino Transferase 25 U/L (0-34); BUN/Creatinine Ratio 61 Ratio (12-20); Bilirubin,Total 0.4 mg/dL (0.3-1.2); Blood Urea Nitrogen 86 mg/dL (9-23); Calcium 9.6 mg/dL (8.3-10.6); Calcium (Corrected) 9.8 mg/dL (8.5-10.1); Carbon Dioxide 30.9 mMol/L (20.0-31.0); Chloride 104 mMol/L (98-107); Creatinine (Component) 1.4 mg/dL (0.6-1.3); Estimated Creatinine Clearance 20.6 mL/min (>60); Globulin 2.1 gm/dL (2.3-3.5); Glucose 137 mg/dL (74-106); Magnesium 2.8 mg/dL (1.6-2.6); Osmolality,Calculated 313 (275-295); Phosphorous 4.9 mg/dL (2.4-5.1); Potassium 4.3 mMol/L (3.4-5.1); Sodium 143 mMol/L (136-145); Total Protein 5.8 gm/dL (5.7-8.2); eGFR 37 See Note
[2024-03-23] MEDS: PANTOPRAZOLE 40 MG TABLET PO (08:46)
[2024-03-23] MEDS: HEPARIN SOD INJ 5000 UNIT/ML VIAL SC ×2 (08:46→21:33)
[2024-03-23] MEDS: TRIMETHOPRIM/SULFA 160/800 DS TABLET 1 TAB PO (08:46)
[2024-03-23] MEDS: BusPIRone HCL 5 MG TABLET PO (08:46)
[2024-03-23] MEDS: LABETALOL 100 MG TABLET PO (08:46)
[2024-03-23] MEDS: MYCOPHENOLATE 250 MG CAPSULE (NON-FORMULARY) 500 MG PO (08:46)
[2024-03-23] MEDS: MethylPREDNISolone SOD SUCC 62.5 MG/ML 2ML VIAL 125 MG IV (09:29)
[2024-03-23 09:30] LABS: Base Excess 6 (-3-3); HCO3 32 mEq/L (20-26); O2 Saturation 96 % (91-98); PCO2 48 mmHg (32.0-48.0); PO2 75 mmHg (83-108); pH, Arterial 7.42 (7.35-7.45)
[2024-03-23 09:32] LABS: Allen Test Not Performed; Inspired Oxygen, FIO2 95 %; Puncture Site Right Radial
--- NOTE | 2024-03-23 11:33 | ESPR_ITS ---
<Statement entered by Deyn Patricia MD - 03/25/24 08:07> 83-year-old female with multiple comorbidities including hypertension, hyperlipidemia, GERD status post Niesen fundoplication, rheumatoid arthritis who initially presented to the ER on 03/14/2024 with shortness of breath found to have acute hypoxic respiratory failure. During course of hospitalization, patient underwent CTA with findings of severe bilateral pneumonia ARDS pattern with bilateral bronchiectasis however no PE. Furthermore, patient underwent right heart cath with findings of pulmonary arterial hypertension group 3 and found to have acute decompensated heart failure and suspected hypersensitivity pneumonitis. Pulmonary team was consulted and recommended IV Solu-Medrol, mycophenolate, Bactrim and diuretics. Furthermore, goals of care was discussed with family and initially wanted to be DNR/DNI however son who is decision-maker wanted to switch code wants to proceed with full code. Overall prognosis extremely guarded given extent of bilateral diffuse opacities and primary arterial hypertension group 3. In addition, patient creatinine continues to uptrend and BUN in the 100s likely secondary to steroid use. I reviewed above note and agree with findings and plans. I have also personally examined the patient with medicine team and went over assessment and plan with medical team including chief of internal medicine and resident physician. <Statement entered by Annetta Angel DO - 03/23/24 14:18> Senior attestation: Patient was examined and case was reviewed with team including attending physician. Note reviewed, I agree with most of its contents and agree with the patient's care. Patient noted to be on HFNC today 40L at 95%, will wean down as tolerated. Will continue IV steroids for 3 more days, pending Tyvaso medication for PAH. Family updated on prognosis bedside, all questions answered, family shares they have been thinking about patient's code status but for now will keep as full code. Annetta Angel DO PGY-3 Documentation for date of: 03/23/24 Subjective Subjective Interval history: Patient seen at bedside. She was downgraded overnight from the ICU on high flow nasal cannula settings 65%. No acute overnight events. This morning, patient has been increased to 95%, 40 L as she was tachypneic and desatted on 85% as checked by the RT. ABG done showed pH of 7.42 with pCO2 48 and pO2 75. Patient is on IV steroids taper, Solu-Medrol 125 mg daily for another 3 days (end-03/24/2024) after which she will be transition to prednisone 40 to 60 mg tapered. Pending Tyvaso medication for pulmonary artery hypertension. Goals of care to be discussed with family if it already has not been. Exam Vital Signs Temp Pulse Resp BP Pulse Ox O2 Del Method O2 Flow Rate 96.8 F 65 20 132/51 H 95 High Flow Nasal Cannula 40 03/23/24 08:00 03/23/24 10:49 03/23/24 10:49 03/23/24 08:46 03/23/24 10:49 03/23/24 08:00 03/23/24 10:49 FiO2 85 03/23/24 10:49 Narrative Exam General: Awake and in moderate distress. Tachypneic and using muscles of respiration HEENT: Normocephalic, atraumatic, mucous membranes moist. Heart: Regular rate and rhythm, no murmurs. Lungs: Right Bronchial breath sounds are appreciated. Fine crackles noted on the right side of the lung. overall decreased breath sounds are noted bilaterally. Abdomen: Soft, nondistended, nontender, positive bowel sounds. ?No guarding or rebound tenderness. Neurologic: Alert and oriented x3, no gross neurological deficit, and patient able to move all 4 extremities. Extremities: No edema. Bilateral deformities of hand noted- ?rheumatoid arthritis Skin: No rash or ecchymoses. Objective Labs 03/23/24 07:10 03/23/24 06:50 Labs: Laboratory Results - last 24 hr 03/23/24 03/23/24 03/23/24 06:50 07:10 09:21 WBC 11.4 H D RBC 4.05 Hgb 9.5 L Hct 30.4 L MCV 75 L MCH 23.5 L MCHC 31.3 RDW Std Deviation 46.4 H Plt Count 321 Neut % (Auto) 86 H Lymph % (Auto) 4 L [place] % (Auto) 9 Eos % (Auto) 0 Baso % (Auto) 0 Neut # (Auto) 9.8 H Lymph # (Auto) 0.4 L [place] # (Auto) 1.0 H Eos # (Auto) 0.1 Baso # (Auto) 0.0 Immature Gran # (Auto) 0.14 H Absolute Nucleated RBC 0.00 Immature Gran % 1 H Nucleated RBC % 0 Puncture Site Right Radial ABG pH 7.42 ABG pCO2 48 ABG pO2 75 L D ABG HCO3 32 H ABG O2 Saturation 96 ABG Base Excess 6 H FiO2 95 Sodium 143 Potassium 4.3 Chloride 104 Carbon Dioxide 30.9 Anion Gap 8 BUN 86 H Creatinine 1.4 H Estim Creat Clear Calc 20.6 L eGFR 37 L BUN/Creatinine Ratio 61 H Glucose 137 H Calculated Osmolality 313 H Calcium 9.6 Corrected Calcium 9.8 Phosphorus 4.9 Magnesium 2.8 H Total Bilirubin 0.4 AST 25 ALT 24 Alkaline Phosphatase 131 H Total Protein 5.8 Albumin 3.7 Globulin 2.1 L Albumin/Globulin Ratio 1.8 ABG Interpretation ABG results: 03/15/24 03/16/24 03/17/24 20:34 20:31 02:35 ABG pH 7.45 7.47 H 7.40 ABG pCO2 34 38 41 ABG pO2 100 79 L D 94 ABG HCO3 24 27 H 25 ABG O2 Saturation 99 H 97 98 ABG Base Excess 0 4 H 0 VBG pH VBG pCO2 VBG pO2 VBG Base Excess 03/18/24 03/21/24 03/21/24 02:37 05:08 18:27 ABG pH 7.40 Cancelled ABG pCO2 41 Cancelled ABG pO2 95 Cancelled ABG HCO3 25 Cancelled ABG O2 Saturation 98 Cancelled ABG Base Excess 0 Cancelled VBG pH 7.52 VBG pCO2 37 VBG pO2 64 H VBG Base Excess 7 H 03/21/24 03/21/24 03/23/24 18:49 18:56 09:21 ABG pH Cancelled 7.47 H 7.42 ABG pCO2 Cancelled 44 48 ABG pO2 Cancelled 44 L* 75 L D ABG HCO3 Cancelled 31 H 32 H ABG O2 Saturation Cancelled 81 L 96 ABG Base Excess Cancelled 7 H 6 H VBG pH VBG pCO2 VBG pO2 VBG Base Excess Quality Measures Quality Measures sepsis Current suspected stage: sepsis Possible source: pulmonary Blood cultures ordered: completed in ED Antibiotic ordered: Yes Advance care planning discussed with:: patient Assessment & Plan Assessment Current Active Medications: Generic Name Dose Route Start Last Admin Trade Name Freq PRN Reason Stop Dose Admin Acetaminophen 650 mg 03/14/24 03:00 Acetaminophen 325 Mg Tablet PO 04/13/24 02:59 Q6H PRN PAIN OR FEVER > 101 Albuterol/Ipratropium 3 ml 03/15/24 16:21 03/23/24 01:34 Albuterol/Ipratropium (Duoneb) Rt Rissa 3 Ml Nebu INH 04/14/24 16:20 3 ml Q2HR PRN Administration SHORTNESS OF BREATH OR WHEEZE Buspirone HCl 5 mg 03/20/24 19:00 03/23/24 08:46 Buspirone Hcl 5 Mg Tablet PO 04/19/24 18:59 5 mg BID EMPERATRIZ Administration Heparin Sodium (Porcine) 5,000 unit 03/14/24 09:00 03/23/24 08:46 Heparin Sod Inj 5000 Unit/Ml Vial SC 03/28/24 08:59 5,000 unit Q12HR EMPERATRIZ Administration Hydralazine HCl 25 mg 03/21/24 08:30 03/23/24 05:39 Hydralazine Hcl 25 Mg Tablet PO 04/20/24 08:29 25 mg TID EMPERATRIZ Administration Labetalol HCl 100 mg 03/14/24 04:40 03/23/24 08:46 Labetalol 100 Mg Tablet PO 04/13/24 04:39 100 mg BID EMPERATRIZ Administration Methylprednisolone Sodium Succinate 125 mg 03/23/24 09:00 03/23/24 09:29 Methylprednisolone Sod Succ 62.5 Mg/Ml 2ml Vial IV 03/26/24 08:59 125 mg QDAY EMPERATRIZ Administration Mirtazapine 15 mg 03/23/24 21:00 Mirtazapine 15 Mg Tablet PO 04/22/24 20:59 HS EMPERATRIZ Mycophenolate Mofetil 500 mg 03/22/24 10:00 03/23/24 08:46 Mycophenolate 250 Mg Capsule (Non-Formulary) PO 04/21/24 09:59 500 mg BID EMPERATRIZ Administration Nicardipine HCl 30 mg 03/20/24 21:00 03/23/24 05:39 Nicardipine 30 Mg Capsule (Non-Form) PO 04/19/24 20:59 30 mg QID EMPERATRIZ Administration Ondansetron HCl 4 mg 03/14/24 03:00 Ondansetron Inj 2 Mg/Ml Inj 2 Ml IV 04/13/24 02:59 Q6H PRN NAUSEA OR VOMITING Protocol Pantoprazole Sodium 40 mg 03/14/24 09:00 03/23/24 08:46 Pantoprazole 40 Mg Tablet PO 04/13/24 08:59 40 mg QDAY EMPERATRIZ Administration Trimethoprim/Sulfamethoxazole 1 tab 03/22/24 16:20 03/23/24 08:46 Trimethoprim/Sulfa 160/800 Ds Tablet PO 03/29/24 16:19 1 tab QDAY EMPERATRIZ Administration Plan Summary: She is an 83-year-old female with a past medical history of hypertension and depression who presented to the ED on 03/14/2024 with shortness of breath and PND gotten worse within the last few days. The patient was admitted for management of acute hypoxic respiratory failure secondary to ?New onset CHF and sepsis secondary to community-acquired pneumonia. Now suspected to have hypersensitivity pneumonitis # Acute hypoxic respiratory failure # ARDS # Bilateral pulmonary infiltrates with severe hypertension #? Chronic hypersensitivity pneumonitis -Admitted with difficulty in breathing -Denies fever, cough, nausea, abdominal pain, weight loss, appetite loss. -BNP is >3000 for which cardiology was consulted. -Echo done showed severe pulmonary hypertension -CT showed bilateral infiltrates with ARDS pattern. -Patient was noted to have bilateral hand deformities and when asked about the history, patient's [id number] stated that she was diagnosed to have rheumatoid arthritis but did not get any treatment for that. -RA factor, anti-CCP, LISBET was ordered. -Creatinine kinase - normal limits, aldolase was ordered. -Patient was upgraded to ICU on 03/16/2024 in view of low saturations despite being on high flow oxygen for observation and further care. -Group A antigen was negative streptococcus and Legionella antigen is still pending. 03/23/2024- She was downgraded overnight from the ICU on high flow nasal cannula settings 65%. No acute overnight events. This morning, patient has been increased to 95%, 40 L as she was tachypneic and desatted on 85% as checked by the RT. ABG done showed pH of 7.42 with pCO2 48 and pO2 75. On Bactrim to cover PCP due to immunosuppression Plan -Continue to monitor the patient on high flow oxygen, wean as tolerated -Patient is on IV steroids taper, Solu-Medrol 125 mg daily for another 3 days (end-03/24/2024) after which she will be transition to prednisone 40 to 60 mg tapered. -Continue on mycophenolate mofetil and bactrim -Continue incentive spirometer # HFrEF # Moderate to severe pulmonary hypertension # group 3 PAH in the setting of ongoing lung disease -Patient denies pedal edema, shortness of breath, chest pain, angina. -BNP is elevated at the time of admission for which cardiology was consulted -Echo done during this admission showed EF of 40 to 45% with moderate to severe pulmonary hypertension. -Right heart cath performed on 03/21/2024 -Mild pulmonary hypertension with mean PAP greater than 25 mmHg, moderately elevated LVEDP at 27 mmHg, PVR is markedly elevated at 4 wood units and TPG is 23. Normal cardiac output and index. Isolated precapillary pH indicating Group 3 PAH secondary to lung disease and possibe componenet odf vasoconstriction along with fibrosis Plan -Diuresis was withheld in view of uptrending BUN and creatinine And as the patient is not fluid overloaded -Pending Tyvaso medication for pulmonary artery hypertension. -LISBET screening is still pending. -Started on mycophenolate Mofetil 500 Mg twice daily and will continue to taper off the steroi # ROBEL, prerenal -improving Likely in the setting of diuresis. -BUN and creatinine is within normal limits till 03/16/2024 -Patient is on furosemide 40 Mg IV 3 times daily. 03/13/2024- BUN 86, Cr - 1.4 -Urine output is well-maintained. Plan -Diuretics were withheld. -Will continue to monitor renal functions and avoid nephrotoxic medications -Renally dose medications. # Microcytic hypochromic anemia #Anemia of chronic disease -Hemoglobin is 9.5 at the time of admission -Iron panel showed iron deficiency. Plan -Iron infusion was withheld in the view of ongoing active lung disease -Will continue to monitor CBC. # Bilateral hand deformities Likely due to rheumatoid arthritis. RA factor and anti-CCP antibodies were sent. RA factor came out negative. Health maintenance: Dispo: Tele Diet: Regular GI: Pantoprazole DVT: SC Heparin Martinez: None Lines: Peripheral PT: Ordered Code: Full Case was discussed with senior resident Dr Angel PGY-3 and attending physician, Dr Belem Marks MD PGY-1
--- NOTE | 2024-03-23 17:30 | PD.PUPROG ---
Documentation for date of: 03/23/24 Subjective Subjective Interval history: Patient continues to show worsening exhaustion on bedside assessment. Unable to maintain respiratory effort. We did try to mobilize her to stimulate her but remains lethargic. Son at bedside and we did have dereje discussion on goals of care. I did explain limited utility for intubation/ ACLS and he has agreed to DNR status for now. Family now aware of grim prognosis and will be trying to get to bedside in coming days. She remains cachexic due to minimal nutrition now. She only briefly awake sto respond to family/ staff at times. Remains on HHHFNC at this time. Critical Care Note Critical care time (min.): 0 Exam Vital Signs Temp Pulse Resp BP Pulse Ox O2 Del Method O2 Flow Rate 96.7 F L 66 15 100/67 97 BiPAP 40 03/24/24 16:00 03/24/24 16:00 03/24/24 16:00 03/24/24 16:00 03/24/24 16:00 03/24/24 16:00 03/24/24 00:00 FiO2 65 03/24/24 14:15 Narrative Exam GEN: Tachypnea, pulmonary cachexia HEENT: dry mucus membranes CVS: S1/S2+ RRR Chest: accessory muscle use Pulm: Bilateral crackles throughout both lung coffman Abd: soft/ NT/ND Ext: no clubbing or cyanosis Neuro: minimal proximal muscle strength Psych: alert and oriented, remains stoic but reports fatigue Physical Exam Completion Physical Exam Complete?: Yes Objective - Burn Crew Member Labs 03/24/24 04:29 03/24/24 04:29 Labs: Laboratory Results - last 24 hr 03/24/24 04:29 WBC 9.6 RBC 4.07 Hgb 9.5 L Hct 32.0 L MCV 79 L MCH 23.3 L MCHC 29.7 L RDW Std Deviation 50.3 H Plt Count 319 Neut % (Auto) 92 H Lymph % (Auto) 2 L [place] % (Auto) 5 Eos % (Auto) 0 Baso % (Auto) 0 Neut # (Auto) 8.9 H Lymph # (Auto) 0.1 L [place] # (Auto) 0.5 Eos # (Auto) 0.0 Baso # (Auto) 0.0 Immature Gran # (Auto) 0.11 H Absolute Nucleated RBC 0.00 Immature Gran % 1 H Nucleated RBC % 0 Sodium 145 Potassium 5.1 D Chloride 105 Carbon Dioxide 30.9 Anion Gap 9 BUN 104 H* Creatinine 1.9 H D Estim Creat Clear Calc 15.1 L eGFR 26 L BUN/Creatinine Ratio 55 H Glucose 151 H Calculated Osmolality 324 H Calcium 9.7 Corrected Calcium 9.9 Phosphorus 10.8 H Magnesium 3.3 H Total Bilirubin 0.2 L AST 23 ALT 18 Alkaline Phosphatase 127 H Total Protein 5.9 Albumin 3.8 Globulin 2.1 L Albumin/Globulin Ratio 1.8 Assessment & Plan Additional Plan Additional Plan: Chronic hypersensitivity pneumonitis Acute hypoxic respiratory failure Pulmonary hypertension Worsening respiratory failure with grim prognosis Dereje discussion with the son at bedside, patient changed to DNR as no meaningful recovery with intubation. Similarly ACLS in setting of cardiac arrest would not allow for meaningful recovery to prior quality of life. Family and friend will be coming to bedside in next 24-48 hours Family will be allowed to stay at bedside overnight given demise likely in coming days Continue on steroid taper for gas exchange stability though no role for Cellcept and I did let cardiology know no need for Tyvaso now Due to worsening respiratory status, patient started on NIPPV for assitance, adequate MV achieved on AVAPS now Family appreciate of all care, will discuss next steps with family in coming days as they arrive I remain available for any questions/ concerns D/W medicine team at the bedside Provider Notation Provider Notation: Although this document has been carefully reviewed, there may still be some phonetic and other typographical errors. These errors are purely grammatical due to imperfections in the software program and should not be construed in any way to compromise the substance of the patient's medical care during this visit. Thank you for the opportunity and privilege in assisting you with this patient's care and management.
--- NOTE | 2024-03-23 18:18 | PC.NURSE ---
Went and spoke with SonCarlos with Dr. Angel concerning DNR status, son indicated that his mother would not want to resuscitated if her heart would stop. Dr. Angel spoke at great lengths with the son explaining her conditions and outcomes. Decision was made by the son to have patients code staus at DNR.
--- NOTE | 2024-03-23 18:32 | EVENTNT_ITS ---
<Statement entered by Deny Patricia MD - 03/25/24 08:06> 83-year-old female with multiple comorbidities including hypertension, hyperlipidemia, GERD status post Niesen fundoplication, rheumatoid arthritis who initially presented to the ER on 03/14/2024 with shortness of breath found to have acute hypoxic respiratory failure. During course of hospitalization, patient underwent CTA with findings of severe bilateral pneumonia ARDS pattern with bilateral bronchiectasis however no PE. Furthermore, patient underwent right heart cath with findings of pulmonary arterial hypertension group 3 and found to have acute decompensated heart failure and suspected hypersensitivity pneumonitis. Pulmonary team was consulted and recommended IV Solu-Medrol, mycophenolate, Bactrim and diuretics. Furthermore, goals of care was discussed with family and they agreeded for DNR/DNI. I reviewed above note and agree with findings and plans. I have also personally examined the patient with medicine team and went over assessment and plan with medical team including application development intern and resident physician. Documentation for date of: 03/23/24 Event Note Event Note: Patient's medical condition was noted to decline today, appears to show respiratory distress with a decrease in heart rate. Payment Manager Dr. Singh spoke with patient and patient's son Carlos (Aj). Subsequently, Dr. Angel (PGY-3) and RN Angela also spoke with patient and son Carlos regarding code status. Patient appeared lethargic and in distress, was unable to speak when asked questions. After discussions regarding code status, patient's son Carlos (Aj) stated that given this condition, patient would prefer to be DNR/DNI but continue with current medical treatment. Patient's son Carlos (Aj) was explained the prognosis and understands the decision of DNR/DNI. We will respect the decision and change code status to DNR/DNI. Patient case discussed with attending physician Dr. Belem Angel, DO PGY-3
[2024-03-24] VITALS (16 sets, daily range): BP systolic 100–135; BP diastolic 40–67; PULSE 50–76; RESP 15–36; TEMP 35.5–36.1; O2SAT 97–100; BMI 17.7
[2024-03-24 06:01] LABS: Basophils % (Auto) 0 % (0-2.5); Eosinophils % (Auto) 0 % (0-10); Hemoglobin 9.5 g/dL (12.0-16.0); Immature Granulocytes % (Auto) 1 % (0-0); Immature Granulocytes Auto 0.11 Thou/mm3 (0.00-0.00); Lymphocytes # (Auto) 0.1 Thou/mm3 (1.0-4.8); Lymphocytes % (Auto) 2 % (10-50); Mean Corpuscular HGB Conc 29.7 g/dl (31.0-37.0); Mean Corpuscular Hemoglobin 23.3 pg (25.0-35.0); Mean Corpuscular Volume 79 fL (80-100); Monocytes # (Auto) 0.5 Thou/mm3 (0.0-0.8); Monocytes % (Auto) 5 % (0-12); Neutrophils # (Auto) 8.9 Thou/mm3 (1.8-7.7); Neutrophils % (Auto) 92 % (37-80); Nucleated Red Blood Cell % 0 /100 WBC (0); Platelet Count 319 Thou/mm3 (140-440); RDW Standard Deviation 50.3 fL (36.4-46.3); Red Blood Count 4.07 Miln/mm3 (4.00-5.20); White Blood Count 9.6 Thou/mm3 (3.6-11.0)
[2024-03-24 06:44] LABS: Alanine Aminotransferase 18 U/L (10-49); Albumin, Serum 3.8 gm/dL (3.4-4.8); Albumin/Globulin Ratio 1.8 (1.2-2.2); Alkaline Phosphatase 127 U/L (46-116); Anion Gap 9 (7-16); Aspartate Amino Transferase 23 U/L (0-34); BUN/Creatinine Ratio 55 Ratio (12-20); Bilirubin,Total 0.2 mg/dL (0.3-1.2); Calcium 9.7 mg/dL (8.3-10.6); Calcium (Corrected) 9.9 mg/dL (8.5-10.1); Carbon Dioxide 30.9 mMol/L (20.0-31.0); Chloride 105 mMol/L (98-107); Creatinine (Component) 1.9 mg/dL (0.6-1.3); Estimated Creatinine Clearance 15.1 mL/min (>60); Globulin 2.1 gm/dL (2.3-3.5); Glucose 151 mg/dL (74-106); Magnesium 3.3 mg/dL (1.6-2.6); Osmolality,Calculated 324 (275-295); Potassium 5.1 mMol/L (3.4-5.1); Sodium 145 mMol/L (136-145); Total Protein 5.9 gm/dL (5.7-8.2); eGFR 26 See Note
[2024-03-24 07:12] LABS: Blood Urea Nitrogen 104 mg/dL (9-23); Phosphorous 10.8 mg/dL (2.4-5.1)
[2024-03-24] MEDS: MethylPREDNISolone SOD SUCC 62.5 MG/ML 2ML VIAL 125 MG IV (09:32)
[2024-03-24] MEDS: HEPARIN SOD INJ 5000 UNIT/ML VIAL SC ×2 (09:32→21:00)
--- NOTE | 2024-03-24 09:57 | EVENTNT_ITS ---
<Statement entered by Annetta Angel DO - 03/24/24 10:05> Senior attestation: Patient was examined and case was reviewed with team including attending physician. Note reviewed, I agree with most of its contents and agree with the patient's care. Code status changed from DNR/DNI to Full Code status. Annetta Angel DO PGY-3 Documentation for date of: 03/24/24 Event Note Event Note: On 03/24/2020 at 9:45 AM, Dr. Angel (PGY-3) and myself Katia Robledo (PGY?2) spoke with patient and son Carlos regarding code status. Patient appeared lethargic and in distress, was unable to speak when asked questions. After discussions regarding code status, patient's son Carlos (Aj) stated that given family is traveling to the hospital to see patient, patient would prefer to be full code with continuation of current medical treatment. Patient's son Carlos (Aj) was explained the prognosis and understands the decision of full code. We will next of kin decision and change code status from the/DNI to full code. Thank you, aKtia Robledo MD
--- NOTE | 2024-03-24 10:58 | PC.SS ---
Follow up note: Pt is on Bipap.
--- NOTE | 2024-03-24 11:28 | ESPR_ITS ---
<Statement entered by Annetta Angel DO - 03/24/24 15:48> Senior attestation: Patient was examined and case was reviewed with team including attending physician. Note reviewed, I agree with most of its contents and agree with the patient's care. Had discussion with patient's son Aj Aragon) regarding code status -has changed back to full code. Creatinine levels worsening to 1.9 today, will consult industrial paramedic Dr. Matos, we appreciate recommendations. Will continue BiPAP AVAPS setting under ICU recommendations, patient's prognosis remains guarded. Annetta Angel DO PGY-3 Documentation for date of: 03/24/24 Subjective Subjective Interval history: No acute overnight events. Patient seen and observed with family at bedside. She is unable to speak as she is currently resting on BiPAP. She was observed while on BiPAP in AVAPS setting, Saturating 99% on BiPAP. On auscultation, bilateral rales appreciated in all lung lobes. No edema noted in the lower or upper extremities. Patient's creatinine is worsening from 1.4 to 1.9. Potassium elevated at 1.5 today. Patient's family requested CODE STATUS changed meeting. Dr. Angel (PGY-3) and myself Katia Robledo (PGY?2) spoke with patient and son Carlos regarding code status. After discussions regarding code status, patient's son Carlos (Aj) stated that given family is traveling to the hospital to see patient, patient would prefer to be full code with continuation of current medical treatment. Patient's son Carlos (Aj) was explained the prognosis and understands the decision of full code. We will next of kin decision and change code status from the/DNI to full code. Will continue BiPAP with AVAPS setting per ICU clinical operations consultant recommendations. Continue Bactrim and monitor for side effects including hyperkalemia. Exam Vital Signs Temp Pulse Resp BP Pulse Ox O2 Del Method O2 Flow Rate 96 F L 52 L 21 H 112/40 L 99 BiPAP 40 03/24/24 08:00 03/24/24 10:47 03/24/24 10:47 03/24/24 08:00 03/24/24 10:47 03/24/24 08:00 03/24/24 00:00 FiO2 75 03/24/24 10:47 Narrative Exam General: Frail elderly female. Awake and in moderate distress. on [place] using muscles of respiration HEENT: Normocephalic, atraumatic, mucous membranes moist. Heart: Regular rate and rhythm, no murmurs. Lungs: Bronchial breath sounds are appreciated. Rales noted b/l all lung lobes. Abdomen: Soft, nondistended, nontender, positive bowel sounds. ?No guarding or rebound tenderness. Neurologic: No gross neurological deficit. Extremities: No edema. Bilateral deformities of hand noted indicative of rheumatoid arthritis Skin: No rash or ecchymoses. Objective Labs 03/25/24 05:40 03/25/24 06:24 Labs: Laboratory Results - last 24 hr 03/24/24 04:29 WBC 9.6 RBC 4.07 Hgb 9.5 L Hct 32.0 L MCV 79 L MCH 23.3 L MCHC 29.7 L RDW Std Deviation 50.3 H Plt Count 319 Neut % (Auto) 92 H Lymph % (Auto) 2 L [place] % (Auto) 5 Eos % (Auto) 0 Baso % (Auto) 0 Neut # (Auto) 8.9 H Lymph # (Auto) 0.1 L [place] # (Auto) 0.5 Eos # (Auto) 0.0 Baso # (Auto) 0.0 Immature Gran # (Auto) 0.11 H Absolute Nucleated RBC 0.00 Immature Gran % 1 H Nucleated RBC % 0 Sodium 145 Potassium 5.1 D Chloride 105 Carbon Dioxide 30.9 Anion Gap 9 BUN 104 H* Creatinine 1.9 H D Estim Creat Clear Calc 15.1 L eGFR 26 L BUN/Creatinine Ratio 55 H Glucose 151 H Calculated Osmolality 324 H Calcium 9.7 Corrected Calcium 9.9 Phosphorus 10.8 H Magnesium 3.3 H Total Bilirubin 0.2 L AST 23 ALT 18 Alkaline Phosphatase 127 H Total Protein 5.9 Albumin 3.8 Globulin 2.1 L Albumin/Globulin Ratio 1.8 ABG Interpretation ABG results: 03/15/24 03/16/24 03/17/24 20:34 20:31 02:35 ABG pH 7.45 7.47 H 7.40 ABG pCO2 34 38 41 ABG pO2 100 79 L D 94 ABG HCO3 24 27 H 25 ABG O2 Saturation 99 H 97 98 ABG Base Excess 0 4 H 0 VBG pH VBG pCO2 VBG pO2 VBG Base Excess 03/18/24 03/21/2403/21/24 02:37 05:08 18:27 ABG pH 7.40 Cancelled ABG pCO2 41 Cancelled ABG pO2 95 Cancelled ABG HCO3 25 Cancelled ABG O2 Saturation 98 Cancelled ABG Base Excess 0 Cancelled VBG pH 7.52 VBG pCO2 37 VBG pO2 64 H VBG Base Excess 7 H 03/21/24 03/21/24 03/23/24 18:49 18:56 09:21 ABG pH Cancelled 7.47 H 7.42 ABG pCO2 Cancelled 44 48 ABG pO2 Cancelled 44 L* 75 L D ABG HCO3 Cancelled 31 H 32 H ABG O2 Saturation Cancelled 81 L 96 ABG Base Excess Cancelled 7 H 6 H VBG pH VBG pCO2 VBG pO2 VBG Base Excess Quality Measures Quality Measures sepsis Current suspected stage: sepsis Possible source: pulmonary Blood cultures ordered: completed in ED Antibiotic ordered: Yes Advance care planning discussed with:: patient Assessment & Plan Assessment Current Active Medications: Generic Name Dose Route Start Last Admin Trade Name Freq PRN Reason Stop Dose Admin Acetaminophen 650 mg 03/14/24 03:00 Acetaminophen 325 Mg Tablet PO 04/13/24 02:59 Q6H PRN PAIN OR FEVER > 101 Albuterol/Ipratropium 3 ml 03/15/24 16:21 03/23/24 01:34 Albuterol/Ipratropium (Duoneb) Rt Rissa 3 Ml Nebu INH 04/14/24 16:20 3 ml Q2HR PRN Administration SHORTNESS OF BREATH OR WHEEZE Buspirone HCl 5 mg 03/20/24 19:00 03/24/24 08:33 Buspirone Hcl 5 Mg Tablet PO 04/19/24 18:59 Not Given BID EMPERATRIZ Heparin Sodium (Porcine) 5,000 unit 03/14/24 09:00 03/24/24 09:32 Heparin Sod Inj 5000 Unit/Ml Vial SC 03/28/24 08:59 5,000 unit Q12HR EMPERATRIZ Administration Hydralazine HCl 25 mg 03/21/24 08:30 03/24/24 06:48 Hydralazine Hcl 25 Mg Tablet PO 04/20/24 08:29 Not Given TID EMPERATRIZ Labetalol HCl 100 mg 03/14/24 04:40 03/23/24 22:29 Labetalol 100 Mg Tablet PO 04/13/24 04:39 Not Given BID EMPERATRIZ Methylprednisolone Sodium Succinate 125 mg 03/23/24 09:00 03/24/24 09:32 Methylprednisolone Sod Succ 62.5 Mg/Ml 2ml Vial IV 03/26/24 08:59 125 mg QDAY EMPERATRIZ Administration Mirtazapine 15 mg 03/23/24 21:00 03/23/24 22:13 Mirtazapine 15 Mg Tablet PO 04/22/24 20:59 Not Given HS EMPERATRIZ Mycophenolate Mofetil 500 mg 03/22/24 10:00 03/24/24 08:33 Mycophenolate 250 Mg Capsule (Non-Formulary) PO 04/21/24 09:59 Not Given BID EMPERATRIZ Nicardipine HCl 30 mg 03/20/24 21:00 03/24/24 06:48 Nicardipine 30 Mg Capsule (Non-Form) PO 04/19/24 20:59 Not Given QID EMPERATRIZ Ondansetron HCl 4 mg 03/14/24 03:00 Ondansetron Inj 2 Mg/Ml Inj 2 Ml IV 04/13/24 02:59 Q6H PRN NAUSEA OR VOMITING Protocol Pantoprazole Sodium 40 mg 03/14/24 09:00 03/24/24 08:33 Pantoprazole 40 Mg Tablet PO 04/13/24 08:59 Not Given QDAY [facility] Trimethoprim/Sulfamethoxazole 1 tab 03/22/24 16:20 03/24/24 08:33 Trimethoprim/Sulfa 160/800 Ds Tablet PO 03/29/24 16:19 Not Given QDAY [facility] Plan An 83-year-old female with a past medical history of hypertension and depression who presented to the ED on 03/14/2024 with shortness of breath and PND gotten worse within the last few days. The patient was admitted for management of acute hypoxic respiratory failure secondary to ?New onset CHF and sepsis secondary to community-acquired pneumonia. She is suspected to have hypersensitivity pneumonitis. # Acute hypoxic respiratory failure # ARDS # Bilateral pulmonary infiltrates with severe hypertension #? Chronic hypersensitivity pneumonitis Patient was admitted for shortness of breath requiring high flow with subsequent upgrade to ICU on 03/16/2024 in view of low saturations despite being on high flow oxygen for observation and further care. Upon becoming medically stable, patient was downgraded to floors is now on BiPAP with AVAPS setting with Fio2 75% per recommendations from ICU team. ABG done showed pH of 7.42 with pCO2 48 and pO2 75. Saturating at 99% on BiPAP. Denies fever, cough, nausea, abdominal pain, weight loss, appetite loss. BNP is >3000 for which cardiology was consulted. Echo done showed severe pulmonary hypertension CT showed bilateral infiltrates with ARDS pattern. Patient was noted to have bilateral hand deformities and when asked about the history, patient's [id number] stated that she was diagnosed to have rheumatoid arthritis but did not get any treatment for that. Creatinine kinase - normal limits, aldolase normal limits. Group A antigen was negative streptococcus and Legionella antigen is still pending. Discussed with patient and family about the guarded condition of the patient. Family made aware and was given an opportunity to ask questions. Questions were answered accordingly. Plan -Continue to monitor the patient on high flow oxygen, wean as tolerated -Patient is on IV steroids taper, Solu-Medrol 125 mg daily for another 3 days (end-03/24/2024) after which she will be transitioned to prednisone 40 to 60 mg tapered. -Continue bactrim; monitor for hyperkalemia -Continue incentive spirometer -RA factor, anti-CCP, LISBET pending. -On Bactrim to cover PCP due to immunosuppression. 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 Patient denies pedal edema, shortness of breath, chest pain, angina. BNP elevated at the time of admission Echo done during this admission showed EF of 40 to 45% with moderate to severe pulmonary hypertension. Right heart cath on 03/21/2024: Mild pulmonary hypertension with mean PAP greater than 25 mmHg, moderately elevated LVEDP at 27 mmHg, PVR is markedly elevated at 4 wood units and TPG is 23. Normal cardiac output and index. Isolated precapillary pH indicating Group 3 PAH secondary to lung disease and possibe component of vasoconstriction along with fibrosis Plan -Cardiology consult; appreciate reccs -Diuresis was withheld in view of uptrending BUN and creatinine -unable to get Tyvaso approved as he requires extensive documentation for full and final approval; may consider bosentan -LISBET screening is still pending. -Started on mycophenolate Mofetil 500 Mg twice daily and will continue to taper off the steroid #ROBEL, prerenal Likely in the setting of diuresis. BUN and creatinine were within normal limits till 03/16/2024 Patient's creatinine worsened from 1.4-1.9. Plan: -Nephrology Dr. Matos consulted; appreciate recommendations -Diuretics withheld. -Will continue to monitor renal functions and avoid nephrotoxic medications -Renally dose medications. # Microcytic hypochromic anemia #Anemia of chronic disease #Iron deficiency anemia Hemoglobin is 9.5 at the time of admission Iron panel showed iron deficiency. Plan -Iron infusion was withheld in the view of ongoing active lung disease -Will continue to monitor CBC. # Bilateral hand deformities Likely due to rheumatoid arthritis. RA factor and anti-CCP antibodies were sent. RA factor came out negative. Health maintenance: Dispo: Tele Diet: Regular GI: Pantoprazole DVT: SC Heparin Martinez: None Code status: Full *CODE STATUS was changed today from DNR/DNI to full. Patient's family states that patient is waiting/anticipates for family to arrive and family understands that patient's condition is guarded.* Discussed case with my attending Dr. Patricia and senior Stanley, PGY-3. Thank you, Katia Robledo, PGY-2 Attending Provider Attestation/Addendum 83-year-old female with multiple comorbidities including hypertension, hyperlipidemia, GERD status post Niesen fundoplication, rheumatoid arthritis who initially presented to the ER on 03/14/2024 with shortness of breath found to have acute hypoxic respiratory failure. During course of hospitalization, patient underwent CTA with findings of severe bilateral pneumonia ARDS pattern with bilateral bronchiectasis however no PE. Furthermore, patient underwent right heart cath with findings of pulmonary arterial hypertension group 3 and found to have acute decompensated heart failure and suspected hypersensitivity pneumonitis. Pulmonary team was consulted and recommended IV Solu-Medrol, mycophenolate, Bactrim and diuretics. Furthermore, goals of care was discussed with family and initially wanted to be DNR/DNI however son who is decision-maker wanted to switch code wants to proceed with full code. Overall prognosis extremely guarded given extent of bilateral diffuse opacities and primary arterial hypertension group 3. In addition, patient creatinine continues to uptrend and BUN in the 100s likely secondary to steroid use for which plan to consult nephrology. I did explain to some and family poor prognosis and likely if she was to be intubated she would be a difficult extubation however they stated that they want patient to be full code for which we will respect. Currently, on BiPAP and will keep a close eye given that patient is at risk for respiratory compromise and possible intubation. I reviewed above note and agree with findings and plans. I have also personally examined the patient with medicine team and went over assessment and plan with medical team including internist medical doctor md and resident physician.
--- NOTE | 2024-03-24 15:00 | PD.NEPHCONS ---
History of Present Illness Data of Consult Requesting Physician: Kelsey Britt DO Primary Care Provider: Jabier Campos MD Consult Narrative History of present illness: 83-year-old female with a past medical history of hypertension and depression who presents to the ED with shortness of breath. Nephrology is consulted for ROBEL. Pt is in ICU and is intubated. cc:: cc: Kelsey Brtit DO Review of Systems Review of Systems ROS Unobtainable: unobtainable due to medical condition and due to endotracheal tube Meds Home Medications and Allergies Home Medications ?Medication ?Instructions ?Recorded ?Confirmed ?Type loratadine 10 mg tablet 10 mg PO QAM 09/28/22 03/15/24 History montelukast 10 mg tablet 10 mg PO QPM 09/28/22 03/15/24 History sertraline 100 mg tablet 200 mg PO DAILY 09/28/22 03/15/24 History acetaminophen 500 mg tablet 500 mg PO Q6HR PRN Pain 03/15/24 03/15/24 History alendronate 70 mg tablet 70 mg PO QWEEK 03/15/24 03/15/24 History amlodipine 5 mg tablet 5 mg PO QPM 03/15/24 03/15/24 History calcium 600 mg (as 1 tab PO BID 03/15/24 03/15/24 History carbonate)-vitamin D3 10 mcg (400 unit) tablet celecoxib 100 mg capsule 100 mg PO BID 03/15/24 03/15/24 History cyclobenzaprine 5 mg tablet 5 mg PO 2XD 03/15/24 03/15/24 History fluticasone propionate 50 1 spray intranasal BID 03/15/24 03/15/24 History mcg/actuation nasal spray,suspension labetalol 100 mg tablet 100 mg PO 2XD 03/15/24 03/15/24 History lidocaine 5 % topical patch 1 patch topical QDAY 03/15/24 03/15/24 History mirtazapine 30 mg tablet 30 mg PO QPM 03/15/24 03/15/24 History Allergies Allergy/AdvReac Type Severity Reaction Status Date / Time ciprofloxacin Allergy Severe NAUSEA/VOMI Verified 09/28/22 12:24 TING Sulfa (Sulfonamide Allergy Severe Rash Verified 09/28/22 12:24 Antibiotics) Exam Vital Signs Temp Pulse Resp BP Pulse Ox O2 Del Method O2 Flow Rate 96.0 F L 63 31 H 118/64 99 BiPAP 40 03/24/24 12:00 03/24/24 14:15 03/24/24 14:15 03/24/24 12:00 03/24/24 14:15 03/24/24 12:00 03/24/24 00:00 FiO2 65 03/24/24 14:15 Narrative Exam Pt is intubated respi: heidi crackles ext plus 1 edema Heart s1,s2 Results Labs 03/26/24 05:15 03/26/24 05:15 Labs: Short CBC 03/24/24 Range/Units 04:29 WBC 9.6 (3.6-11.0) Thou/mm3 Hgb 9.5 L (12.0-16.0) g/dL Hct 32.0 L (36.0-46.0) % Plt Count 319 (140-440) Thou/mm3 BMP 03/24/24 04:29 Sodium 145 Potassium 5.1 D Chloride 105 Carbon Dioxide 30.9 BUN 104 H* Creatinine 1.9 H D Glucose 151 H Calcium 9.7 Liver Function 03/24/24 Range/Units 04:29 Total Bilirubin 0.2 L (0.3-1.2) mg/dL AST 23 (0-34) U/L ALT 18 (10-49) U/L Alkaline Phosphatase 127 H (46-116) U/L Albumin 3.8 (3.4-4.8) gm/dL ABG Interpretation ABG results: 03/15/24 03/16/24 03/17/24 20:34 20:31 02:35 ABG pH 7.45 7.47 H 7.40 ABG pCO2 34 38 41 ABG pO2 100 79 L D 94 ABG HCO3 24 27 H 25 ABG O2 Saturation 99 H 97 98 ABG Base Excess 0 4 H 0 VBG pH VBG pCO2 VBG pO2 VBG Base Excess 03/18/24 03/21/24 03/21/24 02:37 05:08 18:27 ABG pH 7.40 Cancelled ABG pCO2 41 Cancelled ABG pO2 95 Cancelled ABG HCO3 25 Cancelled ABG O2 Saturation 98 Cancelled ABG Base Excess 0 Cancelled VBG pH 7.52 VBG pCO2 37 VBG pO2 64 H VBG Base Excess 7 H 03/21/24 03/21/24 03/23/24 18:49 18:56 09:21 ABG pH Cancelled 7.47 H 7.42 ABG pCO2 Cancelled 44 48 ABG pO2 Cancelled 44 L* 75 L D ABG HCO3 Cancelled 31 H 32 H ABG O2 Saturation Cancelled 81 L 96 ABG Base Excess Cancelled 7 H 6 H VBG pH VBG pCO2 VBG pO2 VBG Base Excess Assessment & Plan Assessment and plan (1) Bilateral pneumonia: Status: Acute (2) Acute kidney injury: Status: Acute Assessment and plan: Overall poor prognosis family palning to change care to comfort focussed care
--- NOTE | 2024-03-24 17:30 | PD.PUPROG ---
Documentation for date of: 03/24/24 Subjective Subjective Interval history: Patient stable on AVAPs overnight. Adequate TV And minute ventilation. RR remains in 20-30 range with intermittent drop into teens. Medicine team spoke with family at bedside. Plan to return to full code as means to allow family to arrive. A son is coming on Wednesday from [place]. They are miller of grim prognosis. She remains minimally responsive but protecting airway at this time. Family allowed to stay at bedside overnight. Multiple friends and family met throughout serial assessment during the day. Critical Care Note Critical care time (min.): 0 Exam Vital Signs Temp Pulse Resp BP Pulse Ox O2 Del Method O2 Flow Rate 96.7 F L 66 15 100/67 97 BiPAP 40 03/24/24 16:00 03/24/24 16:00 03/24/24 16:00 03/24/24 16:00 03/24/24 16:00 03/24/24 16:00 03/24/24 00:00 FiO2 65 03/24/24 14:15 Narrative Exam GEN: Lethargic, minimally opens eyes to verbal stimulation HEENT: Bipap mask in place, dry mucus membranes Neck: No JVD, supple Chest: accessory muscle use Pulm: Bilateral crackles throuhgout Abd: soft/ MT/ND Ext: no pedal edema, cyanosis, clubbing Neuro: unable to participate Psych: lethargic Physical Exam Completion Physical Exam Complete?: Yes Objective - Service And Repair Supervisor Labs 03/24/24 04:29 03/24/24 04:29 Labs: Laboratory Results - last 24 hr 03/24/24 04:29 WBC 9.6 RBC 4.07 Hgb 9.5 L Hct 32.0 L MCV 79 L MCH 23.3 L MCHC 29.7 L RDW Std Deviation 50.3 H Plt Count 319 Neut % (Auto) 92 H Lymph % (Auto) 2 L [place] % (Auto) 5 Eos % (Auto) 0 Baso % (Auto) 0 Neut # (Auto) 8.9 H Lymph # (Auto) 0.1 L [place] # (Auto) 0.5 Eos # (Auto) 0.0 Baso # (Auto) 0.0 Immature Gran # (Auto) 0.11 H Absolute Nucleated RBC 0.00 Immature Gran % 1 H Nucleated RBC % 0 Sodium 145 Potassium 5.1 D Chloride 105 Carbon Dioxide 30.9 Anion Gap 9 BUN 104 H* Creatinine 1.9 H D Estim Creat Clear Calc 15.1 L eGFR 26 L BUN/Creatinine Ratio 55 H Glucose 151 H Calculated Osmolality 324 H Calcium 9.7 Corrected Calcium 9.9 Phosphorus 10.8 H Magnesium 3.3 H Total Bilirubin 0.2 L AST 23 ALT 18 Alkaline Phosphatase 127 H Total Protein 5.9 Albumin 3.8 Globulin 2.1 L Albumin/Globulin Ratio 1.8 Assessment & Plan Additional Plan Additional Plan: Chronic hypersensitivity pneumonitis Pulmonary hypertension, group III No need for Cellcept or Tyvaso Continue on steroid taper Bipap on AVAPs with adequate minute ventilation Escalation to MV as needed for plan for family to arrive, I did explain the risks/ benefits of aggressive care including ACLS and the son would like to try as a bridge to get family time to arrive to say goodbye despite our conversation in detail yesterday. I did explain high likelihood of worsening respiratory failure prior to their goal of Wednesday. Will plan for withdrawal of life support at that time I remain available for any adjustments as needed throughout the day Provider Notation Provider Notation: Although this document has been carefully reviewed, there may still be some phonetic and other typographical errors. These errors are purely grammatical due to imperfections in the software program and should not be construed in any way to compromise the substance of the patient's medical care during this visit. Thank you for the opportunity and privilege in assisting you with this patient's care and management.
[2024-03-24] MEDS: RINGERS LACTATED 1000 ML 1,000 ML 75 ML IV (17:54)
--- NOTE | 2024-03-24 18:45 | PD.IMPROG ---
Documentation for date of: 03/24/24 Subjective Subjective Interval history: Patient seen and examined at the bedside. Respiratory status has worsened over the last day and is on BiPAP now and not anymore on high flow nasal cannula and is using extra muscles Patient condition significantly deteriorated over the last 1 to 2 days and is minimally responsive with altered mental status and in significant respiratory distress Patient is now on BiPAP at all times. Patient's CODE STATUS was changed to DNR yesterday but again the family requested the patient to be changed back to full code this morning Her respiratory status is tenuous and will need possible intubation and mechanical ventilation if her condition deteriorates and overall poor prognosis given her severe interstitial lung disease which appears to be a group 3 as noted previously. Patient Tyvaso also was ordered by me to the [facility] specialty pharmacy but as noted Honey take some time to obtain the medication after the authorizations Telemetry reviewed and patient continues to have sinus rhythm with sinus arrhythmias with few PACs and PVCs. Blood pressure appears to be slightly on the softer side with the systolic 101 120 mmHg but overall heart rate is also well controlled. Currently on Mycophenolate and Septra and Methylprednisone 125mg IV Q day RF was negative and rest of autoimmune screen Including anti-CCP, LISBET, aldolase pending Strep A, influenza A & B, RSV, cocci and COVID-19 were all negative on this admission Patient has mild pulmonary hypertension with mean PAP greater than 32 mmHg as seen on right heart cath completed on 03/21/2024. Patient will need to start Tyvaso a prostaglandin analog for treatment. However this medication is not available at this hospital and an outpatient prescription will have to be written for the patient's family to collect the medication from a specialist pharmacy to bring to the hospital. Exam Vital Signs Temp Pulse Resp BP Pulse Ox O2 Del Method O2 Flow Rate 96.7 F L 66 15 100/67 97 BiPAP 40 03/24/24 16:00 03/24/24 16:00 03/24/24 16:00 03/24/24 16:00 03/24/24 16:00 03/24/24 16:00 03/24/24 00:00 FiO2 65 03/24/24 14:15 Narrative Exam Constitutional Alert, oriented x 3 and in mild distress. Cachectic, Temporal wasting, Elderly Female on O2 via HFNC, cannot complete sentences. HEENT Vision grossly intact. Patent nares. Trachea midline Respiratory Wasted on inspection poor inspiratory effort, decreased AE in all lung coffman , scattered fine crackles heard throughout b/l lung coffman Cardiovascular S1 and S2 audible, RRR. Abdominal Soft and non tender to palpation in all quadrants. BS + Genitourinary No bladder tenderness, no flank pain. Normal to palpation Musculoskeletal Extremities tone within normal limits. No LE edema. Neurological CN II - XII grossly intact. Extremity motor and sensation grossly intact. Skin Warm, dry and intact. No apparent lesions. Psychiatric Cooperative Objective Labs 03/25/24 05:40 03/25/24 06:24 Labs: Laboratory Results - last 24 hr 03/24/24 04:29 WBC 9.6 RBC 4.07 Hgb 9.5 L Hct 32.0 L MCV 79 L MCH 23.3 L MCHC 29.7 L RDW Std Deviation 50.3 H Plt Count 319 Neut % (Auto) 92 H Lymph % (Auto) 2 L [place] % (Auto) 5 Eos % (Auto) 0 Baso % (Auto) 0 Neut # (Auto) 8.9 H Lymph # (Auto) 0.1 L [place] # (Auto) 0.5 Eos # (Auto) 0.0 Baso # (Auto) 0.0 Immature Gran # (Auto) 0.11 H Absolute Nucleated RBC 0.00 Immature Gran % 1 H Nucleated RBC % 0 Sodium 145 Potassium 5.1 D Chloride 105 Carbon Dioxide 30.9 Anion Gap 9 BUN 104 H* Creatinine 1.9 H D Estim Creat Clear Calc 15.1 L eGFR 26 L BUN/Creatinine Ratio 55 H Glucose 151 H Calculated Osmolality 324 H Calcium 9.7 Corrected Calcium 9.9 Phosphorus 10.8 H Magnesium 3.3 H Total Bilirubin 0.2 L AST 23 ALT 18 Alkaline Phosphatase 127 H Total Protein 5.9 Albumin 3.8 Globulin 2.1 L Albumin/Globulin Ratio 1.8 ABG Interpretation ABG results: 03/15/24 03/16/24 03/17/24 20:34 20:31 02:35 ABG pH 7.45 7.47 H 7.40 ABG pCO2 34 38 41 ABG pO2 100 79 L D 94 ABG HCO3 24 27 H 25 ABG O2 Saturation 99 H 97 98 ABG Base Excess 0 4 H 0 VBG pH VBG pCO2 VBG pO2 VBG Base Excess 03/18/24 03/21/24 03/21/24 02:37 05:08 18:27 ABG pH 7.40 Cancelled ABG pCO2 41 Cancelled ABG pO2 95 Cancelled ABG HCO3 25 Cancelled ABG O2 Saturation 98 Cancelled ABG Base Excess 0 Cancelled VBG pH 7.52 VBG pCO2 37 VBG pO2 64 H VBG Base Excess 7 H 03/21/24 03/21/24 03/23/24 18:49 18:56 09:21 ABG pH Cancelled 7.47 H 7.42 ABG pCO2 Cancelled 44 48 ABG pO2 Cancelled 44 L* 75 L D ABG HCO3 Cancelled 31 H 32 H ABG O2 Saturation Cancelled 81 L 96 ABG Base Excess Cancelled 7 H 6 H VBG pH VBG pCO2 VBG pO2 VBG Base Excess Assessment & Plan A&P Narrative Patient is an 83-year-old female with a past medical history significant for essential hypertension, hyperlipidemia, TIA [2021], depression and GERD s/p Benjamin fundoplication with hiatal hernia repair [2017]. Follows up with PCP Dr Campos. Patient presented to the ED with a chief complaint of shortness of breath. Patient was admitted for acute respiratory failure with hypoxia and cardiology was consulted to assess for possible new onset CHF. 1. Acute respiratory failure with hypoxia - worsening 2. Acute decompensated diastolic heart failure ?new onset [40-45%] 3. Pulmonary Hypertension - Group 3 4. ACS ruled out 5. NSTEMI type II On presentation patient was severely SOB unable to complete sentences and lying at a 45 degree angle. On exam she had no lower extremity edema but poor inspiratory effort, decreased air entry and scattered crackles at the bases and a 3/6 diastolic murmur heard at left lower sternal border. She was not on any home diuretic and not known to have heart failure in the past, however clinically she appears to be in acute decompensated heart failure exacerbation. BNP on admission 3280 and troponin elevated at 0.1 up trended to 0.124 and downtrending to 0.121 likely in the setting of CHF exacerbation EKG on admission showed sinus rhythm, rate 95, LVH. Chest x-ray was significant for increased vascular markings bilaterally flash pulmonary edema. DDx : ILD, RA flare, Allergic interstital pneumonitis, Primary pulmonary hypertension, ARDS BNP can also be elevated in ILD Last echocardiogram completed [place] [address] Brock Strickland findings include: Normal left ventricular size with mild LVH. LVEF 60%. normal cardiac chamber size mitral valve thickening with trace regurgitation moderate aortic valve regurgitation Transthoracic echocardiogram completed on 03/14 findings include: Normal LV size. Mild systolic dysfunction. Mild hypokinesis basal to mid Anterior and anteroseptal gale. Mild LVH. Grade I diastolic dysfunction. Estimated EF 40-45% Normal RV size. Normal RV function. Estimated RVSP 68mmHg. Moderate to severe PAH. RAP 10. Mild LA dilation. Severe RA dilation Moderate MR, AI. Mild TR. Trace PI. IVC dilated. Chest CTA completed 03/16 showed severe bilateral pneumonia ARDS pattern with ground glass opacities, bilateral bronchiectasis, fibrosis and significant consolidation, negative for pulmonary artery emboli. Abdomen CT was significant for Large Liver Simple Cyst Of note patient also admitted to having rheumatoid arthritis. Overnight 03/17 patient's became confused and was attempting to remove high flow nasal cannula and subsequently desaturated to the 50s. At the bedside patient appeared to be confused and her mouth was cyanotic. Patient was again placed on high flow nasal cannula and upgraded to the ICU for closer monitoring and possible intubation if necessary. Right heart cardiac catheterization with measurements of right heart pressures and cardiac output by Maria E method as well as thermodilution method completed on 03/21/2024 findings include: Mean right atrial pressure was 29mmHg. Right atrial pressure was 55/3 mmHg. Pulmonary artery pressure was 55/16 mmHg with a mean of 32 mmHg. Mean pulmonary capillary wedge pressure was 9 mmHg. TPG was 23 mmHg Pulmonary artery PA saturation was 79%. Arterial saturation was 91% and 40 L at 100% FiO2 Cardiac output was 5.6 L/min and cardiac index was 4.1 L/min/m?. Pulmonary vascular resistance was 4 Wood units and total pulm resistance was 6 Wood units Systemic vascular resistance is 1064 Dynes?sec?cm?? 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 Strict input output charting ? 2 g sodium restricted diet ? Daily weights - 1500cc fluid restriction ? Aspirin 81 mg p.o. daily - No additional diuresis needed as patient is eulvolemic. Continue to slowly taper off the high flow oxygen as tolerated. ? No need to further trend troponin - Pending Autoimmune screen including Anit- CCP , LISBET, aldolase - Patient will need to start Tyvaso a prostaglandin analog for treatment. - However this medication is not available at this hospital and an outpatient prescription will have to be written for the patient's family to collect the medication from a specialist pharmacy to bring to the hospital. - Rest of care as per Pulmonology and Primary Team 03/24/2024 Respiratory status has worsened over the last day and is on BiPAP now and not anymore on high flow nasal cannula and is using extra muscles Patient condition significantly deteriorated over the last 1 to 2 days and is minimally responsive with altered mental status and in significant respiratory distress Patient is now on BiPAP at all times. Patient's CODE STATUS was changed to DNR yesterday but again the family requested the patient to be changed back to full code this morning Her respiratory status is tenuous and will need possible intubation and mechanical ventilation if her condition deteriorates and overall poor prognosis given her severe interstitial lung disease which appears to be a group 3 as noted previously. Patient Tyvaso also was ordered by me to the [facility] specialty pharmacy but as noted Honey take some time to obtain the medication after the authorizations Telemetry reviewed and patient continues to have sinus rhythm with sinus arrhythmias with few PACs and PVCs. Blood pressure appears to be slightly on the softer side with the systolic 101 120 mmHg but overall heart rate is also well controlled. Currently on Mycophenolate and Septra and Methylprednisone 125mg IV Q day RF was negative and rest of autoimmune screen Including anti-CCP, LISBET, aldolase pending Strep A, influenza A & B, RSV, cocci and COVID-19 were all negative on this admission Patient has mild pulmonary hypertension with mean PAP greater than 32 mmHg as seen on right heart cath completed on 03/21/2024. Patient will need to start Tyvaso a prostaglandin analog for treatment. However this medication is not available at this hospital and an outpatient prescription will have to be written for the patient's family to collect the medication from a specialist pharmacy to bring to the hospital. 6. Essential hypertension Home medication labetalol 200 mg p.o. twice daily On admission BP 189/83 Patient blood pressure this am 132/51 - much improved from before From telemetry review HR 60s?70s overnight with sinus arrhythmia, PACs and PVCs. Plan: ? Can continue home medication Labetolol for now - Continue Nicardipine 20 mg po TID - Continue Lisinopril 10 mg po daily - Can uptitrate antihypertensives as necessary - Hydralazine 10mg IV as needed for SBP >170 7. Hyperlipidemia Patient was not on any statins at home but has a history of hyperlipidemia. On this admission triglycerides 127, cholesterol 136, LDL 69. Recommend to start patient on moderate intensity statin 8. History of depression Patient's home medication sertraline 100 mg p.o. daily Recommend to continue to avoid any withdrawals Recommend to Continue Mirtazapine 7.5mg po HS to help stimulate appetite 9. History of GERD 10. History of TIA [2021] 11. History of Benjamin fundoplication with hiatal hernia repair [2017] Patient does not appear to be on any PPIs at home and currently denies any GERD symptoms. Patient also did not appear to be on any aspirin at home although she had a history of TIA. Plan: ?Recommend to start aspirin 81 Mg p.o. daily 12. Microcytic anemia On admission patient's Hb 9.5. Baseline from chart review appears to be about 11?12. DDx: Iron deficiency anemia, poor nutrition, anemia of chronic disease, thalassemia, malignancy Patient also endorses approximately 30lb weight loss over the past 2 years Recommend, reticulocyte count, blood smear, LDH Iron 11, TIBC 214, ferritin 482. 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 IV iron held for now in light of inflammatory lung pathology 13. ROBEL on CKD stage III A On admission patient's CR 1.1 which appears to be at her baseline Currently Cr stable at 1.4 Continue management as per primary team 14. Rheumatoid arthritis Patient not on methotrexate or any biologic agents at home but admits to history of rheumatoid arthritis for many years. 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 Continue management as per primary team Management of rest of the medical conditions as per primary team and other consultants. Thank you for the consult and allowing me to participate in the care of the patient. Cardiology will continue to follow. Mian Best M.D. Interventional Cardiology Time Spent With Patient Time: Total time spent is greater than 50% in coordination of care (as documented) at patient's floor/unit and/or counseling patient:
--- NOTE | 2024-03-24 21:14 | PC.NURSE ---
Pt on BIPAP, has trouble breathing and is using accessory muscles. VS: 131/76, 96.4, 73, 23, 97%. Will frequently round patient.
[2024-03-25] VITALS (126 sets, daily range): BP systolic 88–169; BP diastolic 33–92; PULSE 63–85; RESP 16–33; TEMP 36.1–36.4; O2SAT 90–100; BMI 18.8
--- NOTE | 2024-03-25 01:36 | PD.RESCONSUL ---
HPI Data of Consult Requesting Physician: Kelsey Britt DO Admitting Provider: Glen Torrez MD Attending Provider: Kelsey Britt DO Primary Care Provider: Jabier Campos MD Consult Narrative History of present illness: 82-year-old female with past medical history of hypertension, GERD s/p fundoplication with hiatal hernia repair, hyperlipidemia, TIA [2021], depression was brought to the hospital with chief complaints of shortness of breath. Reported that patient lives alone by herself and does her routine daily activities. Per [id number], patient is having shortness of breath for the past 6 months which was worsened recently a week before the day of admission. 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 She was on HFNC since and today was placed on bipap. RAPID RESPONSE was called around 1 am due to patient's GCS being less than 8, family was contacted to confirm code status, given the sudden change today and patient stating DNR on admission, son expressed if we could hold intubation until he arrived to the hospital. Once son arrived he expressed he wanted to continue FULL code and proceed with intubation because he has a brother that lives far away and wants to see her. Patient was intubated without complications. cc:: cc: Kelsey Britt DO Review of Systems Review of Systems ROS Unobtainable: unobtainable due to mental status Exam Vital Signs Temp Pulse Resp BP Pulse Ox O2 Del Method O2 Flow Rate 97.0 F 73 26 H 132/57 H 98 BiPAP 40 03/25/24 00:00 03/25/24 00:00 03/25/24 00:00 03/25/24 00:00 03/25/24 00:00 03/25/24 00:00 03/24/24 00:00 FiO2 65 03/24/24 22:29 Narrative Exam GENERAL: Cachecic, intubated, sedated HEENT: Normocephalic, atraumatic and nontender.? Pupils are equal and reactive to light and accommodation.? Oral mucosa moist. NECK: Supple without adenopathy. Traquea midline, no JVD.? CHEST: Heart rate and rythm normal, no murmurs, gallops auscultated. S1 & 2 normal insensity. LUNGS: Bilateral fine crackles.?Intubated ABDOMEN: Soft,symmetric, Bowel sounds are normoactive in all 4 quadrants. EXTREMITIES: Nontender.? No pitting edema.? No cyanosis.? SKIN: No rashes noted. NEURO:?Sedated Results Labs 03/24/24 04:29 03/24/24 04:29 Labs: Short CBC 03/24/24 Range/Units 04:29 WBC 9.6 (3.6-11.0) Thou/mm3 Hgb 9.5 L (12.0-16.0) g/dL Hct 32.0 L (36.0-46.0) % Plt Count 319 (140-440) Thou/mm3 BMP 03/24/24 04:29 Sodium 145 Potassium 5.1 D Chloride 105 Carbon Dioxide 30.9 BUN 104 H* Creatinine 1.9 H D Glucose 151 H Calcium 9.7 Liver Function 03/24/24 Range/Units 04:29 Total Bilirubin 0.2 L (0.3-1.2) mg/dL AST 23 (0-34) U/L ALT 18 (10-49) U/L Alkaline Phosphatase 127 H (46-116) U/L Albumin 3.8 (3.4-4.8) gm/dL ABG Interpretation ABG results: 03/15/24 03/16/24 03/17/24 20:34 20:31 02:35 ABG pH 7.45 7.47 H 7.40 ABG pCO2 34 38 41 ABG pO2 100 79 L D 94 ABG HCO3 24 27 H 25 ABG O2 Saturation 99 H 97 98 ABG Base Excess 0 4 H 0 VBG pH VBG pCO2 VBG pO2 VBG Base Excess 03/18/24 03/21/24 03/21/24 02:37 05:08 18:27 ABG pH 7.40 Cancelled ABG pCO2 41 Cancelled ABG pO2 95 Cancelled ABG HCO3 25 Cancelled ABG O2 Saturation 98 Cancelled ABG Base Excess 0 Cancelled VBG pH 7.52 VBG pCO2 37 VBG pO2 64 H VBG Base Excess 7 H 03/21/24 03/21/24 03/23/24 18:49 18:56 09:21 ABG pH Cancelled 7.47 H 7.42 ABG pCO2 Cancelled 44 48 ABG pO2 Cancelled 44 L* 75 L D ABG HCO3 Cancelled 31 H 32 H ABG O2 Saturation Cancelled 81 L 96 ABG Base Excess Cancelled 7 H 6 H VBG pH VBG pCO2 VBG pO2 VBG Base Excess Quality Measures Quality Measures sepsis Current suspected stage: ruled out Possible source: pulmonary Blood cultures ordered: completed in ED Antibiotic ordered: Yes Advance care planning discussed with:: patient Medications Home Medications and Allergies Home Medications ?Medication ?Instructions ?Recorded ?Confirmed ?Type loratadine 10 mg tablet 10 mg PO QAM 09/28/22 03/15/24 History montelukast 10 mg tablet 10 mg PO QPM 09/28/22 03/15/24 History sertraline 100 mg tablet 200 mg PO DAILY 09/28/22 03/15/24 History acetaminophen 500 mg tablet 500 mg PO Q6HR PRN Pain 03/15/24 03/15/24 History alendronate 70 mg tablet 70 mg PO QWEEK 03/15/24 03/15/24 History amlodipine 5 mg tablet 5 mg PO QPM 03/15/24 03/15/24 History calcium 600 mg (as 1 tab PO BID 03/15/24 03/15/24 History carbonate)-vitamin D3 10 mcg (400 unit) tablet celecoxib 100 mg capsule 100 mg PO BID 03/15/24 03/15/24 History cyclobenzaprine 5 mg tablet 5 mg PO 2XD 03/15/24 03/15/24 History fluticasone propionate 50 1 spray intranasal BID 03/15/24 03/15/24 History mcg/actuation nasal spray,suspension labetalol 100 mg tablet 100 mg PO 2XD 03/15/24 03/15/24 History lidocaine 5 % topical patch 1 patch topical QDAY 03/15/24 03/15/24 History mirtazapine 30 mg tablet 30 mg PO QPM 03/15/24 03/15/24 History Allergies Allergy/AdvReac Type Severity Reaction Status Date / Time ciprofloxacin Allergy Severe NAUSEA/VOMI Verified 09/28/22 12:24 TING Sulfa (Sulfonamide Allergy Severe Rash Verified 09/28/22 12:24 Antibiotics) Visit Medications Acetaminophen (Acetaminophen 325 Mg Tablet) 650 mg PO Q6H PRN PRN Reason: PAIN OR FEVER > 101 Stop: 04/13/24 02:59 Albuterol/Ipratropium (Albuterol/Ipratropium (Duoneb) Rt Rissa 3 Ml Nebu) 3 ml INH Q2HR PRN PRN Reason: SHORTNESS OF BREATH OR WHEEZE Stop: 04/14/24 16:20 Last Admin: 03/23/24 01:34 Dose: 3 ml Buspirone HCl (Buspirone Hcl 5 Mg Tablet) 5 mg PO BID EMPERATRIZ Stop: 04/19/24 18:59 Last Admin: 03/24/24 21:03 Dose: Not Given Heparin Sodium (Porcine) (Heparin Sod Inj 5000 Unit/Ml Vial) 5,000 unit SC Q12HR EMPERATRIZ Stop: 03/28/24 08:59 Last Admin: 03/24/24 21:00 Dose: 5,000 unit Hydralazine HCl (Hydralazine Hcl 25 Mg Tablet) 25 mg PO TID EMPERATRIZ Stop: 04/20/24 08:29 Last Admin: 03/24/24 21:04 Dose: Not Given Lactated Ringer's (Lactated Ringers) 1,000 mls @ 75 mls/hr IV .[id number] EMPERATRIZ Stop: 03/25/24 17:20 Last Admin: 03/24/24 17:54 Dose: 75 mls/hr Acetazolamide Sodium 500 mg/ (Sodium Chloride) 50 mls @ 100 mls/hr IV X1 ONE Stop: 03/25/24 01:59 Labetalol HCl (Labetalol 100 Mg Tablet) 100 mg PO BID EMPERATRIZ Stop: 04/13/24 04:39 Last Admin: 03/23/24 22:29 Dose: Not Given Methylprednisolone Sodium Succinate (Methylprednisolone Sod Succ 62.5 Mg/Ml 2ml Vial) 125 mg IV QDAY EMPERATRIZ Stop: 03/26/24 08:59 Last Admin: 03/24/24 09:32 Dose: 125 mg Mirtazapine (Mirtazapine 15 Mg Tablet) 15 mg PO HS EMPERATRIZ Stop: 04/22/24 20:59 Last Admin: 03/24/24 21:03 Dose: Not Given Mycophenolate Mofetil (Mycophenolate 250 Mg Capsule (Non-Formulary)) 500 mg PO BID EMPERATRIZ Stop: 04/21/24 09:59 Last Admin: 03/24/24 21:03 Dose: Not Given Nicardipine HCl (Nicardipine 30 Mg Capsule (Non-Form)) 30 mg PO QID [facility] Stop: 04/19/24 20:59 Last Admin: 03/24/24 21:05 Dose: Not Given Ondansetron HCl (Ondansetron Inj 2 Mg/Ml Inj 2 Ml) 4 mg IV Q6H PRN; Protocol PRN Reason: NAUSEA OR VOMITING Stop: 04/13/24 02:59 Pantoprazole Sodium (Pantoprazole 40 Mg Tablet) 40 mg PO QDAY [facility] Stop: 04/13/24 08:59 Last Admin: 03/24/24 08:33 Dose: Not Given Trimethoprim/Sulfamethoxazole (Trimethoprim/Sulfa 160/800 Ds Tablet) 1 tab PO QDAY [facility] Stop: 03/29/24 16:19 Last Admin: 03/24/24 08:33 Dose: Not Given Discontinued Medications Albuterol/Ipratropium (Albuterol/Ipratropium (Duoneb) Rt Rissa 3 Ml Nebu) 3 ml INH Q6HRRT EMPERATRIZ Stop: 04/13/24 12:59 Albuterol/Ipratropium (Albuterol/Ipratropium (Duoneb) Rt Rissa 3 Ml Nebu) 3 ml INH Q6HRRT PRN PRN Reason: sob or wheeze Stop: 04/13/24 12:59 Last Admin: 03/14/24 09:41 Dose: 3 ml Albuterol/Ipratropium (Albuterol/Ipratropium (Duoneb) Rt Rissa 3 Ml Nebu) 3 ml INH Q6HRRT EMPERATRIZ Stop: 04/13/24 18:14 Last Admin: 03/15/24 12:05 Dose: 3 ml Albuterol/Ipratropium (Albuterol/Ipratropium (Duoneb) Rt Rissa 3 Ml Nebu) 3 ml INH Q4HRRT EMPERATRIZ Stop: 04/14/24 16:29 Last Admin: 03/21/24 14:23 Dose: 3 ml Amlodipine Besylate (Amlodipine Besylate 5 Mg Tablet) 5 mg PO QDAY EMPERATRIZ Stop: 04/16/24 18:44 Last Admin: 03/17/24 18:54 Dose: Not Given Azithromycin (Azithromycin 250 Mg Tablet) 250 mg PO HS [facility] Stop: 03/21/24 20:59 Azithromycin (Azithromycin 250 Mg Tablet) 500 mg PO HS [facility] Stop: 03/21/24 20:59 Last Admin: 03/20/24 20:01 Dose: 500 mg Furosemide (Furosemide Inj 10 Mg/Ml 4ml Vial) 40 mg IVP X1 ONE Stop: 03/14/24 05:48 Last Admin: 03/14/24 06:14 Dose: 40 mg Furosemide (Furosemide Inj 10 Mg/Ml 4ml Vial) 40 mg IVP QDAY EMPERATRIZ Stop: 04/14/24 08:59 Furosemide (Furosemide Inj 10 Mg/Ml 4ml Vial) 40 mg IVP BIDD EMPERATRIZ Stop: 04/13/24 20:59 Last Admin: 03/16/24 05:44 Dose: 40 mg Furosemide (Furosemide Inj 10 Mg/Ml 4ml Vial) 40 mg IVP Q8HR EMPERATRIZ Stop: 04/15/24 13:59 Last Admin: 03/17/24 05:32 Dose: 40 mg Hydralazine HCl (Hydralazine Inj 20 Mg/Ml Vial) 10 mg IV Q6HR PRN PRN Reason: SBP > 160 Stop: 04/13/24 11:28 Last Admin: 03/14/24 14:36 Dose: 10 mg Hydralazine HCl (Hydralazine Inj 20 Mg/Ml Vial) 10 mg IV Q6HR PRN PRN Reason: SBP > 170 Stop: 04/13/24 11:28 Last Admin: 03/20/24 02:09 Dose: 10 mg Hydralazine HCl (Hydralazine Inj 20 Mg/Ml Vial) 10 mg IV X1 ONE Stop: 03/21/24 12:53 Last Admin: 03/21/24 12:56 Dose: 10 mg Hydroxyzine HCl (Hydroxyzine Hcl 25 Mg Tablet) 25 mg PO X1 ONE Stop: 03/20/24 18:02 Last Admin: 03/20/24 18:18 Dose: 25 mg Sodium Chloride (Ns) 1,000 mls @ 999 mls/hr IV .Q1H1M ONE Stop: 03/14/24 03:13 Last Infusion: 03/14/24 04:28 Dose: Infused Ceftriaxone Sodium/Dextrose (Rocephin/D5w 1gm Iv Premix) 50 mls @ 100 mls/hr IV X1 ONE Stop: 03/14/24 02:44 Last Infusion: 03/14/24 04:07 Dose: Infused Azithromycin 500 mg/ Sodium (Chloride) 250 mls @ 250 mls/hr IV X1 ONE Stop: 03/14/24 03:12 Last Infusion: 03/14/24 04:27 Dose: Infused Ceftriaxone Sodium/Dextrose (Rocephin/D5w 1gm Iv Premix) 50 mls @ 100 mls/hr IV HS [facility] Stop: 03/21/24 20:59 Last Admin: 03/20/24 20:08 Dose: 100 mls/hr Magnesium Sulfate (Magnesium Sulfate Ivpb) 4 gm in 50 mls @ 12.5 mls/hr IV X1 ONE Stop: 03/15/24 00:01 Last Admin: 03/14/24 23:30 Dose: 12.5 mls/hr Potassium Chloride (Kcl Ivpb) 10 meq in 100 mls @ 100 mls/hr IV Q1H [facility] Stop: 03/15/24 12:03 Last Admin: 03/15/24 13:59 Dose: 100 mls/hr Potassium Chloride (Kcl Ivpb) 10 meq in 100 mls @ 100 mls/hr IV Q1H [facility] Stop: 03/16/24 22:25 Last Admin: 03/17/24 00:02 Dose: 100 mls/hr Sodium Chloride (Ns) 500 mls @ 999 mls/hr IV .Q31M ONE Stop: 03/17/24 09:12 Last Admin: 03/17/24 10:04 Dose: Not Given Sodium Chloride (Ns) 500 mls @ 50 mls/hr IV .Q10H ONE Stop: 03/17/24 20:01 Last Admin: 03/17/24 10:46 Dose: Not Given Sodium Chloride (Ns) 500 mls @ 50 mls/hr IV .Q10H ONE Stop: 03/17/24 20:11 Last Admin: 03/17/24 10:45 Dose: 50 mls/hr Ketorolac Tromethamine (Ketorolac Inj 30 Mg/Ml Vial) 15 mg IVP X1 ONE Stop: 03/18/24 05:14 Last Admin: 03/18/24 05:23 Dose: 15 mg Labetalol HCl (Labetalol Inj 5 Mg/Ml Vial 20 Ml) 5 mg IVP X1 ONE Stop: 03/21/24 02:45 Last Admin: 03/21/24 02:49 Dose: 5 mg Labetalol HCl (Labetalol Inj 5 Mg/Ml Vial 20 Ml) 10 mg IVP X1 ONE Stop: 03/21/24 04:22 Last Admin: 03/21/24 04:26 Dose: 10 mg Lidocaine HCl (Lidocaine Hcl 1% 20 Ml Vial) 20 ml IM X1 ONE Stop: 03/21/24 16:00 Lidocaine HCl (Lidocaine Hcl 1% 20 Ml Vial) 20 ml INFL X1 ONE Stop: 03/21/24 16:55 Last Admin: 03/21/24 17:27 Dose: 20 ml Lisinopril (Lisinopril 2.5 Mg Tablet) 10 mg PO QDAY EMPERATRIZ Stop: 04/13/24 18:14 Last Admin: 03/17/24 08:23 Dose: 10 mg Lorazepam (Lorazepam 0.5 Mg Tablet) 1 mg PO X1 ONE Stop: 03/14/24 04:28 Last Admin: 03/14/24 04:30 Dose: 1 mg Methylprednisolone Sodium Succinate (Methylprednisolone Sod Succ 62.5 Mg/Ml 2ml Vial) 125 mg IVP X1 ONE Stop: 03/17/24 10:57 Last Admin: 03/17/24 13:50 Dose: 125 mg Methylprednisolone Sodium Succinate (Methylprednisolone Sod Succ 40 Mg Vial) 125 mg IVP Q8H EMPERATRIZ Stop: 03/24/24 18:59 Last Admin: 03/18/24 03:11 Dose: 125 mg Methylprednisolone Sodium Succinate (Methylprednisolone Sod Succ 62.5 Mg/Ml 2ml Vial) 125 mg IVP Q8HR EMPERATRIZ Stop: 03/20/24 00:00 Last Admin: 03/19/24 22:10 Dose: 125 mg Methylprednisolone Sodium Succinate (Methylprednisolone Sod Succ 62.5 Mg/Ml 2ml Vial) 125 mg IVP Q12HR EMPERATRIZ Stop: 03/26/24 20:59 Methylprednisolone Sodium Succinate (Methylprednisolone Sod Succ 62.5 Mg/Ml 2ml Vial) 125 mg IVP Q12HR EMPERATRIZ Stop: 03/22/24 00:00 Last Admin: 03/21/24 20:19 Dose: 125 mg Mirtazapine (Mirtazapine 15 Mg Tablet) 7.5 mg PO HS EMPERATRIZ Stop: 04/15/24 20:59 Last Admin: 03/22/24 20:19 Dose: 7.5 mg Morphine Sulfate (Morphine Sulf Inj 10 Mg/Ml Vial) 2 mg IVP X1 ONE Stop: 03/22/24 15:37 Last Admin: 03/22/24 16:19 Dose: 2 mg Nicardipine HCl (Nicardipine 20 Mg Capsule) 20 mg PO TID EMPERATRIZ Stop: 04/17/24 08:29 Last Admin: 03/20/24 05:42 Dose: 20 mg Nicardipine HCl (Nicardipine 30 Mg Capsule (Non-Form)) 30 mg PO TID EMPERATRIZ Stop: 04/19/24 13:59 Last Admin: 03/20/24 13:54 Dose: 30 mg Potassium Chloride (Potassium Chloride 20 Meq Tabcr) 40 meq PO X1 ONE Stop: 03/15/24 08:05 Last Admin: 03/15/24 08:38 Dose: 40 meq Potassium Chloride (Potassium Chloride 20 Meq Tabcr) 20 meq PO X1 ONE Stop: 03/15/24 15:53 Last Admin: 03/15/24 16:05 Dose: Not Given Prednisone (Prednisone 20 Mg Tablet) 20 mg PO QDAY [facility] Stop: 04/16/24 10:44 Last Admin: 03/17/24 10:48 Dose: 20 mg Sertraline HCl (Sertraline Hcl 25 Mg Tablet) 100 mg PO BID EMPERATRIZ Stop: 04/13/24 20:59 Last Admin: 03/22/24 20:18 Dose: 100 mg Sodium Chloride (Sodium Chloride Rt 10% 15 Ml Nebu) 5 ml INH X1 ONE Stop: 03/14/24 03:01 Last Admin: 03/14/24 04:10 Dose: 5 ml Trimethoprim/Sulfamethoxazole (Trimethoprim/Sulfa 160/800 Ds Tablet) 1 tab PO QDAY [facility] Stop: 03/29/24 09:59 Assessment & Plan Plan 82-year-old female with past medical history of hypertension, GERD s/p fundoplication with hiatal hernia repair, hyperlipidemia, TIA [2021], depression was brought to the hospital with chief complaints of shortness of breath. Reported that patient lives alone by herself and does her routine daily activities. Per [id number], patient is having shortness of breath for the past 6 months which was worsened recently a week before the day of admission. 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 She was on HFNC since and today was placed on bipap. RAPID RESPONSE was called around 1 am due to patient's GCS being less than 8, family was contacted to confirm code status, given the sudden change today and patient stating DNR on admission, son expressed if we could hold intubation until he arrived to the hospital. Once son arrived he expressed he wanted to continue FULL code and proceed with intubation because he has a brother that lives far away and wants to see her. Patient was intubated without complications. 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 -Right heart cath performed on 03/21/2024 : Mild pulmonary hypertension with mean PAP greater than 25 mmHg, moderately elevated LVEDP at 27 mmHg, PVR is markedly elevated at 4 wood units and TPG is 23. Normal cardiac output and index. Isolated precapillary pH indicating Group 3 PAH secondary to lung disease and possibe componenet of vasoconstriction along with fibrosis. -Mycophenolate 500 Mg twice daily and methylprednisolone -[place] Assessor Dr Best following # History of hypertension -Continue nicardipine, labetalol and hydralazine -Monitor BP closely and adjust accordingly PULM # Acute hypoxic respiratory failure # ARDS #Suspected ILD vs hypersensitivity pneumonitis -Echo done showed severe pulmonary hypertension -CT showed bilateral infiltrates with ARDS pattern. -Patient was noted to have bilateral hand deformities and when asked about the history, patient's [id number] stated that she was diagnosed to have rheumatoid arthritis but did not get any treatment for that. -RA factor, anti-CCP, LISBET was ordered, still peding -Continue Bactrim GI #Stable NEPHRO # ROBEL -Likely prerenal in the setting of diuresis, Cr and BUN where downtrending until today, -BUN 104, Cr 1.9 -Nephrology Dr Matos following, appreciae reccommendations ENDO #Stable ID #Stable MSK # Bilateral hand deformities Likely due to rheumatoid arthritis. RA factor and anti-CCP antibodies were sent. RA factor came out negative. SKIN #Stable Disposition: Upgraded to ICU for airway protection due to acute encephalopathy GCS less than 8 Diet and fluids:NPO DVT prophylaxis:Heparin GI prophylaxis:Pantoprazole CODE STATUS:FULL CODE Amrtinez:In place Lines:Peripheral Patient's care discussed with attending physician, Dr Jaison Waite MD PGY3
[2024-03-25] MEDS: ETOMIDATE INJ 2 MG/ML VIAL 10 ML 20 MG IVP (01:49)
[2024-03-25] MEDS: SUCCINYLCHOLINE INJ 20 MG/ML VIAL 10 ML 50 MG IV (01:53)
--- NOTE | 2024-03-25 01:57 | XR_ITS ---
Examination: AP chest single view Technique: AP portable supine chest single view Exam date and time: February 27, 2024 at 0219 hrs. Comparison March 21, 2024 Indications: Hypoxic respiratory failure, pneumonia ARDS on earlier chest imaging postintubation today Findings: Severe bilateral lung opacity Moderate enlargement left ventricle Tracheal tube tip 4.1 cm above mk Orogastric tube in the stomach, stomach is moderately air distended Impression: Severe bilateral pneumonia ARDS pattern Tracheal tube tip 4.1 cm above mk
[2024-03-25] MEDS: PROPOFOL 1,000 MG IVPB 1,000 MG/100 ML VIAL 1.279 MG IV (01:58)
--- NOTE | 2024-03-25 01:58 | PD.RESEVENT ---
Documentation for date of: On 03/25/24, at approximately 1:00AM, rapid response was called as patient was found with worsening mentation and a GSC of 3. On arrival, patient was on bipap, satting in upper 90s with RR 30s, extremities warm and well perfuse, unresponsive to noxious stimuli including sternal rubs. Patient was afebrile with BP 132/59 and HR 73. We gave one time dose of acetazolamide, ICU team was consulted and decision was made to admit patient to ICU for airway protection. Appreciate ICU recommendations. Family, Aj (son), was updated on the status of the patient. Aj was present in person at the time of discussion. Patient case was discussed with attending, Dr. Jaison FLOR and senior resident Dr. Hutchins. Tin Neil DO PGYI
[2024-03-25] MEDS: fentaNYL 2,500 MCG/250 ML BAG 2,500 MCG/250 ML BAG IV (01:59)
--- NOTE | 2024-03-25 02:05 | PC.NURSE ---
Patient transferred to ICU at 0137. Report given to KATIANA Mcneil.
--- NOTE | 2024-03-25 02:21 | PD.EDADDENDU ---
Emergency Room Addendum <Linda Mcguire - Last Filed: 03/25/24 02:23> Addendum Narrative: I was called by the warehouse order selector to intubate the patient. Responded and the patient was intubated at 0155. Procedures Intubation Time out performed: No sedative: Etomidate Mg Given: 20 paralytic: Succinylcholine Mg Given: 50 Laryngoscope: Yonas Assist Device Used: Bougie ET Tube Size: 7 ET Tube Uncuffed: No Tube Secured Depth (cm): 19 Tube Secured Location: teeth Tube Placement Confirmation: visualized tube passing through cords, equal breath sounds bilaterally, no breath sounds over epigastrium and confirmation by capnometry Patient Tolerated Procedure: well and no complications <Lucretia Hess MD - Last Filed: 03/25/24 22:58> Addendum Narrative: Called to bedside to evaluate patient for intubation. Indication respiratory distress, obutunded with GCS 3. Procedures Intubation Time out performed: yes sedative: Etomidate Mg Given: 20 paralytic: Succinylcholine Mg Given: 50 Laryngoscope: Yonas Assist Device Used: none ET Tube Size: 7 ET Tube Uncuffed: No Tube Secured Depth (cm): 19 Tube Secured Location: teeth Tube Placement Confirmation: visualized tube passing through cords, equal breath sounds bilaterally, no breath sounds over epigastrium and confirmation by capnometry Patient Tolerated Procedure: well and no complications CXR pending intubated at 0155
--- NOTE | 2024-03-25 02:27 | PD.RESPROC ---
Procedures Procedure Date / Time 03/25/24 0227 Intubation Indication(s): inability to protect airway (GCS of 3) Informed consent obtained: obtained from surrogate decision maker (SON) Time out done, and the following verified: correct patient, side and site, procedure, patient position and implants and/or equipment Sedative: etomidate Mg given: 30 Paralytic: succinylcholine Mg given: 50 Laryngoscope: Yonas ET tube size: 7 ET tube uncuffed: No Tube secured depth (cm): 21 Tube secured location: lips Tube placement confirmation: visualized tube passing through cords, equal breath sounds bilaterally, no breath sounds over epigastrium and confirmation by capnometry Patient tolerated procedure: well and no complications EBL(ml): 0 Intubation complications: none
[2024-03-25] MEDS: ACETAzolaMIDE SOD 500 MG in SODIUM CHLORIDE 0.9% 50 ML 100 MG IV (02:39)
[2024-03-25 02:48] LABS: Base Excess -2 (-3-3); HCO3 28 mEq/L (20-26); Inspired Oxygen, FIO2 100 %; O2 Saturation 100 % (91-98); PCO2 75 mmHg (32.0-48.0); PO2 173 mmHg (83-108)
[2024-03-25 02:53] LABS: Allen Test Performed/OK; Puncture Site Right Radial
[2024-03-25 02:54] LABS: pH, Arterial 7.18 (7.35-7.45)
--- NOTE | 2024-03-25 03:08 | PC.NURSE ---
Initial plan to place pt on DNR then comfort care after other family members arrive. On 03/24/24 @ 0956, pt was switched to FC by son. At the time pt GCS was @ 7. During Charge nurse rounding, pt GCS 3 with agonal breathing. Rapid response team was called and family was notified. On arrival of son, MD Hutchins, MD Waite, and supervisor shop Denise spoke to son at great lenght explaining her condition and outcome and verified with the son if he would like to keep the pt FC. Son made the decision to keep the pt FC and to intubate pt.
[2024-03-25 03:13] LABS: Anion Gap 12 (7-16); BUN/Creatinine Ratio 44 Ratio (12-20); Calcium 7.5 mg/dL (8.3-10.6); Carbon Dioxide 25.4 mMol/L (20.0-31.0); Chloride 107 mMol/L (98-107); Creatinine (Component) 2.8 mg/dL (0.6-1.3); Estimated Creatinine Clearance 10.2 mL/min (>60); Glucose 99 mg/dL (74-106); Osmolality,Calculated 326 (275-295); Sodium 144 mMol/L (136-145); eGFR 16 See Note
[2024-03-25 03:24] LABS: Potassium 7.1 mMol/L (3.4-5.1)
[2024-03-25 03:41] LABS: Blood Urea Nitrogen 123 mg/dL (9-23)
[2024-03-25] MEDS: INSULIN HUM REGULAR 1 UNIT/0.01 ML (PER UNIT) 10 UNIT IV ×2 (03:43→03:57)
[2024-03-25] MEDS: DEXTROSE 50%-WATER INJ 50 ML SYRINGE IV ×2 (03:50→03:57)
[2024-03-25] MEDS: CALCIUM GLUCONATE 10% INJ 1 GM/10 ML VIAL IV (03:51)
[2024-03-25] MEDS: Sodium Bicarb Inj 8.4% SYR 50 ML SYRINGE IV (03:51)
[2024-03-25 04:28] LABS: Base Excess 1 (-3-3); HCO3 30 mEq/L (20-26); Inspired Oxygen, FIO2 100 %; O2 Saturation 100 % (91-98); PCO2 87 mmHg (32.0-48.0); PO2 217 mmHg (83-108)
[2024-03-25 04:30] LABS: Allen Test Performed/OK; Puncture Site Right Radial
[2024-03-25 04:31] LABS: pH, Arterial 7.15 (7.35-7.45)
[2024-03-25] MEDS: Norepinephrine/D5W 8mg/250ml 8 MG/250 ML BAG 3.997 MG IV (05:00)
[2024-03-25] MEDS: Sodium Bicarb 8.4% 50ml Vial* 88.23 MEQ in DEXTROSE 5%-WATER 500 ML 100 MEQ IV ×3 (05:34→19:08)
--- NOTE | 2024-03-25 05:34 | ESPR_ITS ---
Documentation for date of: 03/25/24 Subjective Critical Care Note Critical care time (min.): 35 Exam Vital Signs Temp Pulse Resp BP Pulse Ox O2 Del Method O2 Flow Rate 97.1 F 84 29 H 151/91 H 95 Mechanical Ventilation 40 03/26/24 00:00 03/26/24 02:00 03/25/24 18:03 03/26/24 02:00 03/26/24 02:00 03/26/24 00:00 03/24/24 00:00 FiO2 80 03/26/24 01:26 Physical Exam Completion Physical Exam Complete?: Yes Objective - Painter Helper Sign Labs 03/25/24 05:40 03/25/24 06:24 Labs: Laboratory Results - last 24 hr 03/25/24 03/25/24 03/26/24 05:40 06:24 04:09 WBC 20.0 H D RBC 3.60 L Hgb 8.5 L Hct 28.9 L MCV 80 MCH 23.6 L MCHC 29.4 L RDW Std Deviation 52.6 H Plt Count 319 Neut % (Auto) 92 H Lymph % (Auto) 2 L [place] % (Auto) 5 Eos % (Auto) 0 Baso % (Auto) 0 Neut # (Auto) 18.4 H Lymph # (Auto) 0.3 L [place] # (Auto) 1.0 H Eos # (Auto) 0.0 Baso # (Auto) 0.0 Immature Gran # (Auto) 0.26 H Absolute Nucleated RBC 0.00 Immature Gran % 1 H Nucleated RBC % 0 Puncture Site Right Radial ABG pH 7.37 D ABG pCO2 75 H* D ABG pO2 92 D ABG HCO3 43 H ABG O2 Saturation 98 ABG Base Excess 16 H FiO2 80 Sodium 147 H 149 H Potassium 4.1 D 4.4 Chloride 103 106 Carbon Dioxide 32.2 H 30.1 Anion Gap 12 13 BUN 121 H* 133 H* Creatinine 3.0 H 3.2 H Estim Creat Clear Calc 10.1 L 9.5 L eGFR 15 L 14 L* BUN/Creatinine Ratio 40 H 42 H Glucose 422 H* D 178 H D Calculated Osmolality 349 H 343 H Calcium 7.4 L 7.9 L Corrected Calcium 8.1 L D Phosphorus 9.7 H Magnesium 2.7 H Total Bilirubin 0.3 AST 23 ALT 19 Alkaline Phosphatase 107 D Total Protein 4.9 L Albumin 3.1 L D Globulin 1.8 L Albumin/Globulin Ratio 1.7 Assessment & Plan Additional Plan Additional Plan: Patient seen and examined with above resident, Yris Yao MD. I agree with the findings, assessment, and plan of care as documented except for any differences below. Patient not unexpectedly requiring intubation overnight. This likely will be terminal event. Patient with minimal chance of recovery given both pulmonary vascular disease and extensive pulmonary fibrosis with superimposed ILD exacerbation likely in the setting of chronic hypersensitivity pneumonitis. Patient had previously been DNR status but with plan for family to arrive in the coming 24 hours, patient's son had elected to transition back to full code to allow time. Patient will be transition to comfort care and additional members of family have had a chance to visit tomorrow. Will continue on steroids and hold off on CellCept and Bactrim prophylaxis for PJP. Patient will not receive any therapy for pulmonary hypertension as she is now ventilator bound and the only group 3 PAH therapy approved is Tyvaso inhaler. The patient did complete course of antibiotics for superimposed bacterial infection though testing on room arrival was not suggestive of a new infection. Patient's family is aware of poor prognosis and has made arrangements accordingly. They have been extensively counseled on son at bedside throughout previous 4 to 5 days and I did meet the grandson today and reiterated our extensive investigation prognostication. They are appreciative of care and understanding what comfort measures will remain on terminal weaning from mechanical ventilation. Total critical care time: I personally spent 35 minutes for review of physiologic parameters, directing plan of care throughout the day, and counseling patient's family at bedside. This is exclusive of time spent teaching housestaff or performing any separate billable procedures. Patient continues to require critical care services for acute hypoxic respiratory failure in the setting of ILD exacerbation with very high mortality. Patient's family is understanding of this and will likely transition to comfort measures in the next 24 hours. Continue supportive care in the interim. Provider Notation Provider Notation: Although this document has been carefully reviewed, there may still be some phonetic and other typographical errors. These errors are purely grammatical due to imperfections in the software program and should not be construed in any way to compromise the substance of the patient's medical care during this visit. Thank you for the opportunity and privilege in assisting you with this patient's care and management.
[2024-03-25 06:46] LABS: Basophils % (Auto) 0 % (0-2.5); Eosinophils % (Auto) 0 % (0-10); Hematocrit 28.9 % (36.0-46.0); Immature Granulocytes % (Auto) 1 % (0-0); Immature Granulocytes Auto 0.26 Thou/mm3 (0.00-0.00); Lymphocytes # (Auto) 0.3 Thou/mm3 (1.0-4.8); Lymphocytes % (Auto) 2 % (10-50); Mean Corpuscular HGB Conc 29.4 g/dl (31.0-37.0); Mean Corpuscular Hemoglobin 23.6 pg (25.0-35.0); Mean Corpuscular Volume 80 fL (80-100); Monocytes % (Auto) 5 % (0-12); Neutrophils # (Auto) 18.4 Thou/mm3 (1.8-7.7); Neutrophils % (Auto) 92 % (37-80); Nucleated Red Blood Cell % 0 /100 WBC (0); Platelet Count 319 Thou/mm3 (140-440); RDW Standard Deviation 52.6 fL (36.4-46.3)
[2024-03-25 06:51] LABS: Hemoglobin 8.5 g/dL (12.0-16.0)
[2024-03-25 07:02] LABS: Alanine Aminotransferase 19 U/L (10-49); Albumin, Serum 3.1 gm/dL (3.4-4.8); Albumin/Globulin Ratio 1.7 (1.2-2.2); Alkaline Phosphatase 107 U/L (46-116); Anion Gap 12 (7-16); Aspartate Amino Transferase 23 U/L (0-34); BUN/Creatinine Ratio 40 Ratio (12-20); Bilirubin,Total 0.3 mg/dL (0.3-1.2); Calcium 7.4 mg/dL (8.3-10.6); Calcium (Corrected) 8.1 mg/dL (8.5-10.1); Carbon Dioxide 32.2 mMol/L (20.0-31.0); Chloride 103 mMol/L (98-107); Estimated Creatinine Clearance 10.1 mL/min (>60); Globulin 1.8 gm/dL (2.3-3.5); Magnesium 2.7 mg/dL (1.6-2.6); Osmolality,Calculated 349 (275-295); Potassium 4.1 mMol/L (3.4-5.1); Sodium 147 mMol/L (136-145); Total Protein 4.9 gm/dL (5.7-8.2); eGFR 15 See Note
[2024-03-25 07:11] LABS: Blood Urea Nitrogen 121 mg/dL (9-23)
[2024-03-25 07:13] LABS: Glucose 422 mg/dL (74-106)
[2024-03-25 07:18] LABS: Anion Gap 13 (7-16); BUN/Creatinine Ratio 42 Ratio (12-20); Calcium 7.9 mg/dL (8.3-10.6); Carbon Dioxide 30.1 mMol/L (20.0-31.0); Chloride 106 mMol/L (98-107); Creatinine (Component) 3.2 mg/dL (0.6-1.3); Estimated Creatinine Clearance 9.5 mL/min (>60); Osmolality,Calculated 343 (275-295); Potassium 4.4 mMol/L (3.4-5.1); Sodium 149 mMol/L (136-145); eGFR 14 See Note
[2024-03-25 07:27] LABS: Glucose 178 mg/dL (74-106)
[2024-03-25 07:34] LABS: Phosphorous 9.7 mg/dL (2.4-5.1)
[2024-03-25 07:35] LABS: Blood Urea Nitrogen 133 mg/dL (9-23)
[2024-03-25] MEDS: TRIMETHOPRIM/SULFA 160/800 DS TABLET 1 TAB PO (08:36)
[2024-03-25] MEDS: MethylPREDNISolone SOD SUCC 62.5 MG/ML 2ML VIAL 125 MG IV (08:36)
[2024-03-25] MEDS: PANTOPRAZOLE 40 MG TABLET PO (08:36)
[2024-03-25] MEDS: HEPARIN SOD INJ 5000 UNIT/ML VIAL SC ×2 (08:37→20:59)
[2024-03-25] MEDS: BusPIRone HCL 5 MG TABLET PO (08:37)
[2024-03-25] MEDS: RINGERS LACTATED 1000 ML 1,000 ML 75 ML IV (08:49)
--- NOTE | 2024-03-25 13:55 | PC.DIETICIAN ---
Nutrition prescription If EN is indicated, consider: Nepro at 10 ml/hr via NG tube by pump. Advance 10 ml every 8 hrs to goal rate of 30 ml/hr x 24 hrs. If no IV fluids, water flushes of 30 ml/hr (or per MD).
--- NOTE | 2024-03-25 18:32 | PD.RESPRO ---
Documentation for date of: 03/25/24 Subjective Subjective Interval history: 03/17/2024: Patient was seen and examined bedside in the ICU. Patient is not willing to communicate. Answered questions by nodding her head. Reported that her shortness of breath is improved. Patient is on high flow oxygen with 90% FiO2 and 30 L/min. Vitals are stable. Labs showed mild leukocytosis, anemia, sodium 131, BUN 41, creatinine 1.5. ABG is within normal limits. Diuresis was withheld in view of elevated BUN/creatinine. Steroids were started in view of suspected chronic hypersensitivity pneumonitis. Antibody panel is still pending. 03/18/2024: Patient was seen and examined bedside in the ICU. Still having Tachypnea and using accessory muscles of respiration. Reported that she is still having shortness of breath without much improvement. Patient is still on high flow but FiO2 is decreased from 90-80 this morning. Blood pressures are mildly elevated probably due to steroids. Labs showed anemia, BUN 62 and creatinine 1.8. Urine output is well-maintained despite elevated BUN and creatinine, so will continue to monitor renal functions and urine output. Will continue high-dose steroids for 3 days and will gradually taper the steroids. RA factor came back negative. LISBET and anti-CCP antibodies are still pending. 03/19/2024: Patient was saturating in the mid-90s on 30L 50% FiO2 of Hi-Flow this AM. Later that morning patient was noted to be desaturating to mid-80s so was repositioned in bed and Hi-Flow settings were adjusted to 35L and 60% FiO2. Patient remained stable throughout the day. Will titrate Solu-Medrol from TID to BID starting tomorrow. Continue to hold Lasix. Creatinine still worsening at 1.9. Continue to monitor overnight as patient still has high work of breathing and unable to vocalize complete sentences while on Hi-Flow. Will have patient work with PT and RT to educate on incentive spirometry. 03/20/2024: Patient was seen and examined bedside in the ICU. Stated that her shortness of breath improved a bit. Still on high flow oxygen with FiO2 60% and 35 L/min oxygen saturating around 88 to 92%. Vitals are stable except for mildly elevated blood pressures. On auscultation, bronchial breath sounds are heard on right upper lobe and decreased breath sounds are noted in rest of the areas. Labs showed BUN 84, creatinine 1.6 which are downtrending and the urine output is maintaining well. Continued physiotherapy and respiratory therapy. Methylprednisolone dose is decreased from 125 Mg 3 times daily to twice daily. 03/21/2024: Patient was seen and examined bedside in the ICU. Stated that her shortness of breath is improving but still on high flow with FiO2 80% and 40 L/min oxygen, saturating around 94 to 96%. Vitals are stable and elevated blood pressures are noted. Patient got IV hydralazine as needed overnight as patient's blood pressures are running high. Her renal functions continue to improve and urine output is adequate. Hydralazine 25 Mg 3 times daily is added in view of elevated blood pressures. Patient was kept on n.p.o. since this morning for right heart catheterization. Will continue methylprednisolone 125 Mg IV twice daily. And antibody panel is still pending. 03/22/2024: Patient was seen and examined. Patient underwent right heart catheterization by Dr. Best yesterday and found to have grade 3 pulmonary arterial hypertension secondary to ILD. Still complaining of shortness of breath and is on high flow oxygen with 65% FiO2 and 35 L/min. Labs remain almost unchanged. Her urine output is adequate. Dr. Curt Fonseca recommended treprostinil for her. Will continue to taper off steroid and added mycophenolate Mofetll for chronic hypersensitivity pneumonitis. Started on Bactrim to cover for PJP in the setting of immunosuppression. Patient will be downgraded to floors for further management. 03/25/2024: Patient was upgraded overnight from Telemetry due to increasing respiratory rate and decreased mentation, unresponsive to voice or noxious stimuli. While on the floor patient code status was switched to DNR on 03/23, however changed back again to Full Code on 03/24 as son Aj wanted time for his brother to arrive and see the patient. Therefore she was intubated and brought back to the ICU. Family are aware of extremely poor prognosis due to type 3 pulmonary hypertension secondary to chronic hypersensitivity pneumonitis ILD, and that she is expected to pass in the next 48-72 hours. Currently the patient is intubated, vent at 85% FiO2, on propofol and fentanyl. Planned for family members to arrive then most likely switch to comfort on Wednesday. Mycophenolate, Solu-Medrol, Bactrim, and patient's other medications were discontinued. Family were counseled. Exam Vital Signs Temp Pulse Resp BP Pulse Ox O2 Del Method O2 Flow Rate 97.1 F 84 29 H 151/91 H 95 Mechanical Ventilation 40 03/26/24 00:00 03/26/24 02:00 03/25/24 18:03 03/26/24 02:00 03/26/24 02:00 03/26/24 00:00 03/24/24 00:00 FiO2 80 03/26/24 01:26 Narrative Exam GENERAL: Cachecic, intubated, sedated HEENT: Normocephalic, atraumatic and nontender.? Pupils are equal and reactive to light and accommodation.? Oral mucosa moist. NECK: Supple without adenopathy. Traquea midline, no JVD.? CHEST: Heart rate and rythm normal, no murmurs, gallops auscultated. S1 & 2 normal insensity. LUNGS: Bilateral fine crackles.?Intubated ABDOMEN: Soft,symmetric, Bowel sounds are normoactive in all 4 quadrants. EXTREMITIES: Nontender.? No pitting edema.? No cyanosis.? SKIN: No rashes noted. NEURO:?Sedated Objective Labs 03/26/24 05:15 03/26/24 05:15 Labs: Laboratory Results - last 24 hr 03/25/24 03/25/24 03/26/24 05:40 06:24 04:09 WBC 20.0 H D RBC 3.60 L Hgb 8.5 L Hct 28.9 L MCV 80 MCH 23.6 L MCHC 29.4 L RDW Std Deviation 52.6 H Plt Count 319 Neut % (Auto) 92 H Lymph % (Auto) 2 L [place] % (Auto) 5 Eos % (Auto) 0 Baso % (Auto) 0 Neut # (Auto) 18.4 H Lymph # (Auto) 0.3 L [place] # (Auto) 1.0 H Eos # (Auto) 0.0 Baso # (Auto) 0.0 Immature Gran # (Auto) 0.26 H Absolute Nucleated RBC 0.00 Immature Gran % 1 H Nucleated RBC % 0 Puncture Site Right Radial ABG pH 7.37 D ABG pCO2 75 H* D ABG pO2 92 D ABG HCO3 43 H ABG O2 Saturation 98 ABG Base Excess 16 H FiO2 80 Sodium 147 H 149 H Potassium 4.1 D 4.4 Chloride 103 106 Carbon Dioxide 32.2 H 30.1 Anion Gap 12 13 BUN 121 H* 133 H* Creatinine 3.0 H 3.2 H Estim Creat Clear Calc 10.1 L 9.5 L eGFR 15 L 14 L* BUN/Creatinine Ratio 40 H 42 H Glucose 422 H* D 178 H D Calculated Osmolality 349 H 343 H Calcium 7.4 L 7.9 L Corrected Calcium 8.1 L D Phosphorus 9.7 H Magnesium 2.7 H Total Bilirubin 0.3 AST 23 ALT 19 Alkaline Phosphatase 107 D Total Protein 4.9 L Albumin 3.1 L D Globulin 1.8 L Albumin/Globulin Ratio 1.7 ABG Interpretation ABG results: 03/15/24 03/16/24 03/17/24 20:34 20:31 02:35 ABG pH 7.45 7.47 H 7.40 ABG pCO2 34 38 41 ABG pO2 100 79 L D 94 ABG HCO3 24 27 H 25 ABG O2 Saturation 99 H 97 98 ABG Base Excess 0 4 H 0 VBG pH VBG pCO2 VBG pO2 VBG Base Excess 03/18/24 03/21/24 03/21/24 02:37 05:08 18:27 ABG pH 7.40 Cancelled ABG pCO2 41 Cancelled ABG pO2 95 Cancelled ABG HCO3 25 Cancelled ABG O2 Saturation 98 Cancelled ABG Base Excess 0 Cancelled VBG pH 7.52 VBG pCO2 37 VBG pO2 64 H VBG Base Excess 7 H 03/21/24 03/21/24 03/23/24 18:49 18:56 09:21 ABG pH Cancelled 7.47 H 7.42 ABG pCO2 Cancelled 44 48 ABG pO2 Cancelled 44 L* 75 L D ABG HCO3 Cancelled 31 H 32 H ABG O2 Saturation Cancelled 81 L 96 ABG Base Excess Cancelled 7 H 6 H VBG pH VBG pCO2 VBG pO2 VBG Base Excess 03/25/24 03/25/24 03/26/24 02:35 04:13 04:09 ABG pH 7.18 L* D 7.15 L* 7.37 D ABG pCO2 75 H* D 87 H* D 75 H* D ABG pO2 173 H D 217 H D 92 D ABG HCO3 28 H 30 H 43 H ABG O2 Saturation 100 H 100 H 98 ABG Base Excess -2 1 16 H VBG pH VBG pCO2 VBG pO2 VBG Base Excess Quality Measures Quality Measures sepsis Current suspected stage: ruled out Possible source: pulmonary Blood cultures ordered: completed in ED Antibiotic ordered: No Advance care planning discussed with:: child Assessment & Plan Assessment Current Active Medications: Generic Name Dose Route Start Last Admin Trade Name Freq PRN Reason Stop Dose Admin Acetaminophen 650 mg 03/14/24 03:00 Acetaminophen 325 Mg Tablet PO 04/13/24 02:59 Q6H PRN PAIN OR FEVER > 101 Albuterol/Ipratropium 3 ml 03/15/24 16:21 03/23/24 01:34 Albuterol/Ipratropium (Duoneb) Rt Rissa 3 Ml Nebu INH 04/14/24 16:20 3 ml Q2HR PRN Administration SHORTNESS OF BREATH OR WHEEZE Heparin Sodium (Porcine) 5,000 unit 03/14/24 09:00 03/25/24 20:59 Heparin Sod Inj 5000 Unit/Ml Vial SC 03/28/24 08:59 5,000 unit Q12HR EMPERATRIZ Administration Fentanyl Citrate 2,500 mcg in 250 mls @ 2.5 mls/hr 03/25/24 01:49 03/26/24 02:00 Sublimaze Inj 2,500 Mcg/250 Ml Bag IV 03/30/24 01:48 125 mcg/hr .Q24H PRN 12.5 mls/hr PER PROTOCOL Titration Protocol 25 MCG/HR Propofol 1,000 mg in 100 mls @ 1.279 mls/hr 03/25/24 01:49 03/26/24 04:03 Diprivan Ivpb IV 04/24/24 01:48 20 mcg/kg/min .Q24H PRN 5.117 mls/hr PER PROTOCOL Administration Protocol 5 MCG/KG/MIN Sodium Bicarbonate 88.23 meq/ 588.23 mls @ 100 mls/hr 03/25/24 05:15 03/26/24 01:01 Dextrose IV 04/24/24 05:14 100 mls/hr .Q5H53M EMPERATRIZ Administration Norepinephrine/Dextrose 8 mg in 250 mls @ 3.997 mls/hr 03/25/24 05:11 03/25/24 18:31 Levophed In D5w 8mg/250ml IV 04/24/24 05:10 0 mcg/kg/min .Q24H PRN 0 mls/hr PER PROTOCOL Titration Protocol 0.05 MCG/KG/MIN Methylprednisolone Sodium Succinate 125 mg 03/23/24 09:00 03/25/24 08:36 Methylprednisolone Sod Succ 62.5 Mg/Ml 2ml Vial IV 03/26/24 08:59 125 mg QDAY EMPERATRIZ Administration Ondansetron HCl 4 mg 03/14/24 03:00 Ondansetron Inj 2 Mg/Ml Inj 2 Ml IV 04/13/24 02:59 Q6H PRN NAUSEA OR VOMITING Protocol Pantoprazole Sodium 40 mg 03/14/24 09:00 03/25/24 08:36 Pantoprazole 40 Mg Tablet PO 04/13/24 08:59 40 mg QDAY EMPERATRIZ Administration Plan A 82-year-old female with past medical history of hypertension, GERD s/p fundoplication with hiatal hernia repair, hyperlipidemia, TIA [2021], depression was brought to the hospital with chief complaints of shortness of breath and admitted with acute hypoxic respiratory failure. She was found to have type 3 pulmonary hypertension, secondary to suspected hypersensitivity pneumonitis interstitial lung disease. NEURO #Acute metabolic encephalopathy Secondary to hypercapnia/hypoxia versus uremia Patient's mentation declined throughout admission, on 03/25 GCS of 8 around 1 am, intubated for airway protection -BUN today was 101, follow up repeat BUN, security guard supervisor Dr Matos following -Mechanical ventilation for airway protection CARDIO # HFrEF # Moderate to severe pulmonary hypertension # Group 3 PAH in the setting of interstitial lung disease -Patient denies pedal edema, shortness of breath, chest pain, angina. -BNP is elevated at the time of admission for which cardiology was consulted -Echo done during this admission showed EF of 40 to 45% with moderate to severe pulmonary hypertension. -Right heart cath performed on 03/21/2024 -Mild pulmonary hypertension with mean PAP greater than 25 mmHg, moderately elevated LVEDP at 27 mmHg, PVR is markedly elevated at 4 wood units and TPG is 23. Normal cardiac output and index. Isolated precapillary pH indicating Group 3 PAH secondary to lung disease and possibe componenet of vasoconstriction along with fibrosis Plan -Discontinued the mycophenolate and methylprednisolone -Started norepinephrine as patient became hypotensive # Hypotension # History of hypertension Likely in setting of obstructive verus cardiogenic shock. -Start norepinephrine as needed to maintain MAP >65 -Discontinued nicardipine, labetalol, hydralazine -Will monitor blood pressures PULM # Acute hypoxic respiratory failure # ARDS # Bilateral pulmonary infiltrates with severe hypertension #? Chronic hypersensitivity pneumonitis -Admitted with difficulty in breathing -Denies fever, cough, nausea, abdominal pain, weight loss, appetite loss. -BNP is >3000 for which cardiology was consulted. -Echo done showed severe pulmonary hypertension -CT showed bilateral infiltrates with ARDS pattern. -Patient was noted to have bilateral hand deformities and when asked about the history, patient's [id number] stated that she was diagnosed to have rheumatoid arthritis but did not get any treatment for that. -RA factor, anti-CCP, LISBET was ordered. -Creatinine kinase - normal limits, aldolase was ordered. Patient was upgraded to ICU on 03/16/2024 in view of low saturations despite being on high flow oxygen for observation and further care. -Group A antigen was negative streptococcus and Legionella antigen is still pending. 03/25 upgraded to ICU for first time intubation Plan -Continue mechanical ventilation support, currently do not expect patient to be able to survive extubation. Will await family to arrive before initiating comfort measures -Antibiotics have been discontinued -Methylprednisolone was stopped -Mycophenolate mofetil was stopped GI #No active problems NEPHRO # ROBEL, prerenal Likely in the setting of diuresis. -BUN and creatinine is within normal limits till 03/16/2024 -On 03/17/2024, BUN is 41 and creatinine is 1.5 >(03/18) BUN is 62, creatinine 1.8 >03/21, BUN 82, Cr 1.4 -Urine output is well-maintained. Plan -Diuretics were withheld. -Will continue to monitor renal functions and avoid nephrotoxic medications URO #No active problems HEME # Leukocytosis, resolved -In the setting of ongoing chronic lung disease. # Microcytic hypochromic anemia -Hemoglobin is 9.5 at the time of admission -Iron panel showed iron deficiency. Plan -Iron infusion was withheld in the view of ongoing active lung disease -Will continue to monitor CBC. ENDO #No active problems ID #No active problems MSK # Bilateral hand deformities Likely due to rheumatoid arthritis. RA factor and anti-CCP antibodies were sent. RA factor came out negative. SKIN #No active problems DVT prophylaxis: Heparin GI prophylaxis: Protonix Diet: Regular Martinez: Present Lines: peripheral Antibiotics: none CODE STATUS: FULL Reason for ICU care: Acute hypoxic respiratory failure Patient plan of care was discussed with the attending physician, Dr. Singh. Yris Yao, PGY-2 Attending Provider Attestation/Addendum Please see my separate note for attestation on same date of service.
--- NOTE | 2024-03-25 18:38 | PD.IMPROG ---
Documentation for date of: 03/25/24 Subjective Subjective Interval history: Patient seen and examined at the bedside. Patient has been admitted to the ICU secondary to her respiratory failure after intubation early this morning around 1 AM and she continued to deteriorate even on BiPAP with increased work of breathing. Patient was intubated for airway protection placed on mechanical ventilation. On propofol as well as fentanyl along with bicarb drip at the present moment. As per the primary team patient seconds and is due to be arriving tomorrow and plan to continue goals of care discussion at the point of time. Patient has mild pulmonary hypertension secondary to group 3 PAH with mean PAP greater than 32 mmHg as seen on right heart cath completed on 03/21/2024. Discussed with pulmonary staff and at this point of time recommending no CellCept as well as Tyvaso and just continue to do prednisone taper. Patient Tyvaso also was ordered by me to the [facility] specialty pharmacy but as noted it will take some time to obtain the medication after the authorizations Patient's CODE STATUS was changed to DNR on 03/23/2024 but again the family requested the patient to be changed back to full code on 03/24/2024 Telemetry reviewed and patient continues to have sinus rhythm with sinus arrhythmias with few PACs and PVCs. Blood pressure appears to be slightly on the softer side with the systolic 101 120 mmHg but overall heart rate is also well controlled. Only on prednisone taper and CellCept has been discontinued. RF was negative and rest of autoimmune screen Including anti-CCP, LISBET, aldolase pending Strep A, influenza A & B, RSV, cocci and COVID-19 were all negative on this admission Exam Vital Signs Temp Pulse Resp BP Pulse Ox O2 Del Method O2 Flow Rate 97.6 F 64 29 H 137/52 H 99 Mechanical Ventilation 40 03/25/24 12:30 03/25/24 18:03 03/25/24 18:03 03/25/24 18:03 03/25/24 18:03 03/25/24 04:00 03/24/24 00:00 FiO2 60 03/25/24 18:03 Narrative Exam Constitutional Alert, oriented x 3 and in mild distress. Cachectic, Temporal wasting, Elderly Female on O2 via HFNC, cannot complete sentences. HEENT Vision grossly intact. Patent nares. Trachea midline Respiratory Wasted on inspection poor inspiratory effort, decreased AE in all lung coffman , scattered fine crackles heard throughout b/l lung coffman Cardiovascular S1 and S2 audible, RRR. Abdominal Soft and non tender to palpation in all quadrants. BS + Genitourinary No bladder tenderness, no flank pain. Normal to palpation Musculoskeletal Extremities tone within normal limits. No LE edema. Neurological CN II - XII grossly intact. Extremity motor and sensation grossly intact. Skin Warm, dry and intact. No apparent lesions. Psychiatric Cooperative Objective Labs 03/25/24 05:40 03/25/24 06:24 Labs: Laboratory Results - last 24 hr 03/25/24 03/25/24 03/25/24 02:28 02:35 04:13 WBC RBC Hgb Hct MCV MCH MCHC RDW Std Deviation Plt Count Neut % (Auto) Lymph % (Auto) [place] % (Auto) Eos % (Auto) Baso % (Auto) Neut # (Auto) Lymph # (Auto) [place] # (Auto) Eos # (Auto) Baso # (Auto) Immature Gran # (Auto) Absolute Nucleated RBC Immature Gran % Nucleated RBC % Puncture Site Right Radial Right Radial ABG pH 7.18 L* D 7.15 L* ABG pCO2 75 H* D 87 H* D ABG pO2 173 H D 217 H D ABG HCO3 28 H 30 H ABG O2 Saturation 100 H 100 H ABG Base Excess -2 1 FiO2 100 100 Sodium 144 Potassium 7.1 H* D Chloride 107 Carbon Dioxide 25.4 Anion Gap 12 BUN 123 H* Creatinine 2.8 H D Estim Creat Clear Calc 10.2 L eGFR 16 L BUN/Creatinine Ratio 44 H Glucose 99 D Calculated Osmolality 326 H Calcium 7.5 L D Corrected Calcium Phosphorus Magnesium Total Bilirubin AST ALT Alkaline Phosphatase Total Protein Albumin Globulin Albumin/Globulin Ratio 03/25/24 03/25/24 05:40 06:24 WBC 20.0 H D RBC 3.60 L Hgb 8.5 L Hct 28.9 L MCV 80 MCH 23.6 L MCHC 29.4 L RDW Std Deviation 52.6 H Plt Count 319 Neut % (Auto) 92 H Lymph % (Auto) 2 L [place] % (Auto) 5 Eos % (Auto) 0 Baso % (Auto) 0 Neut # (Auto) 18.4 H Lymph # (Auto) 0.3 L [place] # (Auto) 1.0 H Eos # (Auto) 0.0 Baso # (Auto) 0.0 Immature Gran # (Auto) 0.26 H Absolute Nucleated RBC 0.00 Immature Gran % 1 H Nucleated RBC % 0 Puncture Site ABG pH ABG pCO2 ABG pO2 ABG HCO3 ABG O2 Saturation ABG Base Excess FiO2 Sodium 147 H 149 H Potassium 4.1 D 4.4 Chloride 103 106 Carbon Dioxide 32.2 H 30.1 Anion Gap 12 13 BUN 121 H* 133 H* Creatinine 3.0 H 3.2 H Estim Creat Clear Calc 10.1 L 9.5 L eGFR 15 L 14 L* BUN/Creatinine Ratio 40 H 42 H Glucose 422 H* D 178 H D Calculated Osmolality 349 H 343 H Calcium 7.4 L 7.9 L Corrected Calcium 8.1 L D Phosphorus 9.7 H Magnesium 2.7 H Total Bilirubin 0.3 AST 23 ALT 19 Alkaline Phosphatase 107 D Total Protein 4.9 L Albumin 3.1 L D Globulin 1.8 L Albumin/Globulin Ratio 1.7 ABG Interpretation ABG results: 03/15/24 03/16/24 03/17/24 20:34 20:31 02:35 ABG pH 7.45 7.47 H 7.40 ABG pCO2 34 38 41 ABG pO2 100 79 L D 94 ABG HCO3 24 27 H 25 ABG O2 Saturation 99 H 97 98 ABG Base Excess 0 4 H 0 VBG pH VBG pCO2 VBG pO2 VBG Base Excess 03/18/24 03/21/24 03/21/24 02:37 05:08 18:27 ABG pH 7.40 Cancelled ABG pCO2 41 Cancelled ABG pO2 95 Cancelled ABG HCO3 25 Cancelled ABG O2 Saturation 98 Cancelled ABG Base Excess 0 Cancelled VBG pH 7.52 VBG pCO2 37 VBG pO2 64 H VBG Base Excess 7 H 03/21/24 03/21/24 03/23/24 18:49 18:56 09:21 ABG pH Cancelled 7.47 H 7.42 ABG pCO2 Cancelled 44 48 ABG pO2 Cancelled 44 L* 75 L D ABG HCO3 Cancelled 31 H 32 H ABG O2 Saturation Cancelled 81 L 96 ABG Base Excess Cancelled 7 H 6 H VBG pH VBG pCO2 VBG pO2 VBG Base Excess 03/25/24 03/25/24 02:35 04:13 ABG pH 7.18 L* D 7.15 L* ABG pCO2 75 H* D 87 H* D ABG pO2 173 H D 217 H D ABG HCO3 28 H 30 H ABG O2 Saturation 100 H 100 H ABG Base Excess -2 1 VBG pH VBG pCO2 VBG pO2 VBG Base Excess Assessment & Plan A&P Narrative Patient is an 83-year-old female with a past medical history significant for essential hypertension, hyperlipidemia, TIA [2021], depression and GERD s/p Benjamin fundoplication with hiatal hernia repair [2017]. Follows up with PCP Dr Campos. Patient presented to the ED with a chief complaint of shortness of breath. Patient was admitted for acute respiratory failure with hypoxia and cardiology was consulted to assess for possible new onset CHF. 1. Acute respiratory failure with hypoxia - worsening 2. Acute decompensated diastolic heart failure ?new onset [40-45%] 3. Pulmonary Hypertension - Group 3 4. ACS ruled out 5. NSTEMI type II On presentation patient was severely SOB unable to complete sentences and lying at a 45 degree angle. On exam she had no lower extremity edema but poor inspiratory effort, decreased air entry and scattered crackles at the bases and a 3/6 diastolic murmur heard at left lower sternal border. She was not on any home diuretic and not known to have heart failure in the past, however clinically she appears to be in acute decompensated heart failure exacerbation. BNP on admission 3280 and troponin elevated at 0.1 up trended to 0.124 and downtrending to 0.121 likely in the setting of CHF exacerbation EKG on admission showed sinus rhythm, rate 95, LVH. Chest x-ray was significant for increased vascular markings bilaterally flash pulmonary edema. DDx : ILD, RA flare, Allergic interstital pneumonitis, Primary pulmonary hypertension, ARDS BNP can also be elevated in ILD Last echocardiogram completed [place] [address] Brock Strickland findings include: Normal left ventricular size with mild LVH. LVEF 60%. normal cardiac chamber size mitral valve thickening with trace regurgitation moderate aortic valve regurgitation Transthoracic echocardiogram completed on 03/14 findings include: Normal LV size. Mild systolic dysfunction. Mild hypokinesis basal to mid Anterior and anteroseptal gale. Mild LVH. Grade I diastolic dysfunction. Estimated EF 40-45% Normal RV size. Normal RV function. Estimated RVSP 68mmHg. Moderate to severe PAH. RAP 10. Mild LA dilation. Severe RA dilation Moderate MR, AI. Mild TR. Trace PI. IVC dilated. Chest CTA completed 03/16 showed severe bilateral pneumonia ARDS pattern with ground glass opacities, bilateral bronchiectasis, fibrosis and significant consolidation, negative for pulmonary artery emboli. Abdomen CT was significant for Large Liver Simple Cyst Of note patient also admitted to having rheumatoid arthritis. Overnight 03/17 patient's became confused and was attempting to remove high flow nasal cannula and subsequently desaturated to the 50s. At the bedside patient appeared to be confused and her mouth was cyanotic. Patient was again placed on high flow nasal cannula and upgraded to the ICU for closer monitoring and possible intubation if necessary. Right heart cardiac catheterization with measurements of right heart pressures and cardiac output by Maria E method as well as thermodilution method completed on 03/21/2024 findings include: Mean right atrial pressure was 29mmHg. Right atrial pressure was 55/3 mmHg. Pulmonary artery pressure was 55/16 mmHg with a mean of 32 mmHg. Mean pulmonary capillary wedge pressure was 9 mmHg. TPG was 23 mmHg Pulmonary artery PA saturation was 79%. Arterial saturation was 91% and 40 L at 100% FiO2 Cardiac output was 5.6 L/min and cardiac index was 4.1 L/min/m?. Pulmonary vascular resistance was 4 Wood units and total pulm resistance was 6 Wood units Systemic vascular resistance is 1064 Dynes?sec?cm?? [normal 900-1200 or 11-15 Wood units] RAISA is 2 [normal is greater than 0.9] [employer] ASBESTOS 2.26 Marley [normal greater than 0.6] Impression: Mild pulmonary hypertension with mean PAP greater than 25 mmHg, moderately elevated LVEDP at 27 mmHg, PVR is markedly elevated at 4 wood units and TPG is 23. 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 Strict input output charting ? 2 g sodium restricted diet ? Daily weights - 1500cc fluid restriction ? Aspirin 81 mg p.o. daily - No additional diuresis needed as patient is eulvolemic. Continue to slowly taper off the high flow oxygen as tolerated. ? No need to further trend troponin as troponin elevation mostly secondary to supply/demand mismatch 03/25/2024 Patient has been admitted to the ICU secondary to her respiratory failure after intubation early this morning around 1 AM and she continued to deteriorate even on BiPAP with increased work of breathing. Patient was intubated for airway protection placed on mechanical ventilation. On propofol as well as fentanyl along with bicarb drip at the present moment. As per the primary team patient seconds and is due to be arriving tomorrow and plan to continue goals of care discussion at the point of time. Patient has mild pulmonary hypertension secondary to group 3 PAH with mean PAP greater than 32 mmHg as seen on right heart cath completed on 03/21/2024. Discussed with pulmonary staff and at this point of time recommending no CellCept as well as Tyvaso and just continue to do prednisone taper. Patient Tyvaso also was ordered by me to the [facility] specialty pharmacy but as noted it will take some time to obtain the medication after the authorizations Patient's CODE STATUS was changed to DNR on 03/23/2024 but again the family requested the patient to be changed back to full code on 03/24/2024 Telemetry reviewed and patient continues to have sinus rhythm with sinus arrhythmias with few PACs and PVCs. Blood pressure appears to be slightly on the softer side with the systolic 101 120 mmHg but overall heart rate is also well controlled. Only on prednisone taper and CellCept has been discontinued. RF was negative and rest of autoimmune screen Including anti-CCP, LISBET, aldolase pending Strep A, influenza A & B, RSV, cocci and COVID-19 were all negative on this admission 6. Essential hypertension Home medication labetalol 200 mg p.o. twice daily On admission BP 189/83 Patient blood pressure this am 132/51 - much improved from before From telemetry review HR 60s?70s overnight with sinus arrhythmia, PACs and PVCs. Plan: ? All blood pressure medications are on hold at the present moment. 7. Hyperlipidemia Patient was not on any statins at home but has a history of hyperlipidemia. On this admission triglycerides 127, cholesterol 136, LDL 69. Statin also on hold and can restart if patient improves 8. History of depression 9. History of GERD 10. History of TIA [2021] 11. History of Benjamin fundoplication with hiatal hernia repair [2017] 12. Microcytic anemia On admission patient's Hb 9.5. Baseline from chart review appears to be about 11?12. DDx: Iron deficiency anemia, poor nutrition, anemia of chronic disease, thalassemia, malignancy Patient also endorses approximately 30lb weight loss over the past 2 years Recommend, reticulocyte count, blood smear, LDH Iron 11, TIBC 214, ferritin 482. 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 13. ROBEL on CKD stage III A On admission patient's CR 1.1 which appears to be at her baseline Currently Cr stable at 1.4 Continue management as per primary team 14. Rheumatoid arthritis Patient not on methotrexate or any biologic agents at home but admits to history of rheumatoid arthritis for many years. 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 Continue management as per primary team Management of rest of the medical conditions as per primary team and other consultants. Thank you for the consult and allowing me to participate in the care of the patient. Cardiology will continue to follow. Mian Best M.D. Interventional Cardiology Time Spent With Patient Time: Total time spent is greater than 50% in coordination of care (as documented) at patient's floor/unit and/or counseling patient:
[2024-03-26] VITALS (30 sets, daily range): BP systolic 104–172; BP diastolic 40–91; PULSE 69–93; RESP 23–52; TEMP 36.1–37.3; O2SAT 90–99; BMI 18.7
[2024-03-26] MEDS: Sodium Bicarb 8.4% 50ml Vial* 88.23 MEQ in DEXTROSE 5%-WATER 500 ML 100 MEQ IV (01:01)
[2024-03-26] MEDS: PROPOFOL 1,000 MG IVPB 1,000 MG/100 ML VIAL 5.117 MG IV (04:03)
[2024-03-26 04:39] LABS: Base Excess 16 (-3-3); HCO3 43 mEq/L (20-26); Inspired Oxygen, FIO2 80 %; O2 Saturation 98 % (91-98); PCO2 75 mmHg (32.0-48.0); PO2 92 mmHg (83-108); pH, Arterial 7.37 (7.35-7.45)
[2024-03-26 04:55] LABS: Allen Test Performed/OK; Puncture Site Right Radial
[2024-03-26] MEDS: fentaNYL 2,500 MCG/250 ML BAG 2,500 MCG/250 ML BAG 12.5 MCG IV (05:45)
[2024-03-26 06:47] LABS: Basophils % (Auto) 0 % (0-2.5); Eosinophils % (Auto) 0 % (0-10); Hematocrit 25.7 % (36.0-46.0); Immature Granulocytes % (Auto) 1 % (0-0); Lymphocytes # (Auto) 0.3 Thou/mm3 (1.0-4.8); Lymphocytes % (Auto) 3 % (10-50); Mean Corpuscular HGB Conc 30.4 g/dl (31.0-37.0); Mean Corpuscular Hemoglobin 23.5 pg (25.0-35.0); Mean Corpuscular Volume 77 fL (80-100); Monocytes # (Auto) 0.5 Thou/mm3 (0.0-0.8); Monocytes % (Auto) 5 % (0-12); Neutrophils # (Auto) 9.4 Thou/mm3 (1.8-7.7); Neutrophils % (Auto) 91 % (37-80); Nucleated Red Blood Cell % 0 /100 WBC (0); Platelet Count 201 Thou/mm3 (140-440); Red Blood Count 3.32 Miln/mm3 (4.00-5.20); White Blood Count 10.4 Thou/mm3 (3.6-11.0)
[2024-03-26 06:57] LABS: Hemoglobin 7.8 g/dL (12.0-16.0)
[2024-03-26 07:18] LABS: Alanine Aminotransferase 16 U/L (10-49); Albumin, Serum 2.8 gm/dL (3.4-4.8); Albumin/Globulin Ratio 1.8 (1.2-2.2); Alkaline Phosphatase 90 U/L (46-116); Anion Gap 9 (7-16); Aspartate Amino Transferase 25 U/L (0-34); BUN/Creatinine Ratio 50 Ratio (12-20); Bilirubin,Total 0.3 mg/dL (0.3-1.2); Carbon Dioxide > 40.0 mMol/L (20.0-31.0); Chloride 101 mMol/L (98-107); Creatinine (Component) 2.4 mg/dL (0.6-1.3); Estimated Creatinine Clearance 12.6 mL/min (>60); Globulin 1.6 gm/dL (2.3-3.5); Glucose 146 mg/dL (74-106); Magnesium 2.4 mg/dL (1.6-2.6); Osmolality,Calculated 339 (275-295); Phosphorous 5.2 mg/dL (2.4-5.1); Potassium 3.8 mMol/L (3.4-5.1); Sodium 150 mMol/L (136-145); Total Protein 4.4 gm/dL (5.7-8.2); eGFR 20 See Note
[2024-03-26 07:20] LABS: Blood Urea Nitrogen 120 mg/dL (9-23)
[2024-03-26] MEDS: PANTOPRAZOLE INJ 40 MG VIAL IV (08:29)
[2024-03-26] MEDS: HEPARIN SOD INJ 5000 UNIT/ML VIAL SC ×2 (08:29→20:45)
--- NOTE | 2024-03-26 09:07 | PC.NURSE ---
Contacted donor network and spoke with Callie who stated ruled out for organ donation. OPA# [id number]
--- NOTE | 2024-03-26 10:13 | PD.RESPRO ---
Documentation for date of: 03/26/24 Subjective Subjective Interval history: Patient seen and examined at the bedside. Patient still currently sedated and on mechanical ventilation. As per the primary team patient patient's family will most likely transition to comfort measures, but as of now supportive care will be continued. Patient's CODE STATUS was changed to DNR on 03/23/2024 but again the family requested the patient to be changed back to full code on 03/24/2024 and is still full code at present. Telemetry reviewed and patient continues to have sinus rhythm with sinus arrhythmias with few PVCs. Blood pressure continues to be is on the softer side this morning 115/52 and patient continues on norepinephrine at 3 mL/h. Autoimmune screen Including anti-CCP, LISEBT, aldolase still pending Patient Tyvaso also was ordered by me to the [facility] specialty pharmacy but as noted it will take some time to obtain the medication after the authorizations, has not received any as of now. Exam Vital Signs Temp Pulse Resp BP Pulse Ox O2 Del Method O2 Flow Rate 97.5 F 75 28 H 112/56 L 99 Mechanical Ventilation 40 03/26/24 08:00 03/26/24 08:00 03/26/24 06:59 03/26/24 08:00 03/26/24 08:00 03/26/24 08:00 03/24/24 00:00 FiO2 80 03/26/24 08:00 Narrative Exam Constitutional Sedated and mechanically ventilated, Cachectic, Temporal wasting, Elderly Female. HEENT Vision grossly intact. Patent nares. Trachea midline Respiratory Crackles heard throughout b/l lung coffman, intubated. Cardiovascular S1 and S2 audible, RRR. Abdominal Soft and non tender to palpation in all quadrants. BS + Musculoskeletal No cyanosis. No LE edema. Neurological Sedated. Skin Warm, dry and intact. No apparent lesions. Objective Labs 03/26/24 05:15 03/26/24 05:15 Labs: Laboratory Results - last 24 hr 03/26/24 03/26/24 04:09 05:15 WBC 10.4 D RBC 3.32 L Hgb 7.8 L Hct 25.7 L MCV 77 L MCH 23.5 L MCHC 30.4 L RDW Std Deviation 50.0 H Plt Count 201 D Neut % (Auto) 91 H Lymph % (Auto) 3 L Walsh % (Auto) 5 Eos % (Auto) 0 Baso % (Auto) 0 Neut # (Auto) 9.4 H Lymph # (Auto) 0.3 L Walsh # (Auto) 0.5 Eos # (Auto) 0.0 Baso # (Auto) 0.0 Immature Gran # (Auto) 0.10 H Absolute Nucleated RBC 0.00 Immature Gran % 1 H Nucleated RBC % 0 Puncture Site Right Radial ABG pH 7.37 D ABG pCO2 75 H* D ABG pO2 92 D ABG HCO3 43 H ABG O2 Saturation 98 ABG Base Excess 16 H FiO2 80 Sodium 150 H Potassium 3.8 D Chloride 101 Carbon Dioxide > 40.0 H Anion Gap 9 BUN 120 H* Creatinine 2.4 H D Estim Creat Clear Calc 12.6 L eGFR 20 L BUN/Creatinine Ratio 50 H Glucose 146 H Calculated Osmolality 339 H Calcium 7.0 L Corrected Calcium 8.0 L Phosphorus 5.2 H Magnesium 2.4 Total Bilirubin 0.3 AST 25 ALT 16 Alkaline Phosphatase 90 Total Protein 4.4 L Albumin 2.8 L Globulin 1.6 L Albumin/Globulin Ratio 1.8 ABG Interpretation ABG results: 03/15/24 03/16/24 03/17/24 20:34 20:31 02:35 ABG pH 7.45 7.47 H 7.40 ABG pCO2 34 38 41 ABG pO2 100 79 L D 94 ABG HCO3 24 27 H 25 ABG O2 Saturation 99 H 97 98 ABG Base Excess 0 4 H 0 VBG pH VBG pCO2 VBG pO2 VBG Base Excess 03/18/24 03/21/24 03/21/24 02:37 05:08 18:27 ABG pH 7.40 Cancelled ABG pCO2 41 Cancelled ABG pO2 95 Cancelled ABG HCO3 25 Cancelled ABG O2 Saturation 98 Cancelled ABG Base Excess 0 Cancelled VBG pH 7.52 VBG pCO2 37 VBG pO2 64 H VBG Base Excess 7 H 03/21/24 03/21/24 03/23/24 18:49 18:56 09:21 ABG pH Cancelled 7.47 H 7.42 ABG pCO2 Cancelled 44 48 ABG pO2 Cancelled 44 L* 75 L D ABG HCO3 Cancelled 31 H 32 H ABG O2 Saturation Cancelled 81 L 96 ABG Base Excess Cancelled 7 H 6 H VBG pH VBG pCO2 VBG pO2 VBG Base Excess 03/25/24 03/25/24 03/26/24 02:35 04:13 04:09 ABG pH 7.18 L* D 7.15 L* 7.37 D ABG pCO2 75 H* D 87 H* D 75 H* D ABG pO2 173 H D 217 H D 92 D ABG HCO3 28 H 30 H 43 H ABG O2 Saturation 100 H 100 H 98 ABG Base Excess -2 1 16 H VBG pH VBG pCO2 VBG pO2 VBG Base Excess Quality Measures Quality Measures sepsis Current suspected stage: ruled out Possible source: pulmonary Blood cultures ordered: completed in ED Antibiotic ordered: No Advance care planning discussed with:: patient Assessment & Plan Assessment Current Active Medications: Generic Name Dose Route Start Last Admin Trade Name Freq PRN Reason Stop Dose Admin Acetaminophen 650 mg 03/14/24 03:00 Acetaminophen 325 Mg Tablet PO 04/13/24 02:59 Q6H PRN PAIN OR FEVER > 101 Albuterol/Ipratropium 3 ml 03/15/24 16:21 03/23/24 01:34 Albuterol/Ipratropium (Duoneb) Rt Rissa 3 Ml Nebu INH 04/14/24 16:20 3 ml Q2HR PRN Administration SHORTNESS OF BREATH OR WHEEZE Heparin Sodium (Porcine) 5,000 unit 03/14/24 09:00 03/26/24 08:29 Heparin Sod Inj 5000 Unit/Ml Vial SC 03/28/24 08:59 5,000 unit Q12HR EMPERATRIZ Administration Fentanyl Citrate 2,500 mcg in 250 mls @ 2.5 mls/hr 03/25/24 01:49 03/26/24 06:00 Sublimaze Inj 2,500 Mcg/250 Ml Bag IV 03/30/24 01:48 125 mcg/hr .Q24H PRN 12.5 mls/hr PER PROTOCOL Titration Protocol 25 MCG/HR Propofol 1,000 mg in 100 mls @ 1.279 mls/hr 03/25/24 01:49 03/26/24 06:00 Diprivan Ivpb IV 04/24/24 01:48 20 mcg/kg/min .Q24H PRN 5.117 mls/hr PER PROTOCOL Titration Protocol 5 MCG/KG/MIN Sodium Bicarbonate 88.23 meq/ 588.23 mls @ 100 mls/hr 03/25/24 05:15 03/26/24 01:01 Dextrose IV 04/24/24 05:14 100 mls/hr .Q5H53M EMPERATRIZ Administration Norepinephrine/Dextrose 8 mg in 250 mls @ 3.997 mls/hr 03/25/24 05:11 03/25/24 18:31 Levophed In D5w 8mg/250ml IV 04/24/24 05:10 0 mcg/kg/min .Q24H PRN 0 mls/hr PER PROTOCOL Titration Protocol 0.05 MCG/KG/MIN Ondansetron HCl 4 mg 03/14/24 03:00 Ondansetron Inj 2 Mg/Ml Inj 2 Ml IV 04/13/24 02:59 Q6H PRN NAUSEA OR VOMITING Protocol Pantoprazole Sodium 40 mg 03/26/24 09:00 03/26/24 08:29 Pantoprazole Inj 40 Mg Vial IV 04/25/24 08:59 40 mg QDAY EMPERATRIZ Administration Protocol Plan Patient is an 83-year-old female with a past medical history significant for essential hypertension, hyperlipidemia, TIA [2021], depression and GERD s/p Benjamin fundoplication with hiatal hernia repair [2017]. Follows up with PCP Dr Campos. Patient presented to the ED with a chief complaint of shortness of breath. Patient was admitted for acute respiratory failure with hypoxia and cardiology was consulted to assess for possible new onset CHF. 1. Acute respiratory failure with hypoxia - worsening 2. Acute decompensated diastolic heart failure ?new onset [40-45%] 3. Pulmonary Hypertension - Group 3 4. ACS ruled out 5. NSTEMI type II On presentation patient was severely SOB unable to complete sentences and lying at a 45 degree angle. On initial exam she had no lower extremity edema but poor inspiratory effort, decreased air entry and scattered crackles at the bases and a 3/6 diastolic murmur heard at left lower sternal border. She was not on any home diuretic and not known to have heart failure in the past, however clinically she appears to be in acute decompensated heart failure exacerbation. BNP on admission 3280 and troponin elevated at 0.1 up trended to 0.124 and downtrending to 0.121 likely in the setting of CHF exacerbation EKG on admission showed sinus rhythm, rate 95, LVH. Chest x-ray was significant for increased vascular markings bilaterally flash pulmonary edema. DDx : ILD, RA flare, Allergic interstital pneumonitis, Primary pulmonary hypertension, ARDS BNP can also be elevated in ILD Last echocardiogram completed [place] [address] Brock Strickland findings include: Normal left ventricular size with mild LVH. LVEF 60%. normal cardiac chamber size mitral valve thickening with trace regurgitation moderate aortic valve regurgitation Transthoracic echocardiogram completed on 03/14 findings include: Normal LV size. Mild systolic dysfunction. Mild hypokinesis basal to mid Anterior and anteroseptal gale. Mild LVH. Grade I diastolic dysfunction. Estimated EF 40-45% Normal RV size. Normal RV function. Estimated RVSP 68mmHg. Moderate to severe PAH. RAP 10. Mild LA dilation. Severe RA dilation Moderate MR, AI. Mild TR. Trace PI. IVC dilated. Chest CTA completed 03/16 showed severe bilateral pneumonia ARDS pattern with ground glass opacities, bilateral bronchiectasis, fibrosis and significant consolidation, negative for pulmonary artery emboli. Abdomen CT was significant for Large Liver Simple Cyst Of note patient also admitted to having rheumatoid arthritis. Right heart cardiac catheterization with measurements of right heart pressures and cardiac output by Maria E method as well as thermodilution method completed on 03/21/2024 findings include: Mean right atrial pressure was 29mmHg. Right atrial pressure was 55/3 mmHg. Pulmonary artery pressure was 55/16 mmHg with a mean of 32 mmHg. Mean pulmonary capillary wedge pressure was 9 mmHg. TPG was 23 mmHg Pulmonary artery PA saturation was 79%. Arterial saturation was 91% and 40 L at 100% FiO2 Cardiac output was 5.6 L/min and cardiac index was 4.1 L/min/m?. Pulmonary vascular resistance was 4 Wood units and total pulm resistance was 6 Wood units Systemic vascular resistance is 1064 Dynes?sec?cm?? [normal 900-1200 or 11-15 Wood units] RAISA is 2 [normal is greater than 0.9] [employer] H[employer]/HOSTESS 2.26 Marley [normal greater than 0.6] Impression: Mild pulmonary hypertension with mean PAP greater than 25 mmHg, moderately elevated LVEDP at 27 mmHg, PVR is markedly elevated at 4 wood units and TPG is 23. 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 Strict input output charting ? 2 g sodium restricted diet ? Daily weights - 1500cc fluid restriction ? Aspirin 81 mg p.o. daily - No additional diuresis needed as patient is eulvolemic. ? No need to further trend troponin as troponin elevation mostly secondary to supply/demand mismatch ?Patient may be transition to comfort measures in the next 24 hours, will currently continue supportive care 6. Essential hypertension Home medication labetalol 200 mg p.o. twice daily On admission BP 189/83 Patient blood pressure this am 115/52, currently on norepinephrine infusion at 3 mL/h From telemetry review HR 60s?80s overnight with sinus arrhythmia PVCs. Plan: ? All blood pressure medications are on hold at the present moment. ?Can continue pressor support. 7. Hyperlipidemia Patient was not on any statins at home but has a history of hyperlipidemia. On this admission triglycerides 127, cholesterol 136, LDL 69. Statin also on hold and can restart if patient improves 8. History of depression 9. History of GERD 10. History of TIA [2021] 11. History of Benjamin fundoplication with hiatal hernia repair [2017] 12. Microcytic anemia On admission patient's Hb 9.5. Baseline from chart review appears to be about 11?12. DDx: Iron deficiency anemia, poor nutrition, anemia of chronic disease, thalassemia, malignancy Patient also endorsed approximately 30lb weight loss over the past 2 years Recommend, reticulocyte count, blood smear, LDH Iron 11, TIBC 214, ferritin 482. 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 13. ROBEL on CKD stage III A On admission patient's CR 1.1 which appears to be at her baseline Currently Cr decrease to 2.4 from 3.2 yesterday Continue management as per primary team 14. Rheumatoid arthritis Patient not on methotrexate or any biologic agents at home but admits to history of rheumatoid arthritis for many years. 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 Continue management as per primary team Continue rest of management as per primary team. We are grateful to be able to participate in Mrs. Garcia's care. Thank you for the consult Plan of care discussed with attending Manager Tax, Dr Nasir Warner MD PGY-1 Attending Provider Attestation/Addendum I have personally seen and examined the patient separately on the above date of service and discussed the plan of care with the resident. I reviewed the resident Dr. Jorge consultation progress note and agree with the resident findings and plan in the note above and have also edited the documentation to reflect my findings and plan. Mian Best M.D. Interventional Cardiology
--- NOTE | 2024-03-26 16:42 | ESPR_ITS ---
<Statement entered by Emiliana Currie MD - 03/27/24 08:02> TOTAL CC TIME: 45 MIN I saw and evaluated the patient. I reviewed the resident?s note and agree with findings and plan as documented in the resident?s note. Upon my evaluation, this patient had a high probability of imminent or life- threatening deterioration due to acute on chronic hypoxic resp failure due to ILD, which required my direct attention, intervention, and personal management. This time is exclusive of time spent on procedures, which are documented separately if performed. imaging reviewed -persistent severe lung disease due to ILD Pplt >35 c/w very pooor lung compliance agree with prior team assessment that overall prognosis is very poor GFR remains low - family has indicated that they were inclined to transition to comfort care and members from [place] are due to arrive this evening GOC will be addressed again after clinical update provided She is not a good candidate for HD given her very poor prognosis from her ILD. Documentation for date of: 03/26/24 Subjective Subjective Interval history: 03/26: pt is seen and examined at bedside. pt is sedated and mechanically ventilated without response to verbal or tactile stimuli. familly will arrive at 5pm for a goals of care discussion regarding poor prognosis and possibility of comfort care. Pt. is on fentanyle and propofol. Will begin free water boluse of 500 mL through NG tube and then 250 mL free water every 6 hours through NG tube. Exam Vital Signs Temp Pulse Resp BP Pulse Ox O2 Del Method O2 Flow Rate 97.8 F 79 28 H 153/44 H 97 Mechanical Ventilation 40 03/26/24 12:00 03/26/24 14:38 03/26/24 06:59 03/26/24 14:38 03/26/24 14:38 03/26/24 12:00 03/24/24 00:00 FiO2 70 03/26/24 14:38 Narrative Exam GENERAL: pt. is sedated and mechically ventilated NEURO: unable to asses due to Pt's mental status HEENT: Atraumatic, Normocephalic. mucous membranes moist. Eyes closed HEART: Normal Heart Sounds LUNGS: Clear to auscultation ABDOMEN: soft, non-distended SKIN: No Rash or ecchymoses EXTREMITIES: No edema, tenderness, pedal pulses palpated Objective Labs 03/26/24 05:15 03/26/24 05:15 Labs: Laboratory Results - last 24 hr 03/26/24 03/26/24 04:09 05:15 WBC 10.4 D RBC 3.32 L Hgb 7.8 L Hct 25.7 L MCV 77 L MCH 23.5 L MCHC 30.4 L RDW Std Deviation 50.0 H Plt Count 201 D Neut % (Auto) 91 H Lymph % (Auto) 3 L Sheridan % (Auto) 5 Eos % (Auto) 0 Baso % (Auto) 0 Neut # (Auto) 9.4 H Lymph # (Auto) 0.3 L Sheridan # (Auto) 0.5 Eos # (Auto) 0.0 Baso # (Auto) 0.0 Immature Gran # (Auto) 0.10 H Absolute Nucleated RBC 0.00 Immature Gran % 1 H Nucleated RBC % 0 Puncture Site Right Radial ABG pH 7.37 D ABG pCO2 75 H* D ABG pO2 92 D ABG HCO3 43 H ABG O2 Saturation 98 ABG Base Excess 16 H FiO2 80 Sodium 150 H Potassium 3.8 D Chloride 101 Carbon Dioxide > 40.0 H Anion Gap 9 BUN 120 H* Creatinine 2.4 H D Estim Creat Clear Calc 12.6 L eGFR 20 L BUN/Creatinine Ratio 50 H Glucose 146 H Calculated Osmolality 339 H Calcium 7.0 L Corrected Calcium 8.0 L Phosphorus 5.2 H Magnesium 2.4 Total Bilirubin 0.3 AST 25 ALT 16 Alkaline Phosphatase 90 Total Protein 4.4 L Albumin 2.8 L Globulin 1.6 L Albumin/Globulin Ratio 1.8 ABG Interpretation ABG results: 03/15/24 03/16/24 03/17/24 20:34 20:31 02:35 ABG pH 7.45 7.47 H 7.40 ABG pCO2 34 38 41 ABG pO2 100 79 L D 94 ABG HCO3 24 27 H 25 ABG O2 Saturation 99 H 97 98 ABG Base Excess 0 4 H 0 VBG pH VBG pCO2 VBG pO2 VBG Base Excess 03/18/24 03/21/24 03/21/24 02:37 05:08 18:27 ABG pH 7.40 Cancelled ABG pCO2 41 Cancelled ABG pO2 95 Cancelled ABG HCO3 25 Cancelled ABG O2 Saturation 98 Cancelled ABG Base Excess 0 Cancelled VBG pH 7.52 VBG pCO2 37 VBG pO2 64 H VBG Base Excess 7 H 03/21/24 03/21/24 03/23/24 18:49 18:56 09:21 ABG pH Cancelled 7.47 H 7.42 ABG pCO2 Cancelled 44 48 ABG pO2 Cancelled 44 L* 75 L D ABG HCO3 Cancelled 31 H 32 H ABG O2 Saturation Cancelled 81 L 96 ABG Base Excess Cancelled 7 H 6 H VBG pH VBG pCO2 VBG pO2 VBG Base Excess 03/25/24 03/25/24 03/26/24 02:35 04:13 04:09 ABG pH 7.18 L* D 7.15 L* 7.37 D ABG pCO2 75 H* D 87 H* D 75 H* D ABG pO2 173 H D 217 H D 92 D ABG HCO3 28 H 30 H 43 H ABG O2 Saturation 100 H 100 H 98 ABG Base Excess -2 1 16 H VBG pH VBG pCO2 VBG pO2 VBG Base Excess Quality Measures Quality Measures sepsis Current suspected stage: ruled out Possible source: pulmonary Blood cultures ordered: completed in ED Antibiotic ordered: No Advance care planning discussed with:: other Assessment & Plan Assessment Current Active Medications: Generic Name Dose Route Start Last Admin Trade Name Freq PRN Reason Stop Dose Admin Acetaminophen 650 mg 03/14/24 03:00 Acetaminophen 325 Mg Tablet PO 04/13/24 02:59 Q6H PRN PAIN OR FEVER > 101 Albuterol/Ipratropium 3 ml 03/15/24 16:21 03/23/24 01:34 Albuterol/Ipratropium (Duoneb) Rt Rissa 3 Ml Nebu INH 04/14/24 16:20 3 ml Q2HR PRN Administration SHORTNESS OF BREATH OR WHEEZE Heparin Sodium (Porcine) 5,000 unit 03/14/24 09:00 03/26/24 08:29 Heparin Sod Inj 5000 Unit/Ml Vial SC 03/28/24 08:59 5,000 unit Q12HR EMPERATRIZ Administration Norepinephrine/Dextrose 8 mg in 250 mls @ 3.997 mls/hr 03/25/24 05:11 03/25/24 18:31 Levophed In D5w 8mg/250ml IV 04/24/24 05:10 0 mcg/kg/min .Q24H PRN 0 mls/hr PER PROTOCOL Titration Protocol 0.05 MCG/KG/MIN Fentanyl Citrate 2,500 mcg in 250 mls @ 2.5 mls/hr 03/26/24 16:40 Sublimaze Inj 2,500 Mcg/250 Ml Bag IV 03/30/24 01:48 .Q24H PRN PER PROTOCOL Protocol 25 MCG/HR Propofol 1,000 mg in 100 mls @ 1.279 mls/hr 03/26/24 16:40 Diprivan Ivpb IV 04/24/24 01:48 .Q24H PRN PER PROTOCOL Protocol 5 MCG/KG/MIN Ondansetron HCl 4 mg 03/14/24 03:00 Ondansetron Inj 2 Mg/Ml Inj 2 Ml IV 04/13/24 02:59 Q6H PRN NAUSEA OR VOMITING Protocol Pantoprazole Sodium 40 mg 03/26/24 09:00 03/26/24 08:29 Pantoprazole Inj 40 Mg Vial IV 04/25/24 08:59 40 mg QDAY EMPERATRIZ Administration Protocol Plan A 82-year-old female with past medical history of hypertension, GERD s/p fundoplication with hiatal hernia repair, hyperlipidemia, TIA [2021], depression was brought to the hospital with chief complaints of shortness of breath and admitted with acute hypoxic respiratory failure. She was found to have type 3 pulmonary hypertension, secondary to suspected hypersensitivity pneumonitis interstitial lung disease. NEURO #Acute metabolic encephalopathy Secondary to hypercapnia/hypoxia versus uremia Patient's mentation declined throughout admission, on 03/25 GCS of 8 around 1 am, intubated for airway protection -BUN today was 120, follow up repeat BUN, conservation scientist Dr Matos following -Mechanical ventilation for airway protection CARDIO # HFrEF # Moderate to severe pulmonary hypertension # Group 3 PAH in the setting of interstitial lung disease -Elevated BNP on admission cardiology was consulted -Echo done during this admission showed EF of 40 to 45% with moderate to severe pulmonary hypertension. -Right heart cath performed on 03/21/2024 -Mild pulmonary hypertension with mean PAP greater than 25 mmHg, moderately elevated LVEDP at 27 mmHg, PVR is markedly elevated at 4 wood units and TPG is 23. -Normal cardiac output and index. Isolated precapillary pH indicating Group 3 PAH secondary to lung disease and possible component of vasoconstriction along with fibrosis Plan -Discontinued the mycophenolate and methylprednisolone -Started norepinephrine as patient became hypotensive # Hypotension # History of hypertension Likely in setting of obstructive verus cardiogenic shock. -Start norepinephrine as needed to maintain MAP >65 -Discontinued nicardipine, labetalol, hydralazine -Will monitor blood pressures PULM # Acute hypoxic respiratory failure # ARDS # Bilateral pulmonary infiltrates with severe hypertension #?Chronic hypersensitivity pneumonitis -Admitted with difficulty in breathing -Denies fever, cough, nausea, abdominal pain, weight loss, appetite loss. -BNP is >3000 for which cardiology was consulted. -Echo done showed severe pulmonary hypertension -CT showed bilateral infiltrates with ARDS pattern. -Patient was noted to have bilateral hand deformities and when asked about the history, patient's [id number] stated that she was diagnosed to have rheumatoid arthritis but did not get any treatment for that. -RA factor, anti-CCP, LISBET was ordered. -Creatinine kinase - normal limits, aldolase was ordered. Patient was upgraded to ICU on 03/16/2024 in view of low saturations despite being on high flow oxygen for observation and further care. -Group A antigen was negative streptococcus and Legionella antigen is still pending. 03/25 upgraded to ICU for first time intubation Plan -Continue mechanical ventilation support, currently do not expect patient to be able to survive extubation. Will await family to arrive before initiating comfort measures -Antibiotics have been discontinued -Methylprednisolone was stopped -Mycophenolate mofetil was stopped GI #s/p NG tube -resume free water bolus 500ml through NG tube and then 250ml free water Q6hr NEPHRO #ROBEL, prerenal Likely in the setting of diuresis. -BUN and creatinine is within normal limits till 03/16/2024 -On 03/17/2024, BUN is 41 and creatinine is 1.5 >(03/26) BUN 120, Creatinine 2.4 and GFR 20 -Urine output is well-maintained. Plan -Diuretics were withheld. -Will continue to monitor renal functions and avoid nephrotoxic medications URO #No active problems HEME # Leukocytosis, resolved -In the setting of ongoing chronic lung disease. # Microcytic hypochromic anemia -Hemoglobin is 9.5 at the time of admission -Hgb 03/26 7.8, Hct 25.7 -Iron panel showed iron deficiency. Plan -Iron infusion was withheld in the view of ongoing active lung disease -Will continue to monitor CBC. ENDO #No active problems ID #No active problems MSK # Bilateral hand deformities Likely due to rheumatoid arthritis. RA factor and anti-CCP antibodies were sent. RA factor came out negative. SKIN #No active problems DVT prophylaxis: Heparin GI prophylaxis: Protonix Diet: Regular Martinez: Present Lines: peripheral Antibiotics: none CODE STATUS: FULL Assessment and plan discussed with my attendin Dr. Rosey Beckford (PGY-1)- Internal medicine resident
[2024-03-26] MEDS: fentaNYL 2,500 MCG/250 ML BAG 2,500 MCG/250 ML BAG 22.5 MCG IV (23:20)
[2024-03-27] VITALS (31 sets, daily range): BP systolic 127–184; BP diastolic 41–85; PULSE 70–99; RESP 9–56; TEMP 36.7–37.3; O2SAT 85–100; BMI 18.7
[2024-03-27 04:59] LABS: Base Excess 15 (-3-3); HCO3 42 mEq/L (20-26); Inspired Oxygen, FIO2 65 %; O2 Saturation 99 % (91-98); PCO2 68 mmHg (32.0-48.0); PO2 112 mmHg (83-108)
[2024-03-27 05:05] LABS: Allen Test Performed/OK; Puncture Site Right Radial
[2024-03-27 06:51] LABS: Rheumatoid Factor* 23 IU/mL (<14)
--- NOTE | 2024-03-27 09:05 | ESPR_ITS ---
Documentation for date of: 03/27/24 Subjective Subjective Interval history: Patient seen and examined at the bedside. Patient still currently sedated and on mechanical ventilation. Patient is on comfort measures as of now. Spoke with family at bedside and gave my condolences. Exam Vital Signs Temp Pulse Resp BP Pulse Ox O2 Del Method O2 Flow Rate 98.1 F 76 31 H 140/46 H 96 Mechanical Ventilation 40 03/27/24 07:55 03/27/24 07:00 03/27/24 06:33 03/27/24 07:00 03/27/24 07:00 03/27/24 07:00 03/24/24 00:00 FiO2 65 03/27/24 08:00 Narrative Exam Constitutional Sedated and mechanically ventilated, Cachectic, Temporal wasting, Elderly Female. HEENT Vision grossly intact. Patent nares. Trachea midline Respiratory Crackles heard throughout b/l lung coffman, intubated. Cardiovascular S1 and S2 audible, RRR. Abdominal Soft and non tender to palpation in all quadrants. BS + Musculoskeletal No cyanosis. No LE edema. Neurological Sedated. Skin Warm, dry and intact. No apparent lesions. Objective Labs 03/27/24 09:35 03/27/24 09:35 Labs: Laboratory Results - last 24 hr 03/16/24 03/27/24 21:44 04:40 Puncture Site Right Radial ABG pH 7.40 ABG pCO2 68 H ABG pO2 112 H D ABG HCO3 42 H ABG O2 Saturation 99 H ABG Base Excess 15 H FiO2 65 Rheum Factor (Ref Lab) 23 H ABG Interpretation ABG results: 03/15/24 03/16/24 03/17/24 20:34 20:31 02:35 ABG pH 7.45 7.47 H 7.40 ABG pCO2 34 38 41 ABG pO2 100 79 L D 94 ABG HCO3 24 27 H 25 ABG O2 Saturation 99 H 97 98 ABG Base Excess 0 4 H 0 VBG pH VBG pCO2 VBG pO2 VBG Base Excess 03/18/24 03/21/24 03/21/24 02:37 05:08 18:27 ABG pH 7.40 Cancelled ABG pCO2 41 Cancelled ABG pO2 95 Cancelled ABG HCO3 25 Cancelled ABG O2 Saturation 98 Cancelled ABG Base Excess 0 Cancelled VBG pH 7.52 VBG pCO2 37 VBG pO2 64 H VBG Base Excess 7 H 03/21/24 03/21/24 03/23/24 18:49 18:56 09:21 ABG pH Cancelled 7.47 H 7.42 ABG pCO2 Cancelled 44 48 ABG pO2 Cancelled 44 L* 75 L D ABG HCO3 Cancelled 31 H 32 H ABG O2 Saturation Cancelled 81 L 96 ABG Base Excess Cancelled 7 H 6 H VBG pH VBG pCO2 VBG pO2 VBG Base Excess 03/25/24 03/25/24 03/26/24 02:35 04:13 04:09 ABG pH 7.18 L* D 7.15 L* 7.37 D ABG pCO2 75 H* D 87 H* D 75 H* D ABG pO2 173 H D 217 H D 92 D ABG HCO3 28 H 30 H 43 H ABG O2 Saturation 100 H 100 H 98 ABG Base Excess -2 1 16 H VBG pH VBG pCO2 VBG pO2 VBG Base Excess 03/27/24 04:40 ABG pH 7.40 ABG pCO2 68 H ABG pO2 112 H D ABG HCO3 42 H ABG O2 Saturation 99 H ABG Base Excess 15 H VBG pH VBG pCO2 VBG pO2 VBG Base Excess Quality Measures Quality Measures sepsis Current suspected stage: ruled out Possible source: pulmonary Blood cultures ordered: completed in ED Antibiotic ordered: No Advance care planning discussed with:: child Assessment & Plan Assessment Current Active Medications: Generic Name Dose Route Start Last Admin Trade Name Freq PRN Reason Stop Dose Admin Acetaminophen 650 mg 03/14/24 03:00 Acetaminophen 325 Mg Tablet PO 04/13/24 02:59 Q6H PRN PAIN OR FEVER > 101 Albuterol/Ipratropium 3 ml 03/15/24 16:21 03/23/24 01:34 Albuterol/Ipratropium (Duoneb) Rt Rissa 3 Ml Nebu INH 04/14/24 16:20 3 ml Q2HR PRN Administration SHORTNESS OF BREATH OR WHEEZE Heparin Sodium (Porcine) 5,000 unit 03/14/24 09:00 03/26/24 20:45 Heparin Sod Inj 5000 Unit/Ml Vial SC 03/28/24 08:59 5,000 unit Q12HR EMPERATRIZ Administration Norepinephrine/Dextrose 8 mg in 250 mls @ 3.997 mls/hr 03/25/24 05:11 03/25/24 18:31 Levophed In D5w 8mg/250ml IV 04/24/24 05:10 0 mcg/kg/min .Q24H PRN 0 mls/hr PER PROTOCOL Titration Protocol 0.05 MCG/KG/MIN Fentanyl Citrate 2,500 mcg in 250 mls @ 2.5 mls/hr 03/26/24 16:40 03/27/24 08:00 Sublimaze Inj 2,500 Mcg/250 Ml Bag IV 03/30/24 01:48 225 mcg/hr .Q24H PRN 22.5 mls/hr PER PROTOCOL Titration Protocol 25 MCG/HR Propofol 1,000 mg in 100 mls @ 1.35 mls/hr 03/26/24 16:40 Diprivan Ivpb IV 04/24/24 01:48 .Q24H PRN PER PROTOCOL Protocol 5 MCG/KG/MIN Ondansetron HCl 4 mg 03/14/24 03:00 Ondansetron Inj 2 Mg/Ml Inj 2 Ml IV 04/13/24 02:59 Q6H PRN NAUSEA OR VOMITING Protocol Pantoprazole Sodium 40 mg 03/26/24 09:00 03/26/24 08:29 Pantoprazole Inj 40 Mg Vial IV 04/25/24 08:59 40 mg QDAY EMPERATRIZ Administration Protocol Plan Patient is an 83-year-old female with a past medical history significant for essential hypertension, hyperlipidemia, TIA [2021], depression and GERD s/p Benjamin fundoplication with hiatal hernia repair [2017]. Follows up with PCP Dr Campos. Patient presented to the ED with a chief complaint of shortness of breath. Patient was admitted for acute respiratory failure with hypoxia and cardiology was consulted to assess for possible new onset CHF. 1. Acute respiratory failure with hypoxia - worsening 2. Acute decompensated diastolic heart failure ?new onset [40-45%] 3. Pulmonary Hypertension - Group 3 4. ACS ruled out 5. NSTEMI type II 6. Essential hypertension 7. Hyperlipidemia 8. History of depression 9. History of GERD 10. History of TIA [2021] 11. History of Benjamin fundoplication with hiatal hernia repair [2017] 12. Microcytic anemia 13. ROBEL on CKD stage III A 14. Rheumatoid arthritis -Patient is currently on comfort measures Continue rest of management as per primary team. We are grateful to be able to participate in Mrs. Garcia's care. Thank you for the consult Plan of care discussed with attending Manager Shift, Dr Nasir Warner MD PGY-1 Attending Provider Attestation/Addendum I have personally seen and examined the patient separately on the above date of service and discussed the plan of care with the resident. I reviewed the resident Dr. Jorge consultation progress note and agree with the resident findings and plan in the note above and have also edited the documentation to reflect my findings and plan. Mian Best M.D. Interventional Cardiology
--- NOTE | 2024-03-27 09:37 | PD.RESPRO ---
Documentation for date of: 03/27/24 Subjective Subjective Interval history: Patient seen today. Currently intubated/sedated. Pending [facility] discussion with family regarding comfort measures. Kidney function worsening, despite good urine output. Exam Vital Signs Temp Pulse Resp BP Pulse Ox O2 Del Method O2 Flow Rate 98.1 F 79 31 H 143/57 H 97 Mechanical Ventilation 40 03/27/24 08:00 03/27/24 09:00 03/27/24 06:33 03/27/24 09:00 03/27/24 09:00 03/27/24 08:00 03/24/24 00:00 FiO2 65 03/27/24 08:00 Narrative Exam GENERAL: pt. is sedated and mechically ventilated NEURO: unable to asses due to Pt's mental status HEENT: Atraumatic, Normocephalic. mucous membranes moist. Eyes closed HEART: Normal Heart Sounds LUNGS: Clear to auscultation ABDOMEN: soft, non-distended SKIN: No Rash or ecchymoses EXTREMITIES: No edema, tenderness, pedal pulses palpated Objective Labs 03/27/24 09:35 03/27/24 09:35 Labs: Laboratory Results - last 24 hr 03/16/24 03/27/24 21:44 04:40 Puncture Site Right Radial ABG pH 7.40 ABG pCO2 68 H ABG pO2 112 H D ABG HCO3 42 H ABG O2 Saturation 99 H ABG Base Excess 15 H FiO2 65 Rheum Factor (Ref Lab) 23 H ABG Interpretation ABG results: 03/15/24 03/16/24 03/17/24 20:34 20:31 02:35 ABG pH 7.45 7.47 H 7.40 ABG pCO2 34 38 41 ABG pO2 100 79 L D 94 ABG HCO3 24 27 H 25 ABG O2 Saturation 99 H 97 98 ABG Base Excess 0 4 H 0 VBG pH VBG pCO2 VBG pO2 VBG Base Excess 03/18/24 03/21/24 03/21/24 02:37 05:08 18:27 ABG pH 7.40 Cancelled ABG pCO2 41 Cancelled ABG pO2 95 Cancelled ABG HCO3 25 Cancelled ABG O2 Saturation 98 Cancelled ABG Base Excess 0 Cancelled VBG pH 7.52 VBG pCO2 37 VBG pO2 64 H VBG Base Excess 7 H 03/21/24 03/21/24 03/23/24 18:49 18:56 09:21 ABG pH Cancelled 7.47 H 7.42 ABG pCO2 Cancelled 44 48 ABG pO2 Cancelled 44 L* 75 L D ABG HCO3 Cancelled 31 H 32 H ABG O2 Saturation Cancelled 81 L 96 ABG Base Excess Cancelled 7 H 6 H VBG pH VBG pCO2 VBG pO2 VBG Base Excess 03/25/24 03/25/24 03/26/24 02:35 04:13 04:09 ABG pH 7.18 L* D 7.15 L* 7.37 D ABG pCO2 75 H* D 87 H* D 75 H* D ABG pO2 173 H D 217 H D 92 D ABG HCO3 28 H 30 H 43 H ABG O2 Saturation 100 H 100 H 98 ABG Base Excess -2 1 16 H VBG pH VBG pCO2 VBG pO2 VBG Base Excess 03/27/24 04:40 ABG pH 7.40 ABG pCO2 68 H ABG pO2 112 H D ABG HCO3 42 H ABG O2 Saturation 99 H ABG Base Excess 15 H VBG pH VBG pCO2 VBG pO2 VBG Base Excess Quality Measures Quality Measures sepsis Current suspected stage: ruled out Possible source: pulmonary Blood cultures ordered: completed in ED Antibiotic ordered: Yes Advance care planning discussed with:: other Assessment & Plan Assessment Current Active Medications: Generic Name Dose Route Start Last Admin Trade Name Freq PRN Reason Stop Dose Admin Acetaminophen 650 mg 03/14/24 03:00 Acetaminophen 325 Mg Tablet PO 04/13/24 02:59 Q6H PRN PAIN OR FEVER > 101 Albuterol/Ipratropium 3 ml 03/15/24 16:21 03/23/24 01:34 Albuterol/Ipratropium (Duoneb) Rt Rissa 3 Ml Nebu INH 04/14/24 16:20 3 ml Q2HR PRN Administration SHORTNESS OF BREATH OR WHEEZE Heparin Sodium (Porcine) 5,000 unit 03/14/24 09:00 03/26/24 20:45 Heparin Sod Inj 5000 Unit/Ml Vial SC 03/28/24 08:59 5,000 unit Q12HR EMPERATRIZ Administration Norepinephrine/Dextrose 8 mg in 250 mls @ 3.997 mls/hr 03/25/24 05:11 03/25/24 18:31 Levophed In D5w 8mg/250ml IV 04/24/24 05:10 0 mcg/kg/min .Q24H PRN 0 mls/hr PER PROTOCOL Titration Protocol 0.05 MCG/KG/MIN Fentanyl Citrate 2,500 mcg in 250 mls @ 2.5 mls/hr 03/26/24 16:40 03/27/24 09:00 Sublimaze Inj 2,500 Mcg/250 Ml Bag IV 03/30/24 01:48 225 mcg/hr .Q24H PRN 22.5 mls/hr PER PROTOCOL Titration Protocol 25 MCG/HR Propofol 1,000 mg in 100 mls @ 1.35 mls/hr 03/26/24 16:40 Diprivan Ivpb IV 04/24/24 01:48 .Q24H PRN PER PROTOCOL Protocol 5 MCG/KG/MIN Ondansetron HCl 4 mg 03/14/24 03:00 Ondansetron Inj 2 Mg/Ml Inj 2 Ml IV 04/13/24 02:59 Q6H PRN NAUSEA OR VOMITING Protocol Pantoprazole Sodium 40 mg 03/26/24 09:00 03/26/24 08:29 Pantoprazole Inj 40 Mg Vial IV 04/25/24 08:59 40 mg QDAY EMPERATRIZ Administration Protocol Plan #Acute kidney injury #Bilateral PNA #ILD Likely pre renal Worsening renal function Good urine output Plan: -not candidate for HD -family leaning towards comfort care - Patient's care was discussed with my attending physician, Dr. Carlo Toscano MD Internal Medicine PGY-3 Attending Provider Attestation/Addendum Agree with assessment and plan and findings. Seen and examined. labs reviewed. Plan discussed with resident. Jose F Matos MD
[2024-03-27 09:44] LABS: Basophils % (Auto) 0 % (0-2.5); Eosinophils # (Auto) 0.2 Thou/mm3 (0.0-0.5); Eosinophils % (Auto) 1 % (0-10); Immature Granulocytes % (Auto) 1 % (0-0); Lymphocytes # (Auto) 0.5 Thou/mm3 (1.0-4.8); Lymphocytes % (Auto) 4 % (10-50); Mean Corpuscular Hemoglobin 23.7 pg (25.0-35.0); Mean Corpuscular Volume 79 fL (80-100); Monocytes # (Auto) 0.5 Thou/mm3 (0.0-0.8); Monocytes % (Auto) 4 % (0-12); Neutrophils # (Auto) 10.8 Thou/mm3 (1.8-7.7); Neutrophils % (Auto) 90 % (37-80); Nucleated Red Blood Cell % 0 /100 WBC (0); Platelet Count 196 Thou/mm3 (140-440); RDW Standard Deviation 51.4 fL (36.4-46.3); Red Blood Count 3.54 Miln/mm3 (4.00-5.20)
[2024-03-27 09:52] LABS: Hemoglobin 8.4 g/dL (12.0-16.0)
[2024-03-27 10:02] LABS: Alanine Aminotransferase 15 U/L (10-49); Albumin/Globulin Ratio 1.6 (1.2-2.2); Alkaline Phosphatase 84 U/L (46-116); Anion Gap 7 (7-16); Aspartate Amino Transferase 28 U/L (0-34); BUN/Creatinine Ratio 53 Ratio (12-20); Bilirubin,Total 0.4 mg/dL (0.3-1.2); Blood Urea Nitrogen 95 mg/dL (9-23); Calcium 8.1 mg/dL (8.3-10.6); Calcium (Corrected) 8.9 mg/dL (8.5-10.1); Carbon Dioxide 39.7 mMol/L (20.0-31.0); Chloride 103 mMol/L (98-107); Creatinine (Component) 1.8 mg/dL (0.6-1.3); Estimated Creatinine Clearance 16.8 mL/min (>60); Globulin 1.9 gm/dL (2.3-3.5); Glucose 80 mg/dL (74-106); Osmolality,Calculated 326 (275-295); Potassium 3.7 mMol/L (3.4-5.1); Sodium 150 mMol/L (136-145); Total Protein 4.9 gm/dL (5.7-8.2); eGFR 28 See Note
[2024-03-27] MEDS: fentaNYL 2,500 MCG/250 ML BAG 2,500 MCG/250 ML BAG 22.5 MCG IV (10:08)
[2024-03-27] MEDS: PROPOFOL 1,000 MG IVPB 1,000 MG/100 ML VIAL 1.35 MG IV (10:08)
[2024-03-27] MEDS: LORazepam 2 MG/ML VIAL 1 MG IVP (11:54)
--- NOTE | 2024-03-27 15:26 | EVENTNT_ITS ---
<Statement entered by Emiliana Currie MD - 03/28/24 08:00> I saw and evaluated the patient. I reviewed the resident?s note and agree with findings and plan as documented in the resident?s note. Documentation for date of: 03/27/24 The goals of care discussion was initiated with the patient's family including Pt's son Aj, brother, niece, grand daughter and friend at bedside as well as Dr. Currie, Nurse Maynor. We reviewed the patient's hospital course, ongoing management and poor prognosis of extensive interstitial lung disease. Goals of care discussion was held with previous ICU team and the pt's son wanted more family to arrive from [facility] so they have a chance to see her before transitioning to comfort and off the mechinical ventilator. The family was again given time to ask questions; all of their questions were answered to satisfaction with understanding of the patient's prognosis and the family made the decision to transition to comfort care with direct focus on making the patient comfortable so she does not suffer or feel pain as she passes peacefully. Comfort care orders are submitted. Assessment and plan discussed with my attending physician Dr. Rosey Beckford (PGY-1)- Internal medicine resident
--- NOTE | 2024-03-27 15:26 | PC.SS ---
Update: Plan is to transition the patient to comfort care.
--- NOTE | 2024-03-27 18:30 | ESPR_ITS ---
<Statement entered by Emiliana Currie MD - 03/28/24 08:24> TOTAL TIME: 45MINUTES ON DIRECT MEDICAL CARE, MANAGEMENT - COORDINATION AND COUNSELING > 50% OF TOTAL TIME I saw and evaluated the patient. I reviewed the resident?s note and agree with findings and plan as documented in the resident?s note. Lung compliance remains unchanged and is quite low. Although ABGs improved. Discussed goals of care once again with family and they wish to proceed with comfort care. Patient comfort care orders include fentanyl drip with serial reduction and pressure support when she is able to recover her own respiratory drive. Currently respiratory drive compromised due to the sedation. Documentation for date of: 03/27/24 Subjective Subjective Interval history: 03/26: pt is seen and examined at bedside. pt is sedated and mechanically ventilated without response to verbal or tactile stimuli. familly will arrive at 5pm for a goals of care discussion regarding poor prognosis and possibility of comfort care. Pt. is on fentanyle and propofol. Will begin free water boluse of 500 mL through NG tube and then 250 mL free water every 6 hours through NG tube. 03/27: Pt is seen and examined at bedside. Pt. family have arrived and have chosen to put patient on comfort care. Pt. is on volume control mechanical ventilator with goal of keeping patient comfortable as she is able to tolerate spontaneous breathing trial. will continue to increase sedating as needed to keep patient comfortable. Exam Vital Signs Temp Pulse Resp BP Pulse Ox O2 Del Method O2 Flow Rate 99.2 F 95 26 H 184/85 H 95 Mechanical Ventilation 40 03/27/24 13:00 03/27/24 18:28 03/27/24 18:28 03/27/24 18:28 03/27/24 18:28 03/27/24 13:00 03/24/24 00:00 FiO2 65 03/27/24 18:28 Narrative Exam GENERAL: pt. is sedated and mechically ventilated NEURO: unable to asses due to Pt's mental status HEENT: Atraumatic, Normocephalic. mucous membranes moist. Eyes closed HEART: Normal Heart Sounds LUNGS: Clear to auscultation ABDOMEN: soft, non-distended SKIN: No Rash or ecchymoses EXTREMITIES: No edema or tenderness, pedal pulses palpated Objective Labs 03/27/24 09:35 12/02/24 09:35 Labs: Laboratory Results - last 24 hr 03/16/24 03/27/24 03/27/24 21:44 04:40 09:35 WBC 12.0 H RBC 3.54 L Hgb 8.4 L Hct 28.0 L MCV 79 L MCH 23.7 L MCHC 30.0 L RDW Std Deviation 51.4 H Plt Count 196 Neut % (Auto) 90 H Lymph % (Auto) 4 L Meigs % (Auto) 4 Eos % (Auto) 1 Baso % (Auto) 0 Neut # (Auto) 10.8 H Lymph # (Auto) 0.5 L Meigs # (Auto) 0.5 Eos # (Auto) 0.2 Baso # (Auto) 0.0 Immature Gran # (Auto) 0.10 H Absolute Nucleated RBC 0.00 Immature Gran % 1 H Nucleated RBC % 0 Puncture Site Right Radial ABG pH 7.40 ABG pCO2 68 H ABG pO2 112 H D ABG HCO3 42 H ABG O2 Saturation 99 H ABG Base Excess 15 H FiO2 65 Sodium 150 H Potassium 3.7 Chloride 103 Carbon Dioxide 39.7 H Anion Gap 7 BUN 95 H Creatinine 1.8 H D Estim Creat Clear Calc 16.8 L eGFR 28 L BUN/Creatinine Ratio 53 H Glucose 80 D Calculated Osmolality 326 H Calcium 8.1 L Corrected Calcium 8.9 Total Bilirubin 0.4 AST 28 ALT 15 Alkaline Phosphatase 84 Total Protein 4.9 L Albumin 3.0 L Globulin 1.9 L Albumin/Globulin Ratio 1.6 Rheum Factor (Ref Lab) 23 H ABG Interpretation ABG results: 03/15/24 03/16/24 03/17/24 20:34 20:31 02:35 ABG pH 7.45 7.47 H 7.40 ABG pCO2 34 38 41 ABG pO2 100 79 L D 94 ABG HCO3 24 27 H 25 ABG O2 Saturation 99 H 97 98 ABG Base Excess 0 4 H 0 VBG pH VBG pCO2 VBG pO2 VBG Base Excess 03/18/24 03/21/24 03/21/24 02:37 05:08 18:27 ABG pH 7.40 Cancelled ABG pCO2 41 Cancelled ABG pO2 95 Cancelled ABG HCO3 25 Cancelled ABG O2 Saturation 98 Cancelled ABG Base Excess 0 Cancelled VBG pH 7.52 VBG pCO2 37 VBG pO2 64 H VBG Base Excess 7 H 03/21/24 03/21/24 03/23/24 18:49 18:56 09:21 ABG pH Cancelled 7.47 H 7.42 ABG pCO2 Cancelled 44 48 ABG pO2 Cancelled 44 L* 75 L D ABG HCO3 Cancelled 31 H 32 H ABG O2 Saturation Cancelled 81 L 96 ABG Base Excess Cancelled 7 H 6 H VBG pH VBG pCO2 VBG pO2 VBG Base Excess 03/25/24 03/25/24 03/26/24 02:35 04:13 04:09 ABG pH 7.18 L* D 7.15 L* 7.37 D ABG pCO2 75 H* D 87 H* D 75 H* D ABG pO2 173 H D 217 H D 92 D ABG HCO3 28 H 30 H 43 H ABG O2 Saturation 100 H 100 H 98 ABG Base Excess -2 1 16 H VBG pH VBG pCO2 VBG pO2 VBG Base Excess 03/27/24 04:40 ABG pH 7.40 ABG pCO2 68 H ABG pO2 112 H D ABG HCO3 42 H ABG O2 Saturation 99 H ABG Base Excess 15 H VBG pH VBG pCO2 VBG pO2 VBG Base Excess Quality Measures Quality Measures sepsis Current suspected stage: ruled out Possible source: pulmonary Blood cultures ordered: completed in ED Antibiotic ordered: No Advance care planning discussed with:: child Assessment & Plan Assessment Current Active Medications: Generic Name Dose Route Start Last Admin Trade Name Freq PRN Reason Stop Dose Admin Artificial Tears 1 drop 03/27/24 10:26 Artificial Tears 225 Drop/15 Ml Btl BOTH EYES 04/26/24 10:25 Q4HR PRN Dry eyes Atropine Sulfate 2 drop 03/27/24 10:21 Atropine Sulf Op Rissa 1% 5 Ml Btl SL 04/26/24 10:20 Q4HR PRN SECRETIONS Diphenhydramine HCl 25 mg 03/27/24 10:26 Diphenhydramine Inj 50 Mg/Ml Vial IVP 04/26/24 10:25 Q6HR PRN ITCHING Fentanyl Citrate 225 mcg 03/27/24 11:30 Fentanyl Cit Inj 50 Mcg/Ml Amp 2ml IVP Q5MIN PRN Maintain comfort Protocol Fentanyl Citrate 2,500 mcg in 250 mls @ 22.5 mls/hr 03/27/24 11:45 Sublimaze Inj 2,500 Mcg/250 Ml Bag IV 04/01/24 11:44 .Q11H7M EMPERATRIZ Protocol 225 MCG/HR Lorazepam 1 mg 03/27/24 12:00 03/27/24 11:54 Lorazepam 2 Mg/Ml Vial IVP 04/01/24 11:59 1 mg Q2HR EMPERATRIZ Administration Scopolamine 1 mg 03/27/24 10:30 Scopolamine 1 Mg Tdsy TOP 04/26/24 10:29 Q3D EMPERATRIZ Plan A 82-year-old female with past medical history of hypertension, GERD s/p fundoplication with hiatal hernia repair, hyperlipidemia, TIA [2021], depression was brought to the hospital with chief complaints of shortness of breath and admitted with acute hypoxic respiratory failure. She was found to have type 3 pulmonary hypertension, secondary to suspected hypersensitivity pneumonitis interstitial lung disease. NEURO #Acute metabolic encephalopathy Secondary to hypercapnia/hypoxia versus uremia Patient's mentation declined throughout admission, on 03/25 GCS of 8 around 1 am, intubated for airway protection -BUN today was 120, follow up repeat BUN, channel opener outsoles Dr Matso following -Mechanical ventilation for airway protection CARDIO # HFrEF # Moderate to severe pulmonary hypertension # Group 3 PAH in the setting of interstitial lung disease -Elevated BNP on admission cardiology was consulted -Echo done during this admission showed EF of 40 to 45% with moderate to severe pulmonary hypertension. -Right heart cath performed on 03/21/2024 -Mild pulmonary hypertension with mean PAP greater than 25 mmHg, moderately elevated LVEDP at 27 mmHg, PVR is markedly elevated at 4 wood units and TPG is 23. -Normal cardiac output and index. Isolated precapillary pH indicating Group 3 PAH secondary to lung disease and possible component of vasoconstriction along with fibrosis Plan -Discontinued the mycophenolate and methylprednisolone -Started norepinephrine as patient became hypotensive # Hypotension # History of hypertension Likely in setting of obstructive verus cardiogenic shock. -Start norepinephrine as needed to maintain MAP >65 -Discontinued nicardipine, labetalol, hydralazine -Will monitor blood pressures PULM # Acute hypoxic respiratory failure # ARDS # Bilateral pulmonary infiltrates with severe hypertension #?Chronic hypersensitivity pneumonitis -Admitted with difficulty in breathing -Denies fever, cough, nausea, abdominal pain, weight loss, appetite loss. -BNP is >3000 for which cardiology was consulted. -Echo done showed severe pulmonary hypertension -CT showed bilateral infiltrates with ARDS pattern. -Patient was noted to have bilateral hand deformities and when asked about the history, patient's [id number] stated that she was diagnosed to have rheumatoid arthritis but did not get any treatment for that. -RA factor, anti-CCP, LISBET was ordered. -Creatinine kinase - normal limits, aldolase was ordered. Patient was upgraded to ICU on 03/16/2024 in view of low saturations despite being on high flow oxygen for observation and further care. -Group A antigen was negative streptococcus and Legionella antigen is still pending. 03/25 upgraded to ICU for first time intubation Plan -Continue mechanical ventilation support, currently do not expect patient to be able to survive extubation. -Antibiotics have been discontinued -Methylprednisolone was stopped -Mycophenolate mofetil was stopped -Pt. is on comfort care. -Pt. is on volume control mechanical ventilator with goal of keeping patient comfortable as she is able to tolerate spontaneous breathing trial. will continue to increase sedating as needed to keep patient comfortable. GI #s/p NG tube -resume free water bolus 500ml through NG tube and then 250ml free water Q6hr NEPHRO #ROBEL, prerenal Likely in the setting of diuresis. -BUN and creatinine is within normal limits till 03/16/2024 -On 03/17/2024, BUN is 41 and creatinine is 1.5 >(03/26) BUN 120, Creatinine 2.4 and GFR 20 -Urine output is well-maintained. Plan -Diuretics were withheld. -Will continue to monitor renal functions and avoid nephrotoxic medications URO #No active problems HEME # Leukocytosis, resolved -In the setting of ongoing chronic lung disease. # Microcytic hypochromic anemia -Hemoglobin is 9.5 at the time of admission -Hgb 03/26 7.8, Hct 25.7 -Iron panel showed iron deficiency. Plan -Iron infusion was withheld in the view of ongoing active lung disease -Will continue to monitor CBC. ENDO #No active problems ID #No active problems MSK # Bilateral hand deformities Likely due to rheumatoid arthritis. RA factor and anti-CCP antibodies were sent. RA factor came out negative. SKIN #No active problems DVT prophylaxis: Heparin GI prophylaxis: Protonix Diet: Regular Martinez: Present Lines: peripheral Antibiotics: none CODE STATUS: DNR Assessment and plan discussed with my attendin Dr. Rosey Beckford (PGY-1)- Internal medicine resident
--- NOTE | 2024-03-27 19:35 | PC.RT ---
per Dr Ortiz these are Dr Currie's orders. Unable to extubate pt to comfort care. So Dr Placed Pt on PSV 20/8. every 15-20 min ventilator PS is to be titrated down 5. All while RN is going up on sedation to keep pt as comfortable as possible. And extubate when pt has a PSV of 5/5.
[2024-03-27] MEDS: fentaNYL 2,500 MCG/250 ML BAG 2,500 MCG/250 ML BAG 25 MCG IV (19:40)
[2024-03-27] MEDS: SCOPOLAMINE 1 MG TDSY TOP (19:56)
[2024-03-27] MEDS: fentaNYL CIT INJ 50 mCg/ML AMP 2ML 250 MCG IVP ×2 (20:28→21:06)
--- NOTE | 2024-03-27 21:10 | PC.RT ---
Pt extubated at 2106 and placed on 3lnc. Pt is comfort care and expected to pass. Son is at bedside with pt
--- NOTE | 2024-03-27 21:28 | PD.DPN ---
Documentation for date of: 03/27/24 Pronouncement Note Date and Time of Date of : 03/27/24 Time of : 21:23 Contributing Factors (1) Bilateral pneumonia: (2) Acute kidney injury: Summary Additional details: called to see patient for unresponsiveness. On exam, the patient was unresponsive, no spontaneous movement was observed, patient did not respond to verbal or noxious stimuli. Auscultated absent heart and breath sounds for more than 2 minutes. Peripheral pulses are absent. Pupils are fixed, dilated, and corneal reflex was absent bilaterally. Patient pronounced at 21: [address] Blackwood was notified and condolences were given to family members. Patient discussed with my attending Dr Jaison Goldsmith MD PGY-3 Disclaimer: Despite multiple revisions, due to the dictation software being used, the document bellow may not be free of grammatical errors including phonetic/typographic errors. However, this does not deter from our commitment to providing health care in the patient's best interest in mind. Additional Data Attending physician: Kelsey Britt DO
--- NOTE | 2024-03-27 21:45 | PC.NURSE ---
extubated at 2102, pt pronounced at 2122 called and notified donor network [id number]
--- NOTE | 2024-03-28 19:06 | DES_ITS ---
<Statement entered by Emiliana Currie MD - 03/29/24 08:25> TOTAL TIME: 45MINUTES ON DIRECT MEDICAL CARE, MANAGEMENT - COORDINATION AND COUNSELING > 50% OF TOTAL TIME I saw and evaluated the patient. I reviewed the resident?s note and agree with findings and plan as documented in the resident?s note. Documentation for date of: 03/28/24 Summary Date and Time Date of admission: 03/14/24 03:00 Summary Details: Time of March 27, 2024 at 21: 23 Hospital Course: Ms. Garcia is a 89-year-old female with past medical history of hypertension hyperlipidemia, history of TIA, depression and GERD status post nisin fundoplication nation, status post hiatal hernia repair presented to [facility] ED on 03/14/2024 complaining of shortness of breath and paroxysmal nocturnal dyspnea. Patient was found to be hypoxic and started on oxygen via nasal cannula.Patient was COVID and flu negative, WBC, procalcitonin and lactic acid within normal limits at the time of admission. Troponin was 0.1 and BNP was more than 3000. Chest x-ray showed extensive bilateral opacities with significant vascular congestion patient was admitted to the hospital for new onset CHF. Echo findings include diastolic dysfunction with estimated ejection fraction of 40-45 with moderate mitral regurgitation and severe pulmonary hypertension. Last echo was done in 2021 with ejection fraction 60 with mild LVH and moderate aortic regurgitation. Patient was following Dr. Hutchins as her cna gna in [place]. patient was given Lasix 40 Mg daily. Chest CTA completed which showed severe bilateral pneumonia ARDS pattern, bilateral bronchiectasis, fibrosis and significant consolidation. Patient was treated for community-acquired pneumonia with ceftriaxone and azithromycin. On 03/16/2024 rapid response was called for increased work of breathing and respiratory rate of 44 patient was hypoxic. ABG showed mildly alkalotic pH 7.47, consistent with patient's RR, and hypoxemia with pO2 of 79., Patient was placed on high flow nasal cannula on 25 L, 80% FiO2 maintaining oxygen saturation at 94%. On 03/17/2024 patient became lethargic and altered and confused at times patient was then upgraded to ICU for close monitoring and patient was started on steroids in light of chronic hypersensitivity pneumonitis. On 03/21/2024 Patient underwent right heart catheterization by Dr. On Anumandla and found to have grade 3 pulmonary arterial hypertension secondary to ILD. On 03/22/2024 patient was downgraded to telemetry on high flow oxygen with 65% FiO2 and 35 L/min. On 03/25/2024 patient was intubated to protect airways due to patient's GCS of less than 8 and worsening mentation. Patient's family was at bedside and had opportunity to meet with the patient and decision was made to change CODE STATUS to DNR and proceed with comfort care after family members arrived from [place]. The transition to comfort care was made with direct focus on making the patient comfortable so that she does not suffer or feel any pain as she passes peacefully. Patient was extubated on March 27, 2024 patient's was pronounced at 21: 23 and condolences were given to family members at bedside. #HFrEF EG 40-45% # Moderate to severe pulmonary hypertension # Group 3 PAH in the setting of interstitial lung disease # Hypotension # History of hypertension # Acute hypoxic respiratory failure # ARDS # Bilateral pulmonary infiltrates with severe hypertension #Chronic hypersensitivity pneumonitis #ROBEL, prerenal #Leukocytosis resolved #Microcytic anemia Assessment and plan discussed with my attending physician Dr. Rosey Beckford ([id number]-1)- Internal medicine resident Additional Data Attending physician: Kelsey Britt, Visit Providers Provider Primary care physician: Jabier Campos MD Consults: 03/16/24 10:43 Referral Speech Therapy Routine Comment: Diagnosis Contributing Factors (1) Bilateral pneumonia: (2) Acute kidney injury: Discharge Plan Plan Patient Disposition: Prescriptions/Referrals Referrals: Jabier Campos MD [Primary Care Provider] - Patient/Caregiver Discharge Instructions Print Language: Citizen Of [place]
[2024-03-29 07:11] LABS: ANA Pattern NUCLEAR, HOMOGENEOUS; ANA Screen, IFA POSITIVE (NEGATIVE); Aldolase* 9.1 U/L (< OR = 8.1); CCP Antibody (IgG)* <16 Units
== END 2024-03-27 21:23 | disposition expired | DRG 208 ==
LOC: SERX 03-14 03:35 → SERHOLD 03-14 03:38 → S3SX 03-14 16:29 → S3NX 03-14 19:52 → S2SX 03-17 15:45 → S2NX 03-20 09:52 → S3NX 03-20 09:52 → S2NX 03-20 09:52 → S2SX 03-20 09:52 → S2NX 03-22 17:32 → S2SX 03-25 01:41
PROVIDERS: Internal Medicine Cardiovascular Disease; Student in an Organized Health Care Education/Training Program; Admitting Provider Internal Medicine; Emergency Provider Emergency Medicine; PCP Family Medicine; Visit Provider Internal Medicine
DX: J18.9 Pneumonia, unspecified organism (principal); G93.41 Metabolic encephalopathy; I21.A1 Myocardial infarction type 2; J80 Acute respiratory distress syndrome; I50.41 Acute combined systolic (congestive) and diastolic (congestive) heart failure; N17.9 Acute kidney failure, unspecified; I13.0 Hypertensive heart and chronic kidney disease with heart failure and stage 1 through stage 4 chronic kidney disease, or unspecified chronic kidney disease; R64 Cachexia; J67.9 Hypersensitivity pneumonitis due to unspecified organic dust; F32.A Depression, unspecified; I35.1 Nonrheumatic aortic (valve) insufficiency; K21.9 Gastro-esophageal reflux disease without esophagitis; E78.5 Hyperlipidemia, unspecified; D50.9 Iron deficiency anemia, unspecified; N18.31 Chronic kidney disease, stage 3a; Z86.73 Personal history of transient ischemic attack (TIA), and cerebral infarction without residual deficits; Z66 Do not resuscitate; E87.6 Hypokalemia; M06.9 Rheumatoid arthritis, unspecified; I27.23 Pulmonary hypertension due to lung diseases and hypoxia; D63.1 Anemia in chronic kidney disease; Z51.5 Encounter for palliative care; I08.0 Rheumatic disorders of both mitral and aortic valves
CPT/HCPCS: 36415; 36600; 71045; 71275; 74160; 76000; 80048; 80053; 80061; 81001; 82040; 82085; 82247; 82550; 82607; 82728; 82803; 83540; 83550; 83605; 83735; 83880; 84100; 84132; 84145; 84450; 84460; 84484; 85025; 85610; 85730; 86038; 86039; 86200; 86331; 86430; 86431; 86635; 87040; 87077; 87081; 87086; 87106; 87186; 87205; 87400; 87449; 87502; 87634; 87651; 87811; 89220; 92526; 92609; 92610; 93225; 93306; 94002; 94003; 94640; 94660; 94664; 96365; 96367; 96372; 96375; 99285; A4649; A9270; J0330; J0360; J0456; J0612; J0696; J1120; J1643; J1815; J1885; J1940; J2060; J2270; J2470; J2704; J2919; J3010; J3475; J3480; J3490; J7030; J7040; J7050; J7060; J7120; J7512; J7517; Q9967; J1644; J1920